=== PATIENT | female | born 1950 | race American Indian/Alaskan Native ===

== ENCOUNTER 2016-03-22 09:45 | Inpatient (IN) | payer MEDICAID, MEDICARE ==
[2016-03-22 10:29] LABS: Urine Drugs of Abuse Note Disclamer
[2016-03-22] MEDS ORDERED: NARCAN 0.4 MG/1 ML ONE ×2 (10:31→10:35)
[2016-03-22] MEDS ORDERED: NARCAN 2 MG/2 ML ONE (10:36)
[2016-03-22] MEDS ORDERED: NARCAN 0.4 MG/1 ML IV ONE (10:40)
[2016-03-22] MEDS ORDERED: NARCAN 2 MG/2 ML IV ONE (10:42)
[2016-03-22 10:47] LABS: Bilirubin,Urine NEG (Negative); Blood,Urine NEG (Negative); Ketones,Urine NEG (Negative); Leukocyte Esterase,Urine NEG (Negative); Nitrite,Urine NEG (Negative); Urobilinogen,Urine < 2.0 mg/dL (<2.0)
[2016-03-22] MEDS ORDERED: ZEMURON IV ONE (10:54)
[2016-03-22 10:55] LABS: Hematocrit 29.8 % (30.3-42.9); Hemoglobin 9.5 gm/dl (10.1-14.3); Mean Corpuscular HGB Conc 32 % (30-34); Mean Corpuscular Hemoglobin 27 pg (28-32); Mean Corpuscular Volume 86 fl (79-97); Platelet Count 196 K/mm3 (140-440); Red Blood Count 3.48 M/mm3 (3.65-5.03); Red Cell Distribution Width 15.8 % (13.2-15.2); White Blood Count 11.4 K/mm3 (4.5-11.0)
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
[2016-03-22 11:24] LABS: Alanine Aminotransferase 46 units/L (7-56); Albumin/Globulin Ratio 0.7 %; Alkaline Phosphatase 127 units/L (35-129); Anion Gap 22 mmol/L; BUN/Creatinine Ratio 25.45; Bilirubin,Total 0.4 mg/dL (0.1-1.2); Blood Urea Nitrogen 28 mg/dL (7-17); Calcium 8.8 mg/dL (8.4-10.2); Carbon Dioxide 18 mmol/L (22-30); Chloride 104.2 mmol/L (98-107); Glucose 186 mg/dL (65-100); Potassium 3.5 mmol/L (3.6-5.0); Sodium 141 mmol/L (137-145); Total Protein 7.5 g/dL (6.3-8.2)
[2016-03-22 11:29] LABS: Anisocytosis 1+; Blastocytes % (Manual) 0 %; Eosinophils % (Manual) 0 % (0.0-4.3); Helmet Cells Rare; Microcytosis Rare; Poikilocytosis 1+; Polychromasia Few
[2016-03-22 11:30] LABS: Diff Status Complete
[2016-03-22 11:33] LABS: INR 1.04 (0.87-1.13)
--- NOTE | 2016-03-22 11:39 | Admit Criteria Form ---
Admission Criteria Documentation: RESPIRATORY FAILURE GRG Clinical Indications for Admission to Inpatient Care (Place 'X' for any and all applicable criteria): Hospital admission is needed for appropriate care of the patient because of acute respiratory failure or insufficiency as indicated by ANY ONE of the following(1)(2)(3)(4)(5)(6)(7)(8): [X ]I. Mechanical ventilation needed (acute invasive or noninvasive) [ ]II. Severe ventilation deficit as indicated by ANY ONE of the following (9) [ ]a) Respiratory acidosis (pH less than 7.32 and partial pressure of carbon dioxide greater than 40 mm Hg (5.3 kPa)) [ ]b) Partial pressure of carbon dioxide greater than 44 mm Hg (5.9 kPa ) (new) [ ]c) Airflow measurements less than 25% of predicted (eg, peak expiratory flow rate less than 100 L/minute) [ ]d) Forced vital capacity less than 15 mL/kg of ideal body weight, or 50% decrease in vital capacity from baseline [ ]III. Noncardiac pulmonary edema not resolving with rapid emergency treatment (8) [ ]IV. Severe respiratory distress as indicated by ANY ONE of the following: [ ]a) Severe tachypnea (respiratory rate greater than 30, greater than 45 for 6-month-old, greater than 60 for ) [ ]b) Severe hypoxemia (partial pressure of oxygen less than 50 mm Hg ( 6.7 kPa) on greater than 50% oxygen or partial pressure of oxygen to FIO2 ratio less than 200) [ ]c) Mental status deterioration from respiratory disease [ ]V. Airway obstruction or inadequate protection [A](10)(11) The original [employer] content created by [employer] has been revised. The portions of the content which have been revised are identified through the use of italic text or in bold, and [employer] has neither reviewed nor approved the modified material. All other unmodified content is copyright [employer]. Please see references footnoted in the original [employer] edition 2016 Admission Criteria Met: Yes
[2016-03-22 11:42] LABS: Creatine Kinase 597 units/L (30-135)
[2016-03-22] MEDS ORDERED: NACL 0.9% 1000 ML 1,000 ML IV ONE (11:46)
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
--- NOTE | 2016-03-22 12:18 | XRay Report ---
AP chest: Comparison is made to a prior examination on March 25, 2015. There is a focal linear area of probable mid left lung atelectasis. The perihilar markings on the left may be slightly prominent. The lungs otherwise appear generally clear bilaterally. The heart is normal in size and is no vascular congestion. An endotracheal tube tip is well-positioned just above the tiny. Impression: Questionable mild left perihilar infiltrate or areas of atelectasis.
[2016-03-22 12:22] LABS: ISTAT Base Excess -6; ISTAT HCO3 18.6; ISTAT PCO2 30.6 (35-45); ISTAT PH 7.391 (7.35-7.45); ISTAT PO2 103 (80-105); ISTAT SO2 98; ISTAT TCO2 19
[2016-03-22] MEDS ORDERED: LEVAQUIN 750MG/150ML 150 ML IV ONE (12:35)
[2016-03-22] MEDS ORDERED: SUBLIMAZE ONE ×2 (13:59→16:05)
[2016-03-22] MEDS ORDERED: ARTIFICIAL TEARS OPHTH OINT OU PRN (13:59)
[2016-03-22] MEDS ORDERED: VERSED/NS 100MG/100ML 100 ML IV SCH (14:00)
[2016-03-22] MEDS ORDERED: DULCOLAX PR PRN (15:43)
[2016-03-22] MEDS ORDERED: MILK OF MAGNESIA PO PRN (15:43)
[2016-03-22] MEDS ORDERED: ZOFRAN IV PRN (15:43)
[2016-03-22] MEDS ORDERED: TYLENOL PO PRN (15:43)
[2016-03-22] MEDS ORDERED: fentaNYL DRIP Premix 100 ML IV ONE (16:04)
[2016-03-22] MEDS ORDERED: DUONEB 0.5 MG-3 MG/3 ML SOLN IH PRN (16:18)
[2016-03-22] MEDS ORDERED: PROVENTIL IH PRN (16:26)
[2016-03-22] MEDS ORDERED: ZOSYN/NS 4.5GM/100ML 100 ML IV ONE ×2 (17:00→17:53)
[2016-03-22] MEDS ORDERED: fentaNYL DRIP Premix 100 ML IV SCH (17:00)
[2016-03-22] MEDS ORDERED: D5NS 1,000 ML IV SCH (17:00)
[2016-03-22] MEDS ORDERED: SUBLIMAZE IV ONE (17:14)
[2016-03-22] MEDS: DUONEB 0.5 MG-3 MG/3 ML SOLN IH SCH ×2 (17:27→19:35)
[2016-03-22 17:44] LABS: ISTAT Base Excess -8; ISTAT HCO3 18.2; ISTAT PCO2 37.5 (35-45); ISTAT PH 7.294 (7.35-7.45); ISTAT PO2 82 (80-105); ISTAT SO2 95; ISTAT TCO2 19
[2016-03-22 17:44] LABS: ISTAT Base Excess -5; ISTAT HCO3 20.8; ISTAT PCO2 38.2 (35-45); ISTAT PH 7.344 (7.35-7.45); ISTAT PO2 42 (80-105); ISTAT SO2 74; ISTAT TCO2 22
--- NOTE | 2016-03-22 23:12 | Event Note ---
Date: 03/22/16 See H/p in reports Acute resp failure Toxic Encephalopathy Cocaine/opiate dependence HTN IDDM
[2016-03-22] MEDS ORDERED: PANCREAZE DR 10,500 UNIT FEEDTUBE PRN (23:21)
[2016-03-22] MEDS ORDERED: SODIUM BICARBONATE FEEDTUBE PRN (23:21)
[2016-03-22] MEDS ORDERED: SIMPLE SYRUP FEEDTUBE PRN ×2 (23:21)
[2016-03-22] MEDS ORDERED: ATIVAN IV PRN ×2 (23:22)
[2016-03-22] MEDS ORDERED: HALDOL IV PRN (23:22)
[2016-03-22] MEDS: LOVENOX SUB-Q SCH (23:49)
[2016-03-23] MEDS: NOVOLOG SUB-Q SCH ×4 (00:27→18:16)
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
[2016-03-23] MEDS: DUONEB 0.5 MG-3 MG/3 ML SOLN IH SCH ×4 (01:13→20:08)
[2016-03-23] MEDS: ZOSYN/NS 4.5GM/100ML 100 ML IV SCH ×3 (02:00→18:14)
[2016-03-23] MEDS ORDERED: ZOSYN/NS 3.375GM/50ML 50 ML IV SCH (02:00)
[2016-03-23 04:54] LABS: Hematocrit 30.8 % (30.3-42.9); Hemoglobin 9.7 gm/dl (10.1-14.3); Mean Corpuscular HGB Conc 32 % (30-34); Mean Corpuscular Hemoglobin 27 pg (28-32); Mean Corpuscular Volume 86 fl (79-97); Platelet Count 207 K/mm3 (140-440); Red Blood Count 3.59 M/mm3 (3.65-5.03); Red Cell Distribution Width 16.1 % (13.2-15.2); White Blood Count 12.9 K/mm3 (4.5-11.0)
[2016-03-23 04:59] LABS: ISTAT Base Excess -7; ISTAT HCO3 18.7; ISTAT PCO2 33.8 (35-45); ISTAT PH 7.351 (7.35-7.45); ISTAT PO2 74 (80-105); ISTAT SO2 94; ISTAT TCO2 20
[2016-03-23 05:12] LABS: Alanine Aminotransferase 37 units/L (7-56); Albumin/Globulin Ratio 0.8 %; Alkaline Phosphatase 110 units/L (35-129); Bilirubin,Total 0.3 mg/dL (0.1-1.2); Blood Urea Nitrogen 18 mg/dL (7-17); Carbon Dioxide 19 mmol/L (22-30); Chloride 104.9 mmol/L (98-107); Glucose 390 mg/dL (65-100); Sodium 140 mmol/L (137-145)
[2016-03-23 05:13] LABS: Anion Gap 20 mmol/L
[2016-03-23] MEDS: NACL 0.45% 1000 ML 1,000 ML IV SCH ×2 (06:25→22:08)
[2016-03-23 07:23] LABS: Basophils % (Manual) 0 % (0.0-1.8); Blastocytes % (Manual) 0 %; Eosinophils % (Manual) 0 % (0.0-4.3)
[2016-03-23 07:24] LABS: Anisocytosis 1+; Diff Status Complete; Dohle Bodies Few; Hypochromasia Few; Polychromasia Few
[2016-03-23] MEDS ORDERED: CATAPRES-TTS PATCH TD SCH (10:00)
[2016-03-23] MEDS: LOVENOX SUB-Q SCH (10:13)
--- NOTE | 2016-03-23 11:58 | XRay Report ---
FINAL REPORT PROCEDURE: XR CHEST 1V AP TECHNIQUE: Chest radiograph anteroposterior view. CPT 62634 HISTORY: vent protocol COMPARISON: None FINDINGS: Feeding tube is present extending past the inferior border of the study tip subdiaphragmatic. Endotracheal tube is not definitely seen. The heart is normal in size. Platelike subsegmental atelectasis and/or scarring of the midlung zones bilaterally is present. There is no focal infiltrate, pneumothorax or pleural fluid. Degenerative changes of the spine are seen. IMPRESSION: Feeding tube in place. Endotracheal tube not definitely seen if present likely overlaid by the feeding tube. If clinically relevant lateral radiograph may be performed with particular attention to no overlying lines. No focal consolidation.
--- NOTE | 2016-03-23 12:02 | XRay Report ---
FINAL REPORT PROCEDURE: XR ABDOMEN 1V AP TECHNIQUE: AP view HISTORY: DHT placement COMPARISON: None FINDINGS: Dobhoff catheter is in place, tip within the distal most stomach or proximal duodenum. There is no evidence of bowel obstruction. Multiple cerclage wires are present bilaterally. There is no organomegaly or pathologic calcification. There is no acute osseous abnormality. IMPRESSION: Dobhoff catheter in place, catheter tip within the distal most stomach or proximal duodenum.
--- NOTE | 2016-03-23 13:12 | Consultation ---
History of Present Illness Consult date: 03/23/16 Requesting physician: JUANCHO ORTEZ Reason for consult: other (hypoxemia secondary to altered mental status) Past History Past Medical History: other (unable to obtain) Past Surgical History: Other (unable to obtain) Social history: other (unable to obtain) Family history: other (unable to obtain) Medications and Allergies Allergies Allergy/AdvReac Type Severity Reaction Status Date / Time No Known Allergies Allergy Verified 02/09/14 18:18 Home Medications Medication Instructions Recorded Confirmed Last Taken Type Insulin Glargine [Lantus VIAL] 10 units SUB-Q QHS #30 day 07/13/15 08/05/15 Rx Insulin Glulisine [Apidra] 1 dose SUB-Q ACHS PRN #30 day 07/13/15 12/29/1508/01 Rx Albuterol Sulfate [Ventolin HFA] 2 puff IH Q4H PRN #1 hfa.aer.ad 08/07/15 Unknown Rx Hydralazine HCl [Apresoline TAB] 50 mg PO Q8HR #90 tab 08/07/15 12/29/15 Unknown Rx amLODIPine [Norvasc] 5 mg PO QDAY #30 tablet 08/07/15 12/29/15 Unknown Rx Active Meds: Active Medications Acetaminophen (Tylenol) 650 mg PO Q4H PRN PRN Reason: Pain MILD(1-3)/Fever >100.5/HELM Albuterol (Proventil) 2.5 mg IH Q4HRT PRN PRN Reason: Shortness Of Breath Albuterol/Ipratropium (Duoneb 0.5 Mg-3 Mg/3 Ml Soln) 1 ampul IH Q6HRT [facility] Last Admin: 03/23/16 08:45 Dose: 1 ampul Lipase/Protease/Amylase (Pancreaze Dr 10,500 Unit) 1 each FEEDTUBE PRN PRN PRN Reason: For Clogged Feeding Tube Bisacodyl (Dulcolax) 10 mg GA QDAY PRN PRN Reason: Constipation unrelieved by MOM Clonidine HCl (Catapres-Tts Patch) 0.3 mg TD Sa [facility] Last Admin: 03/23/16 10:12 Dose: 0.3 mg Enoxaparin Sodium (Lovenox) 40 mg SUB-Q QDAY AKIL Last Admin: 03/23/16 10:13 Dose: 40 mg Haloperidol Lactate (Haldol) 5 mg IV Q1H PRN PRN Reason: Unrespon. to mult. doses BZD's Midazolam HCl (Versed/Ns 100mg/100ml) 100 mls @ 2 mls/hr IV TITR AKIL; 2 MG/HR PRN Reason: Protocol Last Titration: 03/23/16 07:00 Dose: 2 mg/hr Fentanyl Citrate (Fentanyl Drip Premix) 100 mls @ 3.629 mls/hr IV TITR AKIL; 1 MCG/KG/HR PRN Reason: Protocol Last Titration: 03/23/16 07:30 Dose: 0 mcg/kg/hr Piperacillin Sod/Tazobactam Sod (Zosyn/Ns 4.5gm/100ml) 100 mls @ 200 mls/hr IV Q8H AKIL PRN Reason: Protocol Last Admin: 03/23/16 10:12 Dose: 200 mls/hr Sodium Chloride (Nacl 0.45% 1000 Ml) 1,000 mls @ 75 mls/hr IV DIRECT AKIL Last Admin: 03/23/16 06:25 Dose: 75 mls/hr Insulin Aspart (Novolog) 0 units SUB-Q Q6HR AKIL PRN Reason: Protocol Last Admin: 03/23/16 12:56 Dose: 8 units Lorazepam (Ativan) 2 mg IV Q1H PRN PRN Reason: CIWA-Ar 8-15 Lorazepam (Ativan) 4 mg IV Q1H PRN PRN Reason: CIWA-Ar 16-25 Lorazepam (Ativan) 4 mg IV Q15MIN PRN PRN Reason: CIWA-Ar >25 Stop: 03/27/16 23:23 Magnesium Hydroxide (Milk Of Magnesia) 30 ml PO Q4H PRN PRN Reason: Constipation Methylprednisolone Sodium Succinate (Solu-Medrol) 40 mg IV Q8H AKIL Last Admin: 03/23/16 10:12 Dose: 40 mg Multi-Ingred Cream/Lotion/Oil/Oint (Artificial Tears Ophth Oint) 1 applic OU Q4HR PRN PRN Reason: Dry Eye(s) Last Admin: 03/23/16 06:24 Dose: 1 applic Ondansetron HCl (Zofran) 4 mg IV Q8H PRN PRN Reason: N/V unrelieved by Reglan Oxycodone/Acetaminophen (Percocet 5/325) 1 tab PO Q6H PRN PRN Reason: Pain, Moderate (4-6) Simple Syrup (Simple Syrup) 15 ml FEEDTUBE PRN PRN PRN Reason: Hypoglycemia Simple Syrup (Simple Syrup) 30 ml FEEDTUBE PRN PRN PRN Reason: Hypoglycemia Sodium Bicarbonate (Sodium Bicarbonate) 325 mg FEEDTUBE PRN PRN PRN Reason: For Clogged Feeding Tube Review of Systems ROS unobtainable: due to endotracheal tube, due to mental status Physical Examination Vital signs: Vital Signs Pulse Resp Pulse Ox 95 H 13 97 03/22/16 09:59 03/22/16 09:59 03/22/16 09:59 General appearance: no acute distress, alert Eyes: non-icteric ENT: other (orally intubated ) Neck: supple Ascultation: Bilateral: clear Percussion: Bilateral: not dull Cardiovascular: regular rate and rhythm Gastrointestinal: normoactive bowel sounds, soft Integumentary: normal Extremities: no edema Musculoskeletal: no deformities normal mental status, non-focal exam Results - Laboratory Findings CBC and BMP: 03/23/16 04:11 03/23/16 04:11 ABG POC ABG pH 7.351 (7.35-7.45) 03/23/16 04:04 POC ABG pCO2 33.8 (35-45) L 03/23/16 04:04 POC ABG pO2 74 (80-105) L 03/23/16 04:04 POC ABG HCO3 18.7 03/23/16 04:04 POC ABG Total CO2 20 03/23/16 04:04 POC ABG O2 Sat 94 03/23/16 04:04 PT/INR, D-dimer PT 13.5 Sec. (12.2-14.9) 03/22/16 11:12 INR 1.04 (0.87-1.13) 03/22/16 11:12 Abnormal lab findings: Abnormal Labs 03/22/16 03/22/16 03/22/16 17:23 17:35 22:19 WBC RBC Hgb MCH RDW Seg Neuts % (Manual) Lymphocytes % (Manual) Lymphocytes # (Manual) POC ABG pH 7.344 L 7.294 L POC ABG pCO2 POC ABG pO2 42 L Carbon Dioxide BUN Glucose POC Glucose 287 H Calcium AST Ammonia Albumin 03/23/16 03/23/16 03/23/16 00:02 04:04 04:11 WBC 12.9 H RBC 3.59 L Hgb 9.7 L MCH 27 L RDW 16.1 H Seg Neuts % (Manual) 31.0 L Lymphocytes % (Manual) 5.0 L Lymphocytes # (Manual) 0.6 L POC ABG pH POC ABG pCO2 33.8 L POC ABG pO2 74 L Carbon Dioxide BUN Glucose POC Glucose Calcium AST Ammonia 64.0 H Albumin 03/23/16 03/23/16 04:11 05:59 WBC RBC Hgb MCH RDW Seg Neuts % (Manual) Lymphocytes % (Manual) Lymphocytes # (Manual) POC ABG pH POC ABG pCO2 POC ABG pO2 Carbon Dioxide 19 L BUN 18 H Glucose 390 H POC Glucose 412 H Calcium 8.0 L AST 45 H Ammonia Albumin 3.0 L - Diagnostic Findings Chest x-ray: image reviewed (clear, mild cardiomegaly) Assessment and Plan 65 y/o female with encephalopathy, intubated for airway protection with acute respiratory failure and polysubstance abuse 1. Discontinue all sedation 2. Extubate. CCT 31 minutes
--- NOTE | 2016-03-23 13:54 | Progress Note ---
Assessment and Plan Assessment and plan: 1. Metabolic encephalopathy secondary to overdose status post intubation for airway protection and hypoxic respiratory failure -for possible extubation today. Agree with holding sedation. Defer further management to pulmonary 2. Polysubstance abuse with cocaine positivity yet-will preparole counseling aide after extubation 3. DVT prophylaxis- lovenox 31 minutes spent preparing discharge History Interval history: f/u respiratory failure; drug overdose Patient seen at the bedside; vented; son present Hospitalist Physical - Constitutional Vitals: Temp Pulse Resp BP Pulse Ox 99.5 F 84 18 142/63 100 03/23/16 00:00 03/23/16 11:30 03/23/16 11:30 03/23/16 11:30 03/23/16 11:30 General appearance: Present: no acute distress (on vent), other (awake) - EENT Eyes: Present: PERRL, EOM intact. Absent: scleral icterus, conjunctival injection ENT: hearing intact, oropharyngeal erythema, other (ETT in place), no poor dentition - Neck Neck: Present: supple. Absent: enlarged thyroid, masses or JVD - Respiratory Respiratory effort: normal Respiratory: negative: diminished, rales, rhonchi, wheezing - Cardiovascular Rhythm: regular Heart Sounds: Present: S1 & S2. Absent: gallop - Extremities Extremities: no ischemia, pulses intact, pulses symmetrical, No edema Peripheral Pulses: within normal limits - Abdominal General gastrointestinal: soft, non-tender, non-distended - Integumentary Integumentary: Present: clear - Psychiatric Psychiatric: cooperative - Neurologic Neurologic: CNII-XII intact, moves all extremities Results - Labs CBC & Chem 7: 03/23/16 04:11 03/23/16 04:11 Labs: Laboratory Last Values WBC 12.9 K/mm3 (4.5-11.0) H 03/23/16 04:11 RBC 3.59 M/mm3 (3.65-5.03) L 03/23/16 04:11 Hgb 9.7 gm/dl (10.1-14.3) L 03/23/16 04:11 Hct 30.8 % (30.3-42.9) 03/23/16 04:11 MCV 86 fl (79-97) 03/23/16 04:11 MCH 27 pg (28-32) L 03/23/16 04:11 MCHC 32 % (30-34) 03/23/16 04:11 RDW 16.1 % (13.2-15.2) H 03/23/16 04:11 Plt Count 207 K/mm3 (140-440) 03/23/16 04:11 Lymph % (Auto) Tandem Operator 03/22/16 10:36 [place] % (Auto) Tandem Operator 03/22/16 10:36 Eos % (Auto) Tandem Operator 03/22/16 10:36 Baso % (Auto) Tandem Operator 03/22/16 10:36 Lymph # Tandem Operator 03/22/16 10:36 [place] # Tandem Operator 03/22/16 10:36 Eos # Tandem Operator 03/22/16 10:36 Baso # Tandem Operator 03/22/16 10:36 Add Manual Diff Complete 03/23/16 04:11 Total Counted 100 03/23/16 04:11 Seg Neutrophils % Tandem Operator 03/23/16 04:11 Seg Neuts % (Manual) 31.0 % (40.0-70.0) L 03/23/16 04:11 Band Neutrophils % 59.0 % 03/23/16 04:11 Lymphocytes % (Manual) 5.0 % (13.4-35.0) L 03/23/16 04:11 Reactive Lymphs % (Man) 0 % 03/23/16 04:11 Monocytes % (Manual) 5.0 % (0.0-7.3) 03/23/16 04:11 Eosinophils % (Manual) 0 % (0.0-4.3) 03/23/16 04:11 Basophils % (Manual) 0 % (0.0-1.8) 03/23/16 04:11 Metamyelocytes % 0 % 03/23/16 04:11 Myelocytes % 0 % 03/23/16 04:11 Promyelocytes % 0 % 03/23/16 04:11 Blast Cells % 0 % 03/23/16 04:11 Nucleated RBC % Not Reportable 03/23/16 04:11 Seg Neutrophils # Tandem Operator 03/22/16 10:36 Seg Neutrophils # Man 4.0 K/mm3 (1.8-7.7) 03/23/16 04:11 Band Neutrophils # 7.6 K/mm3 03/23/16 04:11 Lymphocytes # (Manual) 0.6 K/mm3 (1.2-5.4) L 03/23/16 04:11 Abs React Lymphs (Man) 0.0 K/mm3 03/23/16 04:11 Monocytes # (Manual) 0.6 K/mm3 (0.0-0.8) 03/23/16 04:11 Eosinophils # (Manual) 0.0 K/mm3 (0.0-0.4) 03/23/16 04:11 Basophils # (Manual) 0.0 K/mm3 (0.0-0.1) 03/23/16 04:11 Metamyelocytes # 0.0 K/mm3 03/23/16 04:11 Myelocytes # 0.0 K/mm3 03/23/16 04:11 Promyelocytes # 0.0 K/mm3 03/23/16 04:11 Blast Cells # 0.0 K/mm3 03/23/16 04:11 WBC Morphology Not Reportable 03/23/16 04:11 Hypersegmented Neuts Not Reportable 03/23/16 04:11 Hyposegmented Neuts Not Reportable 03/23/16 04:11 Hypogranular Neuts Not Reportable 03/23/16 04:11 Smudge Cells Not Reportable 03/23/16 04:11 Toxic Granulation Not Reportable 03/23/16 04:11 Toxic Vacuolation Not Reportable 03/23/16 04:11 Dohle Bodies Few 03/23/16 04:11 Pelger-Huet Anomaly Not Reportable 03/23/16 04:11 [place] Rods Not Reportable 03/23/16 04:11 Platelet Estimate Appears normal 03/23/16 04:11 Clumped Platelets Not Reportable 03/23/16 04:11 Plt Clumps, EDTA Not Reportable 03/23/16 04:11 Large Platelets Not Reportable 03/23/16 04:11 Giant Platelets Not Reportable 03/23/16 04:11 Platelet Satelliting Not Reportable 03/23/16 04:11 Plt Morphology Comment Not Reportable 03/23/16 04:11 RBC Morphology Not Reportable 03/23/16 04:11 Dimorphic RBCs Not Reportable 03/23/16 04:11 Polychromasia Few 03/23/16 04:11 Hypochromasia Few 03/23/16 04:11 Poikilocytosis Not Reportable 03/23/16 04:11 Anisocytosis 1+ 03/23/16 04:11 Microcytosis Not Reportable 03/23/16 04:11 Macrocytosis Not Reportable 03/23/16 04:11 Spherocytes Not Reportable 03/23/16 04:11 Pappenheimer Bodies Not Reportable 03/23/16 04:11 Sickle Cells Not Reportable 03/23/16 04:11 Target Cells Not Reportable 03/23/16 04:11 Tear Drop Cells Not Reportable 03/23/16 04:11 Ovalocytes Not Reportable 03/23/16 04:11 Helmet Cells Not Reportable 03/23/16 04:11 Saucedo-[place] Bodies Not Reportable 03/23/16 04:11 [place] Rings Not Reportable 03/23/16 04:11 [place] Cells Not Reportable 03/23/16 04:11 Bite Cells Not Reportable 03/23/16 04:11 Crenated Cell Not Reportable 03/23/16 04:11 Elliptocytes Not Reportable 03/23/16 04:11 Acanthocytes (Spur) Not Reportable 03/23/16 04:11 Rouleaux Not Reportable 03/23/16 04:11 Hemoglobin C Crystals Not Reportable 03/23/16 04:11 Schistocytes Not Reportable 03/23/16 04:11 Malaria parasites Not Reportable 03/23/16 04:11 Varun Bodies Not Reportable 03/23/16 04:11 Hem Pathologist Commnt No 03/23/16 04:11 PT 13.5 Sec. (12.2-14.9) 03/22/16 11:12 INR 1.04 (0.87-1.13) 03/22/16 11:12 APTT 30.0 Sec. (24.2-36.6) 03/22/16 11:12 POC ABG pH 7.351 (7.35-7.45) 03/23/16 04:04 POC ABG pCO2 33.8 (35-45) L 03/23/16 04:04 POC ABG pO2 74 (80-105) L 03/23/16 04:04 POC ABG HCO3 18.7 03/23/16 04:04 POC ABG Total CO2 20 03/23/16 04:04 POC ABG O2 Sat 94 03/23/16 04:04 POC ABG Base Excess -7 03/23/16 04:04 FiO2 40 % 03/23/16 04:04 Sodium 140 mmol/L (137-145) 03/23/16 04:11 Potassium 4.0 mmol/L (3.6-5.0) 03/23/16 04:11 Chloride 104.9 mmol/L (98-107) 03/23/16 04:11 Carbon Dioxide 19 mmol/L (22-30) L 03/23/16 04:11 Anion Gap 20 mmol/L 03/23/16 04:11 BUN 18 mg/dL (7-17) H 03/23/16 04:11 Creatinine 0.9 mg/dL (0.7-1.2) 03/23/16 04:11 Estimated GFR > 60 ml/min 03/23/16 04:11 BUN/Creatinine Ratio 20.00 % 03/23/16 04:11 Glucose 390 mg/dL (65-100) H 03/23/16 04:11 POC Glucose 412 (70-105) H 03/23/16 05:59 Lactic Acid 0.6 mmol/L (0.7-2.0) L 03/22/16 13:31 Calcium 8.0 mg/dL (8.4-10.2) L 03/23/16 04:11 Magnesium 2.0 mg/dL (1.7-2.3) 03/22/16 10:36 Total Bilirubin 0.3 mg/dL (0.1-1.2) 03/23/16 04:11 AST 45 units/L (5-40) H 03/23/16 04:11 ALT 37 units/L (7-56) 03/23/16 04:11 Alkaline Phosphatase 110 units/L (35-129) 03/23/16 04:11 Ammonia 64.0 umol/L (25-60) H 03/23/16 00:02 Total Creatine Kinase 597 units/L (30-135) H 03/22/16 11:12 Troponin T < 0.010 ng/mL (0.00-0.029) 03/22/16 16:34 Total Protein 7.0 g/dL (6.3-8.2) 03/23/16 04:11 Albumin 3.0 g/dL (3.9-5) L 03/23/16 04:11 Albumin/Globulin Ratio 0.8 % 03/23/16 04:11 TSH 0.612 mlU/mL (0.270-4.200) 03/22/16 10:36 Urine Color Yellow (Yellow) 03/22/16 10:20 Urine Turbidity Clear (Clear) 03/22/16 10:20 Urine pH 5.0 (5.0-7.0) 03/22/16 10:20 Ur Specific [place] 1.015 (1.003-1.030) 03/22/16 10:20 Urine Protein 100 mg/dl mg/dL (Negative) 03/22/16 10:20 Urine Glucose (UA) Neg mg/dL (Negative) 03/22/16 10:20 Urine Ketones Neg mg/dL (Negative) 03/22/16 10:20 Urine Blood Neg (Negative) 03/22/16 10:20 Urine Nitrite Neg (Negative) 03/22/16 10:20 Ur Reducing Substances Not Reportable 03/22/16 10:20 Urine Bilirubin Neg (Negative) 03/22/16 10:20 Urine Ictotest Not Reportable 03/22/16 10:20 Urine Urobilinogen < 2.0 mg/dL (<2.0) 03/22/16 10:20 Ur Leukocyte Esterase Neg (Negative) 03/22/16 10:20 Urine WBC (Auto) 1.0 /HPF (0.0-6.0) 03/22/16 10:20 Urine RBC (Auto) 4.0 /HPF (0.0-6.0) 03/22/16 10:20 U Epithel Cells (Auto) < 1.0 /HPF (0-13.0) 03/22/16 10:20 Hyaline Casts 5 /LPF 03/22/16 10:20 Urine HCG, Qual Negative (Negative) 03/22/16 10:20 Salicylates < 0.3 mg/dL (2.8-20.0) L 03/22/16 10:36 Urine Opiates Screen Presumptive negative 03/22/16 10:20 Urine Methadone Screen Presumptive negative 03/22/16 10:20 Acetaminophen < 15.0 ug/mL (10.0-30.0) 03/22/16 10:36 Ur Barbiturates Screen Presumptive negative 03/22/16 10:20 Ur Phencyclidine Scrn Presumptive negative 03/22/16 10:20 Ur Amphetamines Screen Presumptive negative 03/22/16 10:20 U Benzodiazepines Scrn Presumptive negative 03/22/16 10:20 Urine Cocaine Screen Presumptive positive 03/22/16 10:20 U Marijuana (THC) Screen Presumptive negative 03/22/16 10:20 Drugs of Abuse Note Disclamer 03/22/16 10:20 Plasma/Serum Alcohol < 0.01 gm% (0-0.07) 03/22/16 11:12 Microbiology 03/22/16 10:50 Peripheral/Venous Blood Culture - Preliminary NO GROWTH AFTER 24 HOURS 03/22/16 10:36 Peripheral/Venous Blood Culture - Preliminary NO GROWTH AFTER 24 HOURS 03/22/16 Unknown Tracheal Aspirate Sputum Culture - Final - Imaging and Cardiology Chest x-ray: report reviewed (CXR- feeding tube in place; ETT not definitely seen; no consolidation)
[2016-03-23] MEDS: ATIVAN IV PRN (21:03)
[2016-03-23] MEDS: PERCOCET 5/325 PO PRN (21:06)
[2016-03-24] MEDS: ATIVAN IV PRN ×3 (02:05→12:31)
[2016-03-24] MEDS: ZOSYN/NS 4.5GM/100ML 100 ML IV SCH ×2 (02:05→12:31)
[2016-03-24] MEDS: NOVOLOG SUB-Q SCH ×5 (02:16→21:19)
[2016-03-24] MEDS: DUONEB 0.5 MG-3 MG/3 ML SOLN IH SCH ×4 (03:55→20:01)
[2016-03-24] MEDS: PERCOCET 5/325 PO PRN (06:10)
--- NOTE | 2016-03-24 09:02 | Progress Note ---
Assessment and Plan 65 y/o female with encephalopathy, intubated for airway protection with acute respiratory failure and polysubstance abuse 1. Patient would not admit to cocaine use but states that she used Marijuana 3 days ago. UDS was only positive for cocaine. Recommend psych consult, especially with hallucinations. 2. Stable for transfer to floor. Will sign off once out of unit. Subjective Date of service: 03/24/16 Interval history: No acute events. Successful extubation on yesterday. Mental status is stable. Satting 100% on room air. Unfortunately not much recollection of what happened. Also has some hallucinations currently but not combative. Objective Vital Signs - 12hr 03/23/16 03/23/16 03/23/16 21:01 21:06 21:31 Temperature Pulse Rate 104 H 103 H Pulse Rate [ Anterior Bilateral Throughout] Respiratory 24 24 24 Rate Respiratory Rate [Anterior Bilateral Throughout] Blood Pressure 120/66 100/61 O2 Sat by Pulse 99 97 Oximetry 03/23/16 03/23/16 03/23/16 22:00 22:01 22:31 Temperature Pulse Rate 94 H 105 H 100 H Pulse Rate [ Anterior Bilateral Throughout] Respiratory 22 20 Rate Respiratory Rate [Anterior Bilateral Throughout] Blood Pressure 120/66 129/69 O2 Sat by Pulse 97 97 Oximetry 03/23/16 03/23/16 03/24/16 23:01 23:31 00:01 Temperature Pulse Rate 98 H 97 H 98 H Pulse Rate [ Anterior Bilateral Throughout] Respiratory 22 22 23 Rate Respiratory Rate [Anterior Bilateral Throughout] Blood Pressure 129/69 123/69 152/76 O2 Sat by Pulse 98 99 97 Oximetry 03/24/16 03/24/16 03/24/16 00:31 01:01 01:31 Temperature Pulse Rate 94 H 133 H 99 H Pulse Rate [ Anterior Bilateral Throughout] Respiratory 22 22 22 Rate Respiratory Rate [Anterior Bilateral Throughout] Blood Pressure 147/73 147/73 170/73 O2 Sat by Pulse 97 97 96 Oximetry 03/24/16 03/24/16 03/24/16 02:01 02:31 03:01 Temperature Pulse Rate 97 H 94 H 91 H Pulse Rate [ Anterior Bilateral Throughout] Respiratory 21 24 23 Rate Respiratory Rate [Anterior Bilateral Throughout] Blood Pressure 171/83 171/83 163/69 O2 Sat by Pulse 97 95 96 Oximetry 03/24/16 03/24/16 03/24/16 03:31 03:55 04:01 Temperature Pulse Rate 93 H 88 Pulse Rate [ 94 H Anterior Bilateral Throughout] Respiratory 19 20 Rate Respiratory 20 Rate [Anterior Bilateral Throughout] Blood Pressure 155/92 150/75 O2 Sat by Pulse 96 99 Oximetry 03/24/16 03/24/16 03/24/16 04:11 04:31 05:01 Temperature Pulse Rate 96 H 96 H Pulse Rate [ 98 H Anterior Bilateral Throughout] Respiratory 21 20 Rate Respiratory 20 Rate [Anterior Bilateral Throughout] Blood Pressure 167/71 167/71 O2 Sat by Pulse 98 98 Oximetry 03/24/16 03/24/16 03/24/16 05:31 06:01 06:10 Temperature Pulse Rate 98 H 93 H Pulse Rate [ Anterior Bilateral Throughout] Respiratory 16 16 16 Rate Respiratory Rate [Anterior Bilateral Throughout] Blood Pressure 154/97 162/64 O2 Sat by Pulse 97 98 Oximetry 03/24/16 03/24/16 03/24/16 06:31 07:01 07:31 Temperature Pulse Rate 108 H 95 H 93 H Pulse Rate [ Anterior Bilateral Throughout] Respiratory 18 20 23 Rate Respiratory Rate [Anterior Bilateral Throughout] Blood Pressure 148/71 139/68 142/69 O2 Sat by Pulse 98 100 100 Oximetry 03/24/16 03/24/16 08:00 08:01 Temperature 98.5 F Pulse Rate 92 H Pulse Rate [ Anterior Bilateral Throughout] Respiratory 19 Rate Respiratory Rate [Anterior Bilateral Throughout] Blood Pressure 155/69 O2 Sat by Pulse 99 Oximetry Constitutional: no acute distress, alert Eyes: non-icteric Neck: supple Ascultation: Bilateral: clear Percussion: Bilateral: not dull Cardiovascular: regular rate and rhythm Gastrointestinal: normoactive bowel sounds, soft Integumentary: normal Extremities: no edema Neurologic: normal mental status, non-focal exam CBC and BMP: 03/23/16 04:11 03/23/16 04:11 ABG, PT/INR, D-dimer: ABG POC ABG pH 7.351 (7.35-7.45) 03/23/16 04:04 POC ABG pCO2 33.8 (35-45) L 03/23/16 04:04 POC ABG pO2 74 (80-105) L 03/23/16 04:04 POC ABG HCO3 18.7 03/23/16 04:04 POC ABG Total CO2 20 03/23/16 04:04 POC ABG O2 Sat 94 03/23/16 04:04 PT/INR, D-dimer PT 13.5 Sec. (12.2-14.9) 03/22/16 11:12 INR 1.04 (0.87-1.13) 03/22/16 11:12 Abnormal lab findings: Abnormal Labs 03/22/16 03/22/16 03/22/16 17:23 17:35 22:19 WBC RBC Hgb MCH RDW Seg Neuts % (Manual) Lymphocytes % (Manual) Lymphocytes # (Manual) POC ABG pH 7.344 L 7.294 L POC ABG pCO2 POC ABG pO2 42 L Carbon Dioxide BUN Glucose POC Glucose 287 H Calcium AST Ammonia Albumin 03/23/16 03/23/16 03/23/16 00:02 04:04 04:11 WBC 12.9 H RBC 3.59 L Hgb 9.7 L MCH 27 L RDW 16.1 H Seg Neuts % (Manual) 31.0 L Lymphocytes % (Manual) 5.0 L Lymphocytes # (Manual) 0.6 L POC ABG pH POC ABG pCO2 33.8 L POC ABG pO2 74 L Carbon Dioxide BUN Glucose POC Glucose Calcium AST Ammonia 64.0 H Albumin 03/23/16 03/23/16 03/23/16 04:11 05:59 12:06 WBC RBC Hgb MCH RDW Seg Neuts % (Manual) Lymphocytes % (Manual) Lymphocytes # (Manual) POC ABG pH POC ABG pCO2 POC ABG pO2 Carbon Dioxide 19 L BUN 18 H Glucose 390 H POC Glucose 412 H 379 H Calcium 8.0 L AST 45 H Ammonia Albumin 3.0 L 03/23/16 03/24/16 03/24/16 17:39 02:12 06:09 WBC RBC Hgb MCH RDW Seg Neuts % (Manual) Lymphocytes % (Manual) Lymphocytes # (Manual) POC ABG pH POC ABG pCO2 POC ABG pO2 Carbon Dioxide BUN Glucose POC Glucose 317 H 450 H 383 H Calcium AST Ammonia Albumin
[2016-03-24] MEDS: LOVENOX SUB-Q SCH (09:27)
[2016-03-24] MEDS ORDERED: FLUARIX QUAD 2016-2017(36 MOS+) IM ONE (12:00)
[2016-03-24] MEDS: NACL 0.45% 1000 ML 1,000 ML IV SCH (12:31)
[2016-03-24] MEDS ORDERED: LEVEMIR SUB-Q ONE ×2 (13:00→16:00)
--- NOTE | 2016-03-24 13:09 | Progress Note ---
Assessment and Plan Assessment and plan: 1. Metabolic encephalopathy secondary to overdose status and respiratory failure post extubation- now resolved; transfer to medical floor; 2. Polysubstance abuse with cocaine positivity yet-counselled; denied cocaine use; psyche consult 3. DM 2 with hyperglycemia- insulin dependence; restart lantus 10units; monitor accuchek; premeal insulin 4. DVT prophylaxis- lovenox History Interval history: f/u respiratory failure; drug overdose Patient seen at the bedside; complaints; extubated yesterday; denied recent cocaine use Hospitalist Physical - Constitutional Vitals: Temp Pulse Resp BP Pulse Ox 98.4 F 104 H 20 157/79 95 03/24/16 12:00 03/24/16 12:31 03/24/16 12:31 03/24/16 12:31 03/24/16 12:31 General appearance: Present: no acute distress (on vent), well-nourished, other (awake) - EENT Eyes: Present: PERRL, EOM intact. Absent: scleral icterus, conjunctival injection ENT: hearing intact, clear oral mucosa, no oropharyngeal erythema, no poor dentition - Neck Neck: Present: supple, normal ROM. Absent: enlarged thyroid, masses or JVD - Respiratory Respiratory effort: normal Respiratory: negative: diminished, rales, rhonchi, wheezing - Cardiovascular Rhythm: regular Heart Sounds: Present: S1 & S2. Absent: gallop - Extremities Extremities: no ischemia, pulses intact, pulses symmetrical, No edema Peripheral Pulses: within normal limits - Abdominal General gastrointestinal: soft, non-tender, non-distended, normal bowel sounds - Integumentary Integumentary: Present: clear - Psychiatric Psychiatric: appropriate mood/affect, intact judgment & insight, cooperative - Neurologic Neurologic: CNII-XII intact, moves all extremities Results - Labs CBC & Chem 7: 03/23/16 04:11 03/23/16 04:11 Labs: Laboratory Last Values WBC 12.9 K/mm3 (4.5-11.0) H 03/23/16 04:11 RBC 3.59 M/mm3 (3.65-5.03) L 03/23/16 04:11 Hgb 9.7 gm/dl (10.1-14.3) L 03/23/16 04:11 Hct 30.8 % (30.3-42.9) 03/23/16 04:11 MCV 86 fl (79-97) 03/23/16 04:11 MCH 27 pg (28-32) L 03/23/16 04:11 MCHC 32 % (30-34) 03/23/16 04:11 RDW 16.1 % (13.2-15.2) H 03/23/16 04:11 Plt Count 207 K/mm3 (140-440) 03/23/16 04:11 Lymph % (Auto) Patrol Police Sergeant 03/22/16 10:36 [place] % (Auto) Patrol Police Sergeant 03/22/16 10:36 Eos % (Auto) Patrol Police Sergeant 03/22/16 10:36 Baso % (Auto) Patrol Police Sergeant 03/22/16 10:36 Lymph # Patrol Police Sergeant 03/22/16 10:36 [place] # Patrol Police Sergeant 03/22/16 10:36 Eos # Patrol Police Sergeant 03/22/16 10:36 Baso # Patrol Police Sergeant 03/22/16 10:36 Add Manual Diff Complete 03/23/16 04:11 Total Counted 100 03/23/16 04:11 Seg Neutrophils % Patrol Police Sergeant 03/23/16 04:11 Seg Neuts % (Manual) 31.0 % (40.0-70.0) L 03/23/16 04:11 Band Neutrophils % 59.0 % 03/23/16 04:11 Lymphocytes % (Manual) 5.0 % (13.4-35.0) L 03/23/16 04:11 Reactive Lymphs % (Man) 0 % 03/23/16 04:11 Monocytes % (Manual) 5.0 % (0.0-7.3) 03/23/16 04:11 Eosinophils % (Manual) 0 % (0.0-4.3) 03/23/16 04:11 Basophils % (Manual) 0 % (0.0-1.8) 03/23/16 04:11 Metamyelocytes % 0 % 03/23/16 04:11 Myelocytes % 0 % 03/23/16 04:11 Promyelocytes % 0 % 03/23/16 04:11 Blast Cells % 0 % 03/23/16 04:11 Nucleated RBC % Not Reportable 03/23/16 04:11 Seg Neutrophils # [employer] Sergeant 03/22/16 10:36 Seg Neutrophils # Man 4.0 K/mm3 (1.8-7.7) 03/23/16 04:11 Band Neutrophils # 7.6 K/mm3 03/23/16 04:11 Lymphocytes # (Manual) 0.6 K/mm3 (1.2-5.4) L 03/23/16 04:11 Abs React Lymphs (Man) 0.0 K/mm3 03/23/16 04:11 Monocytes # (Manual) 0.6 K/mm3 (0.0-0.8) 03/23/16 04:11 Eosinophils # (Manual) 0.0 K/mm3 (0.0-0.4) 03/23/16 04:11 Basophils # (Manual) 0.0 K/mm3 (0.0-0.1) 03/23/16 04:11 Metamyelocytes # 0.0 K/mm3 03/23/16 04:11 Myelocytes # 0.0 K/mm3 03/23/16 04:11 Promyelocytes # 0.0 K/mm3 03/23/16 04:11 Blast Cells # 0.0 K/mm3 03/23/16 04:11 WBC Morphology Not Reportable 03/23/16 04:11 Hypersegmented Neuts Not Reportable 03/23/16 04:11 Hyposegmented Neuts Not Reportable 03/23/16 04:11 Hypogranular Neuts Not Reportable 03/23/16 04:11 Smudge Cells Not Reportable 03/23/16 04:11 Toxic Granulation Not Reportable 03/23/16 04:11 Toxic Vacuolation Not Reportable 03/23/16 04:11 Dohle Bodies Few 03/23/16 04:11 Pelger-Huet Anomaly Not Reportable 03/23/16 04:11 [place] Rods Not Reportable 03/23/16 04:11 Platelet Estimate Appears normal 03/23/16 04:11 Clumped Platelets Not Reportable 03/23/16 04:11 Plt Clumps, EDTA Not Reportable 03/23/16 04:11 Large Platelets Not Reportable 03/23/16 04:11 Giant Platelets Not Reportable 03/23/16 04:11 Platelet Satelliting Not Reportable 03/23/16 04:11 Plt Morphology Comment Not Reportable 03/23/16 04:11 RBC Morphology Not Reportable 03/23/16 04:11 Dimorphic RBCs Not Reportable 03/23/16 04:11 Polychromasia Few 03/23/16 04:11 Hypochromasia Few 03/23/16 04:11 Poikilocytosis Not Reportable 03/23/16 04:11 Anisocytosis 1+ 03/23/16 04:11 Microcytosis Not Reportable 03/23/16 04:11 Macrocytosis Not Reportable 03/23/16 04:11 Spherocytes Not Reportable 03/23/16 04:11 Pappenheimer Bodies Not Reportable 03/23/16 04:11 Sickle Cells Not Reportable 03/23/16 04:11 Target Cells Not Reportable 03/23/16 04:11 Tear Drop Cells Not Reportable 03/23/16 04:11 Ovalocytes Not Reportable 03/23/16 04:11 Helmet Cells Not Reportable 03/23/16 04:11 Saucedo-[place] Bodies Not Reportable 03/23/16 04:11 [place] Rings Not Reportable 03/23/16 04:11 [place] Cells Not Reportable 03/23/16 04:11 Bite Cells Not Reportable 03/23/16 04:11 Crenated Cell Not Reportable 03/23/16 04:11 Elliptocytes Not Reportable 03/23/16 04:11 Acanthocytes (Spur) Not Reportable 03/23/16 04:11 Rouleaux Not Reportable 03/23/16 04:11 Hemoglobin C Crystals Not Reportable 03/23/16 04:11 Schistocytes Not Reportable 03/23/16 04:11 Malaria parasites Not Reportable 03/23/16 04:11 Varun Bodies Not Reportable 03/23/16 04:11 Hem Pathologist Commnt No 03/23/16 04:11 PT 13.5 Sec. (12.2-14.9) 03/22/16 11:12 INR 1.04 (0.87-1.13) 03/22/16 11:12 APTT 30.0 Sec. (24.2-36.6) 03/22/16 11:12 POC ABG pH 7.351 (7.35-7.45) 03/23/16 04:04 POC ABG pCO2 33.8 (35-45) L 03/23/16 04:04 POC ABG pO2 74 (80-105) L 03/23/16 04:04 POC ABG HCO3 18.7 03/23/16 04:04 POC ABG Total CO2 20 03/23/16 04:04 POC ABG O2 Sat 94 03/23/16 04:04 POC ABG Base Excess -7 03/23/16 04:04 FiO2 40 % 03/23/16 04:04 Sodium 140 mmol/L (137-145) 03/23/16 04:11 Potassium 4.0 mmol/L (3.6-5.0) 03/23/16 04:11 Chloride 104.9 mmol/L (98-107) 03/23/16 04:11 Carbon Dioxide 19 mmol/L (22-30) L 03/23/16 04:11 Anion Gap 20 mmol/L 03/23/16 04:11 BUN 18 mg/dL (7-17) H 03/23/16 04:11 Creatinine 0.9 mg/dL (0.7-1.2) 03/23/16 04:11 Estimated GFR > 60 ml/min 03/23/16 04:11 BUN/Creatinine Ratio 20.00 % 03/23/16 04:11 Glucose 390 mg/dL (65-100) H 03/23/16 04:11 POC Glucose 439 (70-105) H 03/24/16 12:16 Lactic Acid 0.6 mmol/L (0.7-2.0) L 03/22/16 13:31 Calcium 8.0 mg/dL (8.4-10.2) L 03/23/16 04:11 Magnesium 2.0 mg/dL (1.7-2.3) 03/22/16 10:36 Total Bilirubin 0.3 mg/dL (0.1-1.2) 03/23/16 04:11 AST 45 units/L (5-40) H 03/23/16 04:11 ALT 37 units/L (7-56) 03/23/16 04:11 Alkaline Phosphatase 110 units/L (35-129) 03/23/16 04:11 Ammonia 64.0 umol/L (25-60) H 03/23/16 00:02 Total Creatine Kinase 597 units/L (30-135) H 03/22/16 11:12 Troponin T < 0.010 ng/mL (0.00-0.029) 03/22/16 16:34 Total Protein 7.0 g/dL (6.3-8.2) 03/23/16 04:11 Albumin 3.0 g/dL (3.9-5) L 03/23/16 04:11 Albumin/Globulin Ratio 0.8 % 03/23/16 04:11 TSH 0.612 mlU/mL (0.270-4.200) 03/22/16 10:36 Urine Color Yellow (Yellow) 03/22/16 10:20 Urine Turbidity Clear (Clear) 03/22/16 10:20 Urine pH 5.0 (5.0-7.0) 03/22/16 10:20 Ur Specific [place] 1.015 (1.003-1.030) 03/22/16 10:20 Urine Protein 100 mg/dl mg/dL (Negative) 03/22/16 10:20 Urine Glucose (UA) Neg mg/dL (Negative) 03/22/16 10:20 Urine Ketones Neg mg/dL (Negative) 03/22/16 10:20 Urine Blood Neg (Negative) 03/22/16 10:20 Urine Nitrite Neg (Negative) 03/22/16 10:20 Ur Reducing Substances Not Reportable 03/22/16 10:20 Urine Bilirubin Neg (Negative) 03/22/16 10:20 Urine Ictotest Not Reportable 03/22/16 10:20 Urine Urobilinogen < 2.0 mg/dL (<2.0) 03/22/16 10:20 Ur Leukocyte Esterase Neg (Negative) 03/22/16 10:20 Urine WBC (Auto) 1.0 /HPF (0.0-6.0) 03/22/16 10:20 Urine RBC (Auto) 4.0 /HPF (0.0-6.0) 03/22/16 10:20 U Epithel Cells (Auto) < 1.0 /HPF (0-13.0) 03/22/16 10:20 Hyaline Casts 5 /LPF 03/22/16 10:20 Urine HCG, Qual Negative (Negative) 03/22/16 10:20 Salicylates < 0.3 mg/dL (2.8-20.0) L 03/22/16 10:36 Urine Opiates Screen Presumptive negative 03/22/16 10:20 Urine Methadone Screen Presumptive negative 03/22/16 10:20 Acetaminophen < 15.0 ug/mL (10.0-30.0) 03/22/16 10:36 Ur Barbiturates Screen Presumptive negative 03/22/16 10:20 Ur Phencyclidine Scrn Presumptive negative 03/22/16 10:20 Ur Amphetamines Screen Presumptive negative 03/22/16 10:20 U Benzodiazepines Scrn Presumptive negative 03/22/16 10:20 Urine Cocaine Screen Presumptive positive 03/22/16 10:20 U Marijuana (THC) Screen Presumptive negative 03/22/16 10:20 Drugs of Abuse Note Disclamer 03/22/16 10:20 Plasma/Serum Alcohol < 0.01 gm% (0-0.07) 03/22/16 11:12
[2016-03-24] MEDS ORDERED: NOVOLOG SUB-Q SCH (16:30)
[2016-03-24] MEDS ORDERED: LEVEMIR SUB-Q SCH (22:00)
[2016-03-25] MEDS: ZOSYN/NS 4.5GM/100ML 100 ML IV SCH ×4 (01:10→18:54)
[2016-03-25] MEDS: DUONEB 0.5 MG-3 MG/3 ML SOLN IH SCH ×4 (02:48→20:11)
[2016-03-25] MEDS: NOVOLOG SUB-Q SCH ×6 (07:00→17:20)
[2016-03-25] MEDS: NACL 0.45% 1000 ML 1,000 ML IV SCH (08:25)
[2016-03-25 08:48] LABS: Anion Gap 18 mmol/L; BUN/Creatinine Ratio 28.75; Blood Urea Nitrogen 23 mg/dL (7-17); Calcium 8.4 mg/dL (8.4-10.2); Carbon Dioxide 22 mmol/L (22-30); Chloride 106.1 mmol/L (98-107); Glucose 407 mg/dL (65-100); Sodium 142 mmol/L (137-145)
[2016-03-25] MEDS ORDERED: LEVEMIR SUB-Q SCH (10:00)
--- NOTE | 2016-03-25 11:04 | Progress Note ---
Assessment and Plan Assessment and plan: 1. Polysubstance abuse with cocaine positivity yet-counselled; denied cocaine use; await psyche consult 2. DM 2 with hyperglycemia- insulin dependence; increase lantus and pre-meal insulin; monitor accuchek; premeal insulin 3. DVT prophylaxis- lovenox Discharge pending recommendations from psyche and better glucose control History Interval history: f/u respiratory failure; drug overdose Patient seen at the bedside; no complaints today Hospitalist Physical - Constitutional Vitals: Temp Pulse Resp BP Pulse Ox 98.8 F 102 H 18 176/76 97 03/25/16 08:30 03/25/16 08:30 03/25/16 08:30 03/25/16 08:30 03/25/16 08:30 General appearance: Present: no acute distress (on vent), well-nourished, other (awake) - EENT Eyes: Present: PERRL, EOM intact. Absent: scleral icterus, conjunctival injection ENT: hearing intact, clear oral mucosa, no oropharyngeal erythema, no poor dentition - Neck Neck: Present: supple, normal ROM. Absent: enlarged thyroid, masses or JVD - Respiratory Respiratory effort: normal Respiratory: negative: diminished, rales, rhonchi, wheezing - Cardiovascular Rhythm: regular Heart Sounds: Present: S1 & S2. Absent: gallop - Extremities Extremities: no ischemia, pulses intact, pulses symmetrical, No edema Peripheral Pulses: within normal limits - Abdominal General gastrointestinal: soft, non-tender, non-distended, normal bowel sounds - Integumentary Integumentary: Present: clear - Psychiatric Psychiatric: appropriate mood/affect, intact judgment & insight, cooperative - Neurologic Neurologic: CNII-XII intact, moves all extremities Results - Labs CBC & Chem 7: 03/23/16 04:11 03/25/16 08:14 Labs: Laboratory Last Values WBC 12.9 K/mm3 (4.5-11.0) H 03/23/16 04:11 RBC 3.59 M/mm3 (3.65-5.03) L 03/23/16 04:11 Hgb 9.7 gm/dl (10.1-14.3) L 03/23/16 04:11 Hct 30.8 % (30.3-42.9) 03/23/16 04:11 MCV 86 fl (79-97) 03/23/16 04:11 MCH 27 pg (28-32) L 03/23/16 04:11 MCHC 32 % (30-34) 03/23/16 04:11 RDW 16.1 % (13.2-15.2) H 03/23/16 04:11 Plt Count 207 K/mm3 (140-440) 03/23/16 04:11 Lymph % (Auto) Single [employer] Stabilizer Operator 03/22/16 10:36 [place] % (Auto) Single Pass Soil Stabilizer Operator 03/22/16 10:36 Eos % (Auto) Single [employer] Stabil[employer] Operator 03/22/16 10:36 Baso % (Auto) Single [employer] Stabil[employer] Operator 03/22/16 10:36 Lymph # Single [employer] Stabilizer Operator 03/22/16 10:36 [place] # Single Pass Soil Stabilizer Operator 03/22/16 10:36 Eos # Single Pass Soil Stabilizer Operator 03/22/16 10:36 Baso # Single Pass [employer] Stabilizer Operator 03/22/16 10:36 Add Manual Diff Complete 03/23/16 04:11 Total Counted 100 03/23/16 04:11 Seg Neutrophils % Single [employer] St[employer] Operator 03/23/16 04:11 Seg Neuts % (Manual) 31.0 % (40.0-70.0) L 03/23/16 04:11 Band Neutrophils % 59.0 % 03/23/16 04:11 Lymphocytes % (Manual) 5.0 % (13.4-35.0) L 03/23/16 04:11 Reactive Lymphs % (Man) 0 % 03/23/16 04:11 Monocytes % (Manual) 5.0 % (0.0-7.3) 03/23/16 04:11 Eosinophils % (Manual) 0 % (0.0-4.3) 03/23/16 04:11 Basophils % (Manual) 0 % (0.0-1.8) 03/23/16 04:11 Metamyelocytes % 0 % 03/23/16 04:11 Myelocytes % 0 % 03/23/16 04:11 Promyelocytes % 0 % 03/23/16 04:11 Blast Cells % 0 % 03/23/16 04:11 Nucleated RBC % Not Reportable 03/23/16 04:11 Seg Neutrophils # Single Pass So[employer] Stabil[employer] Operator 03/22/16 10:36 Seg Neutrophils # Man 4.0 K/mm3 (1.8-7.7) 03/23/16 04:11 Band Neutrophils # 7.6 K/mm3 03/23/16 04:11 Lymphocytes # (Manual) 0.6 K/mm3 (1.2-5.4) L 03/23/16 04:11 Abs React Lymphs (Man) 0.0 K/mm3 03/23/16 04:11 Monocytes # (Manual) 0.6 K/mm3 (0.0-0.8) 03/23/16 04:11 Eosinophils # (Manual) 0.0 K/mm3 (0.0-0.4) 03/23/16 04:11 Basophils # (Manual) 0.0 K/mm3 (0.0-0.1) 03/23/16 04:11 Metamyelocytes # 0.0 K/mm3 03/23/16 04:11 Myelocytes # 0.0 K/mm3 03/23/16 04:11 Promyelocytes # 0.0 K/mm3 03/23/16 04:11 Blast Cells # 0.0 K/mm3 03/23/16 04:11 WBC Morphology Not Reportable 03/23/16 04:11 Hypersegmented Neuts Not Reportable 03/23/16 04:11 Hyposegmented Neuts Not Reportable 03/23/16 04:11 Hypogranular Neuts Not Reportable 03/23/16 04:11 Smudge Cells Not Reportable 03/23/16 04:11 Toxic Granulation Not Reportable 03/23/16 04:11 Toxic Vacuolation Not Reportable 03/23/16 04:11 Dohle Bodies Few 03/23/16 04:11 Pelger-Huet Anomaly Not Reportable 03/23/16 04:11 [place] Rods Not Reportable 03/23/16 04:11 Platelet Estimate Appears normal 03/23/16 04:11 Clumped Platelets Not Reportable 03/23/16 04:11 Plt Clumps, EDTA Not Reportable 03/23/16 04:11 Large Platelets Not Reportable 03/23/16 04:11 Giant Platelets Not Reportable 03/23/16 04:11 Platelet Satelliting Not Reportable 03/23/16 04:11 Plt Morphology Comment Not Reportable 03/23/16 04:11 RBC Morphology Not Reportable 03/23/16 04:11 Dimorphic RBCs Not Reportable 03/23/16 04:11 Polychromasia Few 03/23/16 04:11 Hypochromasia Few 03/23/16 04:11 Poikilocytosis Not Reportable 03/23/16 04:11 Anisocytosis 1+ 03/23/16 04:11 Microcytosis Not Reportable 03/23/16 04:11 Macrocytosis Not Reportable 03/23/16 04:11 Spherocytes Not Reportable 03/23/16 04:11 Pappenheimer Bodies Not Reportable 03/23/16 04:11 Sickle Cells Not Reportable 03/23/16 04:11 Target Cells Not Reportable 03/23/16 04:11 Tear Drop Cells Not Reportable 03/23/16 04:11 Ovalocytes Not Reportable 03/23/16 04:11 Helmet Cells Not Reportable 03/23/16 04:11 [place] Bodies Not Reportable 03/23/16 04:11 [place] Rings Not Reportable 03/23/16 04:11 [place] Cells Not Reportable 03/23/16 04:11 Bite Cells Not Reportable 03/23/16 04:11 Crenated Cell Not Reportable 03/23/16 04:11 Elliptocytes Not Reportable 03/23/16 04:11 Acanthocytes (Spur) Not Reportable 03/23/16 04:11 Rouleaux Not Reportable 03/23/16 04:11 Hemoglobin C Crystals Not Reportable 03/23/16 04:11 Schistocytes Not Reportable 03/23/16 04:11 Malaria parasites Not Reportable 03/23/16 04:11 Varun Bodies Not Reportable 03/23/16 04:11 Hem Pathologist Commnt No 03/23/16 04:11 PT 13.5 Sec. (12.2-14.9) 03/22/16 11:12 INR 1.04 (0.87-1.13) 03/22/16 11:12 APTT 30.0 Sec. (24.2-36.6) 03/22/16 11:12 POC ABG pH 7.351 (7.35-7.45) 03/23/16 04:04 POC ABG pCO2 33.8 (35-45) L 03/23/16 04:04 POC ABG pO2 74 (80-105) L 03/23/16 04:04 POC ABG HCO3 18.7 03/23/16 04:04 POC ABG Total CO2 20 03/23/16 04:04 POC ABG O2 Sat 94 03/23/16 04:04 POC ABG Base Excess -7 03/23/16 04:04 FiO2 40 % 03/23/16 04:04 Sodium 142 mmol/L (137-145) 03/25/16 08:14 Potassium 4.0 mmol/L (3.6-5.0) 03/25/16 08:14 Chloride 106.1 mmol/L (98-107) 03/25/16 08:14 Carbon Dioxide 22 mmol/L (22-30) 03/25/16 08:14 Anion Gap 18 mmol/L 03/25/16 08:14 BUN 23 mg/dL (7-17) H 03/25/16 08:14 Creatinine 0.8 mg/dL (0.7-1.2) 03/25/16 08:14 Estimated GFR > 60 ml/min 03/25/16 08:14 BUN/Creatinine Ratio 28.75 % 03/25/16 08:14 Glucose 407 mg/dL (65-100) H 03/25/16 08:14 POC Glucose 395 (70-105) H 03/25/16 06:32 Lactic Acid 0.6 mmol/L (0.7-2.0) L 03/22/16 13:31 Calcium 8.4 mg/dL (8.4-10.2) 03/25/16 08:14 Magnesium 2.0 mg/dL (1.7-2.3) 03/22/16 10:36 Total Bilirubin 0.3 mg/dL (0.1-1.2) 03/23/16 04:11 AST 45 units/L (5-40) H 03/23/16 04:11 ALT 37 units/L (7-56) 03/23/16 04:11 Alkaline Phosphatase 110 units/L (35-129) 03/23/16 04:11 Ammonia 64.0 umol/L (25-60) H 03/23/16 00:02 Total Creatine Kinase 597 units/L (30-135) H 03/22/16 11:12 Troponin T < 0.010 ng/mL (0.00-0.029) 03/22/16 16:34 Total Protein 7.0 g/dL (6.3-8.2) 03/23/16 04:11 Albumin 3.0 g/dL (3.9-5) L 03/23/16 04:11 Albumin/Globulin Ratio 0.8 % 03/23/16 04:11 TSH 0.612 mlU/mL (0.270-4.200) 03/22/16 10:36 Urine Color Yellow (Yellow) 03/22/16 10:20 Urine Turbidity Clear (Clear) 03/22/16 10:20 Urine pH 5.0 (5.0-7.0) 03/22/16 10:20 Ur Specific [place] 1.015 (1.003-1.030) 03/22/16 10:20 Urine Protein 100 mg/dl mg/dL (Negative) 03/22/16 10:20 Urine Glucose (UA) Neg mg/dL (Negative) 03/22/16 10:20 Urine Ketones Neg mg/dL (Negative) 03/22/16 10:20 Urine Blood Neg (Negative) 03/22/16 10:20 Urine Nitrite Neg (Negative) 03/22/16 10:20 Ur Reducing Substances Not Reportable 03/22/16 10:20 Urine Bilirubin Neg (Negative) 03/22/16 10:20 Urine Ictotest Not Reportable 03/22/16 10:20 Urine Urobilinogen < 2.0 mg/dL (<2.0) 03/22/16 10:20 Ur Leukocyte Esterase Neg (Negative) 03/22/16 10:20 Urine WBC (Auto) 1.0 /HPF (0.0-6.0) 03/22/16 10:20 Urine RBC (Auto) 4.0 /HPF (0.0-6.0) 03/22/16 10:20 U Epithel Cells (Auto) < 1.0 /HPF (0-13.0) 03/22/16 10:20 Hyaline Casts 5 /LPF 03/22/16 10:20 Urine HCG, Qual Negative (Negative) 03/22/16 10:20 Salicylates < 0.3 mg/dL (2.8-20.0) L 03/22/16 10:36 Urine Opiates Screen Presumptive negative 03/22/16 10:20 Urine Methadone Screen Presumptive negative 03/22/16 10:20 Acetaminophen < 15.0 ug/mL (10.0-30.0) 03/22/16 10:36 Ur Barbiturates Screen Presumptive negative 03/22/16 10:20 Ur Phencyclidine Scrn Presumptive negative 03/22/16 10:20 Ur Amphetamines Screen Presumptive negative 03/22/16 10:20 U Benzodiazepines Scrn Presumptive negative 03/22/16 10:20 Urine Cocaine Screen Presumptive positive 03/22/16 10:20 U Marijuana (THC) Screen Presumptive negative 03/22/16 10:20 Drugs of Abuse Note Disclamer 03/22/16 10:20 Plasma/Serum Alcohol < 0.01 gm% (0-0.07) 03/22/16 11:12
[2016-03-25] MEDS: LEVEMIR SUB-Q SCH (11:12)
[2016-03-25] MEDS: LOVENOX SUB-Q SCH (11:13)
[2016-03-25] MEDS: PERCOCET 5/325 PO PRN (11:17)
[2016-03-25] MEDS ORDERED: PROVENTIL IH PRN (13:50)
[2016-03-26] MEDS: ZOSYN/NS 4.5GM/100ML 100 ML IV SCH ×3 (01:19→17:29)
[2016-03-26] MEDS: NACL 0.45% 1000 ML 1,000 ML IV SCH (01:33)
[2016-03-26] MEDS: NOVOLOG SUB-Q SCH ×7 (05:04→17:30)
[2016-03-26] MEDS: LEVEMIR SUB-Q SCH (08:45)
[2016-03-26] MEDS: DUONEB 0.5 MG-3 MG/3 ML SOLN IH SCH ×2 (08:47→13:31)
[2016-03-26] MEDS: LOVENOX SUB-Q SCH (10:30)
--- NOTE | 2016-03-26 11:32 | Progress Note ---
Assessment and Plan Assessment and plan: 1. Polysubstance abuse. Patient's drug screen was positive for cocaine. Await psych consultation. 2. DM 2 with hyperglycemia- insulin dependence. Glycemic control. Improved with increase and Lantus. 3. DVT prophylaxis- lovenox Discharge pending recommendations from psyche and better glucose control History Interval history: No new issues overnight. Hospitalist Physical - Constitutional Vitals: Temp Pulse Resp BP Pulse Ox 98.8 F 105 H 16 188/86 99 03/26/16 08:20 03/26/16 08:54 03/26/16 08:54 03/26/16 08:20 03/26/16 08:20 General appearance: Present: no acute distress (on vent), well-nourished, other (awake) - EENT Eyes: Present: PERRL, EOM intact ENT: hearing intact, clear oral mucosa, dentition normal - Neck Neck: Present: supple, normal ROM - Respiratory Respiratory effort: normal Respiratory: bilateral: CTA - Cardiovascular Rhythm: regular Heart Sounds: Present: S1 & S2. Absent: gallop, rub - Extremities Extremities: no ischemia, No edema, Full ROM - Abdominal General gastrointestinal: soft, non-tender, non-distended, normal bowel sounds - Integumentary Integumentary: Present: clear, warm, dry - Neurologic Neurologic: CNII-XII intact, moves all extremities Results - Labs CBC & Chem 7: 03/23/16 04:11 03/25/16 08:14 Labs: Laboratory Last Values WBC 12.9 K/mm3 (4.5-11.0) H 03/23/16 04:11 RBC 3.59 M/mm3 (3.65-5.03) L 03/23/16 04:11 Hgb 9.7 gm/dl (10.1-14.3) L 03/23/16 04:11 Hct 30.8 % (30.3-42.9) 03/23/16 04:11 MCV 86 fl (79-97) 03/23/16 04:11 MCH 27 pg (28-32) L 03/23/16 04:11 MCHC 32 % (30-34) 03/23/16 04:11 RDW 16.1 % (13.2-15.2) H 03/23/16 04:11 Plt Count 207 K/mm3 (140-440) 03/23/16 04:11 Lymph % (Auto) Hotel Receptionist 03/22/16 10:36 [place] % (Auto) Hotel Receptionist 03/22/16 10:36 Eos % (Auto) Hotel Receptionist 03/22/16 10:36 Baso % (Auto) Hotel Receptionist 03/22/16 10:36 Lymph # Hotel Receptionist 03/22/16 10:36 [place] # Hotel Receptionist 03/22/16 10:36 Eos # Hotel Receptionist 03/22/16 10:36 Baso # Hotel Receptionist 03/22/16 10:36 Add Manual Diff Complete 03/23/16 04:11 Total Counted 100 03/23/16 04:11 Seg Neutrophils % Hotel Receptionist 03/23/16 04:11 Seg Neuts % (Manual) 31.0 % (40.0-70.0) L 03/23/16 04:11 Band Neutrophils % 59.0 % 03/23/16 04:11 Lymphocytes % (Manual) 5.0 % (13.4-35.0) L 03/23/16 04:11 Reactive Lymphs % (Man) 0 % 03/23/16 04:11 Monocytes % (Manual) 5.0 % (0.0-7.3) 03/23/16 04:11 Eosinophils % (Manual) 0 % (0.0-4.3) 03/23/16 04:11 Basophils % (Manual) 0 % (0.0-1.8) 03/23/16 04:11 Metamyelocytes % 0 % 03/23/16 04:11 Myelocytes % 0 % 03/23/16 04:11 Promyelocytes % 0 % 03/23/16 04:11 Blast Cells % 0 % 03/23/16 04:11 Nucleated RBC % Not Reportable 03/23/16 04:11 Seg Neutrophils # Hotel Receptionist 03/22/16 10:36 Seg Neutrophils # Man 4.0 K/mm3 (1.8-7.7) 03/23/16 04:11 Band Neutrophils # 7.6 K/mm3 03/23/16 04:11 Lymphocytes # (Manual) 0.6 K/mm3 (1.2-5.4) L 03/23/16 04:11 Abs React Lymphs (Man) 0.0 K/mm3 03/23/16 04:11 Monocytes # (Manual) 0.6 K/mm3 (0.0-0.8) 03/23/16 04:11 Eosinophils # (Manual) 0.0 K/mm3 (0.0-0.4) 03/23/16 04:11 Basophils # (Manual) 0.0 K/mm3 (0.0-0.1) 03/23/16 04:11 Metamyelocytes # 0.0 K/mm3 03/23/16 04:11 Myelocytes # 0.0 K/mm3 03/23/16 04:11 Promyelocytes # 0.0 K/mm3 03/23/16 04:11 Blast Cells # 0.0 K/mm3 03/23/16 04:11 WBC Morphology Not Reportable 03/23/16 04:11 Hypersegmented Neuts Not Reportable 03/23/16 04:11 Hyposegmented Neuts Not Reportable 03/23/16 04:11 Hypogranular Neuts Not Reportable 03/23/16 04:11 Smudge Cells Not Reportable 03/23/16 04:11 Toxic Granulation Not Reportable 03/23/16 04:11 Toxic Vacuolation Not Reportable 03/23/16 04:11 Dohle Bodies Few 03/23/16 04:11 Pelger-Huet Anomaly Not Reportable 03/23/16 04:11 Jordan Rods Not Reportable 03/23/16 04:11 Platelet Estimate Appears normal 03/23/16 04:11 Clumped Platelets Not Reportable 03/23/16 04:11 Plt Clumps, EDTA Not Reportable 03/23/16 04:11 Large Platelets Not Reportable 03/23/16 04:11 Giant Platelets Not Reportable 03/23/16 04:11 Platelet Satelliting Not Reportable 03/23/16 04:11 Plt Morphology Comment Not Reportable 03/23/16 04:11 RBC Morphology Not Reportable 03/23/16 04:11 Dimorphic RBCs Not Reportable 03/23/16 04:11 Polychromasia Few 03/23/16 04:11 Hypochromasia Few 03/23/16 04:11 Poikilocytosis Not Reportable 03/23/16 04:11 Anisocytosis 1+ 03/23/16 04:11 Microcytosis Not Reportable 03/23/16 04:11 Macrocytosis Not Reportable 03/23/16 04:11 Spherocytes Not Reportable 03/23/16 04:11 Pappenheimer Bodies Not Reportable 03/23/16 04:11 Sickle Cells Not Reportable 03/23/16 04:11 Target Cells Not Reportable 03/23/16 04:11 Tear Drop Cells Not Reportable 03/23/16 04:11 Ovalocytes Not Reportable 03/23/16 04:11 Helmet Cells Not Reportable 03/23/16 04:11 Sauced[place] Bodies Not Reportable 03/23/16 04:11 [place] Rings Not Reportable 03/23/16 04:11 [place] Cells Not Reportable 03/23/16 04:11 Bite Cells Not Reportable 03/23/16 04:11 Crenated Cell Not Reportable 03/23/16 04:11 Elliptocytes Not Reportable 03/23/16 04:11 Acanthocytes (Spur) Not Reportable 03/23/16 04:11 Rouleaux Not Reportable 03/23/16 04:11 Hemoglobin C Crystals Not Reportable 03/23/16 04:11 Schistocytes Not Reportable 03/23/16 04:11 Malaria parasites Not Reportable 03/23/16 04:11 Varun Bodies Not Reportable 03/23/16 04:11 Hem Pathologist Commnt No 03/23/16 04:11 PT 13.5 Sec. (12.2-14.9) 03/22/16 11:12 INR 1.04 (0.87-1.13) 03/22/16 11:12 APTT 30.0 Sec. (24.2-36.6) 03/22/16 11:12 POC ABG pH 7.351 (7.35-7.45) 03/23/16 04:04 POC ABG pCO2 33.8 (35-45) L 03/23/16 04:04 POC ABG pO2 74 (80-105) L 03/23/16 04:04 POC ABG HCO3 18.7 03/23/16 04:04 POC ABG Total CO2 20 03/23/16 04:04 POC ABG O2 Sat 94 03/23/16 04:04 POC ABG Base Excess -7 03/23/16 04:04 FiO2 40 % 03/23/16 04:04 Sodium 142 mmol/L (137-145) 03/25/16 08:14 Potassium 4.0 mmol/L (3.6-5.0) 03/25/16 08:14 Chloride 106.1 mmol/L (98-107) 03/25/16 08:14 Carbon Dioxide 22 mmol/L (22-30) 03/25/16 08:14 Anion Gap 18 mmol/L 03/25/16 08:14 BUN 23 mg/dL (7-17) H 03/25/16 08:14 Creatinine 0.8 mg/dL (0.7-1.2) 03/25/16 08:14 Estimated GFR > 60 ml/min 03/25/16 08:14 BUN/Creatinine Ratio 28.75 % 03/25/16 08:14 Glucose 407 mg/dL (65-100) H 03/25/16 08:14 POC Glucose 223 (70-105) H 03/26/16 05:56 Lactic Acid 0.6 mmol/L (0.7-2.0) L 03/22/16 13:31 Calcium 8.4 mg/dL (8.4-10.2) 03/25/16 08:14 Magnesium 2.0 mg/dL (1.7-2.3) 03/22/16 10:36 Total Bilirubin 0.3 mg/dL (0.1-1.2) 03/23/16 04:11 AST 45 units/L (5-40) H 03/23/16 04:11 ALT 37 units/L (7-56) 03/23/16 04:11 Alkaline Phosphatase 110 units/L (35-129) 03/23/16 04:11 Ammonia 64.0 umol/L (25-60) H 03/23/16 00:02 Total Creatine Kinase 597 units/L (30-135) H 03/22/16 11:12 Troponin T < 0.010 ng/mL (0.00-0.029) 03/22/16 16:34 Total Protein 7.0 g/dL (6.3-8.2) 03/23/16 04:11 Albumin 3.0 g/dL (3.9-5) L 03/23/16 04:11 Albumin/Globulin Ratio 0.8 % 03/23/16 04:11 TSH 0.612 mlU/mL (0.270-4.200) 03/22/16 10:36 Urine Color Yellow (Yellow) 03/22/16 10:20 Urine Turbidity Clear (Clear) 03/22/16 10:20 Urine pH 5.0 (5.0-7.0) 03/22/16 10:20 Ur Specific [place] 1.015 (1.003-1.030) 03/22/16 10:20 Urine Protein 100 mg/dl mg/dL (Negative) 03/22/16 10:20 Urine Glucose (UA) Neg mg/dL (Negative) 03/22/16 10:20 Urine Ketones Neg mg/dL (Negative) 03/22/16 10:20 Urine Blood Neg (Negative) 03/22/16 10:20 Urine Nitrite Neg (Negative) 03/22/16 10:20 Ur Reducing Substances Not Reportable 03/22/16 10:20 Urine Bilirubin Neg (Negative) 03/22/16 10:20 Urine Ictotest Not Reportable 03/22/16 10:20 Urine Urobilinogen < 2.0 mg/dL (<2.0) 03/22/16 10:20 Ur Leukocyte Esterase Neg (Negative) 03/22/16 10:20 Urine WBC (Auto) 1.0 /HPF (0.0-6.0) 03/22/16 10:20 Urine RBC (Auto) 4.0 /HPF (0.0-6.0) 03/22/16 10:20 U Epithel Cells (Auto) < 1.0 /HPF (0-13.0) 03/22/16 10:20 Hyaline Casts 5 /LPF 03/22/16 10:20 Urine HCG, Qual Negative (Negative) 03/22/16 10:20 Salicylates < 0.3 mg/dL (2.8-20.0) L 03/22/16 10:36 Urine Opiates Screen Presumptive negative 03/22/16 10:20 Urine Methadone Screen Presumptive negative 03/22/16 10:20 Acetaminophen < 15.0 ug/mL (10.0-30.0) 03/22/16 10:36 Ur Barbiturates Screen Presumptive negative 03/22/16 10:20 Ur Phencyclidine Scrn Presumptive negative 03/22/16 10:20 Ur Amphetamines Screen Presumptive negative 03/22/16 10:20 U Benzodiazepines Scrn Presumptive negative 03/22/16 10:20 Urine Cocaine Screen Presumptive positive 03/22/16 10:20 U Marijuana (THC) Screen Presumptive negative 03/22/16 10:20 Drugs of Abuse Note Disclamer 03/22/16 10:20 Plasma/Serum Alcohol < 0.01 gm% (0-0.07) 03/22/16 11:12
--- NOTE | 2016-03-26 15:59 | Discharge Summary ---
Providers - Providers Date of Admission: 03/22/16 15:43 Date of discharge: 03/26/16 Attending physician: CLAIRE DONNELLY 03/22/16 16:22 Consult to Physician [CONS] Routine Consulting Provider: SALLY RANGEL Reason For Exam: Acute resp failure Place consult to:: cc farrowing manager Notified:: y Was contact made?: Yes If yes, spoke with:: [facility] office Time called:: 16:55 03/25/16 16:29 Consult to Mental Health [CONS] Routine Reason For Exam: overdose; polysubstance abuse Place consult to:: psyche Notified:: yes Phone number called:: [phone] Was contact made?: Yes If yes, spoke with:: Flako Time called:: 16:50 Primary care physician: SENIOR ADMINISTRATIVE SUPPORT Hospitalization Reason for admission: polysubstance abuse Condition: Serious Hospital course: Pt is a 65-yr old female presented with encephalopathy and was intubated for airway protection with acute respiratory failure and polysubstance abuse. Patient was seen by pulmonary and later extubated. Patient's urine drug screen was positive for cocaine. Mental health consult was ordered after pt's son reported pt had been having trouble "keeping a train of thought," as well as abusing prescription medication (Percocet). The mental health make up arranger reported that the pt denied any current suicidal and/or homicidal ideations, and there was no reported/observable signs of disturbances in pt's thought process (psychosis). Based on reported and observed behaviors, it was felt by the mental make up arranger that the patient had not met criteria for inpatient psychiatric services. The recommendation was that the 1013 be rescinded, and if possible, referred to a custodial facility. However, patient refused custodial facility. Therefore, patient will be discharged home and is to follow-up with primary care physician. Dedicated discharge time 35 minutes. Disposition: DISCHARGED TO HOME OR SELFCARE Core Measure Documentation - Palliative Care Palliative Care/ Comfort Measures: Not Applicable - Core Measures Any of the following diagnoses?: none Exam - Constitutional Vitals: Temp Pulse Resp BP Pulse Ox 98.8 F 105 H 16 188/86 99 03/26/16 08:20 03/26/16 08:54 03/26/16 08:54 03/26/16 08:20 03/26/16 08:20 General appearance: Present: no acute distress, well-nourished - EENT Eyes: Present: PERRL ENT: hearing intact, clear oral mucosa - Neck Neck: Present: supple, normal ROM - Respiratory Respiratory effort: normal Respiratory: bilateral: CTA - Cardiovascular Heart Sounds: Present: S1 & S2. Absent: rub, click - Extremities Extremities: pulses symmetrical, No edema Peripheral Pulses: within normal limits - Abdominal General gastrointestinal: Present: soft, non-tender, non-distended, normal bowel sounds Female genitourinary: Present: normal - Integumentary Integumentary: Present: clear, warm, dry - Musculoskeletal Musculoskeletal: gait normal, strength equal bilaterally - Psychiatric Psychiatric: appropriate mood/affect, intact judgment & insight - Neurologic Neurologic: CNII-XII intact, moves all extremities Plan Activity: no restrictions Weight Bearing Status: Full Weight Bearing Diet: regular Follow up with: PRIMARY CARE, [Primary Care Provider] - 3-5 Days
[2016-03-26 16:03] VITALS: BP 154/92
== END 2016-03-26 20:27 | disposition home or self-care (01) | DRG 917 ==
LOC: ED 09:45 → CC1 15:43 → 3A 03-24 18:32
PROVIDERS: ADMIT Internal Medicine; ATTEND Hospitalist
PROC: 5A1935Z Respiratory Ventilation, Less than 24 Consecutive Hours (ICD-10-PCS; principal; 2016-03-22)
PROC: 0BH17EZ Insertion of Endotracheal Airway into Trachea, Via Natural or Artificial Opening (ICD-10-PCS; 2016-03-22)
DX: T40.5X1A Poisoning by cocaine, accidental (unintentional), initial encounter (principal); G92 Toxic encephalopathy; J96.00 Acute respiratory failure, unspecified whether with hypoxia or hypercapnia; E11.65 Type 2 diabetes mellitus with hyperglycemia; J45.909 Unspecified asthma, uncomplicated; I11.0 Hypertensive heart disease with heart failure; I50.9 Heart failure, unspecified; M19.90 Unspecified osteoarthritis, unspecified site; T68.XXXA Hypothermia, initial encounter; F14.20 Cocaine dependence, uncomplicated; G89.29 Other chronic pain; F11.20 Opioid dependence, uncomplicated; Y92.89 Other specified places as the place of occurrence of the external cause; Z79.4 Long term (current) use of insulin; Z90.49 Acquired absence of other specified parts of digestive tract; Z90.710 Acquired absence of both cervix and uterus
CPT/HCPCS: 36415; 36600; 70450; 71010; 74000; 80048; 80053; 80307; 80320; 81001; 81025; 82140; 82550; 82803; 82947; 82962; 83735; 84443; 84484; 85007; 85025; 85610; 85730; 87040; 87205; 90686; 93005; 93010; 94002; 94003; 94640; 94760; 96365; 96375; G0480; J1650; J1815; J1818; J1956; J2060; J2250; J2310; J2405; J2543; J2920; J3010; J7030; J7042

== ENCOUNTER 2016-04-13 16:45 | Inpatient (IN) | payer MEDICARE, MEDICAID ==
[2016-04-13] MEDS ORDERED: PROVENTIL IH ONE ×2 (16:52→16:57)
[2016-04-13] MEDS ORDERED: ATROVENT IH ONE (17:12)
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
[2016-04-13 17:23] LABS: Basophils % (Auto) 0.5 % (0.0-1.8); Eosinophils % (Auto) 0.2 % (0.0-4.3); Hematocrit 29.8 % (30.3-42.9); Hemoglobin 9.4 gm/dl (10.1-14.3); Mean Corpuscular HGB Conc 31 % (30-34); Mean Corpuscular Hemoglobin 27 pg (28-32); Mean Corpuscular Volume 86 fl (79-97); Platelet Count 234 K/mm3 (140-440); Red Blood Count 3.49 M/mm3 (3.65-5.03); Red Cell Distribution Width 16.5 % (13.2-15.2); White Blood Count 7.7 K/mm3 (4.5-11.0)
[2016-04-13 17:29] LABS: BUN/Creatinine Ratio 17.14; Blood Urea Nitrogen 12 mg/dL (7-17); Carbon Dioxide 21 mmol/L (22-30); Chloride 100.4 mmol/L (98-107); Glucose 252 mg/dL (65-100); Potassium 3.8 mmol/L (3.6-5.0); Sodium 137 mmol/L (137-145)
[2016-04-13 17:31] LABS: Anion Gap 19 mmol/L
[2016-04-13 17:40] LABS: ISTAT Base Excess -4; ISTAT HCO3 21.5; ISTAT PCO2 36.3 (35-45); ISTAT PO2 79 (80-105); ISTAT SO2 95; ISTAT TCO2 23
[2016-04-13 17:47] LABS: Magnesium 1.6 mg/dL (1.7-2.3)
[2016-04-13] MEDS ORDERED: ZOSYN/NS 4.5GM/100ML 100 ML IV ONE (17:50)
[2016-04-13] MEDS ORDERED: LASIX IV ONE (17:50)
[2016-04-13] MEDS ORDERED: LEVAQUIN 750MG/150ML 150 ML IV ONE (17:50)
--- NOTE | 2016-04-13 18:03 | XRay Report ---
FINAL REPORT PROCEDURE: XR CHEST 1V AP TECHNIQUE: Chest radiograph anteroposterior view. CPT 52789 HISTORY: dyspnea COMPARISON: 03/23/2016 FINDINGS: Heart: Heart is mildly enlarged Mediastinum/Vessels: Moderate congestion with moderate edema. Moderate CHF. Lungs/Pleural space: Bilateral pleural effusions with lower lung zone atelectasis. Possible airspace process left lung base.. Bony thorax: No acute osseous abnormality. Morbid obesity Life support devices: Superimposed breathing mask left upper chest area. IMPRESSION: Moderate CHF with small bilateral pleural effusions left greater than right. Patchy atelectasis left lower lung zone. Airspace consolidation left lung base suspected
--- NOTE | 2016-04-13 20:55 | Cat Scan Report ---
FINAL REPORT PROCEDURE: CT HEAD/BRAIN WO CON TECHNIQUE: Computerized tomography of the head was performed without contrast material. HISTORY: Trauma. Pain. COMPARISON: Prior CT scan of the brain 12/28/2015 FINDINGS: Brain: There is no evidence of intracranial hemorrhage. No parenchymal hemorrhage is seen. No mass lesions or mass effect is identified. No abnormal extra-axial fluid collections or masses are seen. There is some decreased density seen in the periventricular white matter without mass effect. This is fairly symmetric and does not exhibit any mass effect consistent with gliosis probably on the basis of microvascular disease or white matter changes of aging. Ventricles: The ventricles, sulcal pattern and fissures are prominent consistent with atrophy. Bones: No evidence of acute fracture. Paranasal sinuses: clear Mastoid air cells: clear IMPRESSION: There is evidence of minimal atrophy and gliosis. No acute abnormalities are identified. No evidence of intracranial hemorrhage or skull fracture.
--- NOTE | 2016-04-13 21:50 | Event Note ---
Date: 04/13/16 See H/p in reports New onset CHF exacerbation HTN IDDM
[2016-04-13] MEDS ORDERED: INSULIN GLULISINE SUB-Q PRN (21:51)
[2016-04-13] MEDS ORDERED: NON-FORMULARY (Insulin Glargine 10 UNITS) SUB-Q SCH (22:00)
[2016-04-13] MEDS ORDERED: ZOFRAN IV PRN (22:03)
[2016-04-13] MEDS ORDERED: MILK OF MAGNESIA PO PRN (22:03)
[2016-04-13] MEDS ORDERED: DULCOLAX PR PRN (22:03)
[2016-04-13] MEDS ORDERED: D50W (25GM) IV PRN (22:15)
--- NOTE | 2016-04-13 22:19 | History and Physical Report ---
History of Present Illness Date of examination: 04/13/16 Date of admission: 04/13/2016 Medications and Allergies Allergies Allergy/AdvReac Type Severity Reaction Status Date / Time No Known Allergies Allergy Verified 02/09/14 18:18 Home Medications Medication Instructions Recorded Confirmed Last Taken Type Insulin Glargine [Lantus VIAL] 10 units SUB-Q QHS #30 day 07/13/15 08/05/15 Rx Insulin Glulisine [Apidra] 1 dose SUB-Q ACHS PRN #30 day 07/13/15 12/29/1508/01 Rx Albuterol Sulfate [Ventolin HFA] 2 puff IH Q4H PRN #1 hfa.aer.ad 08/07/15 Unknown Rx Hydralazine HCl [Apresoline TAB] 50 mg PO Q8HR #90 tab 08/07/15 12/29/15 Unknown Rx amLODIPine [Norvasc] 5 mg PO QDAY #30 tablet 08/07/15 12/29/15 Unknown Rx Active Meds: Active Medications Acetaminophen (Tylenol) 650 mg PO Q4H PRN PRN Reason: Pain MILD(1-3)/Fever >100.5/HELM Amlodipine Besylate (Norvasc) 5 mg PO QDAY AKIL Bisacodyl (Dulcolax) 10 mg ID QDAY PRN PRN Reason: Constipation unrelieved by MOM Enoxaparin Sodium (Lovenox) 40 mg SUB-Q QDAY AKIL Hydralazine HCl (Apresoline) 50 mg PO Q8HR AKIL Hydromorphone HCl (Dilaudid) 0.5 mg IV Q3H PRN PRN Reason: Pain , Severe (7-10) Levofloxacin/Dextrose (Levaquin 750mg/150ml) 150 mls @ 100 mls/hr IV Q24HR AKIL PRN Reason: Protocol Insulin Detemir (Levemir) 10 units SUB-Q QHS AKIL Magnesium Hydroxide (Milk Of Magnesia) 30 ml PO Q4H PRN PRN Reason: Constipation Ondansetron HCl (Zofran) 4 mg IV Q8H PRN PRN Reason: N/V unrelieved by Reglan Exam - Constitutional Vitals: Temp Pulse Resp BP Pulse Ox 98.1 F 95 H 18 155/67 100 04/13/16 16:56 04/13/16 20:00 04/13/16 20:00 04/13/16 20:00 04/13/16 20:00 Results - Labs CBC & Chem 7: 04/13/16 Unknown 04/13/16 17:00 Labs: Abnormal lab results 04/13/16 04/13/16 04/13/16 Range/Units 16:25 17:00 17:31 RBC (3.65-5.03) M/mm3 Hgb (10.1-14.3) gm/dl Hct (30.3-42.9) % MCH (28-32) pg RDW (13.2-15.2) % [place]ill % (Auto) (0.0-7.3) % [place] # (0.0-0.8) K/mm3 POC ABG pO2 79 L (80-105) Carbon Dioxide 21 L (22-30) mmol/L Glucose 252 H (65-100) mg/dL Magnesium 1.6 L (1.7-2.3) mg/dL NT-Pro-B Natriuret Pep 2937 H (0-900) pg/mL 04/13/16 Range/Units Unknown RBC 3.49 L (3.65-5.03) M/mm3 Hgb 9.4 L (10.1-14.3) gm/dl Hct 29.8 L (30.3-42.9) % MCH 27 L (28-32) pg RDW 16.5 H (13.2-15.2) % [place] % (Auto) 11.3 H (0.0-7.3) % [place]ill # 0.9 H (0.0-0.8) K/mm3 POC ABG pO2 (80-105) Carbon Dioxide (22-30) mmol/L Glucose (65-100) mg/dL Magnesium (1.7-2.3) mg/dL NT-Pro-B Natriuret Pep (0-900) pg/mL
[2016-04-13] MEDS ORDERED: NORVASC ONE (23:11)
[2016-04-13] MEDS ORDERED: APRESOLINE ONE (23:11)
[2016-04-13] MEDS ORDERED: TORADOL ONE (23:11)
[2016-04-13] MEDS ORDERED: DILAUDID ONE (23:15)
[2016-04-13] MEDS: DILAUDID IV PRN (23:37)
[2016-04-13] MEDS: LEVEMIR SUB-Q SCH (23:38)
[2016-04-13] MEDS: APRESOLINE PO SCH (23:38)
[2016-04-13] MEDS: NORVASC PO SCH (23:39)
[2016-04-14] MEDS: TYLENOL PO PRN ×2 (01:55→21:55)
[2016-04-14 03:54] LABS: Urine Drugs of Abuse Note Disclamer
[2016-04-14 04:04] LABS: Bilirubin,Urine NEG (Negative); Blood,Urine NEG (Negative); Ketones,Urine NEG (Negative); Leukocyte Esterase,Urine NEG (Negative); Nitrite,Urine NEG (Negative); Urobilinogen,Urine < 2.0 mg/dL (<2.0)
[2016-04-14] MEDS: APRESOLINE PO SCH ×3 (06:17→21:55)
[2016-04-14] MEDS: DILAUDID IV PRN ×3 (06:17→21:53)
[2016-04-14 08:27] LABS: Basophils % (Auto) 0.2 % (0.0-1.8); Hematocrit 30.5 % (30.3-42.9); Hemoglobin 9.7 gm/dl (10.1-14.3); Mean Corpuscular HGB Conc 32 % (30-34); Mean Corpuscular Hemoglobin 28 pg (28-32); Mean Corpuscular Volume 88 fl (79-97); Platelet Count 188 K/mm3 (140-440); Red Blood Count 3.47 M/mm3 (3.65-5.03); Red Cell Distribution Width 17.7 % (13.2-15.2); White Blood Count 5.6 K/mm3 (4.5-11.0)
[2016-04-14 08:45] LABS: Alanine Aminotransferase 25 units/L (7-56); Albumin/Globulin Ratio 0.7 %; Alkaline Phosphatase 147 units/L (35-129); BUN/Creatinine Ratio 14.28; Bilirubin,Total 0.5 mg/dL (0.1-1.2); Blood Urea Nitrogen 10 mg/dL (7-17); Calcium 8.7 mg/dL (8.4-10.2); Carbon Dioxide 25 mmol/L (22-30); Chloride 100.6 mmol/L (98-107); Glucose 120 mg/dL (65-100); Potassium 3.9 mmol/L (3.6-5.0); Sodium 139 mmol/L (137-145); Total Protein 7.4 g/dL (6.3-8.2)
[2016-04-14] MEDS ORDERED: MAGNESIUM SULFATE 2GM/50ML 50 ML IV ONE (09:14)
[2016-04-14 09:22] LABS: Anion Gap 17 mmol/L
[2016-04-14] MEDS: NOVOLOG SUB-Q SCH ×3 (09:56→16:34)
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
[2016-04-14] MEDS: NORVASC PO SCH (11:07)
[2016-04-14] MEDS: LOVENOX SUB-Q SCH (11:07)
[2016-04-14] MEDS: LEVAQUIN 750MG/150ML 150 ML IV SCH ×2 (11:08→14:58)
[2016-04-14] MEDS: LEVEMIR SUB-Q SCH (21:56)
[2016-04-15] MEDS: NOVOLOG SUB-Q SCH ×5 (01:43→22:11)
[2016-04-15] MEDS: DILAUDID IV PRN ×5 (02:57→23:29)
[2016-04-15] MEDS ORDERED: PROVENTIL IH PRN (03:44)
[2016-04-15] MEDS: APRESOLINE PO SCH ×3 (06:45→22:10)
[2016-04-15] MEDS ORDERED: PROVENTIL IH SCH (08:00)
[2016-04-15] MEDS ORDERED: LEVAQUIN PO SCH (10:00)
[2016-04-15] MEDS: LOVENOX SUB-Q SCH (11:03)
[2016-04-15] MEDS: NORVASC PO SCH (11:04)
--- NOTE | 2016-04-15 12:27 | Query- Dyspnea ---
Dear Dr. Jatinder Rey Date: April 15, 2016 Systems Architect/CDS: Tucker Ferreira Phone#: Exercise your independent professional judgment when responding to query. Questions asked do not imply a particular answer is desired or expected. We greatly appreciate your clarification on this issue. Clinical Documentation States: 65 y/o AAF with history of toxic encephalopathy secondary to polysubstance abuse , IDDM & HTN is admitted for increasing SOB. H&P by Dr. Rey on 04/14 states : "1. Acute congestive heart failure exacerbation, probably systolic","Chest x-ray shows congestive heart failure, bilateral pleural effusion, left more than the right","The patient no started on antibiotics because I do not suspect any pneumonia" Clinical Findings Show: CXR (04/13) : "Moderate CHF with small bilateral pleural effusions left greater than right. Patchy atelectasis left lower lung zone. Airspace consolidation left lung base suspected" ABG (04/13) : pH = 7.380, pCO2 = 36.3, pO2 = 79 L, HCO3 = 21.5, Total CO2 = 23, O2 sat = 95%, Base Excess = -4, FiO2 = 50% Respiratery Rate : 29 H (04/13 @ 1700), 30 H (04/13 @ 2330), 20 (04/14), 20 (04/15) Medications : Albuterol 25mg IH q6hT AKIL, IV Levofloxacin 750 q24h AKIL Please clarify if the patient had any of the following conditions based on the above clinical findings: [ ] Respiratory Failure [ x] Acute [ ] Acute on Chronic [ ] Chronic [ ] Atelectasis [ ] Respiratory failure due to trauma [ ] Acute Respiratory Distress Syndrome [ ] Other: [ ] Unable to determine [ ] Comment/Explanation: Present on Admission: [x ] Yes (Y) [ ] Clinically undeterminable (W) [ ] No (N) Please also document response in your Progress Notes and/or Discharge Summary and indicate if the condition was present on admission. MTDD
[2016-04-15] MEDS: TYLENOL PO PRN (13:14)
--- NOTE | 2016-04-15 14:26 | Consultation ---
History of Present Illness Consult date: 04/15/16 Consult reason: congestive heart failure, shortness of breath History of present illness: 65-year-old woman who is admitted to the hospital with several days of progressive shortness of breath. On presentation, she was noted to be severely short of breath with chest retraction on breathing, was admitted for further evaluation and cardiac consultation is requested. She has a poorly documented history of "CHF". Prior left ventricular function assessment with echocardiogram May 2014, ejection fraction was normal at 60-65%. It was reported that she had moderate mitral regurgitation. A Persantine thallium stress test at that time was negative. On this presentation, the patient has no chest pain and no palpitations and no lower extremity edema. A chest x-ray done on presentation shows bilateral interstitial edema, but evidence of possible underlying right lower lobe infiltrate. ECG on this admission was normal sinus rhythm, essentially normal ECG. Initial cardiac enzymes are unremarkable. WBC count was normal at 7000. Patient was in this hospital 2 weeks ago, at that time with altered mental status believed due to polysubstance abuse. Past History Past Medical History: heart failure, hypertension Medications and Allergies Allergies Allergy/AdvReac Type Severity Reaction Status Date / Time No Known Allergies Allergy Verified 02/09/14 18:18 Home Medications Medication Instructions Recorded Confirmed Last Taken Type Insulin Glargine [Lantus VIAL] 10 units SUB-Q QHS #30 day 07/13/15 08/05/15 Rx Insulin Glulisine [Apidra] 1 dose SUB-Q ACHS PRN #30 day 07/13/15 12/29/1508/01 Rx Albuterol Sulfate [Ventolin HFA] 2 puff IH Q4H PRN #1 hfa.aer.ad 08/07/15 Unknown Rx Hydralazine HCl [Apresoline TAB] 50 mg PO Q8HR #90 tab 08/07/15 12/29/15 Unknown Rx amLODIPine [Norvasc] 5 mg PO QDAY #30 tablet 08/07/15 12/29/15 Unknown Rx Active Meds: Active Medications Acetaminophen (Tylenol) 650 mg PO Q4H PRN PRN Reason: Pain MILD(1-3)/Fever >100.5/HELM Last Admin: 04/15/16 13:14 Dose: 650 mg Albuterol (Proventil) 2.5 mg IH Q6HRT PRN PRN Reason: Shortness Of Breath Last Admin: 04/15/16 09:16 Dose: 2.5 mg Amlodipine Besylate (Norvasc) 5 mg PO QDAY [facility] Last Admin: 04/15/16 11:04 Dose: 5 mg Bisacodyl (Dulcolax) 10 mg UT QDAY PRN PRN Reason: Constipation unrelieved by MOM Dextrose (D50w (25gm)) 50 ml IV PRN PRN PRN Reason: Hypoglycemia Enoxaparin Sodium (Lovenox) 40 mg SUB-Q QDAY [facility] Last Admin: 04/15/16 11:03 Dose: 40 mg Hydralazine HCl (Apresoline) 50 mg PO Q8HR [facility] Last Admin: 04/15/16 13:15 Dose: 50 mg Hydromorphone HCl (Dilaudid) 0.5 mg IV Q3H PRN PRN Reason: Pain , Severe (7-10) Last Admin: 04/15/16 13:27 Dose: 0.5 mg Insulin Aspart (Novolog) 0 units SUB-Q ACHS [facility] PRN Reason: Protocol Last Admin: 04/15/16 13:16 Dose: 2 units Insulin Detemir (Levemir) 10 units SUB-Q QHS [facility] Last Admin: 04/14/16 21:56 Dose: 10 units Levofloxacin (Levaquin) 750 mg PO Q24HR [facility] Last Admin: 04/15/16 11:04 Dose: 750 mg Magnesium Hydroxide (Milk Of Magnesia) 30 ml PO Q4H PRN PRN Reason: Constipation Ondansetron HCl (Zofran) 4 mg IV Q8H PRN PRN Reason: N/V unrelieved by Reglan Review of Systems Cardiovascular: shortness of breath, no chest pain, no orthopnea, no palpitations, no rapid/irregular heart beat, no edema, no syncope, no lightheadedness Physical Examination Vital Signs Pulse Resp Pulse Ox 108 H 13 97 04/13/16 16:48 04/13/16 16:48 04/13/16 16:48 General appearance: mild distress HEENT: Positive: PERRL Neck: Positive: neck supple Cardiac: Positive: Reg Rate and Rhythm Lungs: Positive: Decreased Breath Sounds, Rhonchi Neuro: Positive: Grossly Intact Abdomen: Positive: Soft Female genitourinary: deferred Skin: Positive: Clear Extremities: Absent: edema Results 04/14/16 06:48 04/14/16 06:48 EKG interpretations - Telemetry EKG Rhythm: Sinus Rhythm Assessment and Plan - Patient Problems (1) Congestive heart failure Current Visit: Yes Status: Acute Plan to address problem: Patient's presents with shortness of breath and chest x-ray evidence of bilateral interstitial edema. Until new heart failure treatment including aggressive diuretic therapy, echocardiogram for left ventricular function assessment. Ultimately, invasive cardiac evaluation will with a right left heart catheterization will be optimal strategy for further assessment.
--- NOTE | 2016-04-15 14:31 | Progress Note ---
Assessment and Plan 65-year-old chronically ill female with multiple comorbid illnesses including hypertension hyperlipidemia and congestive heart failure. Presents with what appears to be an acute on chronic combined systolic and diastolic heart failure. #1 acute on chronic systolic heart failure. We'll continue to diuresis slowly and follow-up chest x-ray at this time. Stress test pending and patient ruled out for myocardial infarction. Will be more aggressive with BP meds. #2 hypertension at present remains suboptimal control. We'll increase amlodipine to 10 mg. #3 diabetes also remains suboptimal. Patient however is not eating. We'll continue the Lantus at 10 and cover with sliding-scale insulin. Would titrate accordingly prior to discharge. #4 polysubstance abuse. Patient on Dilaudid 0.5 now this should be enough does not appear to need more medical management this particular time. We'll some point titrate patient to by mouth medications for possible discharge. Subjective Date of service: 04/15/16 Principal diagnosis: congestive heart failure Interval history: [place] 65-year-old female recently admitted for toxic metabolic encephalopathy secondary to polysubstance abuse. Presents to ED several days ago with dyspnea on exertion workup chest x-ray which I evaluated today found to be consistent with congestive heart failure. Patient admitted to rule out MN obtain echo risk stratification and stress tests. At present patient looks to be calm appropriate was states she is hurting all over and will need increase in her pain medications. Then patient went back to sleep. Objective - Constitutional Vitals: Vital Signs - 12hr 04/15/16 04/15/16 04/15/16 06:45 07:28 09:17 Temperature 99.0 F Pulse Rate 88 Pulse Rate [ 114 H Left Radial] Pulse Rate [ 76 Throughout] Respiratory 20 Rate Respiratory 18 Rate [ Throughout] Blood Pressure 138/74 Blood Pressure 158/73 [Left Radial Artery] O2 Sat by Pulse 98 Oximetry 04/15/16 04/15/16 04/15/16 11:04 12:36 13:15 Temperature 98.2 F Pulse Rate 114 H 96 H Pulse Rate [ 117 H Left Radial] Pulse Rate [ Throughout] Respiratory 20 Rate Respiratory Rate [ Throughout] Blood Pressure 150/80 Blood Pressure 153/67 [Left Radial Artery] O2 Sat by Pulse 93 Oximetry General appearance: Present: no acute distress, well-nourished, other ( aggressive) - EENT Eyes: PERRL, EOM intact ENT: hearing intact, clear oral mucosa - Neck Neck: supple, normal ROM - Respiratory Respiratory: bilateral: diminished, rhonchi (base) - Cardiovascular Rhythm: regular Heart Sounds: Present: S1 & S2. Absent: gallop, rub Extremities: pulses intact, No edema, normal color, Full ROM - Gastrointestinal General gastrointestinal: Present: soft, non-tender, non-distended, normal bowel sounds - Integumentary Integumentary: clear, warm, dry - Musculoskeletal Musculoskeletal: generalized weakness - Neurologic Neurologic: CNII-XII intact - Psychiatric Psychiatric: other (uncooperative poor cognition behavioral problems) - Labs CBC & Chem 7: 04/14/16 06:48 04/14/16 06:48 Labs: Abnormal lab results 04/14/16 04/14/16 04/14/16 Range/Units 12:03 15:35 20:43 POC Glucose 213 H 257 H 182 H (70-105) 04/14/16 Range/Units 21:44 POC Glucose 159 H (70-105) - Imaging and cardiology EKG: image reviewed CT Scan - head: report reviewed
--- NOTE | 2016-04-15 15:03 | XRay Report ---
Portable chest: The heart is slightly enlarged and there does appear to be mild vascular congestion. There is slight blunting of both angles consistent with small effusions. Compared to prior study of April 13 the findings have not significantly changed. Impression: The findings are most consistent with CHF.
[2016-04-15] MEDS: LASIX IV SCH (17:46)
[2016-04-15] MEDS: K-DUR PO SCH (17:48)
--- NOTE | 2016-04-15 18:26 | Echocardiography Report ---
Transthoracic Echocardiogram Indication: CHF BP: 138/74 HR: 120 Conclusions *1. Normal-hyperdynamic LV function EF 65%. *2. Moderate-severe aortic stenosis, gradients 63/39, CHEL 0.9. *3. Dilated LA. *4. Mild-moderate MR. *5. Normal R heart chambers, with severe pulmonary HTN, PASP Greater Than 80. Findings Procedure Info: The study quality is fair. Left Ventricle: The left ventricular chamber size is normal. Mild concentric left ventricular hypertrophy is observed. Global left ventricular systolic function is normal. The estimated ejection fraction is 60-65%. Left Atrium: The left atrium is mild to moderately dilated. Right Ventricle: The right ventricular cavity size is normal. The right ventricular global systolic function is normal. Right Atrium: The right atrial cavity size is normal. Aortic Valve: The aortic valve is trileaflet. The aortic valve leaflets are moderately thickened. Moderate aortic leaflet calcification is visualized. Systolic excursion of the aortic valve cusps is reduced. There is mild aortic regurgitation. There is moderate to severe aortic stenosis. The mean gradient of the aortic valve is 31 mmHg. Mitral Valve: The mitral valve leaflets appear normal. There is mitral annular calcification. The mitral valve leaflets do not appear thickened. There is mild to moderate mitral regurgitation. There is no evidence of mitral stenosis. Tricuspid Valve: There is mild tricuspid regurgitation. There is evidence of severe pulmonary hypertension. There is no tricuspid stenosis. Pulmonic Valve: The pulmonic valve is not well visualized. There is no evidence of pulmonic regurgitation. There is no pulmonic stenosis. Pericardium: There is no pericardial effusion. No pleural effusion is present. Aorta: There is no dilatation of the ascending aorta. There is no dilatation of the aortic root. Measurements Chambers 2D Name Value Normal Range IVSd (2D) 0.77 cm (0.6 - 1.1) LVPWd 1.1 cm - LVPWd (2D) 1.14 cm (0.6 - 1.1) IVS:LVPW ratio (2D) 0.68 ratio - LVIDd 3.4 cm - LVIDs 2.3 cm - LVIDd (2D) 3.38 cm (3.7 - 5.6) LVIDs (2D) 2.25 cm (2 - 3.8) LV FS (Teichholz) (2D) 33.4 % - LV FS (cube) (2D) 33.4 % - LV EF (2D) 63 % - EF Teichholz (2D) 63.5 % - LA dimension 4.4 cm - Ao root diameter (2D) 2 cm (2 - 3.7) LA dimension (AP) 2D 4.4 cm (1.9 - 4) LA:Ao ratio (2D) 2.2 ratio - Volumes/Mass Name Value Normal Range LA ESV SP 4CH (MOD) 68 ml - LV EDV SP 4CH (MOD) 108 ml - LV ESV SP 4CH (MOD) 53 ml - EF SP 4CH (MOD) 51 % - Diastolic/Systolic Function Name Value Normal Range MV E-wave Vmax 2.04 m/sec - MV deceleration time 209 msec - MV A-wave Vmax 1.85 m/sec - MV E:A ratio 1.1 ratio - LV septal e' Vmax 0.13 m/sec - LV lateral e' Vmax 0.13 m/sec - LV E:e' septal ratio 15.7 ratio - LV E:e' lateral ratio 16.1 ratio - Aortic Valve Name Value Normal Range AV Vmax 3.96 m/sec - AV VTI 64.9 cm - AV peak gradient 63 mmHg - AV mean gradient 31 mmHg - LVOT diameter 1.6 cm - LVOT Vmax 1.75 m/sec - LVOT VTI 30.2 cm - LVOT peak gradient 12 mmHg - LVOT mean gradient 5 mmHg - SV LVOT 61 ml - CHEL (continuity Vmax) 0.89 cm2 - CHEL (continuity VTI) 0.91 cm2 - Tricuspid Valve Name Value Normal Range TR Vmax 4.32 m/sec - TR peak gradient 75 mmHg - RAP 8 mmHg - RVSP 83 mmHg - Pulmonic Valve/Qp:Qs Name Value Normal Range PV Vmax 1.42 m/sec - PV peak gradient 8 mmHg - PV acceleration time 92 msec -
[2016-04-15] MEDS: LEVEMIR SUB-Q SCH (22:11)
[2016-04-15] MEDS: XANAX PO PRN (22:11)
[2016-04-16] MEDS: DILAUDID IV PRN ×4 (04:52→21:25)
[2016-04-16] MEDS: LASIX IV SCH ×2 (06:09→17:02)
[2016-04-16] MEDS: APRESOLINE PO SCH ×3 (06:09→21:26)
[2016-04-16 06:14] LABS: BUN/Creatinine Ratio 27.14; Blood Urea Nitrogen 19 mg/dL (7-17); Calcium 8.5 mg/dL (8.4-10.2); Carbon Dioxide 23 mmol/L (22-30); Glucose 173 mg/dL (65-100); Potassium 4.6 mmol/L (3.6-5.0); Sodium 138 mmol/L (137-145)
[2016-04-16 06:19] LABS: Anion Gap 20 mmol/L
[2016-04-16] MEDS: NOVOLOG SUB-Q SCH ×4 (08:58→22:29)
[2016-04-16] MEDS: NORVASC PO SCH ×2 (09:01→17:18)
[2016-04-16] MEDS: LOVENOX SUB-Q SCH (09:01)
[2016-04-16] MEDS: K-DUR PO SCH (09:01)
[2016-04-16] MEDS: XANAX PO PRN ×2 (09:02→21:26)
--- NOTE | 2016-04-16 13:14 | Progress Note ---
Assessment and Plan CHF, diastolic Echo done this admission reports a moderate to servere , severe pulmonary HTN, ejection fraction 65%. Hypertension Plan: CT of chest for rule out PE for continued shortness of breath. Ultimately, invasive cardiac evaluation will with a right and left heart catheterization for further cardiac assessment. Subjective Date of service: 04/16/16 Principal diagnosis: congestive heart failure Interval history: Patient still with shortness of breath. Patient reports blood tinged sputum this morning. Objective Vital Signs Temp Pulse Pulse Resp BP BP Pulse Ox 04/16/16 09:01 116 H 168/74 04/16/16 08:08 99.6 F 116 H 24 164/71 97 04/16/16 05:00 98.4 F 109 H 18 168/77 96 04/15/16 23:51 103 H 22 158/69 95 04/15/16 22:00 106 H 04/15/16 20:45 98.5 F 112 H 18 176/75 98 04/15/16 16:06 98.9 F 110 H 20 150/65 98 04/15/16 13:15 96 H 150/80 - Physical Examination General: No Apparent Distress HEENT: Positive: PERRL Neck: Positive: neck supple Cardiac: Positive: Reg Rate and Rhythm Lungs: Positive: Decreased Breath Sounds Neuro: Positive: Grossly Intact Extremities: Absent: edema - Labs and Meds Comprehensive Metabolic Panel 04/16/16 Range/Units 05:15 Sodium 138 (137-145) mmol/L Potassium 4.6 (3.6-5.0) mmol/L Chloride 100.0 (98-107) mmol/L Carbon Dioxide 23 (22-30) mmol/L BUN 19 H (7-17) mg/dL Creatinine 0.7 (0.7-1.2) mg/dL Glucose 173 H (65-100) mg/dL Calcium 8.5 (8.4-10.2) mg/dL - Imaging and Cardiology EKG: image reviewed
--- NOTE | 2016-04-16 13:42 | Progress Note ---
Assessment and Plan Assessment and plan: 1. Acute on chronic diastolic heart failure- We'll continue to diuresis slowly ; Continue IV Lasix and try to optimize blood pressure control. Follow-up with cardiology for further recommendations 2. Moderate to severe aortic stenosis with severe pulmonary hypertension-follow -up with cardiology for further recommendations. Patient is for cardiac catheterization once she is stable pulmonary barraza. 3. Benign hypertension-uncontrolled. Continue IV Lasix, amlodipine and will increase hydralazine to 75 mg daily 8H. Continue to monitor blood pressure and adjust medications as needed 4. Diabetes also remains suboptimal- We'll continue the Lantus at 10 and cover with sliding-scale insulin. 5. H/O Polysubstance abuse- drug screen negative on admission. 6. DVT prophylaxis-lovenox History Interval history: f/u chf PAtient seen on the bedside. Complains of persistent coughing with hemoptysis this morning; he was scheduled for left and right heart cath but that was postponed for further evaluation of hemoptysis with CT of the chest. Hospitalist Physical - Constitutional Vitals: Temp Pulse Resp BP Pulse Ox 99.6 F 116 H 24 168/74 97 04/16/16 08:08 04/16/16 09:01 04/16/16 08:08 04/16/16 09:01 04/16/16 08:08 General appearance: Present: mild distress (on high flow oxygen), well-nourished - EENT Eyes: Present: PERRL, EOM intact. Absent: scleral icterus, conjunctival injection ENT: hearing intact, clear oral mucosa, no oropharyngeal erythema, no poor dentition - Neck Neck: Present: supple, normal ROM. Absent: enlarged thyroid, masses or JVD - Respiratory Respiratory effort: normal Respiratory: bilateral: diminished, negative: rales, rhonchi, wheezing - Cardiovascular Rhythm: regular Heart Sounds: Present: S1 & S2. Absent: gallop - Extremities Extremities: no ischemia, pulses intact, pulses symmetrical, No edema Peripheral Pulses: within normal limits - Abdominal General gastrointestinal: soft, non-tender, non-distended, normal bowel sounds - Integumentary Integumentary: Present: clear - Psychiatric Psychiatric: appropriate mood/affect, intact judgment & insight, cooperative - Neurologic Neurologic: CNII-XII intact, moves all extremities Results - Labs CBC & Chem 7: 04/14/16 06:48 04/16/16 05:15 Labs: Laboratory Last Values WBC 5.6 K/mm3 (4.5-11.0) 04/14/16 06:48 RBC 3.47 M/mm3 (3.65-5.03) L 04/14/16 06:48 Hgb 9.7 gm/dl (10.1-14.3) L 04/14/16 06:48 Hct 30.5 % (30.3-42.9) 04/14/16 06:48 MCV 88 fl (79-97) 04/14/16 06:48 MCH 28 pg (28-32) 04/14/16 06:48 MCHC 32 % (30-34) 04/14/16 06:48 RDW 17.7 % (13.2-15.2) H 04/14/16 06:48 Plt Count 188 K/mm3 (140-440) 04/14/16 06:48 Lymph % (Auto) 4.7 % (13.4-35.0) L 04/14/16 06:48 [place] % (Auto) 6.9 % (0.0-7.3) 04/14/16 06:48 Eos % (Auto) 3.0 % (0.0-4.3) 04/14/16 06:48 Baso % (Auto) 0.2 % (0.0-1.8) 04/14/16 06:48 Lymph # 0.3 K/mm3 (1.2-5.4) L 04/14/16 06:48 Stafford # 0.4 K/mm3 (0.0-0.8) 04/14/16 06:48 Eos # 0.2 K/mm3 (0.0-0.4) 04/14/16 06:48 Baso # 0.0 K/mm3 (0.0-0.1) 04/14/16 06:48 Seg Neutrophils % 85.2 % (40.0-70.0) H 04/14/16 06:48 Seg Neutrophils # 4.8 K/mm3 (1.8-7.7) 04/14/16 06:48 POC ABG pH 7.380 (7.35-7.45) 04/13/16 17:31 POC ABG pCO2 36.3 (35-45) 04/13/16 17:31 POC ABG pO2 79 (80-105) L 04/13/16 17:31 POC ABG HCO3 21.5 04/13/16 17:31 POC ABG Total CO2 23 04/13/16 17:31 POC ABG O2 Sat 95 04/13/16 17:31 POC ABG Base Excess -4 04/13/16 17:31 FiO2 50 % 04/13/16 17:31 Sodium 138 mmol/L (137-145) 04/16/16 05:15 Potassium 4.6 mmol/L (3.6-5.0) 04/16/16 05:15 Chloride 100.0 mmol/L (98-107) 04/16/16 05:15 Carbon Dioxide 23 mmol/L (22-30) 04/16/16 05:15 Anion Gap 20 mmol/L 04/16/16 05:15 BUN 19 mg/dL (7-17) H 04/16/16 05:15 Creatinine 0.7 mg/dL (0.7-1.2) 04/16/16 05:15 Estimated GFR > 60 ml/min 04/16/16 05:15 BUN/Creatinine Ratio 27.14 % 04/16/16 05:15 Glucose 173 mg/dL (65-100) H 04/16/16 05:15 POC Glucose 231 (70-105) H 04/16/16 10:40 Lactic Acid 1.3 mmol/L (0.7-2.0) 04/13/16 18:08 Calcium 8.5 mg/dL (8.4-10.2) 04/16/16 05:15 Magnesium 1.6 mg/dL (1.7-2.3) L 04/13/16 16:25 Iron 14 ug/dL (37-170) L 04/14/16 09:36 TIBC 301.00 mcg/dL (250-450) 04/14/16 09:36 % Saturation 4.65 % 04/14/16 09:36 Transferrin 215 mg/dl (192-382) 04/14/16 09:36 Total Bilirubin 0.5 mg/dL (0.1-1.2) 04/14/16 06:48 AST 43 units/L (5-40) H 04/14/16 06:48 ALT 25 units/L (7-56) 04/14/16 06:48 Alkaline Phosphatase 147 units/L (35-129) H 04/14/16 06:48 Total Creatine Kinase 99 units/L (30-135) 04/13/16 16:25 Troponin T < 0.010 ng/mL (0.00-0.029) 04/13/16 17:00 NT-Pro-B Natriuret Pep 2937 pg/mL (0-900) H 04/13/16 16:25 Total Protein 7.4 g/dL (6.3-8.2) 04/14/16 06:48 Albumin 3.0 g/dL (3.9-5) L 04/14/16 06:48 Albumin/Globulin Ratio 0.7 % 04/14/16 06:48 Vitamin B12 1433 pg/mL (211-911) H 04/14/16 09:36 Urine Color Yellow (Yellow) 04/14/16 03:36 Urine Turbidity Clear (Clear) 04/14/16 03:36 Urine pH 5.0 (5.0-7.0) 04/14/16 03:36 Ur Specific Matthews 1.012 (1.003-1.030) 04/14/16 03:36 Urine Protein 100 mg/dl mg/dL (Negative) 04/14/16 03:36 Urine Glucose (UA) Neg mg/dL (Negative) 04/14/16 03:36 Urine Ketones Neg mg/dL (Negative) 04/14/16 03:36 Urine Blood Neg (Negative) 04/14/16 03:36 Urine Nitrite Neg (Negative) 04/14/16 03:36 Urine Bilirubin Neg (Negative) 04/14/16 03:36 Urine Urobilinogen < 2.0 mg/dL (<2.0) 04/14/16 03:36 Ur Leukocyte Esterase Neg (Negative) 04/14/16 03:36 Urine WBC (Auto) 2.0 /HPF (0.0-6.0) 04/14/16 03:36 Urine RBC (Auto) 1.0 /HPF (0.0-6.0) 04/14/16 03:36 U Epithel Cells (Auto) < 1.0 /HPF (0-13.0) 04/14/16 03:36 Urine Opiates Screen Presumptive negative 04/14/16 03:36 Urine Methadone Screen Presumptive negative 04/14/16 03:36 Ur Barbiturates Screen Presumptive negative 04/14/16 03:36 Ur Phencyclidine Scrn Presumptive negative 04/14/16 03:36 Ur Amphetamines Screen Presumptive negative 04/14/16 03:36 U Benzodiazepines Scrn Presumptive negative 04/14/16 03:36 Urine Cocaine Screen Presumptive negative 04/14/16 03:36 U Marijuana (THC) Screen Presumptive negative 04/14/16 03:36 Drugs of Abuse Note Disclamer 04/14/16 03:36 Echocardiogram-moderate to severe aortic stenosis, ejection fraction 65%. Mild to moderate MR.
[2016-04-16] MEDS ORDERED: NACL ONE (14:24)
[2016-04-16] MEDS: LEVEMIR SUB-Q SCH (22:29)
[2016-04-17] MEDS: DILAUDID IV PRN ×2 (03:06→19:36)
[2016-04-17] MEDS: TYLENOL PO PRN ×2 (03:10→21:25)
--- NOTE | 2016-04-17 13:40 | Progress Note ---
Assessment and Plan CHF, diastolic Hypertension Hemoptysis Echocardiogram shows normal left ventricle systolic function, with a calcified aortic valve and at least moderate aortic stenosis. Also notably, there is severe pulmonary hypertension, pulmonary artery systolic pressures of 80 mmHg, despite normal sized right heart chambers. Plan: CTA of chest for rule out pulmonary embolism. Ultimately, after pulmonary status is stabilized, she will need a right and left heart cath for the aortic stenosis and intercurrent heart failure. Subjective Date of service: 04/17/16 Principal diagnosis: congestive heart failure Interval history: Patient shortness of breath has somewhat improved. Chest CTA not completed due to poor IV access. Awaits PICC line today. Objective Vital Signs Temp Pulse Pulse Pulse Resp Resp BP 04/17/16 11:49 04/17/16 03:42 99.5 F 114 H 19 04/17/16 03:10 20 04/17/16 03:06 20 04/17/16 00:32 98.8 F 109 H 18 04/17/16 00:00 107 H 04/16/16 23:59 20 04/16/16 23:53 98 H 20 04/16/16 20:27 04/16/16 20:00 99.7 F H 107 H 20 04/16/16 17:18 146/70 04/16/16 17:05 70 04/16/16 17:01 98.9 F 110 H 24 BP Pulse Ox 04/17/16 11:49 96 04/17/16 03:42 171/72 94 04/17/16 03:10 04/17/16 03:06 04/17/16 00:32 138/64 97 04/17/16 00:00 04/16/16 23:59 04/16/16 23:53 99 04/16/16 20:27 96 04/16/16 20:00 141/63 92 04/16/16 17:18 04/16/16 17:05 04/16/16 17:01 147/54 96 - Physical Examination General: No Apparent Distress HEENT: Positive: PERRL Neck: Positive: neck supple Cardiac: Positive: Reg Rate and Rhythm Lungs: Positive: Decreased Breath Sounds Neuro: Positive: Grossly Intact Extremities: Absent: edema - Imaging and Cardiology EKG: image reviewed
--- NOTE | 2016-04-17 14:35 | Nuclear Medicine Report ---
LUNG SCAN, VENTILATION AND PERFUSION: History: Shortness of breath. Technique: 5mci of Tc99m MAA was infused for the perfusion images. 15mci XE 133 gas was inhaled for the ventilatory images. Correlation is made with a chest x-ray dated 04/15/16. Findings: Inhalation of Xenon gas demonstrates a normal distribution of the activity throughout both lungs. The wash out phases show no focal retention of activity. After injection of Technetium 99m macroaggregated albumin gamma camera imaging of the lungs in multiple projections demonstrates normal pulmonary contours with a homogeneous distribution of activity. No focal areas of perfusion deficiency are identified. IMPRESSION: Low probability for pulmonary embolus.
--- NOTE | 2016-04-17 14:38 | Event Note ---
Date: 04/17/16 see progress note in paper chart (EMR was down) v/q scan low probability for PE
--- NOTE | 2016-04-17 14:39 | XRay Report ---
AP chest History: Shortness of breath Findings: Heart size is borderline. Mild vascular congestion is suspected bilaterally. Trace pleural effusions could be present. No consolidation or pneumothorax. Impression: Mild congestive changes. Correlate for early CHF.
[2016-04-17] MEDS: APRESOLINE PO SCH ×3 (16:00→21:26)
[2016-04-17] MEDS: LOPRESSOR PO SCH ×2 (17:30→21:25)
[2016-04-17] MEDS: LASIX IV SCH ×2 (17:59→19:04)
[2016-04-17] MEDS: NOVOLOG SUB-Q SCH ×4 (18:02→21:28)
[2016-04-17] MEDS: K-DUR PO SCH (19:35)
[2016-04-17] MEDS: NORVASC PO SCH ×2 (19:35→19:36)
[2016-04-17] MEDS: XANAX PO PRN (21:25)
[2016-04-17] MEDS: LEVEMIR SUB-Q SCH (21:28)
[2016-04-18] MEDS: DILAUDID IV PRN ×3 (04:24→20:51)
[2016-04-18] MEDS: TYLENOL PO PRN (04:28)
[2016-04-18 05:40] LABS: Hemoglobin 9.2 gm/dl (10.1-14.3); White Blood Count 7.9 K/mm3 (4.5-11.0)
[2016-04-18 05:51] LABS: Hematocrit 28.8 % (30.3-42.9); INR 0.98 (0.87-1.13); Mean Corpuscular HGB Conc 31 % (30-34); Mean Corpuscular Hemoglobin 27 pg (28-32); Mean Corpuscular Volume 87 fl (79-97); Partial Thromboplastin Time 27.2 Sec. (24.2-36.6); Platelet Count 254 K/mm3 (140-440); Red Blood Count 3.33 M/mm3 (3.65-5.03); Red Cell Distribution Width 16.5 % (13.2-15.2)
[2016-04-18 06:00] LABS: Anion Gap 22 mmol/L; BUN/Creatinine Ratio 28.18; Blood Urea Nitrogen 31 mg/dL (7-17); Calcium 8.4 mg/dL (8.4-10.2); Carbon Dioxide 23 mmol/L (22-30); Chloride 95.8 mmol/L (98-107); Glucose 203 mg/dL (65-100); Potassium 4.9 mmol/L (3.6-5.0); Sodium 136 mmol/L (137-145)
[2016-04-18] MEDS: APRESOLINE PO SCH ×3 (06:44→22:48)
[2016-04-18] MEDS: LASIX IV SCH ×2 (06:45→18:52)
[2016-04-18] MEDS: NOVOLOG SUB-Q SCH ×4 (06:50→22:49)
[2016-04-18] MEDS ORDERED: HEPARIN 10,000 UNITS/10 ML ONE (08:23)
[2016-04-18] MEDS ORDERED: NITROGLYCERIN SYRINGE 0 ML ONE (08:23)
[2016-04-18] MEDS: XYLOCAINE 2% INFILTRATI ONE ×2 (09:09→10:10)
[2016-04-18] MEDS: VERSED ONE ×2 (09:09→10:12)
[2016-04-18] MEDS: SUBLIMAZE ONE ×2 (09:10→10:12)
[2016-04-18] MEDS: HEPARIN/NS 5000 UNIT/500ML(CATH LAB) 500 ML IR ONE ×2 (09:11→10:10)
[2016-04-18] MEDS: NACL 0.9% 250ML 250 ML ONE ×2 (09:11→10:10)
[2016-04-18] MEDS: HEPARIN/NS 5000 UNIT/500ML(CATH LAB) 1,000 ML IR ONE ×2 (09:11→10:10)
--- NOTE | 2016-04-18 10:48 | Progress Note ---
Assessment and Plan - Patient Problems (1) Congestive heart failure Current Visit: Yes Status: Acute Qualifiers: Congestive heart failure type: C Congestive heart failure chronicity: C Plan to address problem: R/L heart cath, no complications. Findings: 1. Elevated R/L heart filling pressures-RVEDP 30, LVEDP 35. 2. Severe pulm HTN, PASP 80. 3. Mild-moderate aortic stenosis, mean gadient 20. 4. Elevated transmitral pressure gradient-uncertain significance, doubt significant MS. 5. Normal coronaries. 6. Normal LV systolic function, EF 55%. Recommend: Pulmonary consult for lung disease and pulm HTN-likely primary source of symptoms. Mild valvular disease of mitral and aortic valves will be managed conservatively. Medical therapy for HF with pEF. Subjective Date of service: 04/18/16 Principal diagnosis: congestive heart failure Interval history: R/L heart cath, no complications. Findings: 1. Elevated R/L heart filling pressures-RVEDP 30, LVEDP 35. 2. Severe pulm HTN, PASP 80. 3. Mild-moderate aortic stenosis, mean gadient 20. 4. Elevated transmitral pressure gradient-uncertain significance, doubt significant MS. 5. Normal coronaries. 6. Normal LV systolic function, EF 55%. Recommend: Pulmonary consult for lung disease and pulm HTN-likely primary source of symptoms. Mild valvular disease of mitral and aortic valves will be managed conservatively. Medical therapy for HF with pEF. Objective Vital Signs Temp Pulse Pulse Pulse Resp Resp BP 04/18/16 07:54 98.7 F 96 H 20 130/59 04/18/16 05:28 22 04/18/16 04:54 04/18/16 04:15 98.5 F 92 H 20 140/63 04/18/16 00:20 98.2 F 86 20 137/67 04/17/16 22:25 20 04/17/16 21:07 04/17/16 20:42 100 H 20 138/64 04/17/16 20:06 18 04/17/16 19:46 20 04/17/16 19:41 106 H 20 04/17/16 19:07 105 H 04/17/16 16:12 98.7 F 108 H 20 147/67 04/17/16 11:49 Pulse Ox 04/18/16 07:54 93 04/18/16 05:28 04/18/16 04:54 04/18/16 04:15 93 04/18/16 00:20 94 04/17/16 22:25 04/17/16 21:07 91 04/17/16 20:42 99 04/17/16 20:06 04/17/16 19:46 04/17/16 19:41 99 04/17/16 19:07 04/17/16 16:12 96 04/17/16 11:49 96 - Physical Examination General: No Apparent Distress HEENT: Positive: PERRL Neck: Positive: neck supple Cardiac: Positive: Reg Rate and Rhythm Lungs: Positive: Decreased Breath Sounds Neuro: Positive: Grossly Intact Abdomen: Positive: Soft Skin: Positive: Clear Extremities: Absent: edema - Labs and Meds Coagulation 04/18/16 Range/Units 05:17 PT 12.9 (12.2-14.9) Sec. INR 0.98 (0.87-1.13) APTT 27.2 (24.2-36.6) Sec. CBC 04/18/16 Range/Units 05:17 WBC 7.9 (4.5-11.0) K/mm3 RBC 3.33 L (3.65-5.03) M/mm3 Hgb 9.2 L (10.1-14.3) gm/dl Hct 28.8 L (30.3-42.9) % Plt Count 254 (140-440) K/mm3 Comprehensive Metabolic Panel 04/18/16 Range/Units 05:17 Sodium 136 L (137-145) mmol/L Potassium 4.9 (3.6-5.0) mmol/L Chloride 95.8 L (98-107) mmol/L Carbon Dioxide 23 (22-30) mmol/L BUN 31 H (7-17) mg/dL Creatinine 1.1 D (0.7-1.2) mg/dL Glucose 203 H (65-100) mg/dL Calcium 8.4 (8.4-10.2) mg/dL - Imaging and Cardiology EKG: image reviewed
[2016-04-18] MEDS ORDERED: NACL 0.9% 1000 ML 1,000 ML IV SCH (11:00)
--- NOTE | 2016-04-18 11:48 | Cardiac Catherization Report ---
CARDIAC CATHETERIZATION REASON FOR PROCEDURE: Shortness of breath and congestive heart failure. PROCEDURE: The patient was prepped and draped in a sterile fashion after informed consent. Right femoral artery and vein were entered using the Seldinger technique followed by placement of a 6-Syriac sheath in the artery and an 8 Syriac sheath in the vein. The Columbus-Pilar catheter was advanced into the pulmonary artery position. Cardiac output was measured using the thermodilution method. A pigtail catheter was advanced into the left ventricle. Simultaneous left and right heart filling pressures were then measured. The [place]-Pilar catheter was withdrawn, and pressures were measured in the right heart chambers on withdrawal. Left ventricular angiography was then performed using the pigtail catheter. The pigtail catheter was then pulled back across the aortic valve and transaortic pressure gradient was recorded. Left and right coronary angiography was then performed using a #4 left and a #4 right Yasmany catheters. The catheters were removed, arterial sheath removed, and hemostasis achieved using an Angio-Seal device. The venous sheath was subsequently removed and manual pressure was used for hemostasis at this site. FINDINGS: HEMODYNAMICS: The mean right atrial pressure was 25. Right ventricular pressure was 80/30. Pulmonary artery pressure was 80/50. The mean pulmonary artery wedge pressure was 25. Left ventricular end-diastolic pressure was 35-38. Ascending aortic pressure was 140/71. Cardiac output was calculated at 9.5 liters per minute, this is likely an overestimation of the true cardiac output. AORTIC VALVE: On pullback across the aortic valve, there was a 27 mm peak gradient, and a 20 mm mean gradient. The measured transaortic gradients are consistent with mild to moderate aortic stenosis. Due to the unreliable cardiac output measurement, a true aortic valve area cannot be calculated. MITRAL VALVE: Simultaneous left ventricular end diastolic and pulmonary artery wedge pressures, revealed a mean transmitral pressure gradient of 16. Again, the unreliable cardiac output measurement could not be used for calculation of the mitral valve area, and noninvasive assessment with echocardiography is recommended for optimal assessment for mitral stenosis. CORONARY ANGIOGRAPHY: The left main coronary artery was angiographically normal. The left anterior descending artery and its diagonal branches were angiographically normal. The circumflex artery and its obtuse marginal branches were angiographically normal. The right coronary artery was a relatively small caliber vessel, but dominant, also angiographically normal. Left ventricular systolic function was well preserved, ejection fraction 55%. CONCLUSION: 1. Elevated right and left heart filling pressures, consistent with biventricular heart failure. 2. Severe pulmonary hypertension, with pulmonary artery systolic pressures of 80 mmHg. 3. Mild to moderate aortic stenosis, peak gradient 27 and mean gradient 20. 4. Elevated transmitral pressure gradient, 16 mmHg, recommend noninvasive assessment of mitral stenosis. 5. Angiographically normal coronary arteries. 6. Normal left ventricular systolic function, ejection fraction 55%. RECOMMENDATION: 1. Medical therapy for heart failure, with preserved ejection fraction. 2. Medical and conservative management, and followup of mild aortic stenosis and possibly mild mitral stenosis. 3. Aggressive assessment and management of the underlying severe pulmonary hypertension. JOB# [id number] MONO/JUNG
[2016-04-18] MEDS: NORVASC PO SCH ×2 (12:01)
[2016-04-18] MEDS: LOPRESSOR PO SCH ×2 (12:01→22:49)
[2016-04-18] MEDS: K-DUR PO SCH (12:01)
[2016-04-18] MEDS: XANAX PO PRN ×2 (14:56→22:48)
--- NOTE | 2016-04-18 15:29 | Progress Note ---
Assessment and Plan Assessment and plan: 1. Acute on chronic diastolic heart failure-Continue IV Lasix and try to optimize blood pressure control 2. Mild to Moderate aortic stenosis- -conservative manx as per cardiology; 3. Severe pulmonary HTN- will consult pulmonary for further recommendations 4. Benign hypertension-uncontrolled. Continue IV Lasix, amlodipine and will increase hydralazine to 75 mg daily 8H. Continue to monitor blood pressure and adjust medications as needed 4. Diabetes also remains suboptimal- cotn Lantus 10 and cover with sliding- scale insulin. 5. H/O Polysubstance abuse- drug screen negative on admission. 6. DVT prophylaxis-lovenox History Interval history: f/u chf Patient seen on the bedside. Patient seen at the bedside; no complaints today; had heart cath today Hospitalist Physical - Constitutional Vitals: Temp Pulse Resp BP Pulse Ox 98.7 F 93 H 20 130/59 93 04/18/16 07:54 04/18/16 10:00 04/18/16 07:54 04/18/16 07:54 04/18/16 07:54 General appearance: Present: no acute distress (on NC oxygen), well-nourished - EENT Eyes: Present: PERRL, EOM intact. Absent: scleral icterus, conjunctival injection ENT: hearing intact, clear oral mucosa, no oropharyngeal erythema, no poor dentition - Neck Neck: Present: supple, normal ROM. Absent: enlarged thyroid, masses or JVD - Respiratory Respiratory effort: normal Respiratory: bilateral: diminished, negative: rales, rhonchi, wheezing - Cardiovascular Rhythm: regular Heart Sounds: Present: S1 & S2. Absent: gallop - Extremities Extremities: no ischemia, pulses intact, pulses symmetrical, No edema Peripheral Pulses: within normal limits - Abdominal General gastrointestinal: soft, non-tender, non-distended - Integumentary Integumentary: Present: clear - Psychiatric Psychiatric: appropriate mood/affect, intact judgment & insight - Neurologic Neurologic: CNII-XII intact, moves all extremities Results - Labs CBC & Chem 7: 04/18/16 05:17 04/18/16 05:17 Labs: Laboratory Last Values WBC 7.9 K/mm3 (4.5-11.0) 04/18/16 05:17 RBC 3.33 M/mm3 (3.65-5.03) L 04/18/16 05:17 Hgb 9.2 gm/dl (10.1-14.3) L 04/18/16 05:17 Hct 28.8 % (30.3-42.9) L 04/18/16 05:17 MCV 87 fl (79-97) 04/18/16 05:17 MCH 27 pg (28-32) L 04/18/16 05:17 MCHC 31 % (30-34) 04/18/16 05:17 RDW 16.5 % (13.2-15.2) H 04/18/16 05:17 Plt Count 254 K/mm3 (140-440) 04/18/16 05:17 Lymph % (Auto) 4.7 % (13.4-35.0) L 04/14/16 06:48 [place] % (Auto) 6.9 % (0.0-7.3) 04/14/16 06:48 Eos % (Auto) 3.0 % (0.0-4.3) 04/14/16 06:48 Baso % (Auto) 0.2 % (0.0-1.8) 04/14/16 06:48 Lymph # 0.3 K/mm3 (1.2-5.4) L 04/14/16 06:48 [place] # 0.4 K/mm3 (0.0-0.8) 04/14/16 06:48 Eos # 0.2 K/mm3 (0.0-0.4) 04/14/16 06:48 Baso # 0.0 K/mm3 (0.0-0.1) 04/14/16 06:48 Seg Neutrophils % 85.2 % (40.0-70.0) H 04/14/16 06:48 Seg Neutrophils # 4.8 K/mm3 (1.8-7.7) 04/14/16 06:48 PT 12.9 Sec. (12.2-14.9) 04/18/16 05:17 INR 0.98 (0.87-1.13) 04/18/16 05:17 APTT 27.2 Sec. (24.2-36.6) 04/18/16 05:17 POC ABG pH 7.380 (7.35-7.45) 04/13/16 17:31 POC ABG pCO2 36.3 (35-45) 04/13/16 17:31 POC ABG pO2 79 (80-105) L 04/13/16 17:31 POC ABG HCO3 21.5 04/13/16 17:31 POC ABG Total CO2 23 04/13/16 17:31 POC ABG O2 Sat 95 04/13/16 17:31 POC ABG Base Excess -4 04/13/16 17:31 FiO2 50 % 04/13/16 17:31 Sodium 136 mmol/L (137-145) L 04/18/16 05:17 Potassium 4.9 mmol/L (3.6-5.0) 04/18/16 05:17 Chloride 95.8 mmol/L (98-107) L 04/18/16 05:17 Carbon Dioxide 23 mmol/L (22-30) 04/18/16 05:17 Anion Gap 22 mmol/L 04/18/16 05:17 BUN 31 mg/dL (7-17) H 04/18/16 05:17 Creatinine 1.1 mg/dL (0.7-1.2) D 04/18/16 05:17 Estimated GFR > 60 ml/min 04/18/16 05:17 BUN/Creatinine Ratio 28.18 % 04/18/16 05:17 Glucose 203 mg/dL (65-100) H 04/18/16 05:17 POC Glucose 191 (70-105) H 04/18/16 11:20 Lactic Acid 1.3 mmol/L (0.7-2.0) 04/13/16 18:08 Calcium 8.4 mg/dL (8.4-10.2) 04/18/16 05:17 Magnesium 1.6 mg/dL (1.7-2.3) L 04/13/16 16:25 Iron 14 ug/dL (37-170) L 04/14/16 09:36 TIBC 301.00 mcg/dL (250-450) 04/14/16 09:36 % Saturation 4.65 % 04/14/16 09:36 Transferrin 215 mg/dl (192-382) 04/14/16 09:36 Total Bilirubin 0.5 mg/dL (0.1-1.2) 04/14/16 06:48 AST 43 units/L (5-40) H 04/14/16 06:48 ALT 25 units/L (7-56) 04/14/16 06:48 Alkaline Phosphatase 147 units/L (35-129) H 04/14/16 06:48 Total Creatine Kinase 99 units/L (30-135) 04/13/16 16:25 Troponin T < 0.010 ng/mL (0.00-0.029) 04/13/16 17:00 NT-Pro-B Natriuret Pep 2937 pg/mL (0-900) H 04/13/16 16:25 Total Protein 7.4 g/dL (6.3-8.2) 04/14/16 06:48 Albumin 3.0 g/dL (3.9-5) L 04/14/16 06:48 Albumin/Globulin Ratio 0.7 % 04/14/16 06:48 Vitamin B12 1433 pg/mL (211-911) H 04/14/16 09:36 RBC Folic Acid 735 ng/mL (>280) 04/14/16 09:36 Urine Color Yellow (Yellow) 04/14/16 03:36 Urine Turbidity Clear (Clear) 04/14/16 03:36 Urine pH 5.0 (5.0-7.0) 04/14/16 03:36 Ur Specific [place] 1.012 (1.003-1.030) 04/14/16 03:36 Urine Protein 100 mg/dl mg/dL (Negative) 04/14/16 03:36 Urine Glucose (UA) Neg mg/dL (Negative) 04/14/16 03:36 Urine Ketones Neg mg/dL (Negative) 04/14/16 03:36 Urine Blood Neg (Negative) 04/14/16 03:36 Urine Nitrite Neg (Negative) 04/14/16 03:36 Urine Bilirubin Neg (Negative) 04/14/16 03:36 Urine Urobilinogen < 2.0 mg/dL (<2.0) 04/14/16 03:36 Ur Leukocyte Esterase Neg (Negative) 04/14/16 03:36 Urine WBC (Auto) 2.0 /HPF (0.0-6.0) 04/14/16 03:36 Urine RBC (Auto) 1.0 /HPF (0.0-6.0) 04/14/16 03:36 U Epithel Cells (Auto) < 1.0 /HPF (0-13.0) 04/14/16 03:36 Urine Opiates Screen Presumptive negative 04/14/16 03:36 Urine Methadone Screen Presumptive negative 04/14/16 03:36 Ur Barbiturates Screen Presumptive negative 04/14/16 03:36 Ur Phencyclidine Scrn Presumptive negative 04/14/16 03:36 Ur Amphetamines Screen Presumptive negative 04/14/16 03:36 U Benzodiazepines Scrn Presumptive negative 04/14/16 03:36 Urine Cocaine Screen Presumptive negative 04/14/16 03:36 U Marijuana (THC) Screen Presumptive negative 04/14/16 03:36 Drugs of Abuse Note Disclamer 04/14/16 03:36 R/L heart cath, no complications. Findings: 1. Elevated R/L heart filling pressures-RVEDP 30, LVEDP 35. 2. Severe pulm HTN, PASP 80. 3. Mild-moderate aortic stenosis, mean gadient 20. 4. Elevated transmitral pressure gradient-uncertain significance, doubt significant MS. 5. Normal coronaries. 6. Normal LV systolic function, EF 55%.
--- NOTE | 2016-04-18 18:01 | Consultation ---
History of Present Illness Consult date: 04/18/16 Requesting physician: LIEN LOPEZ Reason for consult: pulmonary hypertension History of present illness: PULMONARY / CCM CONSULT NOTE (Full dictation # [id number]) Please see dictated notes for full details Past History Past Medical History: heart failure, hypertension Medications and Allergies Allergies Allergy/AdvReac Type Severity Reaction Status Date / Time No Known Allergies Allergy Verified 02/09/14 18:18 Home Medications Medication Instructions Recorded Confirmed Last Taken Type Insulin Glargine [Lantus VIAL] 10 units SUB-Q QHS #30 day 07/13/15 08/05/15 Rx Insulin Glulisine [Apidra] 1 dose SUB-Q ACHS PRN #30 day 07/13/15 12/29/1508/01 Rx Albuterol Sulfate [Ventolin HFA] 2 puff IH Q4H PRN #1 hfa.aer.ad 08/07/15 Unknown Rx Hydralazine HCl [Apresoline TAB] 50 mg PO Q8HR #90 tab 08/07/15 12/29/15 Unknown Rx amLODIPine [Norvasc] 5 mg PO QDAY #30 tablet 08/07/15 12/29/15 Unknown Rx Active Meds: Active Medications Acetaminophen (Tylenol) 650 mg PO Q4H PRN PRN Reason: Pain MILD(1-3)/Fever >100.5/HELM Last Admin: 04/18/16 04:28 Dose: 650 mg Albuterol (Proventil) 2.5 mg IH Q6HRT PRN PRN Reason: Shortness Of Breath Last Admin: 04/15/16 09:16 Dose: 2.5 mg Alprazolam (Xanax) 0.25 mg PO BID PRN PRN Reason: Anxiety Last Admin: 04/18/16 14:56 Dose: 0.25 mg Amlodipine Besylate (Norvasc) 5 mg PO QDAY AKIL Last Admin: 04/18/16 12:01 Dose: 5 mg Amlodipine Besylate (Norvasc) 10 mg PO QDAY AKIL Last Admin: 04/18/16 12:01 Dose: 10 mg Bisacodyl (Dulcolax) 10 mg HI QDAY PRN PRN Reason: Constipation unrelieved by MOM Dextrose (D50w (25gm)) 50 ml IV PRN PRN PRN Reason: Hypoglycemia Furosemide (Lasix) 40 mg IV 0600,1800 [facility] Last Admin: 04/18/16 06:45 Dose: Not Given Hydralazine HCl (Apresoline) 75 mg PO Q8HR [facility] Last Admin: 04/18/16 14:56 Dose: 75 mg Hydromorphone HCl (Dilaudid) 0.5 mg IV Q3H PRN PRN Reason: Pain , Severe (7-10) Last Admin: 04/18/16 12:00 Dose: 0.5 mg Sodium Chloride (Nacl 0.9% 1000 Ml) 1,000 mls @ 42 mls/hr IV DIRECT [facility] Stop: 04/18/16 18:59 Insulin Aspart (Novolog) 0 units SUB-Q ACHS [facility] PRN Reason: Protocol Last Admin: 04/18/16 14:08 Dose: Not Given Insulin Detemir (Levemir) 10 units SUB-Q QHS [facility] Last Admin: 04/17/16 21:28 Dose: 10 units Magnesium Hydroxide (Milk Of Magnesia) 30 ml PO Q4H PRN PRN Reason: Constipation Metoprolol Tartrate (Lopressor) 12.5 mg PO BID [facility] Last Admin: 04/18/16 12:01 Dose: 12.5 mg Ondansetron HCl (Zofran) 4 mg IV Q8H PRN PRN Reason: N/V unrelieved by Reglan Potassium Chloride (K-Dur) 30 meq PO QDAY [facility] Last Admin: 04/18/16 12:01 Dose: 30 meq Physical Examination Vital signs: Vital Signs Pulse Resp Pulse Ox 108 H 13 97 04/13/16 16:48 04/13/16 16:48 04/13/16 16:48 Results - Laboratory Findings CBC and BMP: 04/18/16 05:17 04/18/16 05:17 ABG POC ABG pH 7.380 (7.35-7.45) 04/13/16 17:31 POC ABG pCO2 36.3 (35-45) 04/13/16 17:31 POC ABG pO2 79 (80-105) L 04/13/16 17:31 POC ABG HCO3 21.5 04/13/16 17:31 POC ABG Total CO2 23 04/13/16 17:31 POC ABG O2 Sat 95 04/13/16 17:31 PT/INR, D-dimer PT 12.9 Sec. (12.2-14.9) 04/18/16 05:17 INR 0.98 (0.87-1.13) 04/18/16 05:17 Abnormal lab findings: Abnormal Labs 04/13/16 04/13/16 04/14/16 23:33 Unknown 06:48 RBC 3.49 L 3.47 L Hgb 9.4 L 9.7 L Hct 29.8 L MCH 27 L RDW 16.5 H 17.7 H Lymph % (Auto) 4.7 L [place] % (Auto) 11.3 H Lymph # 0.3 L [place] # 0.9 H Seg Neutrophils % 85.2 H Sodium Chloride BUN Glucose POC Glucose 193 H Iron AST Alkaline Phosphatase Albumin Vitamin B12 04/14/16 04/14/16 04/14/16 06:48 07:57 09:36 RBC Hgb Hct MCH RDW Lymph % (Auto) [place] % (Auto) Lymph # [place] # Seg Neutrophils % Sodium Chloride BUN Glucose 120 H POC Glucose 145 H Iron 14 L AST 43 H Alkaline Phosphatase 147 H Albumin 3.0 L Vitamin B12 04/14/16 04/14/16 04/14/16 09:36 12:03 15:35 RBC Hgb Hct MCH RDW Lymph % (Auto) [place] % (Auto) Lymph # [place] # Seg Neutrophils % Sodium Chloride BUN Glucose POC Glucose 213 H 257 H Iron AST Alkaline Phosphatase Albumin Vitamin B12 1433 H 04/14/16 04/14/16 04/15/16 20:43 21:44 07:49 RBC Hgb Hct MCH RDW Lymph % (Auto) [place] % (Auto) Lymph # [place] # Seg Neutrophils % Sodium Chloride BUN Glucose POC Glucose 182 H 159 H 208 H Iron AST Alkaline Phosphatase Albumin Vitamin B12 04/15/16 04/15/16 04/15/16 12:39 15:37 21:51 RBC Hgb Hct MCH RDW Lymph % (Auto) [place] % (Auto) Lymph # [place] # Seg Neutrophils % Sodium Chloride BUN Glucose POC Glucose 200 H 166 H 223 H Iron AST Alkaline Phosphatase Albumin Vitamin B12 04/16/16 04/16/16 04/16/16 05:15 07:58 10:40 RBC Hgb Hct MCH RDW Lymph % (Auto) [place] % (Auto) Lymph # [place] # Seg Neutrophils % Sodium Chloride BUN 19 H Glucose 173 H POC Glucose 222 H 231 H Iron AST Alkaline Phosphatase Albumin Vitamin B12 04/16/16 04/16/16 04/17/16 15:48 21:20 07:41 RBC Hgb Hct MCH RDW Lymph % (Auto) [place] % (Auto) Lymph # [place] # Seg Neutrophils % Sodium Chloride BUN Glucose POC Glucose 165 H 246 H 236 H Iron AST Alkaline Phosphatase Albumin Vitamin B12 04/17/16 04/17/16 04/17/16 11:50 16:07 19:40 RBC Hgb Hct MCH RDW Lymph % (Auto) [place] % (Auto) Lymph # [place] # Seg Neutrophils % Sodium Chloride BUN Glucose POC Glucose 131 H 241 H 134 H Iron AST Alkaline Phosphatase Albumin Vitamin B12 04/18/16 04/18/16 04/18/16 05:17 05:17 06:48 RBC 3.33 L Hgb 9.2 L Hct 28.8 L MCH 27 L RDW 16.5 H Lymph % (Auto) [place] % (Auto) Lymph # [place] # Seg Neutrophils % Sodium 136 L Chloride 95.8 L BUN 31 H Glucose 203 H POC Glucose 224 H Iron AST Alkaline Phosphatase Albumin Vitamin B12 04/18/16 04/18/16 04/18/16 07:25 11:20 16:19 RBC Hgb Hct MCH RDW Lymph % (Auto) [place] % (Auto) Lymph # [place] # Seg Neutrophils % Sodium Chloride BUN Glucose POC Glucose 225 H 191 H 243 H Iron AST Alkaline Phosphatase Albumin Vitamin B12
[2016-04-18] MEDS: LEVEMIR SUB-Q SCH (22:47)
[2016-04-19] MEDS: DILAUDID IV PRN ×3 (01:28→09:00)
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
[2016-04-19] MEDS: TYLENOL PO PRN (05:44)
[2016-04-19] MEDS: APRESOLINE PO SCH ×3 (05:44→23:03)
[2016-04-19] MEDS: LASIX IV SCH ×2 (05:45→17:27)
[2016-04-19] MEDS: NOVOLOG SUB-Q SCH ×4 (08:59→23:04)
[2016-04-19] MEDS: NORVASC PO SCH (09:00)
[2016-04-19] MEDS: K-DUR PO SCH (09:00)
[2016-04-19] MEDS: LOPRESSOR PO SCH ×2 (09:01→23:08)
--- NOTE | 2016-04-19 10:13 | Progress Note ---
Assessment and Plan - Patient Problems (1) Acute hypoxemic respiratory failure Current Visit: Yes Status: Acute Plan to address problem: - diuresis - supplemental oxygen - will schedule qhs BIPAP empirically - continue bronchodilators and pulmonary toilet - send sputum C&S - follow off AB's for now (2) Pulmonary hypertension Current Visit: Yes Status: Acute Plan to address problem: - supplemental oxygen to keep O2Sats >/= 90% AT ALL TIMES - follow GRISEL level - outpatient PSG - outpatient PFT's - BIPAP while asleep empirically - optimize cardiac function (3) Abnormal CXR (chest x-ray) Current Visit: Yes Status: Acute Plan to address problem: - repeat CXR with worsening infiltrates - most consistent with pulmonary edema (4) Type 2 diabetes mellitus Current Visit: No Status: Chronic Qualifiers: Diabetes mellitus complication status: without complication Diabetes mellitus complication detail: D Diabetic retinopathy severity: D Proliferative retinopathy type: P Diabetes mellitus macular edema: D Diabetes mellitus [employer] insulin use: D Laterality: L Chronic kidney disease stage: C Plan to address problem: - SSI (5) Hemoptysis Current Visit: No Status: Acute Plan to address problem: - likely due to pulmonary edema - follow sputum C&S - continue diuresis - get CBC / PT-INR Subjective Date of service: 04/19/16 Principal diagnosis: congestive heart failure Interval history: Seen and examined at bedside; 24 hour events reviewed; nursing and respiratory care staff consulted; no adverse overnight events reported to me; episodes of coughing with streaky hemoptysis reported to me; resting in bed; denies acute chest pains; No emesis or overt aspiration and no gross bleeding Objective Vital Signs - 12hr 04/19/16 04/19/16 04/19/16 00:25 01:28 01:58 Temperature 97.3 F L Pulse Rate Pulse Rate [ 97 H Apical] Respiratory 24 18 20 Rate Blood Pressure 129/68 [Left Radial Artery] O2 Sat by Pulse 95 Oximetry 04/19/16 04/19/16 04/19/16 04:30 05:45 06:15 Temperature 97.8 F Pulse Rate Pulse Rate [ 90 Apical] Respiratory 20 22 20 Rate Blood Pressure 129/60 [Left Radial Artery] O2 Sat by Pulse 94 Oximetry 04/19/16 04/19/16 04/19/16 06:44 07:47 08:18 Temperature 97.8 F Pulse Rate 84 Pulse Rate [ 86 Apical] Respiratory 20 20 Rate Blood Pressure 147/65 [Left Radial Artery] O2 Sat by Pulse 93 Oximetry 04/19/16 09:20 Temperature Pulse Rate Pulse Rate [ Apical] Respiratory Rate Blood Pressure [Left Radial Artery] O2 Sat by Pulse 95 Oximetry Constitutional: appears uncomfortable Eyes: non-icteric ENT: oropharynx moist Neck: supple, no lymphadenopathy Effort: mildly labored Ascultation: Bilateral: diminished breath sounds, rales Cardiovascular: regular rate and rhythm Gastrointestinal: normoactive bowel sounds, soft, non-tender, non-distended Integumentary: normal Extremities: no cyanosis, no edema, pulses normal, no ischemia or petechiae Neurologic: normal mental status, non-focal exam, pupils equal and round, motor strength normal and Psychiatric: other ([facility] history) CBC and BMP: 04/18/16 05:17 04/19/16 09:36 ABG, PT/INR, D-dimer: ABG POC ABG pH 7.380 (7.35-7.45) 04/13/16 17:31 POC ABG pCO2 36.3 (35-45) 04/13/16 17:31 POC ABG pO2 79 (80-105) L 04/13/16 17:31 POC ABG HCO3 21.5 04/13/16 17:31 POC ABG Total CO2 23 04/13/16 17:31 POC ABG O2 Sat 95 04/13/16 17:31 PT/INR, D-dimer PT 12.9 Sec. (12.2-14.9) 04/18/16 05:17 INR 0.98 (0.87-1.13) 04/18/16 05:17 Abnormal lab findings: Abnormal Labs 04/13/16 04/13/16 04/14/16 23:33 Unknown 06:48 RBC 3.49 L 3.47 L Hgb 9.4 L 9.7 L Hct 29.8 L MCH 27 L RDW 16.5 H 17.7 H Lymph % (Auto) 4.7 L [place] % (Auto) 11.3 H Lymph # 0.3 L [place] # 0.9 H Seg Neutrophils % 85.2 H Sodium Chloride BUN Glucose POC Glucose 193 H Iron AST Alkaline Phosphatase Albumin Vitamin B12 04/14/16 04/14/16 04/14/16 06:48 07:57 09:36 RBC Hgb Hct MCH RDW Lymph % (Auto) [place] % (Auto) Lymph # [place] # Seg Neutrophils % Sodium Chloride BUN Glucose 120 H POC Glucose 145 H Iron 14 L AST 43 H Alkaline Phosphatase 147 H Albumin 3.0 L Vitamin B12 04/14/16 04/14/16 04/14/16 09:36 12:03 15:35 RBC Hgb Hct MCH RDW Lymph % (Auto) [place] % (Auto) Lymph # [place] # Seg Neutrophils % Sodium Chloride BUN Glucose POC Glucose 213 H 257 H Iron AST Alkaline Phosphatase Albumin Vitamin B12 1433 H 04/14/16 04/14/16 04/15/16 20:43 21:44 07:49 RBC Hgb Hct MCH RDW Lymph % (Auto) [place] % (Auto) Lymph # [place] # Seg Neutrophils % Sodium Chloride BUN Glucose POC Glucose 182 H 159 H 208 H Iron AST Alkaline Phosphatase Albumin Vitamin B12 04/15/16 04/15/16 04/15/16 12:39 15:37 21:51 RBC Hgb Hct MCH RDW Lymph % (Auto) [place] % (Auto) Lymph # [place] # Seg Neutrophils % Sodium Chloride BUN Glucose POC Glucose 200 H 166 H 223 H Iron AST Alkaline Phosphatase Albumin Vitamin B12 04/16/16 04/16/16 04/16/16 05:15 07:58 10:40 RBC Hgb Hct MCH RDW Lymph % (Auto) [place] % (Auto) Lymph # [place] # Seg Neutrophils % Sodium Chloride BUN 19 H Glucose 173 H POC Glucose 222 H 231 H Iron AST Alkaline Phosphatase Albumin Vitamin B12 04/16/16 04/16/16 04/17/16 15:48 21:20 07:41 RBC Hgb Hct MCH RDW Lymph % (Auto) [place] % (Auto) Lymph # [place] # Seg Neutrophils % Sodium Chloride BUN Glucose POC Glucose 165 H 246 H 236 H Iron AST Alkaline Phosphatase Albumin Vitamin B12 04/17/16 04/17/16 04/17/16 11:50 16:07 19:40 RBC Hgb Hct MCH RDW Lymph % (Auto) [place] % (Auto) Lymph # [place] # Seg Neutrophils % Sodium Chloride BUN Glucose POC Glucose 131 H 241 H 134 H Iron AST Alkaline Phosphatase Albumin Vitamin B12 04/18/16 04/18/16 04/18/16 05:17 05:17 06:48 RBC 3.33 L Hgb 9.2 L Hct 28.8 L MCH 27 L RDW 16.5 H Lymph % (Auto) [place] % (Auto) Lymph # [place] # Seg Neutrophils % Sodium 136 L Chloride 95.8 L BUN 31 H Glucose 203 H POC Glucose 224 H Iron AST Alkaline Phosphatase Albumin Vitamin B12 04/18/16 04/18/16 04/18/16 07:25 11:20 16:19 RBC Hgb Hct MCH RDW Lymph % (Auto) [place] % (Auto) Lymph # [place] # Seg Neutrophils % Sodium Chloride BUN Glucose POC Glucose 225 H 191 H 243 H Iron AST Alkaline Phosphatase Albumin Vitamin B12 04/18/16 22:47 RBC Hgb Hct MCH RDW Lymph % (Auto) [place] % (Auto) Lymph # [place] # Seg Neutrophils % Sodium Chloride BUN Glucose POC Glucose 217 H Iron AST Alkaline Phosphatase Albumin Vitamin B12 Chest x-ray: pending
[2016-04-19 10:18] LABS: BUN/Creatinine Ratio 27.85; Calcium 8.1 mg/dL (8.4-10.2); Chloride 95.3 mmol/L (98-107)
[2016-04-19 10:21] LABS: Potassium 6.2 mmol/L (3.6-5.0)
--- NOTE | 2016-04-19 10:27 | Progress Note ---
Assessment and Plan CHF, diastolic Hypertension Hemoptysis low probability for pulmonry embolus by V\Q scan Echocardiogram shows normal left ventricle systolic function, with a calcified aortic valve and at least moderate aortic stenosis. Also notably, there is severe pulmonary hypertension, pulmonary artery systolic pressures of 80 mmHg, despite normal sized right heart chambers. R/L heart cath findings: 1. Elevated R/L heart filling pressures-RVEDP 30, LVEDP 35. 2. Severe pulm HTN, PASP 80. 3. Mild-moderate aortic stenosis, mean gadient 20. 4. Elevated transmitral pressure gradient-uncertain significance, doubt significant MS. 5. Normal coronaries. 6. Normal LV systolic function, EF 55%. Recommend: Mild valvular disease of mitral and aortic valves will be managed conservatively. Continue medical therapy for heart failure with preserved EF. Subjective Date of service: 04/19/16 Principal diagnosis: congestive heart failure Interval history: Patient complaining of coughs with wheezing. Objective Vital Signs Temp Pulse Pulse Resp Resp BP BP 04/19/16 09:20 04/19/16 08:18 84 04/19/16 07:47 97.8 F 86 20 147/65 04/19/16 06:44 20 04/19/16 06:15 20 04/19/16 05:45 22 04/19/16 04:30 97.8 F 90 20 129/60 04/19/16 01:58 20 04/19/16 01:28 18 04/19/16 00:25 97.3 F L 97 H 24 129/68 04/18/16 21:58 04/18/16 21:57 04/18/16 21:21 22 04/18/16 20:51 22 20 04/18/16 20:10 97.2 F L 94 H 20 132/68 04/18/16 17:00 93 H 113/64 04/18/16 16:23 98.7 F 91 H 20 137/61 04/18/16 16:00 91 H 137/61 04/18/16 15:30 89 129/60 04/18/16 15:00 89 128/64 04/18/16 14:30 89 127/66 04/18/16 14:00 89 124/67 04/18/16 13:30 89 125/64 04/18/16 13:00 96 H 138/65 04/18/16 12:30 103 H 151/76 04/18/16 12:00 97 H 144/67 04/18/16 11:30 98 H 152/66 04/18/16 11:00 99 H 130/61 Pulse Ox 04/19/16 09:20 95 04/19/16 08:18 04/19/16 07:47 93 04/19/16 06:44 04/19/16 06:15 04/19/16 05:45 04/19/16 04:30 94 04/19/16 01:58 04/19/16 01:28 04/19/16 00:25 95 04/18/16 21:58 94 04/18/16 21:57 94 04/18/16 21:21 04/18/16 20:51 98 04/18/16 20:10 97 04/18/16 17:00 04/18/16 16:23 94 04/18/16 16:00 04/18/16 15:30 04/18/16 15:00 04/18/16 14:30 04/18/16 14:00 04/18/16 13:30 04/18/16 13:00 04/18/16 12:30 04/18/16 12:00 04/18/16 11:30 04/18/16 11:00 - Physical Examination General: No Apparent Distress HEENT: Positive: PERRL Neck: Positive: neck supple Cardiac: Positive: Reg Rate and Rhythm Lungs: Positive: Decreased Breath Sounds Neuro: Positive: Grossly Intact Extremities: Absent: edema - Labs and Meds Comprehensive Metabolic Panel 04/19/16 Range/Units 09:36 Sodium 132 L (137-145) mmol/L Potassium 6.2 H* D (3.6-5.0) mmol/L Chloride 95.3 L (98-107) mmol/L Carbon Dioxide 23 (22-30) mmol/L BUN 39 H (7-17) mg/dL Creatinine 1.4 H (0.7-1.2) mg/dL Glucose 315 H (65-100) mg/dL Calcium 8.1 L (8.4-10.2) mg/dL - Imaging and Cardiology EKG: image reviewed
[2016-04-19] MEDS ORDERED: KIONEX PO ONE (11:23)
[2016-04-19] MEDS ORDERED: CALCIUM CHLORIDE 1,000 MG in NACL 0.9% 100 ML IV ONE (11:25)
--- NOTE | 2016-04-19 13:54 | XRay Report ---
PORTABLE CHEST INDICATION: Pulmonary edema. COMPARISON: 04/17/2016 FINDINGS: Portable, frontal chest radiograph demonstrates increased congestive lung markings with slight increased haziness toward the lung bases. Left hemidiaphragm again partly obscured medially. Stable cardiomediastinal silhouette. EKG leads. Stable bones. CONCLUSION: Interval radiographic worsening/CHF, as described. Thank you for the opportunity to participate in this patient's care.
--- NOTE | 2016-04-19 14:10 | Progress Note ---
Assessment and Plan Assessment and plan: 1. Acute on chronic diastolic heart failure-Continue IV Lasix and try to optimize blood pressure control 2. Mild to Moderate aortic stenosis- -conservative manx as per cardiology; 3. Severe pulmonary HTN with hemoptysis- f/u with pulmonary for further recommendations 4. Benign hypertension-controlled. Continue IV Lasix, amlodipine and cotn hydralazine to 75 mg daily 8H. Continue to monitor blood pressure and adjust medications as needed 4. Diabetes also remains suboptimal- increase Lantus 15 and cover with sliding- scale insulin. 5. H/O Polysubstance abuse- drug screen negative on admission. 6.Hyperkalemia- will repeat level; EKG; calcium, insulin; hold D50 W as she has hyperglycemia; kayexalate; stop potassium supplementation 7. DVT prophylaxis-lovenox History Interval history: f/u chf Patient seen on the bedside; continues to have sob and hemptysis Hospitalist Physical - Constitutional Vitals: Temp Pulse Resp BP Pulse Ox 98.2 F 87 20 136/65 92 04/19/16 11:45 04/19/16 11:45 04/19/16 11:45 04/19/16 11:45 04/19/16 11:45 General appearance: Present: no acute distress (on NC oxygen), well-nourished - EENT Eyes: Present: PERRL, EOM intact. Absent: scleral icterus, conjunctival injection ENT: hearing intact, clear oral mucosa, no oropharyngeal erythema, no poor dentition - Neck Neck: Present: supple, normal ROM. Absent: enlarged thyroid, masses or JVD - Respiratory Respiratory effort: normal Respiratory: negative: diminished, rales, rhonchi - Cardiovascular Rhythm: regular Heart Sounds: Present: S1 & S2. Absent: gallop - Extremities Extremities: no ischemia, pulses intact, pulses symmetrical - Abdominal General gastrointestinal: soft, non-tender, non-distended - Integumentary Integumentary: Present: clear - Psychiatric Psychiatric: appropriate mood/affect, intact judgment & insight - Neurologic Neurologic: CNII-XII intact Results - Labs CBC & Chem 7: 04/18/16 05:17 04/19/16 09:36 Labs: Laboratory Last Values WBC 7.9 K/mm3 (4.5-11.0) 04/18/16 05:17 RBC 3.33 M/mm3 (3.65-5.03) L 04/18/16 05:17 Hgb 9.2 gm/dl (10.1-14.3) L 04/18/16 05:17 Hct 28.8 % (30.3-42.9) L 04/18/16 05:17 MCV 87 fl (79-97) 04/18/16 05:17 MCH 27 pg (28-32) L 04/18/16 05:17 MCHC 31 % (30-34) 04/18/16 05:17 RDW 16.5 % (13.2-15.2) H 04/18/16 05:17 Plt Count 254 K/mm3 (140-440) 04/18/16 05:17 Lymph % (Auto) 4.7 % (13.4-35.0) L 04/14/16 06:48 [place] % (Auto) 6.9 % (0.0-7.3) 04/14/16 06:48 Eos % (Auto) 3.0 % (0.0-4.3) 04/14/16 06:48 Baso % (Auto) 0.2 % (0.0-1.8) 04/14/16 06:48 Lymph # 0.3 K/mm3 (1.2-5.4) L 04/14/16 06:48 [place]ick # 0.4 K/mm3 (0.0-0.8) 04/14/16 06:48 Eos # 0.2 K/mm3 (0.0-0.4) 04/14/16 06:48 Baso # 0.0 K/mm3 (0.0-0.1) 04/14/16 06:48 Seg Neutrophils % 85.2 % (40.0-70.0) H 04/14/16 06:48 Seg Neutrophils # 4.8 K/mm3 (1.8-7.7) 04/14/16 06:48 PT 12.9 Sec. (12.2-14.9) 04/18/16 05:17 INR 0.98 (0.87-1.13) 04/18/16 05:17 APTT 27.2 Sec. (24.2-36.6) 04/18/16 05:17 POC ABG pH 7.380 (7.35-7.45) 04/13/16 17:31 POC ABG pCO2 36.3 (35-45) 04/13/16 17:31 POC ABG pO2 79 (80-105) L 04/13/16 17:31 POC ABG HCO3 21.5 04/13/16 17:31 POC ABG Total CO2 23 04/13/16 17:31 POC ABG O2 Sat 95 04/13/16 17:31 POC ABG Base Excess -4 04/13/16 17:31 FiO2 50 % 04/13/16 17:31 Sodium 132 mmol/L (137-145) L 04/19/16 09:36 Potassium 6.2 mmol/L (3.6-5.0) H* D 04/19/16 09:36 Chloride 95.3 mmol/L (98-107) L 04/19/16 09:36 Carbon Dioxide 23 mmol/L (22-30) 04/19/16 09:36 Anion Gap 20 mmol/L 04/19/16 09:36 BUN 39 mg/dL (7-17) H 04/19/16 09:36 Creatinine 1.4 mg/dL (0.7-1.2) H 04/19/16 09:36 Estimated GFR 46 ml/min 04/19/16 09:36 BUN/Creatinine Ratio 27.85 % 04/19/16 09:36 Glucose 315 mg/dL (65-100) H 04/19/16 09:36 POC Glucose 217 (70-105) H 04/18/16 22:47 Lactic Acid 1.3 mmol/L (0.7-2.0) 04/13/16 18:08 Calcium 8.1 mg/dL (8.4-10.2) L 04/19/16 09:36 Magnesium 1.6 mg/dL (1.7-2.3) L 04/13/16 16:25 Iron 14 ug/dL (37-170) L 04/14/16 09:36 TIBC 301.00 mcg/dL (250-450) 04/14/16 09:36 % Saturation 4.65 % 04/14/16 09:36 Transferrin 215 mg/dl (192-382) 04/14/16 09:36 Total Bilirubin 0.5 mg/dL (0.1-1.2) 04/14/16 06:48 AST 43 units/L (5-40) H 04/14/16 06:48 ALT 25 units/L (7-56) 04/14/16 06:48 Alkaline Phosphatase 147 units/L (35-129) H 04/14/16 06:48 Total Creatine Kinase 99 units/L (30-135) 04/13/16 16:25 Troponin T < 0.010 ng/mL (0.00-0.029) 04/13/16 17:00 NT-Pro-B Natriuret Pep 2937 pg/mL (0-900) H 04/13/16 16:25 Total Protein 7.4 g/dL (6.3-8.2) 04/14/16 06:48 Albumin 3.0 g/dL (3.9-5) L 04/14/16 06:48 Albumin/Globulin Ratio 0.7 % 04/14/16 06:48 Vitamin B12 1433 pg/mL (211-911) H 04/14/16 09:36 RBC Folic Acid 735 ng/mL (>280) 04/14/16 09:36 Urine Color Yellow (Yellow) 04/14/16 03:36 Urine Turbidity Clear (Clear) 04/14/16 03:36 Urine pH 5.0 (5.0-7.0) 04/14/16 03:36 Ur Specific [place] 1.012 (1.003-1.030) 04/14/16 03:36 Urine Protein 100 mg/dl mg/dL (Negative) 04/14/16 03:36 Urine Glucose (UA) Neg mg/dL (Negative) 04/14/16 03:36 Urine Ketones Neg mg/dL (Negative) 04/14/16 03:36 Urine Blood Neg (Negative) 04/14/16 03:36 Urine Nitrite Neg (Negative) 04/14/16 03:36 Urine Bilirubin Neg (Negative) 04/14/16 03:36 Urine Urobilinogen < 2.0 mg/dL (<2.0) 04/14/16 03:36 Ur Leukocyte Esterase Neg (Negative) 04/14/16 03:36 Urine WBC (Auto) 2.0 /HPF (0.0-6.0) 04/14/16 03:36 Urine RBC (Auto) 1.0 /HPF (0.0-6.0) 04/14/16 03:36 U Epithel Cells (Auto) < 1.0 /HPF (0-13.0) 04/14/16 03:36 Urine Opiates Screen Presumptive negative 04/14/16 03:36 Urine Methadone Screen Presumptive negative 04/14/16 03:36 Ur Barbiturates Screen Presumptive negative 04/14/16 03:36 Ur Phencyclidine Scrn Presumptive negative 04/14/16 03:36 Ur Amphetamines Screen Presumptive negative 04/14/16 03:36 U Benzodiazepines Scrn Presumptive negative 04/14/16 03:36 Urine Cocaine Screen Presumptive negative 04/14/16 03:36 U Marijuana (THC) Screen Presumptive negative 04/14/16 03:36 Drugs of Abuse Note Disclamer 04/14/16 03:36
[2016-04-19 15:32] LABS: Hemoglobin 8.4 gm/dl (10.1-14.3); Mean Corpuscular HGB Conc 32 % (30-34); Mean Corpuscular Hemoglobin 28 pg (28-32); Mean Corpuscular Volume 86 fl (79-97); Platelet Count 271 K/mm3 (140-440); Red Blood Count 3.02 M/mm3 (3.65-5.03); Red Cell Distribution Width 16.9 % (13.2-15.2); White Blood Count 8.5 K/mm3 (4.5-11.0)
[2016-04-19 16:12] LABS: ISTAT Base Excess 2; ISTAT DEVICE 0; ISTAT HCO3 27.4; ISTAT PCO2 48.4 (35-45); ISTAT PH 7.361 (7.35-7.45); ISTAT PO2 67 (80-105); ISTAT SO2 92; ISTAT TCO2 29
[2016-04-19 16:24] LABS: Basophils % (Manual) 0 % (0.0-1.8); Blastocytes % (Manual) 0 %
[2016-04-19 16:25] LABS: Anisocytosis 1+; Target Cells Rare
[2016-04-19 16:26] LABS: Diff Status Complete
[2016-04-19] MEDS: XANAX PO PRN (23:03)
[2016-04-19] MEDS: LEVEMIR SUB-Q SCH (23:07)
[2016-04-20] MEDS: TYLENOL PO PRN (05:58)
[2016-04-20] MEDS: APRESOLINE PO SCH ×3 (05:58→21:39)
[2016-04-20 06:54] LABS: BUN/Creatinine Ratio 25.33; Calcium 8.5 mg/dL (8.4-10.2)
[2016-04-20] MEDS: LASIX IV SCH ×2 (07:30→17:05)
[2016-04-20] MEDS: LOPRESSOR PO SCH ×2 (09:00→21:39)
[2016-04-20] MEDS: XANAX PO PRN ×2 (09:00→21:38)
[2016-04-20] MEDS: NORVASC PO SCH (09:00)
--- NOTE | 2016-04-20 11:14 | Progress Note ---
Assessment and Plan - Patient Problems (1) Acute hypoxemic respiratory failure Current Visit: Yes Status: Acute Plan to address problem: - continue diuresis - continue supplemental oxygen - Schedule qhs BIPAP empirically - continue bronchodilators and pulmonary toilet - sent sputum C&S - follow off AB's for now (If she has already completed 5 days of empiric CAP therapy this admission) (2) Pulmonary hypertension Current Visit: Yes Status: Acute Plan to address problem: - supplemental oxygen to keep O2Sats >/= 90% AT ALL TIMES - follow GRISEL level - outpatient PSG - outpatient PFT's - BIPAP while asleep empirically - optimize cardiac function (3) Abnormal CXR (chest x-ray) Current Visit: Yes Status: Acute Plan to address problem: - repeat CXR with worsening infiltrates - most consistent with pulmonary edema (4) Type 2 diabetes mellitus Current Visit: No Status: Chronic Qualifiers: Diabetes mellitus complication status: without complication Diabetes mellitus complication detail: D Diabetic retinopathy severity: D Proliferative retinopathy type: P Diabetes mellitus macular edema: D Diabetes mellitus half-way insulin use: D Laterality: L Chronic kidney disease stage: C Plan to address problem: - continue SSI (5) Hemoptysis Current Visit: No Status: Acute Plan to address problem: - pulmonary edema most likely cause currently - continue diuresis - follow sputum C&S Subjective Date of service: 04/20/16 Principal diagnosis: Severe Pulmonary HTN; Congestive heart failure Interval history: Seen and examined at bedside; 24 hour events reviewed; nursing and respiratory care staff consulted; no adverse overnight events reported to me; streaky hemoptysis noted; denies acute chest pains; on 4L NC; no N/V/F/C Objective Vital Signs - 12hr 04/20/16 04/20/16 04/20/16 01:34 04:15 08:35 Temperature 97.9 F 98.5 F 98.9 F Pulse Rate [ 92 H 97 H 98 H Left Radial] Respiratory 20 20 20 Rate Blood Pressure 140/63 129/59 148/65 [Left Radial Artery] O2 Sat by Pulse 98 95 94 Oximetry 04/20/16 08:58 Temperature Pulse Rate [ Left Radial] Respiratory Rate Blood Pressure [Left Radial Artery] O2 Sat by Pulse 97 Oximetry Constitutional: alert, appears uncomfortable Eyes: non-icteric ENT: oropharynx moist Neck: supple, no lymphadenopathy Effort: mildly labored Ascultation: Bilateral: diminished breath sounds, rales Cardiovascular: regular rate and rhythm Gastrointestinal: normoactive bowel sounds, soft, non-tender, non-distended Integumentary: normal Extremities: no cyanosis, no edema, pulses normal, no ischemia or petechiae Neurologic: normal mental status, non-focal exam, pupils equal and round, motor strength normal and Psychiatric: other (psych history) CBC and BMP: 04/19/16 15:15 04/22/16 04:33 ABG, PT/INR, D-dimer: ABG POC ABG pH 7.361 (7.35-7.45) 04/19/16 14:30 POC ABG pCO2 48.4 (35-45) H 04/19/16 14:30 POC ABG pO2 67 (80-105) L 04/19/16 14:30 POC ABG HCO3 27.4 04/19/16 14:30 POC ABG Total CO2 29 04/19/16 14:30 POC ABG O2 Sat 92 04/19/16 14:30 PT/INR, D-dimer PT 12.9 Sec. (12.2-14.9) 04/18/16 05:17 INR 0.98 (0.87-1.13) 04/18/16 05:17 Abnormal lab findings: Abnormal Labs 04/13/16 04/13/16 04/14/16 23:33 Unknown 06:48 RBC 3.49 L 3.47 L Hgb 9.4 L 9.7 L Hct 29.8 L MCH 27 L RDW 16.5 H 17.7 H Lymph % (Auto) 4.7 L [place] % (Auto) 11.3 H Lymph # 0.3 L [place] # 0.9 H Seg Neutrophils % 85.2 H Seg Neuts % (Manual) Lymphocytes % (Manual) Lymphocytes # (Manual) POC ABG pCO2 POC ABG pO2 Sodium Potassium Chloride BUN Creatinine Glucose POC Glucose 193 H Calcium Iron AST Alkaline Phosphatase Albumin Vitamin B12 04/14/16 04/14/16 04/14/16 06:48 07:57 09:36 RBC Hgb Hct MCH RDW Lymph % (Auto) [place] % (Auto) Lymph # [place] # Seg Neutrophils % Seg Neuts % (Manual) Lymphocytes % (Manual) Lymphocytes # (Manual) POC ABG pCO2 POC ABG pO2 Sodium Potassium Chloride BUN Creatinine Glucose 120 H POC Glucose 145 H Calcium Iron 14 L AST 43 H Alkaline Phosphatase 147 H Albumin 3.0 L Vitamin B12 04/14/16 04/14/16 04/14/16 09:36 12:03 15:35 RBC Hgb Hct MCH RDW Lymph % (Auto) [place] % (Auto) Lymph # [place] # Seg Neutrophils % Seg Neuts % (Manual) Lymphocytes % (Manual) Lymphocytes # (Manual) POC ABG pCO2 POC ABG pO2 Sodium Potassium Chloride BUN Creatinine Glucose POC Glucose 213 H 257 H Calcium Iron AST Alkaline Phosphatase Albumin Vitamin B12 1433 H 04/14/16 04/14/16 04/15/16 20:43 21:44 07:49 RBC Hgb Hct MCH RDW Lymph % (Auto) [place] % (Auto) Lymph # [place] # Seg Neutrophils % Seg Neuts % (Manual) Lymphocytes % (Manual) Lymphocytes # (Manual) POC ABG pCO2 POC ABG pO2 Sodium Potassium Chloride BUN Creatinine Glucose POC Glucose 182 H 159 H 208 H Calcium Iron AST Alkaline Phosphatase Albumin Vitamin B12 04/15/16 04/15/16 04/15/16 12:39 15:37 21:51 RBC Hgb Hct MCH RDW Lymph % (Auto) [place] % (Auto) Lymph # [place] # Seg Neutrophils % Seg Neuts % (Manual) Lymphocytes % (Manual) Lymphocytes # (Manual) POC ABG pCO2 POC ABG pO2 Sodium Potassium Chloride BUN Creatinine Glucose POC Glucose 200 H 166 H 223 H Calcium Iron AST Alkaline Phosphatase Albumin Vitamin B12 04/16/16 04/16/16 04/16/16 05:15 07:58 10:40 RBC Hgb Hct MCH RDW Lymph % (Auto) [place] % (Auto) Lymph # [place] # Seg Neutrophils % Seg Neuts % (Manual) Lymphocytes % (Manual) Lymphocytes # (Manual) POC ABG pCO2 POC ABG pO2 Sodium Potassium Chloride BUN 19 H Creatinine Glucose 173 H POC Glucose 222 H 231 H Calcium Iron AST Alkaline Phosphatase Albumin Vitamin B12 04/16/16 04/16/16 04/17/16 15:48 21:20 07:41 RBC Hgb Hct MCH RDW Lymph % (Auto) [place] % (Auto) Lymph # [place] # Seg Neutrophils % Seg Neuts % (Manual) Lymphocytes % (Manual) Lymphocytes # (Manual) POC ABG pCO2 POC ABG pO2 Sodium Potassium Chloride BUN Creatinine Glucose POC Glucose 165 H 246 H 236 H Calcium Iron AST Alkaline Phosphatase Albumin Vitamin B12 04/17/16 04/17/16 04/17/16 11:50 16:07 19:40 RBC Hgb Hct MCH RDW Lymph % (Auto) [place] % (Auto) Lymph # [place] # Seg Neutrophils % Seg Neuts % (Manual) Lymphocytes % (Manual) Lymphocytes # (Manual) POC ABG pCO2 POC ABG pO2 Sodium Potassium Chloride BUN Creatinine Glucose POC Glucose 131 H 241 H 134 H Calcium Iron AST Alkaline Phosphatase Albumin Vitamin B12 04/18/16 04/18/16 04/18/16 05:17 05:17 06:48 RBC 3.33 L Hgb 9.2 L Hct 28.8 L MCH 27 L RDW 16.5 H Lymph % (Auto) [place] % (Auto) Lymph # [place] # Seg Neutrophils % Seg Neuts % (Manual) Lymphocytes % (Manual) Lymphocytes # (Manual) POC ABG pCO2 POC ABG pO2 Sodium 136 L Potassium Chloride 95.8 L BUN 31 H Creatinine Glucose 203 H POC Glucose 224 H Calcium Iron AST Alkaline Phosphatase Albumin Vitamin B12 04/18/16 04/18/16 04/18/16 07:25 11:20 16:19 RBC Hgb Hct MCH RDW Lymph % (Auto) [place] % (Auto) Lymph # [place] # Seg Neutrophils % Seg Neuts % (Manual) Lymphocytes % (Manual) Lymphocytes # (Manual) POC ABG pCO2 POC ABG pO2 Sodium Potassium Chloride BUN Creatinine Glucose POC Glucose 225 H 191 H 243 H Calcium Iron AST Alkaline Phosphatase Albumin Vitamin B12 04/18/16 04/19/16 04/19/16 22:47 08:09 09:36 RBC Hgb Hct MCH RDW Lymph % (Auto) [place] % (Auto) Lymph # [place] # Seg Neutrophils % Seg Neuts % (Manual) Lymphocytes % (Manual) Lymphocytes # (Manual) POC ABG pCO2 POC ABG pO2 Sodium 132 L Potassium 6.2 H* D Chloride 95.3 L BUN 39 H Creatinine 1.4 H Glucose 315 H POC Glucose 217 H 290 H Calcium 8.1 L Iron AST Alkaline Phosphatase Albumin Vitamin B12 04/19/16 04/19/16 04/19/16 11:47 14:30 15:15 RBC 3.02 L Hgb 8.4 L Hct 26.0 L MCH RDW 16.9 H Lymph % (Auto) [place] % (Auto) Lymph # [place] # Seg Neutrophils % Seg Neuts % (Manual) 79.0 H Lymphocytes % (Manual) 12.0 L Lymphocytes # (Manual) 1.0 L POC ABG pCO2 48.4 H POC ABG pO2 67 L Sodium Potassium Chloride BUN Creatinine Glucose POC Glucose 229 H Calcium Iron AST Alkaline Phosphatase Albumin Vitamin B12 04/19/16 04/19/16 04/20/16 17:15 22:36 05:52 RBC Hgb Hct MCH RDW Lymph % (Auto) [place] % (Auto) Lymph # [place] # Seg Neutrophils % Seg Neuts % (Manual) Lymphocytes % (Manual) Lymphocytes # (Manual) POC ABG pCO2 POC ABG pO2 Sodium Potassium Chloride BUN 38 H Creatinine 1.5 H Glucose 199 H POC Glucose 190 H 235 H Calcium Iron AST Alkaline Phosphatase Albumin Vitamin B12
--- NOTE | 2016-04-20 12:50 | Progress Note ---
Assessment and Plan CHF, diastolic Hypertension Hemoptysis low probability for pulmonry embolus by V\Q scan Echocardiogram shows normal left ventricle systolic function, with a calcified aortic valve and at least moderate aortic stenosis. Also notably, there is severe pulmonary hypertension, pulmonary artery systolic pressures of 80 mmHg, despite normal sized right heart chambers. R/L heart cath findings: 1. Elevated R/L heart filling pressures-RVEDP 30, LVEDP 35. 2. Severe pulm HTN, PASP 80. 3. Mild-moderate aortic stenosis, mean gadient 20. 4. Elevated transmitral pressure gradient-uncertain significance, doubt significant MS. 5. Normal coronaries. 6. Normal LV systolic function, EF 55%. Recommend: Mild valvular disease of mitral and aortic valves will be managed conservatively. Continue medical therapy for heart failure with preserved EF. No further cardiac recommendations at this time. Subjective Date of service: 04/20/16 Principal diagnosis: Severe Pulmonary HTN; Congestive heart failure Interval history: No acute events. Resting comfortably. No chest pain or sOB. Objective Vital Signs Temp Pulse Pulse Pulse Resp BP Pulse Ox 04/20/16 08:58 97 04/20/16 08:35 98.9 F 98 H 20 148/65 94 04/20/16 04:15 98.5 F 97 H 20 129/59 95 04/20/16 01:34 97.9 F 92 H 20 140/63 98 04/19/16 22:00 94 H 04/19/16 21:16 98 04/19/16 21:05 98.7 F 99 H 22 143/65 97 04/19/16 16:45 98.5 F 94 H 20 134/63 93 - Physical Examination General: No Apparent Distress HEENT: Positive: PERRL Neck: Positive: neck supple Neuro: Positive: Grossly Intact Abdomen: Positive: Soft Skin: Positive: Clear Extremities: Absent: edema - Labs and Meds CBC 04/19/16 Range/Units 15:15 WBC 8.5 (4.5-11.0) K/mm3 RBC 3.02 L (3.65-5.03) M/mm3 Hgb 8.4 L (10.1-14.3) gm/dl Hct 26.0 L (30.3-42.9) % Plt Count 271 (140-440) K/mm3 Comprehensive Metabolic Panel 04/19/16 04/19/16 04/20/16 Range/Units 15:03 16:49 05:52 Sodium 139 D (137-145) mmol/L Potassium 4.4 D 4.6 4.0 (3.6-5.0) mmol/L Chloride 100.0 (98-107) mmol/L Carbon Dioxide 25 (22-30) mmol/L BUN 38 H (7-17) mg/dL Creatinine 1.5 H (0.7-1.2) mg/dL Glucose 199 H (65-100) mg/dL Calcium 8.5 (8.4-10.2) mg/dL - Imaging and Cardiology EKG: image reviewed
--- NOTE | 2016-04-20 13:14 | Progress Note ---
Assessment and Plan Assessment and plan: 1. Acute on chronic diastolic heart failure-Continue IV Lasix and try to optimize blood pressure control 2. Mild to Moderate aortic stenosis- -conservative manx as per cardiology; 3. Severe pulmonary HTN with hemoptysis with pulmonary edema- f/u with pulmonary for further recommendations; start BIPAP as recommended 4. Benign hypertension-controlled. Continue IV Lasix, amlodipine and cotn hydralazine to 75 mg daily 8H. Continue to monitor blood pressure and adjust medications as needed 4. Diabetes also remains suboptimal-glucose improving with increased Lantus 15 and cover with sliding-scale insulin. 5. H/O Polysubstance abuse- drug screen negative on admission. 6. Hyperkalemia- resolved; monitor 7. DVT prophylaxis-lovenox will consult IR for central line placement - unable to get peripheral line History Interval history: f/u chf Patient seen on the bedside; continues to have sob and hemptysis; no IV access Hospitalist Physical - Constitutional Vitals: Temp Pulse Resp BP Pulse Ox 98.9 F 98 H 20 148/65 97 04/20/16 08:35 04/20/16 08:35 04/20/16 08:35 04/20/16 08:35 04/20/16 08:58 General appearance: Present: no acute distress (on [place] oxygen), well-nourished - EENT Eyes: Present: PERRL, EOM intact. Absent: scleral icterus, conjunctival injection ENT: hearing intact, clear oral mucosa, no oropharyngeal erythema, no poor dentition - Neck Neck: Present: supple, normal ROM. Absent: enlarged thyroid, masses or JVD - Respiratory Respiratory effort: normal Respiratory: bilateral: diminished, negative: rales, rhonchi, wheezing - Cardiovascular Rhythm: regular Heart Sounds: Present: S1 & S2. Absent: gallop - Extremities Extremities: no ischemia, pulses intact, pulses symmetrical, No edema Peripheral Pulses: within normal limits - Abdominal General gastrointestinal: soft, non-tender, non-distended, normal bowel sounds - Integumentary Integumentary: Present: clear - Psychiatric Psychiatric: appropriate mood/affect, intact judgment & insight, cooperative - Neurologic Neurologic: CNII-XII intact, moves all extremities Results - Labs CBC & Chem 7: 04/19/16 15:15 04/20/16 05:52 Labs: Laboratory Last Values WBC 8.5 K/mm3 (4.5-11.0) 04/19/16 15:15 RBC 3.02 M/mm3 (3.65-5.03) L 04/19/16 15:15 Hgb 8.4 gm/dl (10.1-14.3) L 04/19/16 15:15 Hct 26.0 % (30.3-42.9) L 04/19/16 15:15 MCV 86 fl (79-97) 04/19/16 15:15 MCH 28 pg (28-32) 04/19/16 15:15 MCHC 32 % (30-34) 04/19/16 15:15 RDW 16.9 % (13.2-15.2) H 04/19/16 15:15 Plt Count 271 K/mm3 (140-440) 04/19/16 15:15 Lymph % (Auto) 4.7 % (13.4-35.0) L 04/14/16 06:48 [place] % (Auto) 6.9 % (0.0-7.3) 04/14/16 06:48 Eos % (Auto) 3.0 % (0.0-4.3) 04/14/16 06:48 Baso % (Auto) 0.2 % (0.0-1.8) 04/14/16 06:48 Lymph # 0.3 K/mm3 (1.2-5.4) L 04/14/16 06:48 [place] # 0.4 K/mm3 (0.0-0.8) 04/14/16 06:48 Eos # 0.2 K/mm3 (0.0-0.4) 04/14/16 06:48 Baso # 0.0 K/mm3 (0.0-0.1) 04/14/16 06:48 Add Manual Diff Complete 04/19/16 15:15 Total Counted 100 04/19/16 15:15 Seg Neutrophils % 85.2 % (40.0-70.0) H 04/14/16 06:48 Seg Neuts % (Manual) 79.0 % (40.0-70.0) H 04/19/16 15:15 Band Neutrophils % 0 % 04/19/16 15:15 Lymphocytes % (Manual) 12.0 % (13.4-35.0) L 04/19/16 15:15 Reactive Lymphs % (Man) 0 % 04/19/16 15:15 Monocytes % (Manual) 7.0 % (0.0-7.3) 04/19/16 15:15 Eosinophils % (Manual) 2.0 % (0.0-4.3) 04/19/16 15:15 Basophils % (Manual) 0 % (0.0-1.8) 04/19/16 15:15 Metamyelocytes % 0 % 04/19/16 15:15 Myelocytes % 0 % 04/19/16 15:15 Promyelocytes % 0 % 04/19/16 15:15 Blast Cells % 0 % 04/19/16 15:15 Nucleated RBC % Not Reportable 04/19/16 15:15 Seg Neutrophils # 4.8 K/mm3 (1.8-7.7) 04/14/16 06:48 Seg Neutrophils # Man 6.7 K/mm3 (1.8-7.7) 04/19/16 15:15 Band Neutrophils # 0.0 K/mm3 04/19/16 15:15 Lymphocytes # (Manual) 1.0 K/mm3 (1.2-5.4) L 04/19/16 15:15 Abs React Lymphs (Man) 0.0 K/mm3 04/19/16 15:15 Monocytes # (Manual) 0.6 K/mm3 (0.0-0.8) 04/19/16 15:15 Eosinophils # (Manual) 0.2 K/mm3 (0.0-0.4) 04/19/16 15:15 Basophils # (Manual) 0.0 K/mm3 (0.0-0.1) 04/19/16 15:15 Metamyelocytes # 0.0 K/mm3 04/19/16 15:15 Myelocytes # 0.0 K/mm3 04/19/16 15:15 Promyelocytes # 0.0 K/mm3 04/19/16 15:15 Blast Cells # 0.0 K/mm3 04/19/16 15:15 WBC Morphology Not Reportable 04/19/16 15:15 Hypersegmented Neuts Not Reportable 04/19/16 15:15 Hyposegmented Neuts Not Reportable 04/19/16 15:15 Hypogranular Neuts Not Reportable 04/19/16 15:15 Smudge Cells Not Reportable 04/19/16 15:15 Toxic Granulation Not Reportable 04/19/16 15:15 Toxic Vacuolation Not Reportable 04/19/16 15:15 Dohle Bodies Not Reportable 04/19/16 15:15 Pelger-Huet Anomaly Not Reportable 04/19/16 15:15 [place] Rods Not Reportable 04/19/16 15:15 Platelet Estimate Appears normal 04/19/16 15:15 Clumped Platelets Not Reportable 04/19/16 15:15 Plt Clumps, EDTA Not Reportable 04/19/16 15:15 Large Platelets Not Reportable 04/19/16 15:15 Giant Platelets Not Reportable 04/19/16 15:15 Platelet Satelliting Not Reportable 04/19/16 15:15 Plt Morphology Comment Not Reportable 04/19/16 15:15 RBC Morphology Not Reportable 04/19/16 15:15 Dimorphic RBCs Not Reportable 04/19/16 15:15 Polychromasia Not Reportable 04/19/16 15:15 Hypochromasia Not Reportable 04/19/16 15:15 Poikilocytosis Not Reportable 04/19/16 15:15 Anisocytosis 1+ 04/19/16 15:15 Microcytosis Not Reportable 04/19/16 15:15 Macrocytosis Not Reportable 04/19/16 15:15 Spherocytes Not Reportable 04/19/16 15:15 Pappenheimer Bodies Not Reportable 04/19/16 15:15 Sickle Cells Not Reportable 04/19/16 15:15 Target Cells Rare 04/19/16 15:15 Tear Drop Cells Not Reportable 04/19/16 15:15 Ovalocytes Not Reportable 04/19/16 15:15 Helmet Cells Not Reportable 04/19/16 15:15 Sau[place] Bodies Not Reportable 04/19/16 15:15 [place] Rings Not Reportable 04/19/16 15:15 Xavier Cells Not Reportable 04/19/16 15:15 Bite Cells Not Reportable 04/19/16 15:15 Crenated Cell Not Reportable 04/19/16 15:15 Elliptocytes Not Reportable 04/19/16 15:15 Acanthocytes (Spur) Not Reportable 04/19/16 15:15 Rouleaux Not Reportable 04/19/16 15:15 Hemoglobin C Crystals Not Reportable 04/19/16 15:15 Schistocytes Not Reportable 04/19/16 15:15 Malaria parasites Not Reportable 04/19/16 15:15 Varun Bodies Not Reportable 04/19/16 15:15 Hem Pathologist Commnt No 04/19/16 15:15 PT 12.9 Sec. (12.2-14.9) 04/18/16 05:17 INR 0.98 (0.87-1.13) 04/18/16 05:17 APTT 27.2 Sec. (24.2-36.6) 04/18/16 05:17 POC ABG pH 7.361 (7.35-7.45) 04/19/16 14:30 POC ABG pCO2 48.4 (35-45) H 04/19/16 14:30 POC ABG pO2 67 (80-105) L 04/19/16 14:30 POC ABG HCO3 27.4 04/19/16 14:30 POC ABG Total CO2 29 04/19/16 14:30 POC ABG O2 Sat 92 04/19/16 14:30 POC ABG Base Excess 2 04/19/16 14:30 FiO2 5 % 04/19/16 14:30 Sodium 139 mmol/L (137-145) D 04/20/16 05:52 Potassium 4.0 mmol/L (3.6-5.0) 04/20/16 05:52 Chloride 100.0 mmol/L (98-107) 04/20/16 05:52 Carbon Dioxide 25 mmol/L (22-30) 04/20/16 05:52 Anion Gap 18 mmol/L 04/20/16 05:52 BUN 38 mg/dL (7-17) H 04/20/16 05:52 Creatinine 1.5 mg/dL (0.7-1.2) H 04/20/16 05:52 Estimated GFR 42 ml/min 04/20/16 05:52 BUN/Creatinine Ratio 25.33 % 04/20/16 05:52 Glucose 199 mg/dL (65-100) H 04/20/16 05:52 POC Glucose 235 (70-105) H 04/19/16 22:36 Lactic Acid 1.6 mmol/L (0.7-2.0) 04/19/16 15:03 Calcium 8.5 mg/dL (8.4-10.2) 04/20/16 05:52 Magnesium 1.6 mg/dL (1.7-2.3) L 04/13/16 16:25 Iron 14 ug/dL (37-170) L 04/14/16 09:36 TIBC 301.00 mcg/dL (250-450) 04/14/16 09:36 % Saturation 4.65 % 04/14/16 09:36 Transferrin 215 mg/dl (192-382) 04/14/16 09:36 Total Bilirubin 0.5 mg/dL (0.1-1.2) 04/14/16 06:48 AST 43 units/L (5-40) H 04/14/16 06:48 ALT 25 units/L (7-56) 04/14/16 06:48 Alkaline Phosphatase 147 units/L (35-129) H 04/14/16 06:48 Total Creatine Kinase 99 units/L (30-135) 04/13/16 16:25 Troponin T < 0.010 ng/mL (0.00-0.029) 04/13/16 17:00 C-Reactive Protein 0.90 mg/dL (0.00-1.30) 04/19/16 15:16 NT-Pro-B Natriuret Pep 2937 pg/mL (0-900) H 04/13/16 16:25 Total Protein 7.4 g/dL (6.3-8.2) 04/14/16 06:48 Albumin 3.0 g/dL (3.9-5) L 04/14/16 06:48 Albumin/Globulin Ratio 0.7 % 04/14/16 06:48 Vitamin B12 1433 pg/mL (211-911) H 04/14/16 09:36 RBC Folic Acid 735 ng/mL (>280) 04/14/16 09:36 Urine Color Yellow (Yellow) 04/14/16 03:36 Urine Turbidity Clear (Clear) 04/14/16 03:36 Urine pH 5.0 (5.0-7.0) 04/14/16 03:36 Ur Specific [place] 1.012 (1.003-1.030) 04/14/16 03:36 Urine Protein 100 mg/dl mg/dL (Negative) 04/14/16 03:36 Urine Glucose (UA) Neg mg/dL (Negative) 04/14/16 03:36 Urine Ketones Neg mg/dL (Negative) 04/14/16 03:36 Urine Blood Neg (Negative) 04/14/16 03:36 Urine Nitrite Neg (Negative) 04/14/16 03:36 Urine Bilirubin Neg (Negative) 04/14/16 03:36 Urine Urobilinogen < 2.0 mg/dL (<2.0) 04/14/16 03:36 Ur Leukocyte Esterase Neg (Negative) 04/14/16 03:36 Urine WBC (Auto) 2.0 /HPF (0.0-6.0) 04/14/16 03:36 Urine RBC (Auto) 1.0 /HPF (0.0-6.0) 04/14/16 03:36 U Epithel Cells (Auto) < 1.0 /HPF (0-13.0) 04/14/16 03:36 Urine Opiates Screen Presumptive negative 04/14/16 03:36 Urine Methadone Screen Presumptive negative 04/14/16 03:36 Ur Barbiturates Screen Presumptive negative 04/14/16 03:36 Ur Phencyclidine Scrn Presumptive negative 04/14/16 03:36 Ur Amphetamines Screen Presumptive negative 04/14/16 03:36 U Benzodiazepines Scrn Presumptive negative 04/14/16 03:36 Urine Cocaine Screen Presumptive negative 04/14/16 03:36 U Marijuana (THC) Screen Presumptive negative 04/14/16 03:36 Drugs of Abuse Note Disclamer 04/14/16 03:36 - Imaging and Cardiology Chest x-ray: report reviewed (worsening CHF)
[2016-04-20] MEDS: NOVOLOG SUB-Q SCH ×4 (13:23→22:27)
[2016-04-20] MEDS ORDERED: NORCO 5/325 PO PRN (13:30)
[2016-04-20] MEDS: DILAUDID IV PRN ×2 (13:59→19:48)
[2016-04-20] MEDS: ROBITUSSIN DM PO PRN (17:06)
[2016-04-20] MEDS: LEVEMIR SUB-Q SCH (22:27)
--- NOTE | 2016-04-21 00:10 | Progress Note ---
Assessment and Plan CHF, diastolic Hypertension Hemoptysis low probability for pulmonry embolus by V\Q scan Echocardiogram shows normal left ventricle systolic function, with a calcified aortic valve and at least moderate aortic stenosis. Also notably, there is severe pulmonary hypertension, pulmonary artery systolic pressures of 80 mmHg, despite normal sized right heart chambers. R/L heart cath findings: 1. Elevated R/L heart filling pressures-RVEDP 30, LVEDP 35. 2. Severe pulm HTN, PASP 80. 3. Mild-moderate aortic stenosis, mean gadient 20. 4. Elevated transmitral pressure gradient-uncertain significance, doubt significant MS. 5. Normal coronaries. 6. Normal LV systolic function, EF 55%. Recommend: Mild valvular disease of mitral and aortic valves will be managed conservatively. Continue medical therapy for heart failure with preserved EF. BP well controlled No further cardiac recommendations at this time. Subjective Date of service: 04/21/16 Principal diagnosis: Severe Pulmonary HTN; Congestive heart failure Interval history: No acute events. Resting comfortably. No chest pain or sOB. Objective Vital Signs Temp Pulse Pulse Pulse Resp BP Pulse Ox 04/20/16 20:22 97.8 F 108 H 20 130/61 95 04/20/16 16:00 93 H 04/20/16 08:58 97 04/20/16 08:35 98.9 F 98 H 20 148/65 94 04/20/16 04:15 98.5 F 97 H 20 129/59 95 04/20/16 01:34 97.9 F 92 H 20 140/63 98 - Physical Examination General: No Apparent Distress HEENT: Positive: PERRL Neck: Positive: neck supple Neuro: Positive: Grossly Intact Abdomen: Positive: Soft Skin: Positive: Clear Extremities: Absent: edema - Labs and Meds Comprehensive Metabolic Panel 04/20/16 Range/Units 05:52 Sodium 139 D (137-145) mmol/L Potassium 4.0 (3.6-5.0) mmol/L Chloride 100.0 (98-107) mmol/L Carbon Dioxide 25 (22-30) mmol/L BUN 38 H (7-17) mg/dL Creatinine 1.5 H (0.7-1.2) mg/dL Glucose 199 H (65-100) mg/dL Calcium 8.5 (8.4-10.2) mg/dL - Imaging and Cardiology EKG: image reviewed
[2016-04-21] MEDS: DILAUDID IV PRN ×5 (00:14→21:20)
[2016-04-21] MEDS: LASIX IV SCH ×2 (06:44→18:11)
[2016-04-21] MEDS: APRESOLINE PO SCH ×3 (06:44→21:21)
[2016-04-21 07:46] LABS: Chloride 94.6 mmol/L (98-107); Potassium 3.6 mmol/L (3.6-5.0)
[2016-04-21] MEDS: NOVOLOG SUB-Q SCH ×4 (08:00→21:29)
[2016-04-21] MEDS: NORVASC PO SCH (09:40)
[2016-04-21] MEDS: LOPRESSOR PO SCH ×2 (09:41→21:22)
--- NOTE | 2016-04-21 11:34 | Progress Note ---
Assessment and Plan Assessment and plan: 1. Acute on chronic diastolic heart failure-Continue IV Lasix and try to optimize blood pressure control 2. Mild to Moderate aortic stenosis- -conservative manx as per cardiology; 3. Severe pulmonary HTN with hemoptysis with pulmonary edema- f/u with pulmonary for further recommendations; BIPAP as recommended 4. Benign hypertension-controlled. Continue IV Lasix, amlodipine and cotn hydralazine to 75 mg daily 8H. Continue to monitor blood pressure and adjust medications as needed 4. Diabetes also remains suboptimal-glucose improving with increased Lantus 15 and cover with sliding-scale insulin. 5. H/O Polysubstance abuse- drug screen negative on admission. 6. DVT prophylaxis-lovenox History Interval history: f/u chf Patient seen on the bedside; continues to have sob Hospitalist Physical - Constitutional Vitals: Temp Pulse Resp BP Pulse Ox 98.9 F 106 H 20 135/63 95 04/21/16 07:40 04/21/16 09:41 04/21/16 07:40 04/21/16 09:41 04/21/16 10:00 General appearance: Present: no acute distress (on [place] oxygen), well-nourished - EENT Eyes: Present: PERRL, EOM intact. Absent: scleral icterus, conjunctival injection ENT: hearing intact, clear oral mucosa, no oropharyngeal erythema, no poor dentition - Neck Neck: Present: supple, normal ROM. Absent: enlarged thyroid, masses or JVD - Respiratory Respiratory effort: normal Respiratory: bilateral: diminished, rhonchi, negative: rales, wheezing - Cardiovascular Rhythm: regular Heart Sounds: Present: S1 & S2. Absent: gallop - Extremities Extremities: no ischemia, pulses intact, pulses symmetrical, No edema Peripheral Pulses: within normal limits - Abdominal General gastrointestinal: soft, non-tender, non-distended, normal bowel sounds - Integumentary Integumentary: Present: clear - Psychiatric Psychiatric: appropriate mood/affect, intact judgment & insight, cooperative - Neurologic Neurologic: CNII-XII intact, moves all extremities Results - Labs CBC & Chem 7: 04/19/16 15:15 04/21/16 06:05 Labs: Laboratory Last Values WBC 8.5 K/mm3 (4.5-11.0) 04/19/16 15:15 RBC 3.02 M/mm3 (3.65-5.03) L 04/19/16 15:15 Hgb 8.4 gm/dl (10.1-14.3) L 04/19/16 15:15 Hct 26.0 % (30.3-42.9) L 04/19/16 15:15 MCV 86 fl (79-97) 04/19/16 15:15 MCH 28 pg (28-32) 04/19/16 15:15 MCHC 32 % (30-34) 04/19/16 15:15 RDW 16.9 % (13.2-15.2) H 04/19/16 15:15 Plt Count 271 K/mm3 (140-440) 04/19/16 15:15 Lymph % (Auto) 4.7 % (13.4-35.0) L 04/14/16 06:48 [place] % (Auto) 6.9 % (0.0-7.3) 04/14/16 06:48 Eos % (Auto) 3.0 % (0.0-4.3) 04/14/16 06:48 Baso % (Auto) 0.2 % (0.0-1.8) 04/14/16 06:48 Lymph # 0.3 K/mm3 (1.2-5.4) L 04/14/16 06:48 [place] # 0.4 K/mm3 (0.0-0.8) 04/14/16 06:48 Eos # 0.2 K/mm3 (0.0-0.4) 04/14/16 06:48 Baso # 0.0 K/mm3 (0.0-0.1) 04/14/16 06:48 Add Manual Diff Complete 04/19/16 15:15 Total Counted 100 04/19/16 15:15 Seg Neutrophils % 85.2 % (40.0-70.0) H 04/14/16 06:48 Seg Neuts % (Manual) 79.0 % (40.0-70.0) H 04/19/16 15:15 Band Neutrophils % 0 % 04/19/16 15:15 Lymphocytes % (Manual) 12.0 % (13.4-35.0) L 04/19/16 15:15 Reactive Lymphs % (Man) 0 % 04/19/16 15:15 Monocytes % (Manual) 7.0 % (0.0-7.3) 04/19/16 15:15 Eosinophils % (Manual) 2.0 % (0.0-4.3) 04/19/16 15:15 Basophils % (Manual) 0 % (0.0-1.8) 04/19/16 15:15 Metamyelocytes % 0 % 04/19/16 15:15 Myelocytes % 0 % 04/19/16 15:15 Promyelocytes % 0 % 04/19/16 15:15 Blast Cells % 0 % 04/19/16 15:15 Nucleated RBC % Not Reportable 04/19/16 15:15 Seg Neutrophils # 4.8 K/mm3 (1.8-7.7) 04/14/16 06:48 Seg Neutrophils # Man 6.7 K/mm3 (1.8-7.7) 04/19/16 15:15 Band Neutrophils # 0.0 K/mm3 04/19/16 15:15 Lymphocytes # (Manual) 1.0 K/mm3 (1.2-5.4) L 04/19/16 15:15 Abs React Lymphs (Man) 0.0 K/mm3 04/19/16 15:15 Monocytes # (Manual) 0.6 K/mm3 (0.0-0.8) 04/19/16 15:15 Eosinophils # (Manual) 0.2 K/mm3 (0.0-0.4) 04/19/16 15:15 Basophils # (Manual) 0.0 K/mm3 (0.0-0.1) 04/19/16 15:15 Metamyelocytes # 0.0 K/mm3 04/19/16 15:15 Myelocytes # 0.0 K/mm3 04/19/16 15:15 Promyelocytes # 0.0 K/mm3 04/19/16 15:15 Blast Cells # 0.0 K/mm3 04/19/16 15:15 WBC Morphology Not Reportable 04/19/16 15:15 Hypersegmented Neuts Not Reportable 04/19/16 15:15 Hyposegmented Neuts Not Reportable 04/19/16 15:15 Hypogranular Neuts Not Reportable 04/19/16 15:15 Smudge Cells Not Reportable 04/19/16 15:15 Toxic Granulation Not Reportable 04/19/16 15:15 Toxic Vacuolation Not Reportable 04/19/16 15:15 Dohle Bodies Not Reportable 04/19/16 15:15 Pelger-Huet Anomaly Not Reportable 04/19/16 15:15 [place] Rods Not Reportable 04/19/16 15:15 Platelet Estimate Appears normal 04/19/16 15:15 Clumped Platelets Not Reportable 04/19/16 15:15 Plt Clumps, EDTA Not Reportable 04/19/16 15:15 Large Platelets Not Reportable 04/19/16 15:15 Giant Platelets Not Reportable 04/19/16 15:15 Platelet Satelliting Not Reportable 04/19/16 15:15 Plt Morphology Comment Not Reportable 04/19/16 15:15 RBC Morphology Not Reportable 04/19/16 15:15 Dimorphic RBCs Not Reportable 04/19/16 15:15 Polychromasia Not Reportable 04/19/16 15:15 Hypochromasia Not Reportable 04/19/16 15:15 Poikilocytosis Not Reportable 04/19/16 15:15 Anisocytosis 1+ 04/19/16 15:15 Microcytosis Not Reportable 04/19/16 15:15 Macrocytosis Not Reportable 04/19/16 15:15 Spherocytes Not Reportable 04/19/16 15:15 Pappenheimer Bodies Not Reportable 04/19/16 15:15 Sickle Cells Not Reportable 04/19/16 15:15 Target Cells Rare 04/19/16 15:15 Tear Drop Cells Not Reportable 04/19/16 15:15 Ovalocytes Not Reportable 04/19/16 15:15 Helmet Cells Not Reportable 04/19/16 15:15 Saucedo-[place] Bodies Not Reportable 04/19/16 15:15 [place] Rings Not Reportable 04/19/16 15:15 Xavier Cells Not Reportable 04/19/16 15:15 Bite Cells Not Reportable 04/19/16 15:15 Crenated Cell Not Reportable 04/19/16 15:15 Elliptocytes Not Reportable 04/19/16 15:15 Acanthocytes (Spur) Not Reportable 04/19/16 15:15 Rouleaux Not Reportable 04/19/16 15:15 Hemoglobin C Crystals Not Reportable 04/19/16 15:15 Schistocytes Not Reportable 04/19/16 15:15 Malaria parasites Not Reportable 04/19/16 15:15 Varun Bodies Not Reportable 04/19/16 15:15 Hem Pathologist Commnt No 04/19/16 15:15 PT 12.9 Sec. (12.2-14.9) 04/18/16 05:17 INR 0.98 (0.87-1.13) 04/18/16 05:17 APTT 27.2 Sec. (24.2-36.6) 04/18/16 05:17 POC ABG pH 7.361 (7.35-7.45) 04/19/16 14:30 POC ABG pCO2 48.4 (35-45) H 04/19/16 14:30 POC ABG pO2 67 (80-105) L 04/19/16 14:30 POC ABG HCO3 27.4 04/19/16 14:30 POC ABG Total CO2 29 04/19/16 14:30 POC ABG O2 Sat 92 04/19/16 14:30 POC ABG Base Excess 2 04/19/16 14:30 FiO2 5 % 04/19/16 14:30 Sodium 135 mmol/L (137-145) L 04/21/16 06:05 Potassium 3.6 mmol/L (3.6-5.0) 04/21/16 06:05 Chloride 94.6 mmol/L (98-107) L 04/21/16 06:05 Carbon Dioxide 27 mmol/L (22-30) 04/21/16 06:05 Anion Gap 17 mmol/L 04/21/16 06:05 BUN 40 mg/dL (7-17) H 04/21/16 06:05 Creatinine 1.6 mg/dL (0.7-1.2) H 04/21/16 06:05 Estimated GFR 39 ml/min 04/21/16 06:05 BUN/Creatinine Ratio 25.00 % 04/21/16 06:05 Glucose 156 mg/dL (65-100) H 04/21/16 06:05 POC Glucose 192 (70-105) H 04/20/16 21:30 Lactic Acid 1.6 mmol/L (0.7-2.0) 04/19/16 15:03 Calcium 8.0 mg/dL (8.4-10.2) L 04/21/16 06:05 Magnesium 1.6 mg/dL (1.7-2.3) L 04/13/16 16:25 Iron 14 ug/dL (37-170) L 04/14/16 09:36 TIBC 301.00 mcg/dL (250-450) 04/14/16 09:36 % Saturation 4.65 % 04/14/16 09:36 Transferrin 215 mg/dl (192-382) 04/14/16 09:36 Total Bilirubin 0.5 mg/dL (0.1-1.2) 04/14/16 06:48 AST 43 units/L (5-40) H 04/14/16 06:48 ALT 25 units/L (7-56) 04/14/16 06:48 Alkaline Phosphatase 147 units/L (35-129) H 04/14/16 06:48 Total Creatine Kinase 99 units/L (30-135) 04/13/16 16:25 Troponin T < 0.010 ng/mL (0.00-0.029) 04/13/16 17:00 C-Reactive Protein 0.90 mg/dL (0.00-1.30) 04/19/16 15:16 NT-Pro-B Natriuret Pep 2937 pg/mL (0-900) H 04/13/16 16:25 Total Protein 7.4 g/dL (6.3-8.2) 04/14/16 06:48 Albumin 3.0 g/dL (3.9-5) L 04/14/16 06:48 Albumin/Globulin Ratio 0.7 % 04/14/16 06:48 Vitamin B12 1433 pg/mL (211-911) H 04/14/16 09:36 RBC Folic Acid 735 ng/mL (>280) 04/14/16 09:36 Urine Color Yellow (Yellow) 04/14/16 03:36 Urine Turbidity Clear (Clear) 04/14/16 03:36 Urine pH 5.0 (5.0-7.0) 04/14/16 03:36 Ur Specific [place] 1.012 (1.003-1.030) 04/14/16 03:36 Urine Protein 100 mg/dl mg/dL (Negative) 04/14/16 03:36 Urine Glucose (UA) Neg mg/dL (Negative) 04/14/16 03:36 Urine Ketones Neg mg/dL (Negative) 04/14/16 03:36 Urine Blood Neg (Negative) 04/14/16 03:36 Urine Nitrite Neg (Negative) 04/14/16 03:36 Urine Bilirubin Neg (Negative) 04/14/16 03:36 Urine Urobilinogen < 2.0 mg/dL (<2.0) 04/14/16 03:36 Ur Leukocyte Esterase Neg (Negative) 04/14/16 03:36 Urine WBC (Auto) 2.0 /HPF (0.0-6.0) 04/14/16 03:36 Urine RBC (Auto) 1.0 /HPF (0.0-6.0) 04/14/16 03:36 U Epithel Cells (Auto) < 1.0 /HPF (0-13.0) 04/14/16 03:36 Urine Opiates Screen Presumptive negative 04/14/16 03:36 Urine Methadone Screen Presumptive negative 04/14/16 03:36 Ur Barbiturates Screen Presumptive negative 04/14/16 03:36 Ur Phencyclidine Scrn Presumptive negative 04/14/16 03:36 Ur Amphetamines Screen Presumptive negative 04/14/16 03:36 U Benzodiazepines Scrn Presumptive negative 04/14/16 03:36 Urine Cocaine Screen Presumptive negative 04/14/16 03:36 U Marijuana (THC) Screen Presumptive negative 04/14/16 03:36 Drugs of Abuse Note Disclamer 04/14/16 03:36 - Imaging and Cardiology Chest x-ray: report reviewed (04/19/16-worsening CHF)
--- NOTE | 2016-04-21 11:55 | Progress Note ---
Assessment and Plan - Patient Problems (1) Acute hypoxemic respiratory failure Current Visit: Yes Status: Acute Plan to address problem: - continue diuresis - continue supplemental oxygen - Schedule qhs BIPAP empirically - continue bronchodilators and pulmonary toilet - sent sputum C&S - levaquin to be resumed as has not completed empiric CAP treatment (2) Pulmonary hypertension Current Visit: Yes Status: Acute Plan to address problem: - supplemental oxygen to keep O2Sats >/= 90% AT ALL TIMES - follow GRISEL level - outpatient PSG - outpatient PFT's - BIPAP while asleep empirically - optimize cardiac function (3) Abnormal CXR (chest x-ray) Current Visit: Yes Status: Acute Plan to address problem: - repeat CXR with worsening infiltrates - most consistent with pulmonary edema - will get USS chest +/- thoracentesis (4) Type 2 diabetes mellitus Current Visit: No Status: Chronic Qualifiers: Diabetes mellitus complication status: without complication Diabetes mellitus complication detail: D Diabetic retinopathy severity: D Proliferative retinopathy type: P Diabetes mellitus macular edema: D Diabetes mellitus care home insulin use: D Laterality: L Chronic kidney disease stage: C Plan to address problem: - continue SSI (5) Hemoptysis Current Visit: No Status: Acute Plan to address problem: - improved slightly - pulmonary edema most likely cause currently - continue diuresis - follow sputum C&S Subjective Date of service: 04/21/16 Principal diagnosis: Severe Pulmonary HTN; Congestive heart failure Interval history: Seen and examined at bedside; 24 hour events reviewed; nursing and respiratory care staff consulted; no adverse overnight events reported to me; discussed care plan with attending; still with streaky hemoptysis but less labored; denies acute chest pains or increased SOB Objective Vital Signs - 12hr 04/21/16 04/21/16 04/21/16 00:52 05:08 07:40 Temperature 97.6 F 98.6 F 98.9 F Pulse Rate Pulse Rate [ 84 93 H 106 H Apical] Respiratory 18 18 20 Rate Blood Pressure Blood Pressure 110/68 138/62 135/63 [Left Radial Artery] O2 Sat by Pulse 92 95 96 Oximetry 04/21/16 04/21/16 04/21/16 09:40 09:41 10:00 Temperature Pulse Rate 106 H 106 H Pulse Rate [ Apical] Respiratory Rate Blood Pressure 135/63 135/63 Blood Pressure [Left Radial Artery] O2 Sat by Pulse 95 Oximetry Constitutional: no acute distress, alert Eyes: non-icteric ENT: oropharynx moist Neck: supple, no lymphadenopathy Effort: mildly labored Ascultation: Bilateral: diminished breath sounds, rales Cardiovascular: regular rate and rhythm Gastrointestinal: normoactive bowel sounds, soft, non-tender, non-distended Integumentary: normal Extremities: no cyanosis, no edema, pulses normal, no ischemia or petechiae Neurologic: normal mental status, non-focal exam, pupils equal and round, motor strength normal and Psychiatric: other ([facility] history) CBC and BMP: 04/19/16 15:15 04/22/16 04:33 ABG, PT/INR, D-dimer: ABG POC ABG pH 7.361 (7.35-7.45) 04/19/16 14:30 POC ABG pCO2 48.4 (35-45) H 04/19/16 14:30 POC ABG pO2 67 (80-105) L 04/19/16 14:30 POC ABG HCO3 27.4 04/19/16 14:30 POC ABG Total CO2 29 04/19/16 14:30 POC ABG O2 Sat 92 04/19/16 14:30 PT/INR, D-dimer PT 12.9 Sec. (12.2-14.9) 04/18/16 05:17 INR 0.98 (0.87-1.13) 04/18/16 05:17 Abnormal lab findings: Abnormal Labs 04/13/16 04/13/16 04/14/16 23:33 Unknown 06:48 RBC 3.49 L 3.47 L Hgb 9.4 L 9.7 L Hct 29.8 L MCH 27 L RDW 16.5 H 17.7 H Lymph % (Auto) 4.7 L [place] % (Auto) 11.3 H Lymph # 0.3 L [place] # 0.9 H Seg Neutrophils % 85.2 H Seg Neuts % (Manual) Lymphocytes % (Manual) Lymphocytes # (Manual) POC ABG pCO2 POC ABG pO2 Sodium Potassium Chloride BUN Creatinine Glucose POC Glucose 193 H Calcium Iron AST Alkaline Phosphatase Albumin Vitamin B12 04/14/16 04/14/16 04/14/16 06:48 07:57 09:36 RBC Hgb Hct MCH RDW Lymph % (Auto) [place] % (Auto) Lymph # [place] # Seg Neutrophils % Seg Neuts % (Manual) Lymphocytes % (Manual) Lymphocytes # (Manual) POC ABG pCO2 POC ABG pO2 Sodium Potassium Chloride BUN Creatinine Glucose 120 H POC Glucose 145 H Calcium Iron 14 L AST 43 H Alkaline Phosphatase 147 H Albumin 3.0 L Vitamin B12 04/14/16 04/14/16 04/14/16 09:36 12:03 15:35 RBC Hgb Hct MCH RDW Lymph % (Auto) [place] % (Auto) Lymph # [place] # Seg Neutrophils % Seg Neuts % (Manual) Lymphocytes % (Manual) Lymphocytes # (Manual) POC ABG pCO2 POC ABG pO2 Sodium Potassium Chloride BUN Creatinine Glucose POC Glucose 213 H 257 H Calcium Iron AST Alkaline Phosphatase Albumin Vitamin B12 1433 H 04/14/16 04/14/16 04/15/16 20:43 21:44 07:49 RBC Hgb Hct MCH RDW Lymph % (Auto) [place] % (Auto) Lymph # [place] # Seg Neutrophils % Seg Neuts % (Manual) Lymphocytes % (Manual) Lymphocytes # (Manual) POC ABG pCO2 POC ABG pO2 Sodium Potassium Chloride BUN Creatinine Glucose POC Glucose 182 H 159 H 208 H Calcium Iron AST Alkaline Phosphatase Albumin Vitamin B12 04/15/16 04/15/16 04/15/16 12:39 15:37 21:51 RBC Hgb Hct MCH RDW Lymph % (Auto) [place] % (Auto) Lymph # [place] # Seg Neutrophils % Seg Neuts % (Manual) Lymphocytes % (Manual) Lymphocytes # (Manual) POC ABG pCO2 POC ABG pO2 Sodium Potassium Chloride BUN Creatinine Glucose POC Glucose 200 H 166 H 223 H Calcium Iron AST Alkaline Phosphatase Albumin Vitamin B12 04/16/16 04/16/16 04/16/16 05:15 07:58 10:40 RBC Hgb Hct MCH RDW Lymph % (Auto) [place] % (Auto) Lymph # [place] # Seg Neutrophils % Seg Neuts % (Manual) Lymphocytes % (Manual) Lymphocytes # (Manual) POC ABG pCO2 POC ABG pO2 Sodium Potassium Chloride BUN 19 H Creatinine Glucose 173 H POC Glucose 222 H 231 H Calcium Iron AST Alkaline Phosphatase Albumin Vitamin B12 04/16/16 04/16/16 04/17/16 15:48 21:20 07:41 RBC Hgb Hct MCH RDW Lymph % (Auto) [place] % (Auto) Lymph # [place] # Seg Neutrophils % Seg Neuts % (Manual) Lymphocytes % (Manual) Lymphocytes # (Manual) POC ABG pCO2 POC ABG pO2 Sodium Potassium Chloride BUN Creatinine Glucose POC Glucose 165 H 246 H 236 H Calcium Iron AST Alkaline Phosphatase Albumin Vitamin B12 04/17/16 04/17/16 04/17/16 11:50 16:07 19:40 RBC Hgb Hct MCH RDW Lymph % (Auto) [place] % (Auto) Lymph # [place] # Seg Neutrophils % Seg Neuts % (Manual) Lymphocytes % (Manual) Lymphocytes # (Manual) POC ABG pCO2 POC ABG pO2 Sodium Potassium Chloride BUN Creatinine Glucose POC Glucose 131 H 241 H 134 H Calcium Iron AST Alkaline Phosphatase Albumin Vitamin B12 04/18/16 04/18/16 04/18/16 05:17 05:17 06:48 RBC 3.33 L Hgb 9.2 L Hct 28.8 L MCH 27 L RDW 16.5 H Lymph % (Auto) [place] % (Auto) Lymph # [place] # Seg Neutrophils % Seg Neuts % (Manual) Lymphocytes % (Manual) Lymphocytes # (Manual) POC ABG pCO2 POC ABG pO2 Sodium 136 L Potassium Chloride 95.8 L BUN 31 H Creatinine Glucose 203 H POC Glucose 224 H Calcium Iron AST Alkaline Phosphatase Albumin Vitamin B12 04/18/16 04/18/16 04/18/16 07:25 11:20 16:19 RBC Hgb Hct MCH RDW Lymph % (Auto) [place] % (Auto) Lymph # [place] # Seg Neutrophils % Seg Neuts % (Manual) Lymphocytes % (Manual) Lymphocytes # (Manual) POC ABG pCO2 POC ABG pO2 Sodium Potassium Chloride BUN Creatinine Glucose POC Glucose 225 H 191 H 243 H Calcium Iron AST Alkaline Phosphatase Albumin Vitamin B12 04/18/16 04/19/16 04/19/16 22:47 08:09 09:36 RBC Hgb Hct MCH RDW Lymph % (Auto) [place] % (Auto) Lymph # [place] # Seg Neutrophils % Seg Neuts % (Manual) Lymphocytes % (Manual) Lymphocytes # (Manual) POC ABG pCO2 POC ABG pO2 Sodium 132 L Potassium 6.2 H* D Chloride 95.3 L BUN 39 H Creatinine 1.4 H Glucose 315 H POC Glucose 217 H 290 H Calcium 8.1 L Iron AST Alkaline Phosphatase Albumin Vitamin B12 04/19/16 04/19/16 04/19/16 11:47 14:30 15:15 RBC 3.02 L Hgb 8.4 L Hct 26.0 L MCH RDW 16.9 H Lymph % (Auto) [place] % (Auto) Lymph # [place] # Seg Neutrophils % Seg Neuts % (Manual) 79.0 H Lymphocytes % (Manual) 12.0 L Lymphocytes # (Manual) 1.0 L POC ABG pCO2 48.4 H POC ABG pO2 67 L Sodium Potassium Chloride BUN Creatinine Glucose POC Glucose 229 H Calcium Iron AST Alkaline Phosphatase Albumin Vitamin B12 04/19/16 04/19/16 04/20/16 17:15 22:36 05:52 RBC Hgb Hct MCH RDW Lymph % (Auto) [place] % (Auto) Lymph # [place] # Seg Neutrophils % Seg Neuts % (Manual) Lymphocytes % (Manual) Lymphocytes # (Manual) POC ABG pCO2 POC ABG pO2 Sodium Potassium Chloride BUN 38 H Creatinine 1.5 H Glucose 199 H POC Glucose 190 H 235 H Calcium Iron AST Alkaline Phosphatase Albumin Vitamin B12 04/20/16 04/20/16 04/21/16 12:06 21:30 06:05 RBC Hgb Hct MCH RDW Lymph % (Auto) [place] % (Auto) Lymph # [place] # Seg Neutrophils % Seg Neuts % (Manual) Lymphocytes % (Manual) Lymphocytes # (Manual) POC ABG pCO2 POC ABG pO2 Sodium 135 L Potassium Chloride 94.6 L BUN 40 H Creatinine 1.6 H Glucose 156 H POC Glucose 231 H 192 H Calcium 8.0 L Iron AST Alkaline Phosphatase Albumin Vitamin B12
[2016-04-21] MEDS: XANAX PO PRN (14:07)
[2016-04-21] MEDS: ROBITUSSIN DM PO PRN (21:19)
[2016-04-21] MEDS: LEVEMIR SUB-Q SCH (21:20)
[2016-04-22] MEDS: DILAUDID IV PRN ×3 (03:25→16:05)
[2016-04-22 06:07] LABS: BUN/Creatinine Ratio 28.46; Calcium 8.1 mg/dL (8.4-10.2); Chloride 96.1 mmol/L (98-107); Potassium 3.5 mmol/L (3.6-5.0)
[2016-04-22] MEDS: LASIX IV SCH ×2 (06:19→17:49)
[2016-04-22] MEDS: APRESOLINE PO SCH ×3 (06:19→22:09)
[2016-04-22] MEDS ORDERED: K-DUR PO ONE (08:30)
[2016-04-22] MEDS: NOVOLOG SUB-Q SCH ×4 (08:55→22:17)
--- NOTE | 2016-04-22 10:41 | Progress Note ---
Assessment and Plan CHF, diastolic Hypertension Hemoptysis low probability for pulmonry embolus by V\Q scan Echocardiogram shows normal left ventricle systolic function, with a calcified aortic valve and at least moderate aortic stenosis. Also notably, there is severe pulmonary hypertension, pulmonary artery systolic pressures of 80 mmHg, despite normal sized right heart chambers. R/L heart cath findings: 1. Elevated R/L heart filling pressures-RVEDP 30, LVEDP 35. 2. Severe pulm HTN, PASP 80. 3. Mild-moderate aortic stenosis, mean gadient 20. 4. Elevated transmitral pressure gradient-uncertain significance, doubt significant MS. 5. Normal coronaries. 6. Normal LV systolic function, EF 55%. Recommend: Conservative management for mild valvular disease of mitral and aortic valves. Continue medical therapy for heart failure with preserved EF. Subjective Date of service: 04/22/16 Principal diagnosis: Severe Pulmonary HTN; Congestive heart failure Interval history: Patient reports shortness of breath is less. She denies chest pain. Objective Vital Signs Temp Pulse Pulse Pulse Pulse Resp BP 04/22/16 09:44 04/22/16 09:24 99.5 F 110 H 20 04/22/16 08:39 110 H 04/22/16 06:19 107 H 134/68 04/22/16 04:20 98.6 F 107 H 22 04/22/16 00:25 98.7 F 93 H 20 04/21/16 23:08 82 27 H 04/21/16 22:00 20 04/21/16 21:53 04/21/16 21:22 95 H 137/64 04/21/16 21:21 95 H 137/64 04/21/16 21:20 20 04/21/16 20:34 04/21/16 20:20 99.0 F 95 H 20 04/21/16 17:15 98.4 F 89 20 04/21/16 14:07 89 130/60 BP Pulse Ox 04/22/16 09:44 93 04/22/16 09:24 131/59 97 04/22/16 08:39 04/22/16 06:19 04/22/16 04:20 134/79 99 04/22/16 00:25 134/68 99 04/21/16 23:08 96 04/21/16 22:00 04/21/16 21:53 93 04/21/16 21:22 02/05/17 21:21 04/21/16 21:20 04/21/16 20:34 93 04/21/16 20:20 137/64 99 04/21/16 17:15 136/60 96 04/21/16 14:07 - Physical Examination General: No Apparent Distress HEENT: Positive: PERRL Neck: Positive: neck supple Cardiac: Positive: Reg Rate and Rhythm Lungs: Positive: Decreased Breath Sounds Neuro: Positive: Grossly Intact Extremities: Absent: edema - Labs and Meds Comprehensive Metabolic Panel 04/22/16 Range/Units 04:33 Sodium 139 (137-145) mmol/L Potassium 3.5 L (3.6-5.0) mmol/L Chloride 96.1 L (98-107) mmol/L Carbon Dioxide 27 (22-30) mmol/L BUN 37 H (7-17) mg/dL Creatinine 1.3 H (0.7-1.2) mg/dL Glucose 112 H (65-100) mg/dL Calcium 8.1 L (8.4-10.2) mg/dL - Imaging and Cardiology EKG: image reviewed
[2016-04-22] MEDS: XANAX PO PRN ×2 (11:02→22:08)
[2016-04-22] MEDS: NORVASC PO SCH (11:02)
[2016-04-22] MEDS: LEVAQUIN PO SCH (11:02)
[2016-04-22] MEDS: LOPRESSOR PO SCH ×2 (11:03→22:09)
[2016-04-22] MEDS: ROBITUSSIN DM PO PRN (11:03)
[2016-04-22] MEDS ORDERED: ANCEF/STERILE WATER 2 GM/20 ML IV NR (12:00)
--- NOTE | 2016-04-22 12:10 | Progress Note ---
Assessment and Plan Assessment and plan: 1. Acute on chronic diastolic heart failure-Continue IV Lasix and try to optimize blood pressure control 2. Mild to Moderate aortic stenosis- -conservative manx as per cardiology; 3. Severe pulmonary HTN with hemoptysis with pulmonary edema with possible GERALDINE with acute hypoxic respiratory failure -cont nocturnal BIPAP; f/u with pulmonary for further recommendations; resume levaqiun as per pulmonary for empirical tx of CAP; will sleep study as outpatient and further work up for pulmonary HTN as per pulmonary 4. Benign hypertension-controlled. Continue IV Lasix, amlodipine and cotn hydralazine to 75 mg daily 8H. Continue to monitor blood pressure and adjust medications as needed 4. Diabetes also remains suboptimal-cont lantus 15 and cover with sliding-scale insulin. 5. H/O Polysubstance abuse- drug screen negative on admission. 6. DVT prophylaxis-lovenox History Interval history: f/u chf Patient seen on the bedside;sob better today; used BIPAP overnight; still has hemoptysis Hospitalist Physical - Constitutional Vitals: Temp Pulse Resp BP Pulse Ox 99.5 F 110 H 20 131/59 93 04/22/16 09:24 04/22/16 09:24 04/22/16 09:24 04/22/16 09:24 04/22/16 09:44 General appearance: Present: no acute distress (on NC oxygen), well-nourished - EENT Eyes: Present: PERRL, EOM intact. Absent: scleral icterus, conjunctival injection ENT: hearing intact, clear oral mucosa - Neck Neck: Present: supple, normal ROM. Absent: enlarged thyroid, masses or JVD - Respiratory Respiratory effort: normal Respiratory: negative: diminished, rales, rhonchi, wheezing - Cardiovascular Rhythm: regular Heart Sounds: Present: S1 & S2. Absent: gallop - Extremities Extremities: no ischemia, pulses intact, pulses symmetrical Peripheral Pulses: within normal limits - Abdominal General gastrointestinal: soft, non-tender, non-distended - Integumentary Integumentary: Present: clear - Psychiatric Psychiatric: appropriate mood/affect, intact judgment & insight, cooperative - Neurologic Neurologic: CNII-XII intact, moves all extremities Results - Labs CBC & Chem 7: 04/19/16 15:15 04/22/16 04:33 Labs: Laboratory Last Values WBC 8.5 K/mm3 (4.5-11.0) 04/19/16 15:15 RBC 3.02 M/mm3 (3.65-5.03) L 04/19/16 15:15 Hgb 8.4 gm/dl (10.1-14.3) L 04/19/16 15:15 Hct 26.0 % (30.3-42.9) L 04/19/16 15:15 MCV 86 fl (79-97) 04/19/16 15:15 MCH 28 pg (28-32) 04/19/16 15:15 MCHC 32 % (30-34) 04/19/16 15:15 RDW 16.9 % (13.2-15.2) H 04/19/16 15:15 Plt Count 271 K/mm3 (140-440) 04/19/16 15:15 Lymph % (Auto) 4.7 % (13.4-35.0) L 04/14/16 06:48 [place] % (Auto) 6.9 % (0.0-7.3) 04/14/16 06:48 Eos % (Auto) 3.0 % (0.0-4.3) 04/14/16 06:48 Baso % (Auto) 0.2 % (0.0-1.8) 04/14/16 06:48 Lymph # 0.3 K/mm3 (1.2-5.4) L 04/14/16 06:48 [place] # 0.4 K/mm3 (0.0-0.8) 04/14/16 06:48 Eos # 0.2 K/mm3 (0.0-0.4) 04/14/16 06:48 Baso # 0.0 K/mm3 (0.0-0.1) 04/14/16 06:48 Add Manual Diff Complete 04/19/16 15:15 Total Counted 100 04/19/16 15:15 Seg Neutrophils % 85.2 % (40.0-70.0) H 04/14/16 06:48 Seg Neuts % (Manual) 79.0 % (40.0-70.0) H 04/19/16 15:15 Band Neutrophils % 0 % 04/19/16 15:15 Lymphocytes % (Manual) 12.0 % (13.4-35.0) L 04/19/16 15:15 Reactive Lymphs % (Man) 0 % 04/19/16 15:15 Monocytes % (Manual) 7.0 % (0.0-7.3) 04/19/16 15:15 Eosinophils % (Manual) 2.0 % (0.0-4.3) 04/19/16 15:15 Basophils % (Manual) 0 % (0.0-1.8) 04/19/16 15:15 Metamyelocytes % 0 % 04/19/16 15:15 Myelocytes % 0 % 04/19/16 15:15 Promyelocytes % 0 % 04/19/16 15:15 Blast Cells % 0 % 04/19/16 15:15 Nucleated RBC % Not Reportable 04/19/16 15:15 Seg Neutrophils # 4.8 K/mm3 (1.8-7.7) 04/14/16 06:48 Seg Neutrophils # Man 6.7 K/mm3 (1.8-7.7) 04/19/16 15:15 Band Neutrophils # 0.0 K/mm3 04/19/16 15:15 Lymphocytes # (Manual) 1.0 K/mm3 (1.2-5.4) L 04/19/16 15:15 Abs React Lymphs (Man) 0.0 K/mm3 04/19/16 15:15 Monocytes # (Manual) 0.6 K/mm3 (0.0-0.8) 04/19/16 15:15 Eosinophils # (Manual) 0.2 K/mm3 (0.0-0.4) 04/19/16 15:15 Basophils # (Manual) 0.0 K/mm3 (0.0-0.1) 04/19/16 15:15 Metamyelocytes # 0.0 K/mm3 04/19/16 15:15 Myelocytes # 0.0 K/mm3 04/19/16 15:15 Promyelocytes # 0.0 K/mm3 04/19/16 15:15 Blast Cells # 0.0 K/mm3 04/19/16 15:15 WBC Morphology Not Reportable 04/19/16 15:15 Hypersegmented Neuts Not Reportable 04/19/16 15:15 Hyposegmented Neuts Not Reportable 04/19/16 15:15 Hypogranular Neuts Not Reportable 04/19/16 15:15 Smudge Cells Not Reportable 04/19/16 15:15 Toxic Granulation Not Reportable 04/19/16 15:15 Toxic Vacuolation Not Reportable 04/19/16 15:15 Dohle Bodies Not Reportable 04/19/16 15:15 Pelger-Huet Anomaly Not Reportable 04/19/16 15:15 Jordan Rods Not Reportable 04/19/16 15:15 Platelet Estimate Appears normal 04/19/16 15:15 Clumped Platelets Not Reportable 04/19/16 15:15 Plt Clumps, EDTA Not Reportable 04/19/16 15:15 Large Platelets Not Reportable 04/19/16 15:15 Giant Platelets Not Reportable 04/19/16 15:15 Platelet Satelliting Not Reportable 04/19/16 15:15 Plt Morphology Comment Not Reportable 04/19/16 15:15 RBC Morphology Not Reportable 04/19/16 15:15 Dimorphic RBCs Not Reportable 04/19/16 15:15 Polychromasia Not Reportable 04/19/16 15:15 Hypochromasia Not Reportable 04/19/16 15:15 Poikilocytosis Not Reportable 04/19/16 15:15 Anisocytosis 1+ 04/19/16 15:15 Microcytosis Not Reportable 04/19/16 15:15 Macrocytosis Not Reportable 04/19/16 15:15 Spherocytes Not Reportable 04/19/16 15:15 Pappenheimer Bodies Not Reportable 04/19/16 15:15 Sickle Cells Not Reportable 04/19/16 15:15 Target Cells Rare 04/19/16 15:15 Tear Drop Cells Not Reportable 04/19/16 15:15 Ovalocytes Not Reportable 04/19/16 15:15 Helmet Cells Not Reportable 04/19/16 15:15 Saucedo-Sipsey Bodies Not Reportable 04/19/16 15:15 [place] Rings Not Reportable 04/19/16 15:15 Xavier Cells Not Reportable 04/19/16 15:15 Bite Cells Not Reportable 04/19/16 15:15 Crenated Cell Not Reportable 04/19/16 15:15 Elliptocytes Not Reportable 04/19/16 15:15 Acanthocytes (Spur) Not Reportable 04/19/16 15:15 Rouleaux Not Reportable 04/19/16 15:15 Hemoglobin C Crystals Not Reportable 04/19/16 15:15 Schistocytes Not Reportable 04/19/16 15:15 Malaria parasites Not Reportable 04/19/16 15:15 Varun Bodies Not Reportable 04/19/16 15:15 Hem Pathologist Commnt No 04/19/16 15:15 PT 12.9 Sec. (12.2-14.9) 04/18/16 05:17 INR 0.98 (0.87-1.13) 04/18/16 05:17 APTT 27.2 Sec. (24.2-36.6) 04/18/16 05:17 POC ABG pH 7.361 (7.35-7.45) 04/19/16 14:30 POC ABG pCO2 48.4 (35-45) H 04/19/16 14:30 POC ABG pO2 67 (80-105) L 04/19/16 14:30 POC ABG HCO3 27.4 04/19/16 14:30 POC ABG Total CO2 29 04/19/16 14:30 POC ABG O2 Sat 92 04/19/16 14:30 POC ABG Base Excess 2 04/19/16 14:30 FiO2 5 % 04/19/16 14:30 Sodium 139 mmol/L (137-145) 04/22/16 04:33 Potassium 3.5 mmol/L (3.6-5.0) L 04/22/16 04:33 Chloride 96.1 mmol/L (98-107) L 04/22/16 04:33 Carbon Dioxide 27 mmol/L (22-30) 04/22/16 04:33 Anion Gap 19 mmol/L 04/22/16 04:33 BUN 37 mg/dL (7-17) H 04/22/16 04:33 Creatinine 1.3 mg/dL (0.7-1.2) H 04/22/16 04:33 Estimated GFR 50 ml/min 04/22/16 04:33 BUN/Creatinine Ratio 28.46 % 04/22/16 04:33 Glucose 112 mg/dL (65-100) H 04/22/16 04:33 POC Glucose 207 (70-105) H 04/21/16 21:28 Lactic Acid 1.6 mmol/L (0.7-2.0) 04/19/16 15:03 Calcium 8.1 mg/dL (8.4-10.2) L 04/22/16 04:33 Magnesium 1.6 mg/dL (1.7-2.3) L 04/13/16 16:25 Iron 14 ug/dL (37-170) L 04/14/16 09:36 TIBC 301.00 mcg/dL (250-450) 04/14/16 09:36 % Saturation 4.65 % 04/14/16 09:36 Transferrin 215 mg/dl (192-382) 04/14/16 09:36 Total Bilirubin 0.5 mg/dL (0.1-1.2) 04/14/16 06:48 AST 43 units/L (5-40) H 04/14/16 06:48 ALT 25 units/L (7-56) 04/14/16 06:48 Alkaline Phosphatase 147 units/L (35-129) H 04/14/16 06:48 Total Creatine Kinase 99 units/L (30-135) 04/13/16 16:25 Troponin T < 0.010 ng/mL (0.00-0.029) 04/13/16 17:00 C-Reactive Protein 0.90 mg/dL (0.00-1.30) 04/19/16 15:16 NT-Pro-B Natriuret Pep 2937 pg/mL (0-900) H 04/13/16 16:25 Total Protein 7.4 g/dL (6.3-8.2) 04/14/16 06:48 Albumin 3.0 g/dL (3.9-5) L 04/14/16 06:48 Albumin/Globulin Ratio 0.7 % 04/14/16 06:48 Vitamin B12 1433 pg/mL (211-911) H 04/14/16 09:36 RBC Folic Acid 735 ng/mL (>280) 04/14/16 09:36 Urine Color Yellow (Yellow) 04/14/16 03:36 Urine Turbidity Clear (Clear) 04/14/16 03:36 Urine pH 5.0 (5.0-7.0) 04/14/16 03:36 Ur Specific [place] 1.012 (1.003-1.030) 04/14/16 03:36 Urine Protein 100 mg/dl mg/dL (Negative) 04/14/16 03:36 Urine Glucose (UA) Neg mg/dL (Negative) 04/14/16 03:36 Urine Ketones Neg mg/dL (Negative) 04/14/16 03:36 Urine Blood Neg (Negative) 04/14/16 03:36 Urine Nitrite Neg (Negative) 04/14/16 03:36 Urine Bilirubin Neg (Negative) 04/14/16 03:36 Urine Urobilinogen < 2.0 mg/dL (<2.0) 04/14/16 03:36 Ur Leukocyte Esterase Neg (Negative) 04/14/16 03:36 Urine WBC (Auto) 2.0 /HPF (0.0-6.0) 04/14/16 03:36 Urine RBC (Auto) 1.0 /HPF (0.0-6.0) 04/14/16 03:36 U Epithel Cells (Auto) < 1.0 /HPF (0-13.0) 04/14/16 03:36 Urine Opiates Screen Presumptive negative 04/14/16 03:36 Urine Methadone Screen Presumptive negative 04/14/16 03:36 Ur Barbiturates Screen Presumptive negative 04/14/16 03:36 Ur Phencyclidine Scrn Presumptive negative 04/14/16 03:36 Ur Amphetamines Screen Presumptive negative 04/14/16 03:36 U Benzodiazepines Scrn Presumptive negative 04/14/16 03:36 Urine Cocaine Screen Presumptive negative 04/14/16 03:36 U Marijuana (THC) Screen Presumptive negative 04/14/16 03:36 Drugs of Abuse Note Disclamer 04/14/16 03:36 Microbiology 04/20/16 14:09 Sputum - Expectorated Sputum Sputum Culture - Final 04/13/16 18:08 Peripheral/Venous Blood Culture - Final NO GROWTH AFTER 5 DAYS 04/13/16 18:08 Peripheral/Venous Blood Culture - Final NO GROWTH AFTER 5 DAYS
[2016-04-22] MEDS ORDERED: HEPARIN/NS 5000 UNIT/500ML(CATH LAB) 500 ML IR ONE (12:18)
[2016-04-22] MEDS ORDERED: XYLOCAINE 2% INFILTRATI ONE (12:18)
--- NOTE | 2016-04-22 12:24 | Ultrasound Report ---
ULTRASOUND CHEST History: Evaluate pleural effusions. Findings: Transabdominal ultrasound was performed. A small right pleural effusion is identified measuring 301 cc. A moderate left pleural effusion is identified measuring 775 cc. There is no evidence for extensive debris or septation. Impression: Bilateral pleural effusions as described.
[2016-04-22] MEDS ORDERED: ANCEF/STERILE WATER 2 GM/20 ML 2 GM/20 ML SYRINGE IV ONE (12:36)
[2016-04-22] MEDS: SUBLIMAZE ONE ×2 (12:55→13:05)
[2016-04-22] MEDS: VERSED ONE ×2 (12:56→13:05)
--- NOTE | 2016-04-22 13:26 | Operative Report ---
Operative Report Operative Report: EXAM: 1. Ultrasound-guided puncture of the right internal jugular vein 2. Fluoroscopic-guided placement of a right internal jugular tunneled non- cuffed smallbore dual-lumen catheter. DATE: 04/22/16 INDICATION: Needs IV access in a patient with asthma without venous access. MEDICATIONS: Please see nursing report for full details. DEVICES: 5 [place] dual-lumen power PICC catheter TOOL DRESSER: RANDY LOCKETT MD CONTRAST: None PROCEDURE: The risks, benefits, and alternatives were discussed and informed consent was obtained. The patient was transported to the angiography suite in satisfactory/ stable condition and was transported onto the angiography table. The patient's right internal jugular vein was assessed with ultrasound and determined to be patent prior to procedure. The patient was prepped and draped in a sterile fashion. The puncture site was anesthetized. Under sonographic guidance, the right internal jugular vein was punctured with a 21-gauge micropuncture needle and a 0.018 inch wire was advanced into the inferior vena cava. A suitable exit site was identified on the patient's chest inferior and lateral to the venotomy. The site was anesthetized with local anesthetic and the track was anesthetized. Dermatotomy was made. The 5 [place] dual-lumen smallbore catheter was tunneled between the dermatotomy to the venotomy with the assistance of the peel-away sheath, micropuncture needle, and 0.018 inch wire. Over 0.018 inch wire, the transitional dilator was exchanged for a 5 [place] peel -away sheath. The wire was used to desiree intravascular distance and removed. The catheter was cut to appropriate size. The catheter was advanced through the peel-away sheath and positioned centrally under fluoroscopic guidance. The peel-away sheath was removed. 4-0 Vicryl suture was used to close the venotomy and Dermabond was then applied. 3-0 Ethilon suture was used to secure the catheter at the dermatotomy. The catheter was charged with heparinized saline, 10 units/mL. The patient was transferred from the angiography suite back to the floor in stable condition. FINDINGS: 1. Excellent flow was obtained through the dual lumen smallbore tunneled catheter. 2. The catheter tip is in the right atrium. IMPRESSION: 1. Successful ultrasound and fluoroscopically guided placement of a right internal jugular tunneled non-cuffed dual-lumen catheter.
--- NOTE | 2016-04-22 15:12 | Progress Note ---
Assessment and Plan Patient undergone central line placement. Patient resting on 3 litres O2.No acute respiratory distress.O2 satuaration 93% on 3 litres O2. - Patient Problems (1) Acute hypoxemic respiratory failure Current Visit: Yes Status: Acute Plan to address problem: O2 3 litres via nasal canula. Albuterol aerosol treatments q 6 hours. If patient develops any wheezing will add steroids. (2) Congestive heart failure Current Visit: Yes Status: Acute Qualifiers: Congestive heart failure type: C Congestive heart failure chronicity: C Plan to address problem: Management as per primary care and cardiology. (3) Acute asthma exacerbation Current Visit: No Status: Acute Qualifiers: Asthma severity: moderate persistent Qualified Code(s): J45.41 - Moderate persistent asthma with (acute) exacerbation Plan to address problem: Albuterol aerosol treatments q 6 hours. O2 supplementation 3 litres via nasal canula. Continue Levaquine. If patient develops any wheezing will add steroids. (4) Pulmonary hypertension Current Visit: Yes Status: Acute Plan to address problem: O2 supplementation. (5) Acute renal failure Current Visit: No Status: Acute Qualifiers: Acute renal failure type: A Plan to address problem: Management as per nephrology. (6) Altered mental state Current Visit: No Status: Acute Qualifiers: Altered mental status type: unspecified Coma depth: C Coma timing: C Qualified Code(s): R41.82 - Altered mental status, unspecified Plan to address problem: Mangement as per primary care. Subjective Date of service: 04/22/16 Principal diagnosis: Severe Pulmonary HTN; Congestive heart failure Interval history: Patient undergone central line placement. Patient resting on 3 litres O2.No acute respiratory distress.O2 satuaration 93% on 3 litres O2. Objective Vital Signs - 12hr 04/22/16 04/22/16 04/22/16 04:20 06:19 08:39 Temperature 98.6 F Pulse Rate 107 H 110 H Pulse Rate [ Left Radial] Pulse Rate [ 107 H Right Dorsalis Pedis] Respiratory 22 Rate Blood Pressure 134/68 Blood Pressure 134/79 [Left Radial Artery] O2 Sat by Pulse 99 Oximetry 04/22/16 04/22/16 09:24 09:44 Temperature 99.5 F Pulse Rate Pulse Rate [ 110 H Left Radial] Pulse Rate [ Right Dorsalis Pedis] Respiratory 20 Rate Blood Pressure Blood Pressure 131/59 [Left Radial Artery] O2 Sat by Pulse 97 93 Oximetry Constitutional: no acute distress, alert Eyes: non-icteric ENT: oropharynx moist Neck: supple, no lymphadenopathy Effort: mildly labored Ascultation: Bilateral: diminished breath sounds, rales Cardiovascular: regular rate and rhythm Gastrointestinal: normoactive bowel sounds, soft, non-tender, non-distended Integumentary: normal Extremities: no cyanosis, no edema, pulses normal, no ischemia or petechiae Neurologic: normal mental status, non-focal exam, pupils equal and round, motor strength normal and Psychiatric: other (the medical center history) CBC and BMP: 04/19/16 15:15 04/22/16 04:33 ABG, PT/INR, D-dimer: ABG POC ABG pH 7.361 (7.35-7.45) 04/19/16 14:30 POC ABG pCO2 48.4 (35-45) H 04/19/16 14:30 POC ABG pO2 67 (80-105) L 04/19/16 14:30 POC ABG HCO3 27.4 04/19/16 14:30 POC ABG Total CO2 29 04/19/16 14:30 POC ABG O2 Sat 92 04/19/16 14:30 PT/INR, D-dimer PT 12.9 Sec. (12.2-14.9) 04/18/16 05:17 INR 0.98 (0.87-1.13) 04/18/16 05:17 Abnormal lab findings: Abnormal Labs 04/13/16 04/13/16 04/14/16 23:33 Unknown 06:48 RBC 3.49 L 3.47 L Hgb 9.4 L 9.7 L Hct 29.8 L MCH 27 L RDW 16.5 H 17.7 H Lymph % (Auto) 4.7 L Mower % (Auto) 11.3 H Lymph # 0.3 L Mower # 0.9 H Seg Neutrophils % 85.2 H Seg Neuts % (Manual) Lymphocytes % (Manual) Lymphocytes # (Manual) POC ABG pCO2 POC ABG pO2 Sodium Potassium Chloride BUN Creatinine Glucose POC Glucose 193 H Calcium Iron AST Alkaline Phosphatase Albumin Vitamin B12 04/14/16 04/14/16 04/14/16 06:48 07:57 09:36 RBC Hgb Hct MCH RDW Lymph % (Auto) Mower % (Auto) Lymph # Mower # Seg Neutrophils % Seg Neuts % (Manual) Lymphocytes % (Manual) Lymphocytes # (Manual) POC ABG pCO2 POC ABG pO2 Sodium Potassium Chloride BUN Creatinine Glucose 120 H POC Glucose 145 H Calcium Iron 14 L AST 43 H Alkaline Phosphatase 147 H Albumin 3.0 L Vitamin B12 04/14/16 04/14/16 04/14/16 09:36 12:03 15:35 RBC Hgb Hct MCH RDW Lymph % (Auto) [place]ower % (Auto) Lymph # Mower # Seg Neutrophils % Seg Neuts % (Manual) Lymphocytes % (Manual) Lymphocytes # (Manual) POC ABG pCO2 POC ABG pO2 Sodium Potassium Chloride BUN Creatinine Glucose POC Glucose 213 H 257 H Calcium Iron AST Alkaline Phosphatase Albumin Vitamin B12 1433 H 04/14/16 04/14/16 04/15/16 20:43 21:44 07:49 RBC Hgb Hct MCH RDW Lymph % (Auto) Mower % (Auto) Lymph # Mower # Seg Neutrophils % Seg Neuts % (Manual) Lymphocytes % (Manual) Lymphocytes # (Manual) POC ABG pCO2 POC ABG pO2 Sodium Potassium Chloride BUN Creatinine Glucose POC Glucose 182 H 159 H 208 H Calcium Iron AST Alkaline Phosphatase Albumin Vitamin B12 04/15/16 04/15/16 04/15/16 12:39 15:37 21:51 RBC Hgb Hct MCH RDW Lymph % (Auto) Mower % (Auto) Lymph # Mower # Seg Neutrophils % Seg Neuts % (Manual) Lymphocytes % (Manual) Lymphocytes # (Manual) POC ABG pCO2 POC ABG pO2 Sodium Potassium Chloride BUN Creatinine Glucose POC Glucose 200 H 166 H 223 H Calcium Iron AST Alkaline Phosphatase Albumin Vitamin B12 04/16/16 04/16/16 04/16/16 05:15 07:58 10:40 RBC Hgb Hct MCH RDW Lymph % (Auto) [place]ower % (Auto) Lymph # Mower # Seg Neutrophils % Seg Neuts % (Manual) Lymphocytes % (Manual) Lymphocytes # (Manual) POC ABG pCO2 POC ABG pO2 Sodium Potassium Chloride BUN 19 H Creatinine Glucose 173 H POC Glucose 222 H 231 H Calcium Iron AST Alkaline Phosphatase Albumin Vitamin B12 04/16/16 04/16/16 04/17/16 15:48 21:20 07:41 RBC Hgb Hct MCH RDW Lymph % (Auto) [place]ower % (Auto) Lymph # Mower # Seg Neutrophils % Seg Neuts % (Manual) Lymphocytes % (Manual) Lymphocytes # (Manual) POC ABG pCO2 POC ABG pO2 Sodium Potassium Chloride BUN Creatinine Glucose POC Glucose 165 H 246 H 236 H Calcium Iron AST Alkaline Phosphatase Albumin Vitamin B12 04/17/16 04/17/16 04/17/16 11:50 16:07 19:40 RBC Hgb Hct MCH RDW Lymph % (Auto) [place]ower % (Auto) Lymph # Mower # Seg Neutrophils % Seg Neuts % (Manual) Lymphocytes % (Manual) Lymphocytes # (Manual) POC ABG pCO2 POC ABG pO2 Sodium Potassium Chloride BUN Creatinine Glucose POC Glucose 131 H 241 H 134 H Calcium Iron AST Alkaline Phosphatase Albumin Vitamin B12 04/18/16 04/18/16 04/18/16 05:17 05:17 06:48 RBC 3.33 L Hgb 9.2 L Hct 28.8 L MCH 27 L RDW 16.5 H Lymph % (Auto) [place]ower % (Auto) Lymph # Mower # Seg Neutrophils % Seg Neuts % (Manual) Lymphocytes % (Manual) Lymphocytes # (Manual) POC ABG pCO2 POC ABG pO2 Sodium 136 L Potassium Chloride 95.8 L BUN 31 H Creatinine Glucose 203 H POC Glucose 224 H Calcium Iron AST Alkaline Phosphatase Albumin Vitamin B12 04/18/16 04/18/16 04/18/16 07:25 11:20 16:19 RBC Hgb Hct MCH RDW Lymph % (Auto) [place]ower % (Auto) Lymph # Mower # Seg Neutrophils % Seg Neuts % (Manual) Lymphocytes % (Manual) Lymphocytes # (Manual) POC ABG pCO2 POC ABG pO2 Sodium Potassium Chloride BUN Creatinine Glucose POC Glucose 225 H 191 H 243 H Calcium Iron AST Alkaline Phosphatase Albumin Vitamin B12 04/18/16 04/19/16 04/19/16 22:47 08:09 09:36 RBC Hgb Hct MCH RDW Lymph % (Auto) [place]ower % (Auto) Lymph # Mower # Seg Neutrophils % Seg Neuts % (Manual) Lymphocytes % (Manual) Lymphocytes # (Manual) POC ABG pCO2 POC ABG pO2 Sodium 132 L Potassium 6.2 H* D Chloride 95.3 L BUN 39 H Creatinine 1.4 H Glucose 315 H POC Glucose 217 H 290 H Calcium 8.1 L Iron AST Alkaline Phosphatase Albumin Vitamin B12 04/19/16 04/19/16 04/19/16 11:47 14:30 15:15 RBC 3.02 L Hgb 8.4 L Hct 26.0 L MCH RDW 16.9 H Lymph % (Auto) [place]ower % (Auto) Lymph # Mower # Seg Neutrophils % Seg Neuts % (Manual) 79.0 H Lymphocytes % (Manual) 12.0 L Lymphocytes # (Manual) 1.0 L POC ABG pCO2 48.4 H POC ABG pO2 67 L Sodium Potassium Chloride BUN Creatinine Glucose POC Glucose 229 H Calcium Iron AST Alkaline Phosphatase Albumin Vitamin B12 04/19/16 04/19/16 04/20/16 17:15 22:36 05:52 RBC Hgb Hct MCH RDW Lymph % (Auto) [place]ower % (Auto) Lymph # Mower # Seg Neutrophils % Seg Neuts % (Manual) Lymphocytes % (Manual) Lymphocytes # (Manual) POC ABG pCO2 POC ABG pO2 Sodium Potassium Chloride BUN 38 H Creatinine 1.5 H Glucose 199 H POC Glucose 190 H 235 H Calcium Iron AST Alkaline Phosphatase Albumin Vitamin B12 04/20/16 04/20/16 04/21/16 12:06 21:30 06:05 RBC Hgb Hct MCH RDW Lymph % (Auto) [place]ower % (Auto) Lymph # Mower # Seg Neutrophils % Seg Neuts % (Manual) Lymphocytes % (Manual) Lymphocytes # (Manual) POC ABG pCO2 POC ABG pO2 Sodium 135 L Potassium Chloride 94.6 L BUN 40 H Creatinine 1.6 H Glucose 156 H POC Glucose 231 H 192 H Calcium 8.0 L Iron AST Alkaline Phosphatase Albumin Vitamin B12 04/21/16 04/21/16 04/21/16 07:27 11:53 16:43 RBC Hgb Hct MCH RDW Lymph % (Auto) Mower % (Auto) Lymph # Mower # Seg Neutrophils % Seg Neuts % (Manual) Lymphocytes % (Manual) Lymphocytes # (Manual) POC ABG pCO2 POC ABG pO2 Sodium Potassium Chloride BUN Creatinine Glucose POC Glucose 165 H 200 H 176 H Calcium Iron AST Alkaline Phosphatase Albumin Vitamin B12 04/21/16 04/22/16 21:28 04:33 RBC Hgb Hct MCH RDW Lymph % (Auto) Mower % (Auto) Lymph # Mower # Seg Neutrophils % Seg Neuts % (Manual) Lymphocytes % (Manual) Lymphocytes # (Manual) POC ABG pCO2 POC ABG pO2 Sodium Potassium 3.5 L Chloride 96.1 L BUN 37 H Creatinine 1.3 H Glucose 112 H POC Glucose 207 H Calcium 8.1 L Iron AST Alkaline Phosphatase Albumin Vitamin B12 Chest x-ray: report reviewed (Worsening CHF), image reviewed
[2016-04-22] MEDS: LEVEMIR SUB-Q SCH (22:18)
[2016-04-23] MEDS: DILAUDID IV PRN ×6 (00:20→19:55)
[2016-04-23] MEDS: ROBITUSSIN DM PO PRN (03:42)
[2016-04-23] MEDS: LASIX IV SCH ×2 (05:24→18:21)
[2016-04-23] MEDS: APRESOLINE PO SCH ×3 (05:24→21:39)
[2016-04-23 07:03] LABS: BUN/Creatinine Ratio 28.33; Calcium 8.3 mg/dL (8.4-10.2); Chloride 92.7 mmol/L (98-107); Potassium 4.2 mmol/L (3.6-5.0)
--- NOTE | 2016-04-23 07:48 | Vascular Lab Report ---
MISCELLANEOUS VESSEL IDENTIFICATION: COMMENTS ON THE SCAN: The right internal jugular vein was identified and under real-time ultrasound guidance was cannulated. IMPRESSION: Successful ultrasound guided vein cannulation.
[2016-04-23] MEDS: NOVOLOG SUB-Q SCH ×4 (08:27→21:40)
--- NOTE | 2016-04-23 09:10 | Progress Note ---
Assessment and Plan CHF, diastolic Hypertension Hemoptysis low probability for pulmonry embolus by V\Q scan Echocardiogram shows normal left ventricle systolic function, with a calcified aortic valve and at least moderate aortic stenosis. Also notably, there is severe pulmonary hypertension, pulmonary artery systolic pressures of 80 mmHg, despite normal sized right heart chambers. R/L heart cath findings: 1. Elevated R/L heart filling pressures-RVEDP 30, LVEDP 35. 2. Severe pulm HTN, PASP 80. 3. Mild-moderate aortic stenosis, mean gadient 20. 4. Elevated transmitral pressure gradient-uncertain significance, doubt significant MS. 5. Normal coronaries. 6. Normal LV systolic function, EF 55%. Recommend: Conservative management for mild valvular disease of mitral and aortic valves. Continue medical therapy for heart failure with preserved EF. Subjective Date of service: 04/23/16 Principal diagnosis: Severe Pulmonary HTN; Congestive heart failure Interval history: No interval changes. Objective Vital Signs Temp Pulse Pulse Pulse Pulse Resp Resp 04/23/16 08:24 04/23/16 08:00 98.9 F 94 H 20 04/23/16 06:41 18 04/23/16 05:24 90 04/23/16 04:20 98.8 F 90 22 04/23/16 04:11 18 04/23/16 03:41 20 04/23/16 00:50 18 04/23/16 00:20 99.4 F 88 20 04/22/16 23:30 04/22/16 22:09 96 H 04/22/16 22:00 95 H 18 04/22/16 20:45 18 04/22/16 20:10 97.6 F 96 H 20 04/22/16 19:19 93 H 04/22/16 16:00 98.8 F 88 20 04/22/16 09:44 04/22/16 09:24 99.5 F 110 H 20 BP BP Pulse Ox 04/23/16 08:24 92 04/23/16 08:00 136/63 93 04/23/16 06:41 04/23/16 05:24 138/65 04/23/16 04:20 138/65 94 04/23/16 04:11 04/23/16 03:41 04/23/16 00:50 04/23/16 00:20 122/54 95 04/22/16 23:30 98 02/06/17 22:09 150/67 04/22/16 22:00 04/22/16 20:45 04/22/16 20:10 150/67 95 04/22/16 19:19 04/22/16 16:00 92 04/22/16 09:44 93 04/22/16 09:24 131/59 97 - Physical Examination General: No Apparent Distress HEENT: Positive: PERRL Neck: Positive: neck supple Cardiac: Positive: Reg Rate and Rhythm Lungs: Positive: Decreased Breath Sounds Neuro: Positive: Grossly Intact Abdomen: Positive: Soft Skin: Positive: Clear Extremities: Absent: edema - Labs and Meds Comprehensive Metabolic Panel 04/23/16 Range/Units 05:16 Sodium 132 L D (137-145) mmol/L Potassium 4.2 (3.6-5.0) mmol/L Chloride 92.7 L (98-107) mmol/L Carbon Dioxide 32 H (22-30) mmol/L BUN 34 H (7-17) mg/dL Creatinine 1.2 (0.7-1.2) mg/dL Glucose 192 H (65-100) mg/dL Calcium 8.3 L (8.4-10.2) mg/dL - Imaging and Cardiology EKG: image reviewed
[2016-04-23] MEDS: LOPRESSOR PO SCH ×2 (10:56→21:39)
[2016-04-23] MEDS: LEVAQUIN PO SCH (10:56)
[2016-04-23] MEDS: NORVASC PO SCH (10:57)
[2016-04-23] MEDS: XANAX PO PRN (15:07)
--- NOTE | 2016-04-23 18:49 | Progress Note ---
Assessment and Plan Assessment and plan: 1. Acute on chronic diastolic heart failure-Continue IV Lasix and try to optimize blood pressure control 2. Severe aortic stenosis- -discussed with cardiology continue current management considering transfer 3. Severe pulmonary HTN with hemoptysis with pulmonary edema with possible GERALDINE with acute hypoxic respiratory failure -cont nocturnal BIPAP; f/u with pulmonary for further recommendations; resume levaqiun as per pulmonary for empirical tx of CAP; will sleep study as outpatient and further work up for pulmonary HTN as per pulmonary 4. Benign hypertension-controlled. Continue IV Lasix, amlodipine and cotn hydralazine to 75 mg daily 8H. Continue to monitor blood pressure and adjust medications as needed 4. Diabetes also remains suboptimal-cont lantus 15 and cover with sliding-scale insulin. 5. H/O Polysubstance abuse- drug screen negative on admission. 6. DVT prophylaxis-lovenox History Interval history: F/U shortness of breath Patient seen and examined this morning would moderate shortness of breath, Denies any chest pain, nausea, vomiting, diarrhea No fever noted blood pressure controlled No adverse events reported to me by nursing staff Hospitalist Physical - Physical exam Narrative exam: VITAL SIGNS: Reviewed. GENERAL: The patient appeared well nourished and normally developed. Vital signs as documented. HEAD: No signs of head trauma. EYES: Pupils are equal. Extraocular motions intact. EARS: Hearing grossly intact. MOUTH: Oropharynx is normal. NECK: No adenopathy, no JVD. CHEST: Chest with expiratory wheeze breath sounds bilaterally. No rales or rhonchi poorly moving air Cardiac Regular rate and rhythm. S1 and S2, 3/5 stomach ejection murmurs, gallops, or rubs. VASCULAR: No Edema. Peripheral pulses normal and equal in all extremities. ABDOMEN: Soft, without detectable tenderness. No sign of distention. No rebound or guarding, and no masses palpated. Bowel Sounds normal. MUSCULOSKELETAL: Good range of motion of all major joints. Extremities without clubbing, cyanosis or edema. NEUROLOGIC EXAM: Alert and oriented x 3. No focal sensory or strength deficits. Speech normal. Follows commands. PSYCHIATRIC: Mood anxious. SKIN: No rash or lesions. - Constitutional Vitals: Temp Pulse Resp BP Pulse Ox 98.7 F 86 18 148/66 98 04/23/16 16:30 04/23/16 16:30 04/23/16 16:30 04/23/16 16:30 04/23/16 16:30 General appearance: Present: no acute distress (on NC oxygen), well-nourished Results - Labs CBC & Chem 7: 04/19/16 15:15 04/23/16 05:16 Labs: Laboratory Last Values WBC 8.5 K/mm3 (4.5-11.0) 04/19/16 15:15 RBC 3.02 M/mm3 (3.65-5.03) L 04/19/16 15:15 Hgb 8.4 gm/dl (10.1-14.3) L 04/19/16 15:15 Hct 26.0 % (30.3-42.9) L 04/19/16 15:15 MCV 86 fl (79-97) 04/19/16 15:15 MCH 28 pg (28-32) 04/19/16 15:15 MCHC 32 % (30-34) 04/19/16 15:15 RDW 16.9 % (13.2-15.2) H 04/19/16 15:15 Plt Count 271 K/mm3 (140-440) 04/19/16 15:15 Lymph % (Auto) 4.7 % (13.4-35.0) L 04/14/16 06:48 [place] % (Auto) 6.9 % (0.0-7.3) 04/14/16 06:48 Eos % (Auto) 3.0 % (0.0-4.3) 04/14/16 06:48 Baso % (Auto) 0.2 % (0.0-1.8) 04/14/16 06:48 Lymph # 0.3 K/mm3 (1.2-5.4) L 04/14/16 06:48 [place] # 0.4 K/mm3 (0.0-0.8) 04/14/16 06:48 Eos # 0.2 K/mm3 (0.0-0.4) 04/14/16 06:48 Baso # 0.0 K/mm3 (0.0-0.1) 04/14/16 06:48 Add Manual Diff Complete 04/19/16 15:15 Total Counted 100 04/19/16 15:15 Seg Neutrophils % 85.2 % (40.0-70.0) H 04/14/16 06:48 Seg Neuts % (Manual) 79.0 % (40.0-70.0) H 04/19/16 15:15 Band Neutrophils % 0 % 04/19/16 15:15 Lymphocytes % (Manual) 12.0 % (13.4-35.0) L 04/19/16 15:15 Reactive Lymphs % (Man) 0 % 04/19/16 15:15 Monocytes % (Manual) 7.0 % (0.0-7.3) 04/19/16 15:15 Eosinophils % (Manual) 2.0 % (0.0-4.3) 04/19/16 15:15 Basophils % (Manual) 0 % (0.0-1.8) 04/19/16 15:15 Metamyelocytes % 0 % 04/19/16 15:15 Myelocytes % 0 % 04/19/16 15:15 Promyelocytes % 0 % 04/19/16 15:15 Blast Cells % 0 % 04/19/16 15:15 Nucleated RBC % Not Reportable 04/19/16 15:15 Seg Neutrophils # 4.8 K/mm3 (1.8-7.7) 04/14/16 06:48 Seg Neutrophils # Man 6.7 K/mm3 (1.8-7.7) 04/19/16 15:15 Band Neutrophils # 0.0 K/mm3 04/19/16 15:15 Lymphocytes # (Manual) 1.0 K/mm3 (1.2-5.4) L 04/19/16 15:15 Abs React Lymphs (Man) 0.0 K/mm3 04/19/16 15:15 Monocytes # (Manual) 0.6 K/mm3 (0.0-0.8) 04/19/16 15:15 Eosinophils # (Manual) 0.2 K/mm3 (0.0-0.4) 04/19/16 15:15 Basophils # (Manual) 0.0 K/mm3 (0.0-0.1) 04/19/16 15:15 Metamyelocytes # 0.0 K/mm3 04/19/16 15:15 Myelocytes # 0.0 K/mm3 04/19/16 15:15 Promyelocytes # 0.0 K/mm3 04/19/16 15:15 Blast Cells # 0.0 K/mm3 04/19/16 15:15 WBC Morphology Not Reportable 04/19/16 15:15 Hypersegmented Neuts Not Reportable 04/19/16 15:15 Hyposegmented Neuts Not Reportable 04/19/16 15:15 Hypogranular Neuts Not Reportable 04/19/16 15:15 Smudge Cells Not Reportable 04/19/16 15:15 Toxic Granulation Not Reportable 04/19/16 15:15 Toxic Vacuolation Not Reportable 04/19/16 15:15 Dohle Bodies Not Reportable 04/19/16 15:15 Pelger-Huet Anomaly Not Reportable 04/19/16 15:15 Jordan Rods Not Reportable 04/19/16 15:15 Platelet Estimate Appears normal 04/19/16 15:15 Clumped Platelets Not Reportable 04/19/16 15:15 Plt Clumps, EDTA Not Reportable 04/19/16 15:15 Large Platelets Not Reportable 04/19/16 15:15 Giant Platelets Not Reportable 04/19/16 15:15 Platelet Satelliting Not Reportable 04/19/16 15:15 Plt Morphology Comment Not Reportable 04/19/16 15:15 RBC Morphology Not Reportable 04/19/16 15:15 Dimorphic RBCs Not Reportable 04/19/16 15:15 Polychromasia Not Reportable 04/19/16 15:15 Hypochromasia Not Reportable 04/19/16 15:15 Poikilocytosis Not Reportable 04/19/16 15:15 Anisocytosis 1+ 04/19/16 15:15 Microcytosis Not Reportable 04/19/16 15:15 Macrocytosis Not Reportable 04/19/16 15:15 Spherocytes Not Reportable 04/19/16 15:15 Pappenheimer Bodies Not Reportable 04/19/16 15:15 Sickle Cells Not Reportable 04/19/16 15:15 Target Cells Rare 04/19/16 15:15 Tear Drop Cells Not Reportable 04/19/16 15:15 Ovalocytes Not Reportable 04/19/16 15:15 Helmet Cells Not Reportable 04/19/16 15:15 Saucedo-Heppner Bodies Not Reportable 04/19/16 15:15 [place] Rings Not Reportable 04/19/16 15:15 Xavier Cells Not Reportable 04/19/16 15:15 Bite Cells Not Reportable 04/19/16 15:15 Crenated Cell Not Reportable 04/19/16 15:15 Elliptocytes Not Reportable 04/19/16 15:15 Acanthocytes (Spur) Not Reportable 04/19/16 15:15 Rouleaux Not Reportable 04/19/16 15:15 Hemoglobin C Crystals Not Reportable 04/19/16 15:15 Schistocytes Not Reportable 04/19/16 15:15 Malaria parasites Not Reportable 04/19/16 15:15 Varun Bodies Not Reportable 04/19/16 15:15 Hem Pathologist Commnt No 04/19/16 15:15 PT 12.9 Sec. (12.2-14.9) 04/18/16 05:17 INR 0.98 (0.87-1.13) 04/18/16 05:17 APTT 27.2 Sec. (24.2-36.6) 04/18/16 05:17 POC ABG pH 7.361 (7.35-7.45) 04/19/16 14:30 POC ABG pCO2 48.4 (35-45) H 04/19/16 14:30 POC ABG pO2 67 (80-105) L 04/19/16 14:30 POC ABG HCO3 27.4 04/19/16 14:30 POC ABG Total CO2 29 04/19/16 14:30 POC ABG O2 Sat 92 04/19/16 14:30 POC ABG Base Excess 2 04/19/16 14:30 FiO2 5 % 04/19/16 14:30 Sodium 132 mmol/L (137-145) L D 04/23/16 05:16 Potassium 4.2 mmol/L (3.6-5.0) 04/23/16 05:16 Chloride 92.7 mmol/L (98-107) L 04/23/16 05:16 Carbon Dioxide 32 mmol/L (22-30) H 04/23/16 05:16 Anion Gap 12 mmol/L 04/23/16 05:16 BUN 34 mg/dL (7-17) H 04/23/16 05:16 Creatinine 1.2 mg/dL (0.7-1.2) 04/23/16 05:16 Estimated GFR 54 ml/min 04/23/16 05:16 BUN/Creatinine Ratio 28.33 % 04/23/16 05:16 Glucose 192 mg/dL (65-100) H 04/23/16 05:16 POC Glucose 204 (70-105) H 04/22/16 22:10 Lactic Acid 1.6 mmol/L (0.7-2.0) 04/19/16 15:03 Calcium 8.3 mg/dL (8.4-10.2) L 04/23/16 05:16 Magnesium 1.6 mg/dL (1.7-2.3) L 04/13/16 16:25 Iron 14 ug/dL (37-170) L 04/14/16 09:36 TIBC 301.00 mcg/dL (250-450) 04/14/16 09:36 % Saturation 4.65 % 04/14/16 09:36 Transferrin 215 mg/dl (192-382) 04/14/16 09:36 Total Bilirubin 0.5 mg/dL (0.1-1.2) 04/14/16 06:48 AST 43 units/L (5-40) H 04/14/16 06:48 ALT 25 units/L (7-56) 04/14/16 06:48 Alkaline Phosphatase 147 units/L (35-129) H 04/14/16 06:48 Total Creatine Kinase 99 units/L (30-135) 04/13/16 16:25 Troponin T < 0.010 ng/mL (0.00-0.029) 04/13/16 17:00 C-Reactive Protein 0.90 mg/dL (0.00-1.30) 04/19/16 15:16 NT-Pro-B Natriuret Pep 2937 pg/mL (0-900) H 04/13/16 16:25 Total Protein 7.4 g/dL (6.3-8.2) 04/14/16 06:48 Albumin 3.0 g/dL (3.9-5) L 04/14/16 06:48 Albumin/Globulin Ratio 0.7 % 04/14/16 06:48 Vitamin B12 1433 pg/mL (211-911) H 04/14/16 09:36 RBC Folic Acid 735 ng/mL (>280) 04/14/16 09:36 Urine Color Yellow (Yellow) 04/14/16 03:36 Urine Turbidity Clear (Clear) 04/14/16 03:36 Urine pH 5.0 (5.0-7.0) 04/14/16 03:36 Ur Specific [place] 1.012 (1.003-1.030) 04/14/16 03:36 Urine Protein 100 mg/dl mg/dL (Negative) 04/14/16 03:36 Urine Glucose (UA) Neg mg/dL (Negative) 04/14/16 03:36 Urine Ketones Neg mg/dL (Negative) 04/14/16 03:36 Urine Blood Neg (Negative) 04/14/16 03:36 Urine Nitrite Neg (Negative) 04/14/16 03:36 Urine Bilirubin Neg (Negative) 04/14/16 03:36 Urine Urobilinogen < 2.0 mg/dL (<2.0) 04/14/16 03:36 Ur Leukocyte Esterase Neg (Negative) 04/14/16 03:36 Urine WBC (Auto) 2.0 /HPF (0.0-6.0) 04/14/16 03:36 Urine RBC (Auto) 1.0 /HPF (0.0-6.0) 04/14/16 03:36 U Epithel Cells (Auto) < 1.0 /HPF (0-13.0) 04/14/16 03:36 Urine Opiates Screen Presumptive negative 04/14/16 03:36 Urine Methadone Screen Presumptive negative 04/14/16 03:36 Ur Barbiturates Screen Presumptive negative 04/14/16 03:36 Ur Phencyclidine Scrn Presumptive negative 04/14/16 03:36 Ur Amphetamines Screen Presumptive negative 04/14/16 03:36 U Benzodiazepines Scrn Presumptive negative 04/14/16 03:36 Urine Cocaine Screen Presumptive negative 04/14/16 03:36 U Marijuana (THC) Screen Presumptive negative 04/14/16 03:36 Drugs of Abuse Note Disclamer 04/14/16 03:36 GRISEL Screen Negative (Negative) 04/18/16 20:45 - Imaging and Cardiology Chest x-ray: image reviewed (vascular congestion)
--- NOTE | 2016-04-23 20:50 | Progress Note ---
Assessment and Plan Patient complaining pain at catheter insertion site. Complaining non specific body pains. No acute respiratory distress. O2 satuaration 92% on 4 litres O2. - Patient Problems (1) Acute hypoxemic respiratory failure Current Visit: Yes Status: Acute Plan to address problem: O2 4 litres via nasal canula. Albuterol aerosol treatments q 6 hours. Continue I/V solumedral (2) Congestive heart failure Current Visit: Yes Status: Acute Qualifiers: Congestive heart failure type: C Congestive heart failure chronicity: C Plan to address problem: Management as per primary care and cardiology. (3) Acute asthma exacerbation Current Visit: No Status: Acute Qualifiers: Asthma severity: moderate persistent Qualified Code(s): J45.41 - Moderate persistent asthma with (acute) exacerbation Plan to address problem: Albuterol aerosol treatments q 6 hours. O2 supplementation 4 litres via nasal canula. Continue Levaquine. Continue I/V solumedral. (4) Pulmonary hypertension Current Visit: Yes Status: Acute Plan to address problem: O2 supplementation. (5) Acute renal failure Current Visit: No Status: Acute Qualifiers: Acute renal failure type: A Plan to address problem: Management as per nephrology. (6) Altered mental state Current Visit: No Status: Acute Qualifiers: Altered mental status type: unspecified Coma depth: C Coma timing: C Qualified Code(s): R41.82 - Altered mental status, unspecified Plan to address problem: Mangement as per primary care. Subjective Date of service: 04/23/16 Principal diagnosis: Severe Pulmonary HTN; Congestive heart failure Interval history: Patient complaining pain at catheter insertion site. Complaining non specific body pains. No acute respiratory distress. O2 satuaration 92% on 4 litres O2. Objective Vital Signs - 12hr 04/23/16 04/23/16 04/23/16 10:00 12:00 16:30 Temperature 99.4 F 98.7 F Pulse Rate 90 Pulse Rate [ 79 86 Right Dorsalis Pedis] Respiratory 20 18 Rate Blood Pressure 148/66 [Left Radial Artery] O2 Sat by Pulse 88 98 Oximetry Constitutional: no acute distress, alert, agitated Eyes: non-icteric ENT: oropharynx moist Neck: supple, no lymphadenopathy Effort: mildly labored Ascultation: Bilateral: diminished breath sounds, rales Cardiovascular: regular rate and rhythm Gastrointestinal: normoactive bowel sounds, soft, non-tender, non-distended Integumentary: normal Extremities: no cyanosis, no edema, pulses normal, no ischemia or petechiae Neurologic: normal mental status, non-focal exam, pupils equal and round, motor strength normal and Psychiatric: other ([facility] history) CBC and BMP: 04/19/16 15:15 04/23/16 05:16 ABG, PT/INR, D-dimer: ABG POC ABG pH 7.361 (7.35-7.45) 04/19/16 14:30 POC ABG pCO2 48.4 (35-45) H 04/19/16 14:30 POC ABG pO2 67 (80-105) L 04/19/16 14:30 POC ABG HCO3 27.4 04/19/16 14:30 POC ABG Total CO2 29 04/19/16 14:30 POC ABG O2 Sat 92 04/19/16 14:30 PT/INR, D-dimer PT 12.9 Sec. (12.2-14.9) 04/18/16 05:17 INR 0.98 (0.87-1.13) 04/18/16 05:17 Abnormal lab findings: Abnormal Labs 04/13/16 04/13/16 04/14/16 23:33 Unknown 06:48 RBC 3.49 L 3.47 L Hgb 9.4 L 9.7 L Hct 29.8 L MCH 27 L RDW 16.5 H 17.7 H Lymph % (Auto) 4.7 L [place] % (Auto) 11.3 H Lymph # 0.3 L [place] # 0.9 H Seg Neutrophils % 85.2 H Seg Neuts % (Manual) Lymphocytes % (Manual) Lymphocytes # (Manual) POC ABG pCO2 POC ABG pO2 Sodium Potassium Chloride Carbon Dioxide BUN Creatinine Glucose POC Glucose 193 H Calcium Iron AST Alkaline Phosphatase Albumin Vitamin B12 04/14/16 04/14/16 04/14/16 06:48 07:57 09:36 RBC Hgb Hct MCH RDW Lymph % (Auto) [place] % (Auto) Lymph # [place] # Seg Neutrophils % Seg Neuts % (Manual) Lymphocytes % (Manual) Lymphocytes # (Manual) POC ABG pCO2 POC ABG pO2 Sodium Potassium Chloride Carbon Dioxide BUN Creatinine Glucose 120 H POC Glucose 145 H Calcium Iron 14 L AST 43 H Alkaline Phosphatase 147 H Albumin 3.0 L Vitamin B12 04/14/16 04/14/16 04/14/16 09:36 12:03 15:35 RBC Hgb Hct MCH RDW Lymph % (Auto) [place] % (Auto) Lymph # [place] # Seg Neutrophils % Seg Neuts % (Manual) Lymphocytes % (Manual) Lymphocytes # (Manual) POC ABG pCO2 POC ABG pO2 Sodium Potassium Chloride Carbon Dioxide BUN Creatinine Glucose POC Glucose 213 H 257 H Calcium Iron AST Alkaline Phosphatase Albumin Vitamin B12 1433 H 04/14/16 04/14/16 04/15/16 20:43 21:44 07:49 RBC Hgb Hct MCH RDW Lymph % (Auto) [place] % (Auto) Lymph # [place] # Seg Neutrophils % Seg Neuts % (Manual) Lymphocytes % (Manual) Lymphocytes # (Manual) POC ABG pCO2 POC ABG pO2 Sodium Potassium Chloride Carbon Dioxide BUN Creatinine Glucose POC Glucose 182 H 159 H 208 H Calcium Iron AST Alkaline Phosphatase Albumin Vitamin B12 04/15/16 04/15/16 04/15/16 12:39 15:37 21:51 RBC Hgb Hct MCH RDW Lymph % (Auto) [place] % (Auto) Lymph # [place] # Seg Neutrophils % Seg Neuts % (Manual) Lymphocytes % (Manual) Lymphocytes # (Manual) POC ABG pCO2 POC ABG pO2 Sodium Potassium Chloride Carbon Dioxide BUN Creatinine Glucose POC Glucose 200 H 166 H 223 H Calcium Iron AST Alkaline Phosphatase Albumin Vitamin B12 04/16/16 04/16/16 04/16/16 05:15 07:58 10:40 RBC Hgb Hct MCH RDW Lymph % (Auto) [place] % (Auto) Lymph # [place] # Seg Neutrophils % Seg Neuts % (Manual) Lymphocytes % (Manual) Lymphocytes # (Manual) POC ABG pCO2 POC ABG pO2 Sodium Potassium Chloride Carbon Dioxide BUN 19 H Creatinine Glucose 173 H POC Glucose 222 H 231 H Calcium Iron AST Alkaline Phosphatase Albumin Vitamin B12 04/16/16 04/16/16 04/17/16 15:48 21:20 07:41 RBC Hgb Hct MCH RDW Lymph % (Auto) [place] % (Auto) Lymph # [place] # Seg Neutrophils % Seg Neuts % (Manual) Lymphocytes % (Manual) Lymphocytes # (Manual) POC ABG pCO2 POC ABG pO2 Sodium Potassium Chloride Carbon Dioxide BUN Creatinine Glucose POC Glucose 165 H 246 H 236 H Calcium Iron AST Alkaline Phosphatase Albumin Vitamin B12 04/17/16 04/17/16 04/17/16 11:50 16:07 19:40 RBC Hgb Hct MCH RDW Lymph % (Auto) [place] % (Auto) Lymph # [place] # Seg Neutrophils % Seg Neuts % (Manual) Lymphocytes % (Manual) Lymphocytes # (Manual) POC ABG pCO2 POC ABG pO2 Sodium Potassium Chloride Carbon Dioxide BUN Creatinine Glucose POC Glucose 131 H 241 H 134 H Calcium Iron AST Alkaline Phosphatase Albumin Vitamin B12 04/18/16 04/18/16 04/18/16 05:17 05:17 06:48 RBC 3.33 L Hgb 9.2 L Hct 28.8 L MCH 27 L RDW 16.5 H Lymph % (Auto) [place] % (Auto) Lymph # [place] # Seg Neutrophils % Seg Neuts % (Manual) Lymphocytes % (Manual) Lymphocytes # (Manual) POC ABG pCO2 POC ABG pO2 Sodium 136 L Potassium Chloride 95.8 L Carbon Dioxide BUN 31 H Creatinine Glucose 203 H POC Glucose 224 H Calcium Iron AST Alkaline Phosphatase Albumin Vitamin B12 04/18/16 04/18/16 04/18/16 07:25 11:20 16:19 RBC Hgb Hct MCH RDW Lymph % (Auto) [place] % (Auto) Lymph # [place] # Seg Neutrophils % Seg Neuts % (Manual) Lymphocytes % (Manual) Lymphocytes # (Manual) POC ABG pCO2 POC ABG pO2 Sodium Potassium Chloride Carbon Dioxide BUN Creatinine Glucose POC Glucose 225 H 191 H 243 H Calcium Iron AST Alkaline Phosphatase Albumin Vitamin B12 04/18/16 04/19/16 04/19/16 22:47 08:09 09:36 RBC Hgb Hct MCH RDW Lymph % (Auto) [place] % (Auto) Lymph # [place] # Seg Neutrophils % Seg Neuts % (Manual) Lymphocytes % (Manual) Lymphocytes # (Manual) POC ABG pCO2 POC ABG pO2 Sodium 132 L Potassium 6.2 H* D Chloride 95.3 L Carbon Dioxide BUN 39 H Creatinine 1.4 H Glucose 315 H POC Glucose 217 H 290 H Calcium 8.1 L Iron AST Alkaline Phosphatase Albumin Vitamin B12 04/19/16 04/19/16 04/19/16 11:47 14:30 15:15 RBC 3.02 L Hgb 8.4 L Hct 26.0 L MCH RDW 16.9 H Lymph % (Auto) [place] % (Auto) Lymph # [place] # Seg Neutrophils % Seg Neuts % (Manual) 79.0 H Lymphocytes % (Manual) 12.0 L Lymphocytes # (Manual) 1.0 L POC ABG pCO2 48.4 H POC ABG pO2 67 L Sodium Potassium Chloride Carbon Dioxide BUN Creatinine Glucose POC Glucose 229 H Calcium Iron AST Alkaline Phosphatase Albumin Vitamin B12 04/19/16 04/19/16 04/20/16 17:15 22:36 05:52 RBC Hgb Hct MCH RDW Lymph % (Auto) [place] % (Auto) Lymph # [place] # Seg Neutrophils % Seg Neuts % (Manual) Lymphocytes % (Manual) Lymphocytes # (Manual) POC ABG pCO2 POC ABG pO2 Sodium Potassium Chloride Carbon Dioxide BUN 38 H Creatinine 1.5 H Glucose 199 H POC Glucose 190 H 235 H Calcium Iron AST Alkaline Phosphatase Albumin Vitamin B12 04/20/16 04/20/16 04/21/16 12:06 21:30 06:05 RBC Hgb Hct MCH RDW Lymph % (Auto) [place] % (Auto) Lymph # [place] # Seg Neutrophils % Seg Neuts % (Manual) Lymphocytes % (Manual) Lymphocytes # (Manual) POC ABG pCO2 POC ABG pO2 Sodium 135 L Potassium Chloride 94.6 L Carbon Dioxide BUN 40 H Creatinine 1.6 H Glucose 156 H POC Glucose 231 H 192 H Calcium 8.0 L Iron AST Alkaline Phosphatase Albumin Vitamin B12 04/21/16 04/21/16 04/21/16 07:27 11:53 16:43 RBC Hgb Hct MCH RDW Lymph % (Auto) [place] % (Auto) Lymph # [place] # Seg Neutrophils % Seg Neuts % (Manual) Lymphocytes % (Manual) Lymphocytes # (Manual) POC ABG pCO2 POC ABG pO2 Sodium Potassium Chloride Carbon Dioxide BUN Creatinine Glucose POC Glucose 165 H 200 H 176 H Calcium Iron AST Alkaline Phosphatase Albumin Vitamin B12 04/21/16 04/22/16 04/22/16 21:28 04:33 09:28 RBC Hgb Hct MCH RDW Lymph % (Auto) [place] % (Auto) Lymph # [place] # Seg Neutrophils % Seg Neuts % (Manual) Lymphocytes % (Manual) Lymphocytes # (Manual) POC ABG pCO2 POC ABG pO2 Sodium Potassium 3.5 L Chloride 96.1 L Carbon Dioxide BUN 37 H Creatinine 1.3 H Glucose 112 H POC Glucose 207 H 148 H Calcium 8.1 L Iron AST Alkaline Phosphatase Albumin Vitamin B12 04/22/16 04/22/16 04/23/16 16:12 22:10 05:16 RBC Hgb Hct MCH RDW Lymph % (Auto) [place] % (Auto) Lymph # [place] # Seg Neutrophils % Seg Neuts % (Manual) Lymphocytes % (Manual) Lymphocytes # (Manual) POC ABG pCO2 POC ABG pO2 Sodium 132 L D Potassium Chloride 92.7 L Carbon Dioxide 32 H BUN 34 H Creatinine Glucose 192 H POC Glucose 175 H 204 H Calcium 8.3 L Iron AST Alkaline Phosphatase Albumin Vitamin B12
[2016-04-23] MEDS: LEVEMIR SUB-Q SCH (21:40)
[2016-04-24] MEDS: DILAUDID IV PRN ×4 (00:56→19:00)
[2016-04-24] MEDS: APRESOLINE PO SCH ×2 (05:33→13:30)
[2016-04-24] MEDS: LASIX IV SCH ×2 (05:34→19:00)
[2016-04-24] MEDS: NOVOLOG SUB-Q SCH ×3 (07:30→18:45)
--- NOTE | 2016-04-24 09:11 | Progress Note ---
Assessment and Plan CHF, diastolic Hypertension Hemoptysis low probability for pulmonry embolus by V\Q scan Echocardiogram shows normal left ventricle systolic function, with a calcified aortic valve and at least moderate aortic stenosis. Also notably, there is severe pulmonary hypertension, pulmonary artery systolic pressures of 80 mmHg, despite normal sized right heart chambers. R/L heart cath findings: 1. Elevated R/L heart filling pressures-RVEDP 30, LVEDP 35. 2. Severe pulm HTN, PASP 80. 3. Mild-moderate aortic stenosis, mean gadient 20. 4. Elevated transmitral pressure gradient-uncertain significance, doubt significant MS. 5. Normal coronaries. 6. Normal LV systolic function, EF 55%. Subjective Date of service: 04/24/16 Principal diagnosis: Severe Pulmonary HTN; Congestive heart failure Interval history: No interval changes. Patient complains of coughs and congestion. Objective Vital Signs Temp Pulse Pulse Pulse Pulse Resp Resp 04/24/16 08:49 84 04/24/16 08:45 84 04/24/16 08:18 99.1 F 98 H 20 04/24/16 05:46 99.1 F 90 18 04/24/16 00:50 99.1 F 85 20 04/24/16 00:06 18 04/23/16 22:00 84 24 04/23/16 21:39 68 04/23/16 20:00 98.3 F 91 H 19 04/23/16 16:30 98.7 F 86 18 04/23/16 12:00 99.4 F 79 20 04/23/16 10:00 90 BP BP Pulse Ox 04/24/16 08:49 04/24/16 08:45 04/24/16 08:18 148/68 93 04/24/16 05:46 156/70 92 04/24/16 00:50 150/70 97 04/24/16 00:06 04/23/16 22:00 93 04/23/16 21:39 139/66 04/23/16 20:00 139/66 95 04/23/16 16:30 148/66 98 04/23/16 12:00 88 04/23/16 10:00 - Physical Examination General: No Apparent Distress HEENT: Positive: PERRL Neck: Positive: neck supple Cardiac: Positive: Reg Rate and Rhythm Lungs: Positive: Decreased Breath Sounds Neuro: Positive: Grossly Intact Extremities: Absent: edema - Imaging and Cardiology EKG: image reviewed
[2016-04-24] MEDS: LEVAQUIN PO SCH (10:41)
[2016-04-24] MEDS: LOPRESSOR PO SCH (10:41)
[2016-04-24] MEDS: NORVASC PO SCH (10:42)
[2016-04-24 11:08] LABS: ISTAT Base Excess 10; ISTAT DEVICE 0; ISTAT HCO3 33.4; ISTAT PCO2 44.9 (35-45); ISTAT PH 7.479 (7.35-7.45); ISTAT PO2 41 (80-105); ISTAT SO2 79; ISTAT TCO2 35
--- NOTE | 2016-04-24 11:40 | XRay Report ---
CHEST X-RAY, 2 VIEWS: HISTORY: Asthma exacerbation, shortness of breath. FINDINGS: There is borderline heart size and pulmonary vascularity. [id number] bilateral pleural effusions are suspected on the lateral view. There is no obvious pneumonia or pneumothorax. A right IJ venous catheter terminates near the cavoatrial junction. IMPRESSION: Findings most consistent with mild CHF.
--- NOTE | 2016-04-24 14:07 | Progress Note ---
Assessment and Plan Assessment and plan: Patient is 65-year-old woman who is admitted to the hospital with several days of progressive shortness of breath. Unfortunately has had multiple admissions for the same On presentation, she was noted to be severely short of breath with chest retraction on breathing, was admitted for further evaluation and cardiac consultation is requested. She has a poorly documented history of "CHF ". Prior left ventricular function assessment with echocardiogram May 2014, ejection fraction was normal at 60-65%. It was reported that she had moderate mitral regurgitation. A Persantine thallium stress test at that time was negative.Patient was in this hospital 2 weeks ago, at that time with altered mental status believed due to polysubstance abuse. 1. Acute on chronic diastolic heart failure-Continue IV Lasix and try to optimize blood pressure control 2. Severe aortic stenosis-again discuss with cardiology today this and also discussed with patient plan is to transfer patient to [facility] patient was accepted by Dr. Sinclair cardiothoracic surgeon 3. Severe pulmonary HTN with hemoptysis with pulmonary edema with possible GERALDINE with acute hypoxic respiratory failure -cont nocturnal BIPAP; f/u with pulmonary for further recommendations; resume levaqiun as per pulmonary for empirical tx of CAP; will sleep study as outpatient and further work up for pulmonary HTN as per pulmonary 4. Benign hypertension-controlled. Continue IV Lasix, amlodipine and cotn hydralazine to 75 mg daily 8H. Continue to monitor blood pressure and adjust medications as needed 5. Diabetes also remains suboptimal-cont lantus 15 and cover with sliding-scale insulin. 6. H/O Polysubstance abuse- drug screen negative on admission. 7. COPD exacerbation -I added IV Solu-Medrol to patient's therapy this showed some improvement today. We'll continue. 6. DVT prophylaxis-lovenox History Interval history: F/U shortness of breath Patient seen and examined this morning with mild shortness of breath, reports small improvement Denies any chest pain, nausea, vomiting, diarrhea No fever noted blood pressure controlled No adverse events reported to me by nursing staff Hospitalist Physical - Physical exam Narrative exam: VITAL SIGNS: Reviewed. GENERAL: The patient appeared well nourished and normally developed. Vital signs as documented. HEAD: No signs of head trauma. EYES: Pupils are equal. Extraocular motions intact. EARS: Hearing grossly intact. MOUTH: Oropharynx is normal. NECK: No adenopathy, no JVD. CHEST: Chest with improved air movement still with mild wheeze and expiratory moderate inspiratory Cardiac Regular rate and rhythm. S1 and S2, 3/5 stomach ejection murmurs, gallops, or rubs. VASCULAR: No Edema. Peripheral pulses normal and equal in all extremities. ABDOMEN: Soft, without detectable tenderness. No sign of distention. No rebound or guarding, and no masses palpated. Bowel Sounds normal. MUSCULOSKELETAL: Good range of motion of all major joints. Extremities without clubbing, cyanosis or edema. NEUROLOGIC EXAM: Alert and oriented x 3. No focal sensory or strength deficits. Speech normal. Follows commands. PSYCHIATRIC: Mood normal. SKIN: No rash or lesions. - Constitutional Vitals: Temp Pulse Resp BP Pulse Ox 99.1 F 78 20 122/57 97 04/24/16 08:18 04/24/16 10:42 04/24/16 08:18 04/24/16 13:30 04/24/16 10:35 General appearance: Present: no acute distress (on NC oxygen), well-nourished Results - Labs CBC & Chem 7: 04/19/16 15:15 04/23/16 05:16 Labs: Laboratory Last Values WBC 8.5 K/mm3 (4.5-11.0) 04/19/16 15:15 RBC 3.02 M/mm3 (3.65-5.03) L 04/19/16 15:15 Hgb 8.4 gm/dl (10.1-14.3) L 04/19/16 15:15 Hct 26.0 % (30.3-42.9) L 04/19/16 15:15 MCV 86 fl (79-97) 04/19/16 15:15 MCH 28 pg (28-32) 04/19/16 15:15 MCHC 32 % (30-34) 04/19/16 15:15 RDW 16.9 % (13.2-15.2) H 04/19/16 15:15 Plt Count 271 K/mm3 (140-440) 04/19/16 15:15 Lymph % (Auto) 4.7 % (13.4-35.0) L 04/14/16 06:48 [place]eller % (Auto) 6.9 % (0.0-7.3) 04/14/16 06:48 Eos % (Auto) 3.0 % (0.0-4.3) 04/14/16 06:48 Baso % (Auto) 0.2 % (0.0-1.8) 04/14/16 06:48 Lymph # 0.3 K/mm3 (1.2-5.4) L 04/14/16 06:48 Teller # 0.4 K/mm3 (0.0-0.8) 04/14/16 06:48 Eos # 0.2 K/mm3 (0.0-0.4) 04/14/16 06:48 Baso # 0.0 K/mm3 (0.0-0.1) 04/14/16 06:48 Add Manual Diff Complete 04/19/16 15:15 Total Counted 100 04/19/16 15:15 Seg Neutrophils % 85.2 % (40.0-70.0) H 04/14/16 06:48 Seg Neuts % (Manual) 79.0 % (40.0-70.0) H 04/19/16 15:15 Band Neutrophils % 0 % 04/19/16 15:15 Lymphocytes % (Manual) 12.0 % (13.4-35.0) L 04/19/16 15:15 Reactive Lymphs % (Man) 0 % 04/19/16 15:15 Monocytes % (Manual) 7.0 % (0.0-7.3) 04/19/16 15:15 Eosinophils % (Manual) 2.0 % (0.0-4.3) 04/19/16 15:15 Basophils % (Manual) 0 % (0.0-1.8) 04/19/16 15:15 Metamyelocytes % 0 % 04/19/16 15:15 Myelocytes % 0 % 04/19/16 15:15 Promyelocytes % 0 % 04/19/16 15:15 Blast Cells % 0 % 04/19/16 15:15 Nucleated RBC % Not Reportable 04/19/16 15:15 Seg Neutrophils # 4.8 K/mm3 (1.8-7.7) 04/14/16 06:48 Seg Neutrophils # Man 6.7 K/mm3 (1.8-7.7) 04/19/16 15:15 Band Neutrophils # 0.0 K/mm3 04/19/16 15:15 Lymphocytes # (Manual) 1.0 K/mm3 (1.2-5.4) L 04/19/16 15:15 Abs React Lymphs (Man) 0.0 K/mm3 04/19/16 15:15 Monocytes # (Manual) 0.6 K/mm3 (0.0-0.8) 04/19/16 15:15 Eosinophils # (Manual) 0.2 K/mm3 (0.0-0.4) 04/19/16 15:15 Basophils # (Manual) 0.0 K/mm3 (0.0-0.1) 04/19/16 15:15 Metamyelocytes # 0.0 K/mm3 04/19/16 15:15 Myelocytes # 0.0 K/mm3 04/19/16 15:15 Promyelocytes # 0.0 K/mm3 04/19/16 15:15 Blast Cells # 0.0 K/mm3 04/19/16 15:15 WBC Morphology Not Reportable 04/19/16 15:15 Hypersegmented Neuts Not Reportable 04/19/16 15:15 Hyposegmented Neuts Not Reportable 04/19/16 15:15 Hypogranular Neuts Not Reportable 04/19/16 15:15 Smudge Cells Not Reportable 04/19/16 15:15 Toxic Granulation Not Reportable 04/19/16 15:15 Toxic Vacuolation Not Reportable 04/19/16 15:15 Dohle Bodies Not Reportable 04/19/16 15:15 Pelger-Huet Anomaly Not Reportable 04/19/16 15:15 Jordan Rods Not Reportable 04/19/16 15:15 Platelet Estimate Appears normal 04/19/16 15:15 Clumped Platelets Not Reportable 04/19/16 15:15 Plt Clumps, EDTA Not Reportable 04/19/16 15:15 Large Platelets Not Reportable 04/19/16 15:15 Giant Platelets Not Reportable 04/19/16 15:15 Platelet Satelliting Not Reportable 04/19/16 15:15 Plt Morphology Comment Not Reportable 04/19/16 15:15 RBC Morphology Not Reportable 04/19/16 15:15 Dimorphic RBCs Not Reportable 04/19/16 15:15 Polychromasia Not Reportable 04/19/16 15:15 Hypochromasia Not Reportable 04/19/16 15:15 Poikilocytosis Not Reportable 04/19/16 15:15 Anisocytosis 1+ 04/19/16 15:15 Microcytosis Not Reportable 04/19/16 15:15 Macrocytosis Not Reportable 04/19/16 15:15 Spherocytes Not Reportable 04/19/16 15:15 Pappenheimer Bodies Not Reportable 04/19/16 15:15 Sickle Cells Not Reportable 04/19/16 15:15 Target Cells Rare 04/19/16 15:15 Tear Drop Cells Not Reportable 04/19/16 15:15 Ovalocytes Not Reportable 04/19/16 15:15 Helmet Cells Not Reportable 04/19/16 15:15 Saucedo-[place] Bodies Not Reportable 04/19/16 15:15 Spalding Rings Not Reportable 04/19/16 15:15 [place] Cells Not Reportable 04/19/16 15:15 Bite Cells Not Reportable 04/19/16 15:15 Crenated Cell Not Reportable 04/19/16 15:15 Elliptocytes Not Reportable 04/19/16 15:15 Acanthocytes (Spur) Not Reportable 04/19/16 15:15 Rouleaux Not Reportable 04/19/16 15:15 Hemoglobin C Crystals Not Reportable 04/19/16 15:15 Schistocytes Not Reportable 04/19/16 15:15 Malaria parasites Not Reportable 04/19/16 15:15 Varun Bodies Not Reportable 04/19/16 15:15 Hem Pathologist Commnt No 04/19/16 15:15 PT 12.9 Sec. (12.2-14.9) 04/18/16 05:17 INR 0.98 (0.87-1.13) 04/18/16 05:17 APTT 27.2 Sec. (24.2-36.6) 04/18/16 05:17 POC ABG pH 7.479 (7.35-7.45) H 04/24/16 10:13 POC ABG pCO2 44.9 (35-45) 04/24/16 10:13 POC ABG pO2 41 (80-105) L 04/24/16 10:13 POC ABG HCO3 33.4 04/24/16 10:13 POC ABG Total CO2 35 02/08/17 10:13 POC ABG O2 Sat 79 04/24/16 10:13 POC ABG Base Excess 10 04/24/16 10:13 FiO2 21 % 04/24/16 10:13 Sodium 132 mmol/L (137-145) L D 04/23/16 05:16 Potassium 4.2 mmol/L (3.6-5.0) 04/23/16 05:16 Chloride 92.7 mmol/L (98-107) L 04/23/16 05:16 Carbon Dioxide 32 mmol/L (22-30) H 04/23/16 05:16 Anion Gap 12 mmol/L 04/23/16 05:16 BUN 34 mg/dL (7-17) H 04/23/16 05:16 Creatinine 1.2 mg/dL (0.7-1.2) 04/23/16 05:16 Estimated GFR 54 ml/min 04/23/16 05:16 BUN/Creatinine Ratio 28.33 % 04/23/16 05:16 Glucose 192 mg/dL (65-100) H 04/23/16 05:16 POC Glucose 346 (70-105) H 04/24/16 12:18 Lactic Acid 1.6 mmol/L (0.7-2.0) 04/19/16 15:03 Calcium 8.3 mg/dL (8.4-10.2) L 04/23/16 05:16 Magnesium 1.6 mg/dL (1.7-2.3) L 04/13/16 16:25 Iron 14 ug/dL (37-170) L 04/14/16 09:36 TIBC 301.00 mcg/dL (250-450) 04/14/16 09:36 % Saturation 4.65 % 04/14/16 09:36 Transferrin 215 mg/dl (192-382) 04/14/16 09:36 Total Bilirubin 0.5 mg/dL (0.1-1.2) 04/14/16 06:48 AST 43 units/L (5-40) H 04/14/16 06:48 ALT 25 units/L (7-56) 04/14/16 06:48 Alkaline Phosphatase 147 units/L (35-129) H 04/14/16 06:48 Total Creatine Kinase 99 units/L (30-135) 04/13/16 16:25 Troponin T < 0.010 ng/mL (0.00-0.029) 04/13/16 17:00 C-Reactive Protein 0.90 mg/dL (0.00-1.30) 04/19/16 15:16 NT-Pro-B Natriuret Pep 2937 pg/mL (0-900) H 04/13/16 16:25 Total Protein 7.4 g/dL (6.3-8.2) 04/14/16 06:48 Albumin 3.0 g/dL (3.9-5) L 04/14/16 06:48 Albumin/Globulin Ratio 0.7 % 04/14/16 06:48 Vitamin B12 1433 pg/mL (211-911) H 04/14/16 09:36 RBC Folic Acid 735 ng/mL (>280) 04/14/16 09:36 Urine Color Yellow (Yellow) 04/14/16 03:36 Urine Turbidity Clear (Clear) 04/14/16 03:36 Urine pH 5.0 (5.0-7.0) 04/14/16 03:36 Ur Specific [place] 1.012 (1.003-1.030) 04/14/16 03:36 Urine Protein 100 mg/dl mg/dL (Negative) 04/14/16 03:36 Urine Glucose (UA) Neg mg/dL (Negative) 04/14/16 03:36 Urine Ketones Neg mg/dL (Negative) 04/14/16 03:36 Urine Blood Neg (Negative) 04/14/16 03:36 Urine Nitrite Neg (Negative) 04/14/16 03:36 Urine Bilirubin Neg (Negative) 04/14/16 03:36 Urine Urobilinogen < 2.0 mg/dL (<2.0) 04/14/16 03:36 Ur Leukocyte Esterase Neg (Negative) 04/14/16 03:36 Urine WBC (Auto) 2.0 /HPF (0.0-6.0) 04/14/16 03:36 Urine RBC (Auto) 1.0 /HPF (0.0-6.0) 04/14/16 03:36 U Epithel Cells (Auto) < 1.0 /HPF (0-13.0) 04/14/16 03:36 Urine Opiates Screen Presumptive negative 04/14/16 03:36 Urine Methadone Screen Presumptive negative 04/14/16 03:36 Ur Barbiturates Screen Presumptive negative 04/14/16 03:36 Ur Phencyclidine Scrn Presumptive negative 04/14/16 03:36 Ur Amphetamines Screen Presumptive negative 04/14/16 03:36 U Benzodiazepines Scrn Presumptive negative 04/14/16 03:36 Urine Cocaine Screen Presumptive negative 04/14/16 03:36 U Marijuana (THC) Screen Presumptive negative 04/14/16 03:36 Drugs of Abuse Note Disclamer 04/14/16 03:36 GRISEL Screen Negative (Negative) 04/18/16 20:45
--- NOTE | 2016-04-24 14:08 | Discharge Summary ---
Providers - Providers Date of Admission: 04/13/16 22:03 Date of discharge: 04/24/16 Attending physician: JEANNETTE FERREIRA MD 04/14/16 09:18 Consult to Physician [CONS] Routine Consulting Provider: EDGAR MATA Reason For Exam: chf Place consult to:: dr mata Notified:: dr mata 04/16/16 20:40 PICC Line Insertion [Consult to PICC Line RN] [CONS] Routine Reason For Exam: failed peripheral access. pt has order for CTA Type Line:: PICC 04/18/16 10:49 Consult to Cardiac Rehabilitation [CONS] Routine Reason For Exam: Cardiac Rehab Evaluation 04/18/16 15:31 Consult to Physician [CONS] Routine Consulting Provider: ANNA ANAYA Reason For Exam: pulmonary HTN Place consult to:: Dr. Ortiz Notified:: Brissa SHAW Phone number called:: Was contact made?: Yes If yes, spoke with:: Chantelle service Time called:: 16:27 04/20/16 10:09 Consult to Interventional Radiology [CONS] Routine Consulting Provider: RANDY LAW Reason For Exam: central line placement; poor access Place consult to:: vascular Notified:: leta service Phone number called:: [phone] Was contact made?: Yes If yes, spoke with:: Tan Time called:: 10:31 Primary care physician: DAMPER WORKER Hospitalization Reason for admission: shortness of breath Condition: Stable Hospital course: Patient is 65-year-old woman who is admitted to the hospital with several days of progressive shortness of breath. Unfortunately has had multiple admissions for the same On presentation, she was noted to be severely short of breath with chest retraction on breathing, was admitted for further evaluation and cardiac consultation is requested. She has a poorly documented history of "CHF ". Prior left ventricular function assessment with echocardiogram May 2014, ejection fraction was normal at 60-65%. It was reported that she had moderate mitral regurgitation. A Persantine thallium stress test at that time was negative.Patient was in this hospital 2 weeks ago, at that time with altered mental status believed due to polysubstance abuse. Addition patient was by syrup mixer started on IV Lasix. Echocardiogram did reveal severe aortic stenosis and also severe pulmonary hypertension. Pulmonary was consulted and patient was continued on nebulizer we did add Solu-Medrol with good improvement and breathing status. Close review of the echocardiogram is determined that this patient will benefit from cardiothoracic evaluation. Patient verbalized understanding cardiology did call [facility] cardiothoracic service and they accepted the patient to Dr. Roman's service. I discussed with case management and also with nursing staff. She also informed of the transfer. VQ scan showed low probably difficult pulmonary embolism. R/L heart cath findings: 1. Elevated R/L heart filling pressures-RVEDP 30, LVEDP 35. 2. Severe pulm HTN, PASP 80. 3. Mild-moderate aortic stenosis, mean gadient 20. 4. Elevated transmitral pressure gradient-uncertain significance, doubt significant MS. 5. Normal coronaries. 6. Normal LV systolic function, EF 55% Discharge diagnosis 1. Acute on chronic diastolic heart failure 2. Severe aortic stenosis 3. Severe pulmonary HTN with hemoptysis with pulmonary edema -pulmonary artery systolic pressure of 88 minutes of mercury 4. Obstructive sleep apnea -we'll recommend studies outpatient. 5. Benign hypertension- 6. Diabetes also remains suboptimal-cont lantus 15 and cover with sliding-scale insulin. 7. H/O Polysubstance abuse- drug screen negative on admission. 8. COPD exacerbation - 9. Hemoptysis-V/q negative for PE . Disposition: DC/TX ANOTHER TYPE HEALTHCARE Time spent for discharge: 35 mins Core Measure Documentation - Palliative Care Palliative Care/ Comfort Measures: Not Applicable - Core Measures Any of the following diagnoses?: heart failure - VTE Discharge Requirements Deep Vein Thrombosis/Pulmonary Embolism Present on Admission: No - Heart Failure Discharge Requirements SANDY/ARB for LVSD if EF <40%: Not Applicable Beta adrienne at discharge: Yes Exam - Physical Exam Narrative exam: VITAL SIGNS: Reviewed. GENERAL: The patient appeared well nourished and normally developed. Vital signs as documented. HEAD: No signs of head trauma. EYES: Pupils are equal. Extraocular motions intact. EARS: Hearing grossly intact. MOUTH: Oropharynx is normal. NECK: No adenopathy, no JVD. CHEST: Chest with improved air movement still with mild wheeze and expiratory moderate inspiratory Cardiac Regular rate and rhythm. S1 and S2, 3/5 stomach ejection murmurs, gallops, or rubs. VASCULAR: No Edema. Peripheral pulses normal and equal in all extremities. ABDOMEN: Soft, without detectable tenderness. No sign of distention. No rebound or guarding, and no masses palpated. Bowel Sounds normal. MUSCULOSKELETAL: Good range of motion of all major joints. Extremities without clubbing, cyanosis or edema. NEUROLOGIC EXAM: Alert and oriented x 3. No focal sensory or strength deficits. Speech normal. Follows commands. PSYCHIATRIC: Mood normal. SKIN: No rash or lesions. - Constitutional Vitals: Temp Pulse Resp BP Pulse Ox 99.1 F 78 20 122/57 97 04/24/16 08:18 04/24/16 10:42 04/24/16 08:18 04/24/16 13:30 04/24/16 10:35 Plan Activity: advance as tolerated, fall precautions Diet: low salt Special Instructions: record daily BP diary, record blood sugar diary Additional Instructions: continue current meds Follow up with: PRIMARY CARE, [Primary Care Provider] - 3-5 Days
--- NOTE | 2016-04-24 14:30 | Progress Note ---
Assessment and Plan Patient complaining pain at catheter insertion site. Complaining non specific body pains. No acute respiratory distress. O2 satuaration 97% on 3 litres O2. - Patient Problems (1) Acute hypoxemic respiratory failure Current Visit: Yes Status: Acute Plan to address problem: O2 3 litres via nasal canula. Albuterol aerosol treatments q 6 hours. Continue I/V solumedral (2) Congestive heart failure Current Visit: Yes Status: Acute Qualifiers: Congestive heart failure type: C Congestive heart failure chronicity: C Plan to address problem: Management as per primary care and cardiology. (3) Acute asthma exacerbation Current Visit: No Status: Acute Qualifiers: Asthma severity: moderate persistent Qualified Code(s): J45.41 - Moderate persistent asthma with (acute) exacerbation Plan to address problem: Albuterol aerosol treatments q 6 hours. O2 supplementation 4 litres via nasal canula. Continue Levaquine. Continue I/V solumedral. (4) Pulmonary hypertension Current Visit: Yes Status: Acute Plan to address problem: O2 supplementation. (5) Acute renal failure Current Visit: No Status: Acute Qualifiers: Acute renal failure type: A Plan to address problem: Management as per nephrology. (6) Altered mental state Current Visit: No Status: Acute Qualifiers: Altered mental status type: unspecified Coma depth: C Coma timing: C Qualified Code(s): R41.82 - Altered mental status, unspecified Plan to address problem: Mangement as per primary care. Subjective Date of service: 04/24/16 Principal diagnosis: Severe Pulmonary HTN; Congestive heart failure Interval history: Patient complaining pain at catheter insertion site. Complaining non specific body pains. No acute respiratory distress. O2 satuaration 97% on 3 litres O2. Objective Vital Signs - 12hr 04/24/16 04/24/16 04/24/16 05:46 08:18 08:45 Temperature 99.1 F 99.1 F Pulse Rate 84 Pulse Rate [ 98 H Left Radial] Pulse Rate [ Right Dorsalis Pedis] Pulse Rate [ 90 Right Radial] Respiratory 18 20 Rate Blood Pressure Blood Pressure 156/70 148/68 [Left Radial Artery] O2 Sat by Pulse 92 93 Oximetry 04/24/16 04/24/16 04/24/16 08:49 10:35 10:41 Temperature Pulse Rate 78 Pulse Rate [ Left Radial] Pulse Rate [ 84 Right Dorsalis Pedis] Pulse Rate [ Right Radial] Respiratory Rate Blood Pressure Blood Pressure [Left Radial Artery] O2 Sat by Pulse 97 Oximetry 04/24/16 04/24/16 10:42 13:30 Temperature Pulse Rate 78 Pulse Rate [ Left Radial] Pulse Rate [ Right Dorsalis Pedis] Pulse Rate [ Right Radial] Respiratory Rate Blood Pressure 122/57 Blood Pressure [Left Radial Artery] O2 Sat by Pulse Oximetry Constitutional: no acute distress, alert, agitated Eyes: non-icteric ENT: oropharynx moist Neck: supple, no lymphadenopathy Effort: mildly labored Ascultation: Bilateral: diminished breath sounds, rales Cardiovascular: regular rate and rhythm Gastrointestinal: normoactive bowel sounds, soft, non-tender, non-distended Integumentary: normal Extremities: no cyanosis, no edema, pulses normal, no ischemia or petechiae Neurologic: normal mental status, non-focal exam, pupils equal and round, motor strength normal and Psychiatric: other (the medical center history) CBC and BMP: 04/19/16 15:15 04/23/16 05:16 ABG, PT/INR, D-dimer: ABG POC ABG pH 7.479 (7.35-7.45) H 04/24/16 10:13 POC ABG pCO2 44.9 (35-45) 04/24/16 10:13 POC ABG pO2 41 (80-105) L 04/24/16 10:13 POC ABG HCO3 33.4 04/24/16 10:13 POC ABG Total CO2 35 04/24/16 10:13 POC ABG O2 Sat 79 04/24/16 10:13 PT/INR, D-dimer PT 12.9 Sec. (12.2-14.9) 04/18/16 05:17 INR 0.98 (0.87-1.13) 04/18/16 05:17 Abnormal lab findings: Abnormal Labs 04/13/16 04/13/16 04/14/16 23:33 Unknown 06:48 RBC 3.49 L 3.47 L Hgb 9.4 L 9.7 L Hct 29.8 L MCH 27 L RDW 16.5 H 17.7 H Lymph % (Auto) 4.7 L [place] % (Auto) 11.3 H Lymph # 0.3 L [place] # 0.9 H Seg Neutrophils % 85.2 H Seg Neuts % (Manual) Lymphocytes % (Manual) Lymphocytes # (Manual) POC ABG pH POC ABG pCO2 POC ABG pO2 Sodium Potassium Chloride Carbon Dioxide BUN Creatinine Glucose POC Glucose 193 H Calcium Iron AST Alkaline Phosphatase Albumin Vitamin B12 04/14/16 04/14/16 04/14/16 06:48 07:57 09:36 RBC Hgb Hct MCH RDW Lymph % (Auto) [place] % (Auto) Lymph # [place] # Seg Neutrophils % Seg Neuts % (Manual) Lymphocytes % (Manual) Lymphocytes # (Manual) POC ABG pH POC ABG pCO2 POC ABG pO2 Sodium Potassium Chloride Carbon Dioxide BUN Creatinine Glucose 120 H POC Glucose 145 H Calcium Iron 14 L AST 43 H Alkaline Phosphatase 147 H Albumin 3.0 L Vitamin B12 04/14/16 04/14/16 04/14/16 09:36 12:03 15:35 RBC Hgb Hct MCH RDW Lymph % (Auto) [place] % (Auto) Lymph # [place] # Seg Neutrophils % Seg Neuts % (Manual) Lymphocytes % (Manual) Lymphocytes # (Manual) POC ABG pH POC ABG pCO2 POC ABG pO2 Sodium Potassium Chloride Carbon Dioxide BUN Creatinine Glucose POC Glucose 213 H 257 H Calcium Iron AST Alkaline Phosphatase Albumin Vitamin B12 1433 H 04/14/16 04/14/16 04/15/16 20:43 21:44 07:49 RBC Hgb Hct MCH RDW Lymph % (Auto) [place] % (Auto) Lymph # [place] # Seg Neutrophils % Seg Neuts % (Manual) Lymphocytes % (Manual) Lymphocytes # (Manual) POC ABG pH POC ABG pCO2 POC ABG pO2 Sodium Potassium Chloride Carbon Dioxide BUN Creatinine Glucose POC Glucose 182 H 159 H 208 H Calcium Iron AST Alkaline Phosphatase Albumin Vitamin B12 04/15/16 04/15/16 04/15/16 12:39 15:37 21:51 RBC Hgb Hct MCH RDW Lymph % (Auto) [place] % (Auto) Lymph # [place] # Seg Neutrophils % Seg Neuts % (Manual) Lymphocytes % (Manual) Lymphocytes # (Manual) POC ABG pH POC ABG pCO2 POC ABG pO2 Sodium Potassium Chloride Carbon Dioxide BUN Creatinine Glucose POC Glucose 200 H 166 H 223 H Calcium Iron AST Alkaline Phosphatase Albumin Vitamin B12 04/16/16 04/16/16 04/16/16 05:15 07:58 10:40 RBC Hgb Hct MCH RDW Lymph % (Auto) [place] % (Auto) Lymph # [place] # Seg Neutrophils % Seg Neuts % (Manual) Lymphocytes % (Manual) Lymphocytes # (Manual) POC ABG pH POC ABG pCO2 POC ABG pO2 Sodium Potassium Chloride Carbon Dioxide BUN 19 H Creatinine Glucose 173 H POC Glucose 222 H 231 H Calcium Iron AST Alkaline Phosphatase Albumin Vitamin B12 04/16/16 04/16/16 04/17/16 15:48 21:20 07:41 RBC Hgb Hct MCH RDW Lymph % (Auto) [place] % (Auto) Lymph # [place] # Seg Neutrophils % Seg Neuts % (Manual) Lymphocytes % (Manual) Lymphocytes # (Manual) POC ABG pH POC ABG pCO2 POC ABG pO2 Sodium Potassium Chloride Carbon Dioxide BUN Creatinine Glucose POC Glucose 165 H 246 H 236 H Calcium Iron AST Alkaline Phosphatase Albumin Vitamin B12 04/17/16 04/17/16 04/17/16 11:50 16:07 19:40 RBC Hgb Hct MCH RDW Lymph % (Auto) [place] % (Auto) Lymph # [place] # Seg Neutrophils % Seg Neuts % (Manual) Lymphocytes % (Manual) Lymphocytes # (Manual) POC ABG pH POC ABG pCO2 POC ABG pO2 Sodium Potassium Chloride Carbon Dioxide BUN Creatinine Glucose POC Glucose 131 H 241 H 134 H Calcium Iron AST Alkaline Phosphatase Albumin Vitamin B12 04/18/16 04/18/16 04/18/16 05:17 05:17 06:48 RBC 3.33 L Hgb 9.2 L Hct 28.8 L MCH 27 L RDW 16.5 H Lymph % (Auto) [place] % (Auto) Lymph # [place] # Seg Neutrophils % Seg Neuts % (Manual) Lymphocytes % (Manual) Lymphocytes # (Manual) POC ABG pH POC ABG pCO2 POC ABG pO2 Sodium 136 L Potassium Chloride 95.8 L Carbon Dioxide BUN 31 H Creatinine Glucose 203 H POC Glucose 224 H Calcium Iron AST Alkaline Phosphatase Albumin Vitamin B12 04/18/16 04/18/16 04/18/16 07:25 11:20 16:19 RBC Hgb Hct MCH RDW Lymph % (Auto) [place] % (Auto) Lymph # [place] # Seg Neutrophils % Seg Neuts % (Manual) Lymphocytes % (Manual) Lymphocytes # (Manual) POC ABG pH POC ABG pCO2 POC ABG pO2 Sodium Potassium Chloride Carbon Dioxide BUN Creatinine Glucose POC Glucose 225 H 191 H 243 H Calcium Iron AST Alkaline Phosphatase Albumin Vitamin B12 04/18/16 04/19/16 04/19/16 22:47 08:09 09:36 RBC Hgb Hct MCH RDW Lymph % (Auto) [place] % (Auto) Lymph # [place] # Seg Neutrophils % Seg Neuts % (Manual) Lymphocytes % (Manual) Lymphocytes # (Manual) POC ABG pH POC ABG pCO2 POC ABG pO2 Sodium 132 L Potassium 6.2 H* D Chloride 95.3 L Carbon Dioxide BUN 39 H Creatinine 1.4 H Glucose 315 H POC Glucose 217 H 290 H Calcium 8.1 L Iron AST Alkaline Phosphatase Albumin Vitamin B12 04/19/16 04/19/16 04/19/16 11:47 14:30 15:15 RBC 3.02 L Hgb 8.4 L Hct 26.0 L MCH RDW 16.9 H Lymph % (Auto) [place] % (Auto) Lymph # [place] # Seg Neutrophils % Seg Neuts % (Manual) 79.0 H Lymphocytes % (Manual) 12.0 L Lymphocytes # (Manual) 1.0 L POC ABG pH POC ABG pCO2 48.4 H POC ABG pO2 67 L Sodium Potassium Chloride Carbon Dioxide BUN Creatinine Glucose POC Glucose 229 H Calcium Iron AST Alkaline Phosphatase Albumin Vitamin B12 04/19/16 04/19/16 04/20/16 17:15 22:36 05:52 RBC Hgb Hct MCH RDW Lymph % (Auto) [place] % (Auto) Lymph # [place] # Seg Neutrophils % Seg Neuts % (Manual) Lymphocytes % (Manual) Lymphocytes # (Manual) POC ABG pH POC ABG pCO2 POC ABG pO2 Sodium Potassium Chloride Carbon Dioxide BUN 38 H Creatinine 1.5 H Glucose 199 H POC Glucose 190 H 235 H Calcium Iron AST Alkaline Phosphatase Albumin Vitamin B12 04/20/16 04/20/16 04/21/16 12:06 21:30 06:05 RBC Hgb Hct MCH RDW Lymph % (Auto) [place] % (Auto) Lymph # [place] # Seg Neutrophils % Seg Neuts % (Manual) Lymphocytes % (Manual) Lymphocytes # (Manual) POC ABG pH POC ABG pCO2 POC ABG pO2 Sodium 135 L Potassium Chloride 94.6 L Carbon Dioxide BUN 40 H Creatinine 1.6 H Glucose 156 H POC Glucose 231 H 192 H Calcium 8.0 L Iron AST Alkaline Phosphatase Albumin Vitamin B12 04/21/16 04/21/16 04/21/16 07:27 11:53 16:43 RBC Hgb Hct MCH RDW Lymph % (Auto) [place] % (Auto) Lymph # [place] # Seg Neutrophils % Seg Neuts % (Manual) Lymphocytes % (Manual) Lymphocytes # (Manual) POC ABG pH POC ABG pCO2 POC ABG pO2 Sodium Potassium Chloride Carbon Dioxide BUN Creatinine Glucose POC Glucose 165 H 200 H 176 H Calcium Iron AST Alkaline Phosphatase Albumin Vitamin B12 04/21/16 04/22/16 04/22/16 21:28 04:33 09:28 RBC Hgb Hct MCH RDW Lymph % (Auto) [place] % (Auto) Lymph # [place] # Seg Neutrophils % Seg Neuts % (Manual) Lymphocytes % (Manual) Lymphocytes # (Manual) POC ABG pH POC ABG pCO2 POC ABG pO2 Sodium Potassium 3.5 L Chloride 96.1 L Carbon Dioxide BUN 37 H Creatinine 1.3 H Glucose 112 H POC Glucose 207 H 148 H Calcium 8.1 L Iron AST Alkaline Phosphatase Albumin Vitamin B12 04/22/16 04/22/16 04/23/16 16:12 22:10 05:16 RBC Hgb Hct MCH RDW Lymph % (Auto) [place] % (Auto) Lymph # [place] # Seg Neutrophils % Seg Neuts % (Manual) Lymphocytes % (Manual) Lymphocytes # (Manual) POC ABG pH POC ABG pCO2 POC ABG pO2 Sodium 132 L D Potassium Chloride 92.7 L Carbon Dioxide 32 H BUN 34 H Creatinine Glucose 192 H POC Glucose 175 H 204 H Calcium 8.3 L Iron AST Alkaline Phosphatase Albumin Vitamin B12 04/23/16 04/23/16 04/23/16 09:06 12:43 17:32 RBC Hgb Hct MCH RDW Lymph % (Auto) [place] % (Auto) Lymph # [place] # Seg Neutrophils % Seg Neuts % (Manual) Lymphocytes % (Manual) Lymphocytes # (Manual) POC ABG pH POC ABG pCO2 POC ABG pO2 Sodium Potassium Chloride Carbon Dioxide BUN Creatinine Glucose POC Glucose 194 H 167 H 238 H Calcium Iron AST Alkaline Phosphatase Albumin Vitamin B12 04/23/16 04/24/16 04/24/16 21:03 08:16 10:13 RBC Hgb Hct MCH RDW Lymph % (Auto) [place] % (Auto) Lymph # [place] # Seg Neutrophils % Seg Neuts % (Manual) Lymphocytes % (Manual) Lymphocytes # (Manual) POC ABG pH 7.479 H POC ABG pCO2 POC ABG pO2 41 L Sodium Potassium Chloride Carbon Dioxide BUN Creatinine Glucose POC Glucose 310 H 270 H Calcium Iron AST Alkaline Phosphatase Albumin Vitamin B12 04/24/16 12:18 RBC Hgb Hct MCH RDW Lymph % (Auto) [place] % (Auto) Lymph # [place] # Seg Neutrophils % Seg Neuts % (Manual) Lymphocytes % (Manual) Lymphocytes # (Manual) POC ABG pH POC ABG pCO2 POC ABG pO2 Sodium Potassium Chloride Carbon Dioxide BUN Creatinine Glucose POC Glucose 346 H Calcium Iron AST Alkaline Phosphatase Albumin Vitamin B12 Chest x-ray: report reviewed (Consistent with mild CHF), image reviewed
[2016-04-24 18:50] VITALS: BP 131/60
== END 2016-04-24 20:03 | disposition short-term general hospital (02) | DRG 286 ==
LOC: ED 16:45 → 4A 22:03
PROVIDERS: ADMIT Internal Medicine; ATTEND Internal Medicine
PROC: 5A09457 Assistance with Respiratory Ventilation, 24-96 Consecutive Hours, Continuous Positive Airway Pressure (ICD-10-PCS; 2016-04-13)
PROC: 4A033R1 Measurement of Arterial Saturation, Peripheral, Percutaneous Approach (ICD-10-PCS; 2016-04-13)
PROC: B211YZZ Fluoroscopy of Multiple Coronary Arteries using Other Contrast (ICD-10-PCS; principal; 2016-04-18)
PROC: 4A023N7 Measurement of Cardiac Sampling and Pressure, Left Heart, Percutaneous Approach (ICD-10-PCS; principal; 2016-04-18)
PROC: B215YZZ Fluoroscopy of Left Heart using Other Contrast (ICD-10-PCS; principal; 2016-04-18)
PROC: 4A033R1 Measurement of Arterial Saturation, Peripheral, Percutaneous Approach (ICD-10-PCS; 2016-04-19)
PROC: 02H633Z Insertion of Infusion Device into Right Atrium, Percutaneous Approach (ICD-10-PCS; 2016-04-22)
PROC: B5131ZA Fluoroscopy of Right Jugular Veins using Low Osmolar Contrast, Guidance (ICD-10-PCS; 2016-04-22)
PROC: B543ZZA Ultrasonography of Right Jugular Veins, Guidance (ICD-10-PCS; 2016-04-22)
PROC: 4A033R1 Measurement of Arterial Saturation, Peripheral, Percutaneous Approach (ICD-10-PCS; 2016-04-24)
DX: I35.0 Nonrheumatic aortic (valve) stenosis (principal); J96.01 Acute respiratory failure with hypoxia; I50.43 Acute on chronic combined systolic (congestive) and diastolic (congestive) heart failure; J45.901 Unspecified asthma with (acute) exacerbation; N17.9 Acute kidney failure, unspecified; R04.2 Hemoptysis; J44.1 Chronic obstructive pulmonary disease with (acute) exacerbation; I27.2 Other secondary pulmonary hypertension; E11.9 Type 2 diabetes mellitus without complications; E83.42 Hypomagnesemia; D64.9 Anemia, unspecified; I11.0 Hypertensive heart disease with heart failure; E78.5 Hyperlipidemia, unspecified; F19.10 Other psychoactive substance abuse, uncomplicated; I34.0 Nonrheumatic mitral (valve) insufficiency; M19.90 Unspecified osteoarthritis, unspecified site; E87.5 Hyperkalemia; G47.33 Obstructive sleep apnea (adult) (pediatric); Z79.4 Long term (current) use of insulin; Z90.49 Acquired absence of other specified parts of digestive tract; Z90.710 Acquired absence of both cervix and uterus
CPT/HCPCS: 36415; 36558; 36600; 70450; 71010; 71020; 76604; 76937; 77001; 78582; 80048; 80053; 80307; 81001; 82140; 82550; 82607; 82747; 82803; 82962; 83550; 83735; 83880; 84132; 84484; 85007; 85025; 85027; 85610; 85730; 86038; 86140; 87040; 87205; 93005; 93010; 93306; 93460; 94640; 94660; 94760; 96365; 96366; 96368; 96375; 99291; A9540; A9558; C1751; C1760; C1894; J0690; J1170; J1644; J1650; J1815; J1818; J1885; J1940; J1956; J2250; J2543; J2920; J3010; J3475; J7050; Q9967

== ENCOUNTER 2016-06-09 20:12 | Inpatient (IN) | payer MEDICAID, MEDICARE ==
[2016-06-09] MEDS ORDERED: ZEMURON IV ONE ×2 (20:25→20:36)
[2016-06-09] MEDS ORDERED: KETALAR ONE (20:25)
[2016-06-09] MEDS ORDERED: SUBLIMAZE IV ONE (20:30)
[2016-06-09] MEDS ORDERED: VASELINE LIP THERAPY TP PRN (20:34)
[2016-06-09] MEDS ORDERED: ARTIFICIAL TEARS OPHTH OINT OU PRN (20:34)
[2016-06-09] MEDS ORDERED: KETALAR IV ONE (20:37)
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
[2016-06-09 21:16] LABS: Urine Drugs of Abuse Note Disclamer
[2016-06-09 21:26] LABS: Bilirubin,Urine NEG (Negative); Blood,Urine NEG (Negative); Ketones,Urine NEG (Negative); Leukocyte Esterase,Urine SM (Negative); Mucus,Urine FEW /HPF; Nitrite,Urine NEG (Negative); Protein,Urine <15 mg/dL mg/dL (Negative); Urobilinogen,Urine < 2.0 mg/dL (<2.0)
[2016-06-09 21:30] LABS: Basophils % (Auto) 0.5 % (0.0-1.8); Eosinophils % (Auto) 2.3 % (0.0-4.3); Hematocrit 30.8 % (30.3-42.9); Hemoglobin 9.3 gm/dl (10.1-14.3); Mean Corpuscular HGB Conc 30 % (30-34); Mean Corpuscular Volume 85 fl (79-97); Platelet Count 170 K/mm3 (140-440); Red Blood Count 3.61 M/mm3 (3.65-5.03); Red Cell Distribution Width 18.5 % (13.2-15.2); White Blood Count 3.7 K/mm3 (4.5-11.0)
[2016-06-09 21:33] LABS: Mean Corpuscular Hemoglobin 26 pg (28-32)
[2016-06-09 21:44] LABS: INR 0.97 (0.87-1.13)
[2016-06-09 21:45] LABS: Partial Thromboplastin Time 31.7 Sec. (24.2-36.6)
[2016-06-09 21:51] LABS: Albumin 2.8 g/dL (3.9-5); Albumin/Globulin Ratio 0.7 %; BUN/Creatinine Ratio 34.54; Bilirubin,Total 0.3 mg/dL (0.1-1.2); Calcium 8.8 mg/dL (8.4-10.2); Chloride 107.7 mmol/L (98-107); Potassium 5.2 mmol/L (3.6-5.0); Total Protein 7.1 g/dL (6.3-8.2)
--- NOTE | 2016-06-09 22:16 | Cat Scan Report ---
FINAL REPORT EXAM: CT HEAD/BRAIN WO CON HISTORY: Altered Mental Status TECHNIQUE: Noncontrast serial axial images from skull base to vertex PRIORS: CT scan of the head from 05/15/2016 FINDINGS: Endotracheal tube and orogastric tube are noted in the footwear sales representative image. There is moderate atrophy. There is no mass effect or midline shift. There are no abnormal intra or extra-axial fluid collections. Lateral ventricles are within normal limits for size and configuration. Basilar cisterns are patent. No acute intracranial hemorrhage is identified. Atherosclerotic changes are noted. Small amount of fluid is seen in left maxillary sinus and sphenoid sinus. Mucosal thickening is noted in scattered ethmoidal air cells. No acute osseous abnormality is identified. IMPRESSION: 1. No abnormal mass or acute intracranial hemorrhage is identified. 2. Support devices are noted.
[2016-06-09] MEDS ORDERED: SUBLIMAZE ONE (22:22)
[2016-06-09 22:31] LABS: ISTAT Base Excess -5; ISTAT PH 7.317 (7.35-7.45); ISTAT PO2 230 (80-105); ISTAT SO2 100; ISTAT TCO2 22
[2016-06-09] MEDS ORDERED: ZOFRAN IV PRN (22:49)
[2016-06-09] MEDS ORDERED: MILK OF MAGNESIA PO PRN (22:49)
[2016-06-09] MEDS ORDERED: TYLENOL PR PRN (22:49)
[2016-06-09] MEDS ORDERED: DULCOLAX PR PRN (22:49)
--- NOTE | 2016-06-09 22:53 | History and Physical Report ---
History of Present Illness Date of examination: 06/09/16 History of present illness: 66-year-old woman with a history of hypertension, diabetes was brought to the emergency room per the emergency room physician patient was found unresponsive. Patient was intubated in the emergency room, her CAT scan of the head is been negative, urine toxicology is positive for cocaine and benzodiazepine. Review of system is unobtainable PAST SURGICAL HISTORY: Partial hysterectomy, colon resection SOCIAL HISTORY: Unknown FAMILY HISTORY: Hypertension, diabetes Medications and Allergies Allergies Allergy/AdvReac Type Severity Reaction Status Date / Time No Known Allergies Allergy Verified 02/09/14 18:18 Home Medications Medication Instructions Recorded Confirmed Last Taken Type Hydralazine HCl 50 mg PO Q8H 05/16/16 05/16/16 Unknown History Norvasc 5 mg PO DAILY 05/16/16 05/16/16 Unknown History Ventolin HFA 2 puff INHALATION Q4H PRN 05/16/16 05/16/16 Unknown History Gabapentin [Neurontin] 100 mg PO Q8HR #90 capsule 05/17/16 Unknown Rx Insulin Glargine,Hum.rec.anlog 10 units SQ QHS #5 pen 05/17/16 Unknown Rx [Lantus Solostar] Active Meds: Active Medications Hydrophilic Ointment (Vaseline Lip Therapy) 1 applic TP Q2HR PRN PRN Reason: Dry Lips Propofol (Diprivan 10 Mg/Ml) 1,000 mg in 100 mls @ 2.7 mls/hr IV TITR AKIL; 5 MCG/KG/MIN PRN Reason: Protocol Multi-Ingred Cream/Lotion/Oil/Oint (Artificial Tears Ophth Oint) 1 applic OU Q4HR PRN PRN Reason: Dry Eye(s) Exam - Physical Exam Narrative exam: Gen. appearance: Patient lying in bed, no apparent distress HEENT: Normocephalic, atraumatic, pupils pinpoint, equally round and reactive to light, unable to do extraocular movement , and no sclericterus,. No JVD or thyromegaly or nodule,neck supple, no carotid bruit ,mucous membranes moist, no exudate or erythema Heart: S1, S2, regular rate and rhythm Lungs: Clear to auscultation bilaterally, mild wheezing, breathing comfortable Abdomen: Positive bowel sounds, soft, nondistended, no organomegaly Extremity: No edema, cyanosis, clubbing Skin: No rash, nodules, warm, dry Neuro: Sedated - Constitutional Vitals: Temp Pulse Resp BP Pulse Ox 72 188/96 100 06/09/16 22:42 06/09/16 22:42 06/09/16 22:42 Results - Labs CBC & Chem 7: 06/12/16 05:19 06/13/16 10:10 Labs: Abnormal lab results 06/09/16 06/09/16 06/09/16 Range/Units 21:15 21:16 21:16 WBC 3.7 L (4.5-11.0) K/mm3 RBC 3.61 L (3.65-5.03) M/mm3 Hgb 9.3 L (10.1-14.3) gm/dl MCH 26 L (28-32) pg RDW 18.5 H (13.2-15.2) % Lymph % (Auto) 39.0 H (13.4-35.0) % POC ABG pH (7.35-7.45) POC ABG pO2 (80-105) Potassium 5.2 H (3.6-5.0) mmol/L Chloride 107.7 H (98-107) mmol/L Carbon Dioxide 19 L (22-30) mmol/L BUN 38 H (7-17) mg/dL Glucose 220 H (65-100) mg/dL Lactic Acid 0.5 L (0.7-2.0) mmol/L AST 105 H (5-40) units/L ALT 63 H (7-56) units/L Ammonia (25-60) umol/L Total Creatine Kinase (30-135) units/L Albumin 2.8 L (3.9-5) g/dL Salicylates (2.8-20.0) mg/dL 06/09/16 06/09/16 06/09/16 Range/Units 21:17 21:17 21:18 WBC (4.5-11.0) K/mm3 RBC (3.65-5.03) M/mm3 Hgb (10.1-14.3) gm/dl MCH (28-32) pg RDW (13.2-15.2) % Lymph % (Auto) (13.4-35.0) % POC ABG pH (7.35-7.45) POC ABG pO2 (80-105) Potassium (3.6-5.0) mmol/L Chloride (98-107) mmol/L Carbon Dioxide (22-30) mmol/L BUN (7-17) mg/dL Glucose (65-100) mg/dL Lactic Acid (0.7-2.0) mmol/L AST (5-40) units/L ALT (7-56) units/L Ammonia 13.0 L (25-60) umol/L Total Creatine Kinase 516 H (30-135) units/L Albumin (3.9-5) g/dL Salicylates < 0.3 L (2.8-20.0) mg/dL 06/09/16 Range/Units 21:48 WBC (4.5-11.0) K/mm3 RBC (3.65-5.03) M/mm3 Hgb (10.1-14.3) gm/dl MCH (28-32) pg RDW (13.2-15.2) % Lymph % (Auto) (13.4-35.0) % POC ABG pH 7.317 L (7.35-7.45) POC ABG pO2 230 H (80-105) Potassium (3.6-5.0) mmol/L Chloride (98-107) mmol/L Carbon Dioxide (22-30) mmol/L BUN (7-17) mg/dL Glucose (65-100) mg/dL Lactic Acid (0.7-2.0) mmol/L AST (5-40) units/L ALT (7-56) units/L Ammonia (25-60) umol/L Total Creatine Kinase (30-135) units/L Albumin (3.9-5) g/dL Salicylates (2.8-20.0) mg/dL - Imaging and Cardiology CT Scan - head: report reviewed Assessment and Plan Respiratory failure, acute Altered mental status, probably secondary to drugs Probably asthma exacerbation Rhabdomyolysis Hypertension Diabetes type 2 Admits medicine Continue sedation with IV propofol, start IV fluids, check cardiac enzymes Start IV high-dose steroids, nebulizer treatment, consult critical care Start DVT prophylaxis, check fingersticks and initiate insulin sliding scale
[2016-06-09] MEDS: DIPRIVAN 10 MG/ML 1,000 MG/100 ML BOTTLE IV SCH (22:57)
[2016-06-09 23:34] LABS: Creatine Kinase MB 20.4 ng/mL (0.0-4.0)
[2016-06-10] MEDS: DUONEB 0.5 MG-3 MG/3 ML SOLN IH SCH ×4 (01:41→20:24)
[2016-06-10] MEDS: NACL 0.45% 1000 ML 1,000 ML IV SCH ×2 (02:00→11:48)
[2016-06-10] MEDS ORDERED: CARDENE DRIP 40 MG/200 ML 40 MG/200 ML BAG IV SCH (02:00)
[2016-06-10 04:29] LABS: ISTAT Base Excess -4; ISTAT HCO3 20.9; ISTAT PCO2 35.7 (35-45); ISTAT PH 7.375 (7.35-7.45); ISTAT PO2 59 (80-105); ISTAT SO2 90; ISTAT TCO2 22
[2016-06-10 04:42] LABS: Basophils % (Auto) 0.4 % (0.0-1.8); Eosinophils % (Auto) 0.3 % (0.0-4.3); Hemoglobin 10.2 gm/dl (10.1-14.3); Mean Corpuscular HGB Conc 31 % (30-34); Mean Corpuscular Volume 84 fl (79-97); Platelet Count 182 K/mm3 (140-440); Red Blood Count 3.95 M/mm3 (3.65-5.03); Red Cell Distribution Width 18.2 % (13.2-15.2); White Blood Count 6.6 K/mm3 (4.5-11.0)
[2016-06-10 04:51] LABS: Mean Corpuscular Hemoglobin 26 pg (28-32)
[2016-06-10 04:53] LABS: Creatine Kinase MB 18.8 ng/mL (0.0-4.0)
[2016-06-10 04:54] LABS: Anion Gap 19 mmol/L; BUN/Creatinine Ratio 38.88; Blood Urea Nitrogen 35 mg/dL (7-17); Calcium 8.8 mg/dL (8.4-10.2); Carbon Dioxide 17 mmol/L (22-30); Chloride 109.3 mmol/L (98-107); Glucose 245 mg/dL (65-100); Potassium 4.3 mmol/L (3.6-5.0); Sodium 141 mmol/L (137-145)
--- NOTE | 2016-06-10 10:46 | XRay Report ---
Portable chest: The endotracheal tube tip is at the tiny. Withdrawal of approximately 15-20 mm is recommended. Mediastinal contour is unremarkable. There are no pulmonary infiltrates or nodules. Bronchovascular markings appear somewhat coarse but unchanged from May 15. Impression: 1. Probable chronic interstitial changes. 2. Suggest mildly repositioning of endotracheal tube.
--- NOTE | 2016-06-10 11:04 | Progress Note ---
Assessment and Plan Assessment and plan: 1. Acute hypoxemic respiratory failure. ABG revealed a PO2 of 59. Continue ventilator per pulmonary. Pulmonary consultation pending. 2. Sepsis. Present on admission. Patient meets criteria given the leukopenia , tachycardia with acute bronchitis. Patient will be placed on the sepsis pathway. Check blood cultures and trend lactic acid levels. 3. Acute bronchitis. Patient will be started on IV antibodies. 4. Acute asthma exacerbation. Patient will receive bronchodilators, IV steroids and breathing treatments. 5. Accelerated Hypertension. Patient will be weaned off of Cardene drip and started on home medication. 6. Toxic metabolic encephalopathy. Present on admission. Continue current management. History Interval history: 66-year-old woman with a history of hypertension, diabetes was brought to the emergency room per the emergency room physician patient was found unresponsive. Patient was intubated in the emergency room, her CAT scan of the head has been negative, urine toxicology is positive for cocaine and benzodiazepine. Review of system is unobtainable Hospitalist Physical - Constitutional Vitals: Temp Pulse Resp BP Pulse Ox 98.5 F 104 H 17 158/79 100 06/10/16 08:00 06/10/16 10:30 06/10/16 10:30 06/10/16 10:30 06/10/16 10:21 General appearance: Present: no acute distress, well-nourished - EENT Eyes: Present: PERRL, EOM intact ENT: hearing intact, clear oral mucosa, dentition normal - Neck Neck: Present: supple, normal ROM - Respiratory Respiratory effort: normal Respiratory: bilateral: diminished, rhonchi - Cardiovascular Rhythm: regular Heart Sounds: Present: S1 & S2. Absent: gallop, rub - Extremities Extremities: no ischemia, No edema, Full ROM - Abdominal General gastrointestinal: soft, non-tender, non-distended, normal bowel sounds - Integumentary Integumentary: Present: clear, warm, dry - Neurologic Neurologic: CNII-XII intact, moves all extremities Results - Labs CBC & Chem 7: 06/10/16 03:18 06/10/16 03:18 Labs: Laboratory Last Values WBC 6.6 K/mm3 (4.5-11.0) 06/10/16 03:18 RBC 3.95 M/mm3 (3.65-5.03) 06/10/16 03:18 Hgb 10.2 gm/dl (10.1-14.3) 06/10/16 03:18 Hct 33.0 % (30.3-42.9) 06/10/16 03:18 MCV 84 fl (79-97) 06/10/16 03:18 MCH 26 pg (28-32) L 06/10/16 03:18 MCHC 31 % (30-34) 06/10/16 03:18 RDW 18.2 % (13.2-15.2) H 06/10/16 03:18 Plt Count 182 K/mm3 (140-440) 06/10/16 03:18 Lymph % (Auto) 8.8 % (13.4-35.0) L 06/10/16 03:18 Harvey % (Auto) 3.9 % (0.0-7.3) 06/10/16 03:18 Eos % (Auto) 0.3 % (0.0-4.3) 06/10/16 03:18 Baso % (Auto) 0.4 % (0.0-1.8) 06/10/16 03:18 Lymph # 0.6 K/mm3 (1.2-5.4) L 06/10/16 03:18 Harvey # 0.3 K/mm3 (0.0-0.8) 06/10/16 03:18 Eos # 0.0 K/mm3 (0.0-0.4) 06/10/16 03:18 Baso # 0.0 K/mm3 (0.0-0.1) 06/10/16 03:18 Seg Neutrophils % 86.6 % (40.0-70.0) H 06/10/16 03:18 Seg Neutrophils # 5.7 K/mm3 (1.8-7.7) 06/10/16 03:18 PT 12.8 Sec. (12.2-14.9) 06/09/16 21:15 INR 0.97 (0.87-1.13) 06/09/16 21:15 APTT 31.7 Sec. (24.2-36.6) 06/09/16 21:15 POC ABG pH 7.375 (7.35-7.45) 06/10/16 04:03 POC ABG pCO2 35.7 (35-45) 06/10/16 04:03 POC ABG pO2 59 (80-105) L 06/10/16 04:03 POC ABG HCO3 20.9 06/10/16 04:03 POC ABG Total CO2 22 06/10/16 04:03 POC ABG O2 Sat 90 06/10/16 04:03 POC ABG Base Excess -4 06/10/16 04:03 FiO2 45 % 06/10/16 04:03 Sodium 141 mmol/L (137-145) 06/10/16 03:18 Potassium 4.3 mmol/L (3.6-5.0) 06/10/16 03:18 Chloride 109.3 mmol/L (98-107) H 06/10/16 03:18 Carbon Dioxide 17 mmol/L (22-30) L 06/10/16 03:18 Anion Gap 19 mmol/L 06/10/16 03:18 BUN 35 mg/dL (7-17) H 06/10/16 03:18 Creatinine 0.9 mg/dL (0.7-1.2) 06/10/16 03:18 Estimated GFR > 60 ml/min 06/10/16 03:18 BUN/Creatinine Ratio 38.88 % 06/10/16 03:18 Glucose 245 mg/dL (65-100) H 06/10/16 03:18 Lactic Acid 0.5 mmol/L (0.7-2.0) L 06/09/16 21:15 Calcium 8.8 mg/dL (8.4-10.2) 06/10/16 03:18 Total Bilirubin 0.3 mg/dL (0.1-1.2) 06/09/16 21:16 AST 105 units/L (5-40) H 06/09/16 21:16 ALT 63 units/L (7-56) H 06/09/16 21:16 Alkaline Phosphatase 114 units/L (35-129) 06/09/16 21:16 Ammonia 13.0 umol/L (25-60) L 06/09/16 21:17 Total Creatine Kinase 374 units/L (30-135) H 06/10/16 03:18 CK-MB (CK-2) 18.8 ng/mL (0.0-4.0) H 06/10/16 03:18 CK-MB (CK-2) Rel Index 5.0 (0-4) H 06/10/16 03:18 Troponin T 0.015 ng/mL (0.00-0.029) 06/10/16 03:18 Total Protein 7.1 g/dL (6.3-8.2) 06/09/16 21:16 Albumin 2.8 g/dL (3.9-5) L 06/09/16 21:16 Albumin/Globulin Ratio 0.7 % 06/09/16 21:16 TSH 0.817 mlU/mL (0.270-4.200) 06/09/16 21:16 Urine Color Yellow (Yellow) 06/09/16 21:07 Urine Turbidity Slightly-cloudy (Clear) 06/09/16 21:07 Urine pH 5.0 (5.0-7.0) 06/09/16 21:07 Ur Specific [place] 1.009 (1.003-1.030) 06/09/16 21:07 Urine Protein <15 mg/dl mg/dL (Negative) 06/09/16 21:07 Urine Glucose (UA) Neg mg/dL (Negative) 06/09/16 21:07 Urine Ketones Neg mg/dL (Negative) 06/09/16 21:07 Urine Blood Neg (Negative) 06/09/16 21:07 Urine Nitrite Neg (Negative) 06/09/16 21:07 Urine Bilirubin Neg (Negative) 06/09/16 21:07 Urine Urobilinogen < 2.0 mg/dL (<2.0) 06/09/16 21:07 Ur Leukocyte Esterase Sm (Negative) 06/09/16 21:07 Urine WBC (Auto) 2.0 /HPF (0.0-6.0) 06/09/16 21:07 Urine RBC (Auto) 1.0 /HPF (0.0-6.0) 06/09/16 21:07 Urine Mucus Few /HPF 06/09/16 21:07 Salicylates < 0.3 mg/dL (2.8-20.0) L 06/09/16 21:18 Urine Opiates Screen Presumptive negative 06/09/16 21:07 Urine Methadone Screen Presumptive negative 06/09/16 21:07 Acetaminophen < 15.0 ug/mL (10.0-30.0) 06/09/16 21:17 Ur Barbiturates Screen Presumptive negative 06/09/16 21:07 Ur Phencyclidine Scrn Presumptive negative 06/09/16 21:07 Ur Amphetamines Screen Presumptive negative 06/09/16 21:07 U Benzodiazepines Scrn Presumptive positive 06/09/16 21:07 Urine Cocaine Screen Presumptive positive 06/09/16 21:07 U Marijuana (THC) Screen Presumptive negative 06/09/16 21:07 Drugs of Abuse Note Disclamer 06/09/16 21:07 Plasma/Serum Alcohol < 0.01 gm% (0-0.07) 06/09/16 21:15 Blood Type O POSITIVE 06/09/16 21:18 Antibody Screen Negative 06/09/16 21:18
[2016-06-10] MEDS ORDERED: SODIUM BICARBONATE FEEDTUBE PRN (11:30)
[2016-06-10] MEDS ORDERED: PANCREAZE DR 10,500 UNIT FEEDTUBE PRN (11:30)
[2016-06-10] MEDS ORDERED: SIMPLE SYRUP FEEDTUBE PRN ×2 (11:30)
[2016-06-10] MEDS: DIPRIVAN 10 MG/ML 1,000 MG/100 ML BOTTLE IV SCH (11:33)
--- NOTE | 2016-06-10 11:34 | Consultation ---
History of Present Illness Consult date: 06/10/16 Requesting physician: JASIEL ESTRADA Reason for consult: other (Acute Hypoxemic Respiratory Failure; Altered Mental Status) History of present illness: PULMONARY CONSULT NOTE (Full note dictated # [id number]) please see dictated notes for full details Medications and Allergies Allergies Allergy/AdvReac Type Severity Reaction Status Date / Time No Known Allergies Allergy Verified 02/09/14 18:18 Home Medications Medication Instructions Recorded Confirmed Last Taken Type Hydralazine HCl 50 mg PO Q8H 05/16/16 05/16/16 Unknown History Norvasc 5 mg PO DAILY 05/16/16 05/16/16 Unknown History Ventolin HFA 2 puff INHALATION Q4H PRN 05/16/16 05/16/16 Unknown History Gabapentin [Neurontin] 100 mg PO Q8HR #90 capsule 05/17/16 Unknown Rx Insulin Glargine,Hum.rec.anlog 10 units SQ QHS #5 pen 05/17/16 Unknown Rx [Lantus Solostar] Active Meds: Active Medications Acetaminophen (Tylenol) 650 mg PO Q4H PRN PRN Reason: Pain MILD(1-3)/Fever >100.5/HELM Acetaminophen (Tylenol) 650 mg FL Q4H PRN PRN Reason: Pain MILD(1-3)/Fever >100.5/HELM Albuterol/Ipratropium (Duoneb 0.5 Mg-3 Mg/3 Ml Soln) 1 ampul IH Q6HRT AKIL Last Admin: 06/10/16 08:45 Dose: 1 ampul Amlodipine Besylate (Norvasc) 5 mg PO DAILY AKIL Bisacodyl (Dulcolax) 10 mg FL QDAY PRN PRN Reason: Constipation unrelieved by MOM Enoxaparin Sodium (Lovenox) 40 mg SUB-Q QDAY AKIL Famotidine (Pepcid) 20 mg IV BID AKIL Gabapentin (Neurontin) 100 mg PO Q8HR AKIL Hydralazine HCl (Apresoline) 50 mg PO Q8HR AKIL Hydrophilic Ointment (Vaseline Lip Therapy) 1 applic TP Q2HR PRN PRN Reason: Dry Lips Propofol (Diprivan 10 Mg/Ml) 1,000 mg in 100 mls @ 2.7 mls/hr IV TITR AKIL; 5 MCG/KG/MIN PRN Reason: Protocol Last Titration: 06/09/16 23:45 Dose: 10 mcg/kg/min, 5.4 mls/hr Sodium Chloride (Nacl 0.45% 1000 Ml) 1,000 mls @ 100 mls/hr IV DIRECT AKIL Last Admin: 06/10/16 02:00 Dose: 100 mls/hr Nicardipine/Sodium Chloride (Cardene Drip 40 Mg/200 Ml) 40 mg in 200 mls @ 25 mls/hr IV TITR AKIL; 5 MG/HR PRN Reason: Protocol Last Admin: 06/10/16 01:59 Dose: 5 mg/hr, 25 mls/hr Levofloxacin/Dextrose (Levaquin 750mg/150ml) 750 mg in 150 mls @ 100 mls/hr IV Q24HR AKIL PRN Reason: Protocol Magnesium Hydroxide (Milk Of Magnesia) 30 ml PO Q4H PRN PRN Reason: Constipation Methylprednisolone Sodium Succinate (Solu-Medrol) 60 mg IV Q8HR AKIL Last Admin: 06/10/16 06:07 Dose: 60 mg Multi-Ingred Cream/Lotion/Oil/Oint (Artificial Tears Ophth Oint) 1 applic OU Q4HR PRN PRN Reason: Dry Eye(s) Ondansetron HCl (Zofran) 4 mg IV Q8H PRN PRN Reason: N/V unrelieved by Alisa Physical Examination Vital signs: Vital Signs Temp Pulse Resp BP Pulse Ox 97.4 F L 72 10 L 138/99 100 06/09/16 20:12 06/09/16 20:12 06/09/16 20:12 06/09/16 20:12 06/09/16 20:12 Results - Laboratory Findings CBC and BMP: 06/10/16 03:18 06/10/16 03:18 ABG POC ABG pH 7.375 (7.35-7.45) 06/10/16 04:03 POC ABG pCO2 35.7 (35-45) 06/10/16 04:03 POC ABG pO2 59 (80-105) L 06/10/16 04:03 POC ABG HCO3 20.9 06/10/16 04:03 POC ABG Total CO2 22 06/10/16 04:03 POC ABG O2 Sat 90 06/10/16 04:03 PT/INR, D-dimer PT 12.8 Sec. (12.2-14.9) 06/09/16 21:15 INR 0.97 (0.87-1.13) 06/09/16 21:15 Abnormal lab findings: Abnormal Labs 06/09/16 06/10/16 06/10/16 23:02 03:18 03:18 MCH 26 L RDW 18.2 H Lymph % (Auto) 8.8 L Lymph # 0.6 L Seg Neutrophils % 86.6 H POC ABG pO2 Chloride 109.3 H Carbon Dioxide 17 L BUN 35 H Glucose 245 H Total Creatine Kinase 492 H CK-MB (CK-2) 20.4 H CK-MB (CK-2) Rel Index 4.1 H 06/10/16 06/10/16 03:18 04:03 MCH RDW Lymph % (Auto) Lymph # Seg Neutrophils % POC ABG pO2 59 L Chloride Carbon Dioxide BUN Glucose Total Creatine Kinase 374 H CK-MB (CK-2) 18.8 H CK-MB (CK-2) Rel Index 5.0 H
[2016-06-10] MEDS: LOVENOX SUB-Q SCH (11:35)
--- NOTE | 2016-06-10 11:44 | XRay Report ---
AP CHEST: HISTORY: Follow up respiratory failure The endotracheal tube remains in adequate position. A nasogastric tube has been inserted which is followed to the occipital stomach. Mild perihilar opacities have developed since yesterday's exam. This probably represents mild congestive changes although early perihilar infiltrates could be considered. The remainder of the lungs are clear. No pleural effusion or pneumothorax. Heart size is within normal limits. IMPRESSION: Mild bilateral perihilar opacities as described.
[2016-06-10] MEDS: PEPCID IV SCH ×2 (11:49→23:08)
[2016-06-10] MEDS: LEVAQUIN 750MG/150ML 750 MG/150 ML BAG IV SCH (12:04)
[2016-06-10] MEDS ORDERED: LASIX IV ONE (13:10)
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
[2016-06-10 16:09] LABS: ISTAT Base Excess -4; ISTAT HCO3 21.5; ISTAT PCO2 36.4 (35-45); ISTAT PH 7.379 (7.35-7.45); ISTAT PO2 165 (80-105); ISTAT SO2 99; ISTAT TCO2 23
--- NOTE | 2016-06-10 16:53 | Admit Criteria Form ---
Admission Criteria Documentation: RESPIRATORY FAILURE GRG Clinical Indications for Admission to Inpatient Care (Place 'X' for any and all applicable criteria): Hospital admission is needed for appropriate care of the patient because of acute respiratory failure or insufficiency as indicated by ANY ONE of the following(1)(2)(3)(4)(5)(6)(7)(8): [X ]I. Mechanical ventilation needed (acute invasive or noninvasive) [ ]II. Severe ventilation deficit as indicated by ANY ONE of the following (9) [ ]a) Respiratory acidosis (pH less than 7.32 and partial pressure of carbon dioxide greater than 40 mm Hg (5.3 kPa)) [ ]b) Partial pressure of carbon dioxide greater than 44 mm Hg (5.9 kPa ) (new) [ ]c) Airflow measurements less than 25% of predicted (eg, peak expiratory flow rate less than 100 L/minute) [ ]d) Forced vital capacity less than 15 mL/kg of ideal body weight, or 50% decrease in vital capacity from baseline [ ]III. Noncardiac pulmonary edema not resolving with rapid emergency treatment (8) [ ]IV. Severe respiratory distress as indicated by ANY ONE of the following: [ ]a) Severe tachypnea (respiratory rate greater than 30, greater than 45 for 6-month-old, greater than 60 for ) [ ]b) Severe hypoxemia (partial pressure of oxygen less than 50 mm Hg ( 6.7 kPa) on greater than 50% oxygen or partial pressure of oxygen to FIO2 ratio less than 200) [ ]c) Mental status deterioration from respiratory disease [ ]V. Airway obstruction or inadequate protection [A](10)(11) The original [employer] content created by [employer] has been revised. The portions of the content which have been revised are identified through the use of italic text or in bold, and [employer] has neither reviewed nor approved the modified material. All other unmodified content is copyright [employer]. Please see references footnoted in the original [employer] edition 2016 Admission Criteria Met: Yes
[2016-06-10] MEDS: APRESOLINE PO SCH ×2 (18:47→23:08)
[2016-06-10] MEDS: NEURONTIN PO SCH ×2 (18:53→23:08)
[2016-06-10] MEDS: NORVASC PO SCH (19:05)
[2016-06-10] MEDS ORDERED: PREVNAR 13 IM ONE (20:09)
--- NOTE | 2016-06-10 21:38 | XRay Report ---
FINAL REPORT PROCEDURE: XR ABDOMEN 1V AP TECHNIQUE: Abdominal radiograph, single supine AP view. HISTORY: confirmation ogt prior to TF starting COMPARISON: No prior studies are available for comparison. FINDINGS: Bowel gas pattern:Nonobstructive. Masses or calcifications:None. Bony structures:Degenerative change of the spine. Other:Feeding tube extends to the distal stomach in the upper abdomen. Postoperative change in the right upper quadrant and left lower quadrant IMPRESSION: Feeding tube placement in the stomach
[2016-06-11] MEDS: DUONEB 0.5 MG-3 MG/3 ML SOLN IH SCH ×4 (02:15→19:58)
[2016-06-11] MEDS: DIPRIVAN 10 MG/ML 1,000 MG/100 ML BOTTLE IV SCH ×2 (05:01→19:11)
[2016-06-11] MEDS: NEURONTIN PO SCH ×2 (05:09→14:15)
[2016-06-11] MEDS: APRESOLINE PO SCH (05:10)
[2016-06-11 05:20] LABS: ISTAT Base Excess 2; ISTAT HCO3 26.7; ISTAT PCO2 45.4 (35-45); ISTAT PH 7.377 (7.35-7.45); ISTAT PO2 100 (80-105); ISTAT SO2 98; ISTAT TCO2 28
[2016-06-11 05:56] LABS: Hematocrit 30.7 % (30.3-42.9); Hemoglobin 9.6 gm/dl (10.1-14.3); Mean Corpuscular HGB Conc 31 % (30-34); Mean Corpuscular Volume 82 fl (79-97); Platelet Count 193 K/mm3 (140-440); Red Blood Count 3.74 M/mm3 (3.65-5.03); Red Cell Distribution Width 18.6 % (13.2-15.2); White Blood Count 11.4 K/mm3 (4.5-11.0)
[2016-06-11 05:57] LABS: Mean Corpuscular Hemoglobin 26 pg (28-32)
[2016-06-11 06:06] LABS: Anion Gap 18 mmol/L; BUN/Creatinine Ratio 33.33; Blood Urea Nitrogen 20 mg/dL (7-17); Carbon Dioxide 20 mmol/L (22-30); Chloride 108.9 mmol/L (98-107); Glucose 268 mg/dL (65-100); Sodium 141 mmol/L (137-145)
[2016-06-11 07:24] LABS: Potassium 6.2 mmol/L (3.6-5.0)
[2016-06-11 07:27] LABS: Basophils % (Manual) 0 % (0.0-1.8); Blastocytes % (Manual) 0 %; Eosinophils % (Manual) 0 % (0.0-4.3); Total Cells Counted Percent 0
[2016-06-11 07:28] LABS: Anisocytosis 1+; Diff Status Complete; Elliptocytes Few; Ovalocytes 1+
--- NOTE | 2016-06-11 09:10 | XRay Report ---
PORTABLE CHEST INDICATION: Followup respiratory failure. COMPARISON: Yesterday. FINDINGS: Portable, frontal chest radiographs, 2 images, 2:19 a.m., 06/11/2016 somewhat limited due to patient positioning, though again demonstrate endotracheal tube tip at the tiny, esophagogastric tube extending to about the mid stomach and a normal cardiomediastinal silhouette. Lung markings somewhat prominent centrally, though with overall improved right upper to midlung hazy opacity/infiltrate. Mild horizontal left lung atelectasis inferiorly. No large pleural effusions. Various extrinsic artifacts. Stable bones with various degenerative changes. CONCLUSION: 1. Mild interval clearing of right more than left pulmonary infiltrates with lesser bronchovascular prominence centrally, as described, possibly improving congestion in an appropriate setting. Please correlate. 2. Endotracheal tube may be retracted by approximately 3 cm for more optimal positioning, if so appropriate. Thank you for the opportunity to participate in this patient's care.
[2016-06-11] MEDS: LOVENOX SUB-Q SCH (10:30)
[2016-06-11] MEDS: LEVAQUIN 750MG/150ML 750 MG/150 ML BAG IV SCH (10:35)
--- NOTE | 2016-06-11 10:50 | Progress Note ---
Assessment and Plan - Patient Problems (1) Altered mental status Current Visit: Yes Status: Acute Qualifiers: Altered mental status type: A Coma depth: C Coma timing: C Plan to address problem: - improved - stop propofol - follow clinically (2) Hyperkalemia Current Visit: Yes Status: Acute Plan to address problem: - repeat BMP stat - address if remains elevated (3) Acute hypoxemic respiratory failure Current Visit: No Status: Acute Plan to address problem: - continue bronchodilators & pulmonary toilet - continue aspiration precautions/VAP bundles - tolerating SBT very well today - hold tube feeds and extubate if ABG appropriate (4) Acute renal failure Current Visit: No Status: Acute Qualifiers: Acute renal failure type: A Plan to address problem: - resolved mostly - repeat BMP re: hyperkalemia (5) Congestive heart failure Current Visit: No Status: Acute Qualifiers: Congestive heart failure type: C Congestive heart failure chronicity: C Plan to address problem: - improved CXR - continue gentle diuresis - follow clinically (6) Discharge planning issues Current Visit: Yes Status: Acute Plan to address problem: - hopefully extubates today ...for now she is critically ill on life sustaining interventions including MVS and at risk for deterioration including ...32' CCT Subjective Date of service: 06/11/16 Principal diagnosis: Acute Hypoxemic Respiratory failure Interval history: Seen and examined at bedside; 24 hour events reviewed; nursing and respiratory care staff consulted; no adverse overnight events reported to me; more alert today; denies acute chest pains; no emesis or overt aspiration; no gross bleeding and no high grade fevers Objective Vital Signs - 12hr 06/10/16 06/10/16 06/10/16 22:51 23:00 23:03 Temperature Pulse Rate 101 H 109 H 101 H Pulse Rate [ Anterior Bilateral Throughout] Respiratory 17 14 15 Rate Respiratory Rate [Anterior Bilateral Throughout] Respiratory 15 Rate [Chest] Respiratory 15 Rate [Head] Blood Pressure 144/63 144/65 O2 Sat by Pulse 100 99 100 Oximetry 06/10/16 06/10/16 06/10/16 23:08 23:11 23:21 Temperature Pulse Rate 101 H 100 H 99 H Pulse Rate [ Anterior Bilateral Throughout] Respiratory 19 16 Rate Respiratory Rate [Anterior Bilateral Throughout] Respiratory Rate [Chest] Respiratory Rate [Head] Blood Pressure 144/65 144/65 153/107 O2 Sat by Pulse 100 100 Oximetry 06/10/16 06/10/16 06/10/16 23:30 23:40 23:41 Temperature Pulse Rate 98 H 96 H 98 H Pulse Rate [ Anterior Bilateral Throughout] Respiratory 16 18 Rate Respiratory Rate [Anterior Bilateral Throughout] Respiratory Rate [Chest] Respiratory Rate [Head] Blood Pressure 142/65 142/63 142/65 O2 Sat by Pulse 100 100 100 Oximetry 06/10/16 06/10/16 06/11/16 23:51 23:57 00:00 Temperature 98.1 F Pulse Rate 101 H 102 H 99 H Pulse Rate [ Anterior Bilateral Throughout] Respiratory 17 17 15 Rate Respiratory Rate [Anterior Bilateral Throughout] Respiratory Rate [Chest] Respiratory Rate [Head] Blood Pressure 142/63 142/63 136/62 O2 Sat by Pulse 100 100 100 Oximetry 06/11/16 06/11/16 06/11/16 00:01 00:11 00:21 Temperature Pulse Rate 98 H 100 H 101 H Pulse Rate [ Anterior Bilateral Throughout] Respiratory 15 35 H 17 Rate Respiratory Rate [Anterior Bilateral Throughout] Respiratory Rate [Chest] Respiratory Rate [Head] Blood Pressure 136/62 136/62 133/63 O2 Sat by Pulse 100 100 100 Oximetry 06/11/16 06/11/16 06/11/16 00:30 00:41 00:51 Temperature Pulse Rate 98 H 102 H 95 H Pulse Rate [ Anterior Bilateral Throughout] Respiratory 21 18 13 Rate Respiratory Rate [Anterior Bilateral Throughout] Respiratory Rate [Chest] Respiratory Rate [Head] Blood Pressure 140/66 142/63 135/65 O2 Sat by Pulse 100 100 Oximetry 06/11/16 06/11/16 06/11/16 01:00 01:11 01:21 Temperature Pulse Rate 102 H 101 H 98 H Pulse Rate [ Anterior Bilateral Throughout] Respiratory 19 18 16 Rate Respiratory Rate [Anterior Bilateral Throughout] Respiratory Rate [Chest] Respiratory Rate [Head] Blood Pressure 134/71 134/71 140/71 O2 Sat by Pulse 100 100 100 Oximetry 06/11/16 06/11/16 06/11/16 01:30 01:41 01:51 Temperature Pulse Rate 96 H 108 H 102 H Pulse Rate [ Anterior Bilateral Throughout] Respiratory 17 21 13 Rate Respiratory Rate [Anterior Bilateral Throughout] Respiratory Rate [Chest] Respiratory Rate [Head] Blood Pressure 142/71 142/71 135/68 O2 Sat by Pulse 98 100 Oximetry 06/11/16 06/11/16 06/11/16 02:00 02:11 02:15 Temperature Pulse Rate 100 H 100 H Pulse Rate [ 102 H Anterior Bilateral Throughout] Respiratory 18 17 Rate Respiratory 18 Rate [Anterior Bilateral Throughout] Respiratory Rate [Chest] Respiratory Rate [Head] Blood Pressure 136/65 135/68 O2 Sat by Pulse 100 100 Oximetry 06/11/16 06/11/16 06/11/16 02:21 02:25 02:30 Temperature Pulse Rate 102 H 104 H Pulse Rate [ 102 H Anterior Bilateral Throughout] Respiratory 19 22 Rate Respiratory 20 Rate [Anterior Bilateral Throughout] Respiratory Rate [Chest] Respiratory Rate [Head] Blood Pressure 142/70 155/70 O2 Sat by Pulse 100 Oximetry 06/11/16 06/11/16 06/11/16 02:41 02:51 03:00 Temperature Pulse Rate 101 H 102 H 101 H Pulse Rate [ Anterior Bilateral Throughout] Respiratory 19 18 18 Rate Respiratory Rate [Anterior Bilateral Throughout] Respiratory Rate [Chest] Respiratory Rate [Head] Blood Pressure 142/70 156/76 159/82 O2 Sat by Pulse 100 100 100 Oximetry 06/11/16 06/11/16 06/11/16 03:11 03:21 03:30 Temperature Pulse Rate 102 H 101 H 102 H Pulse Rate [ Anterior Bilateral Throughout] Respiratory 19 18 20 Rate Respiratory Rate [Anterior Bilateral Throughout] Respiratory Rate [Chest] Respiratory Rate [Head] Blood Pressure 159/82 159/79 161/81 O2 Sat by Pulse 100 100 100 Oximetry 06/11/16 06/11/16 06/11/16 03:38 03:41 03:51 Temperature Pulse Rate 98 H 99 H 98 H Pulse Rate [ Anterior Bilateral Throughout] Respiratory 18 19 Rate Respiratory Rate [Anterior Bilateral Throughout] Respiratory Rate [Chest] Respiratory Rate [Head] Blood Pressure 161/81 151/80 O2 Sat by Pulse 100 100 100 Oximetry 06/11/16 06/11/16 06/11/16 04:00 04:11 04:21 Temperature 98.4 F Pulse Rate 99 H 103 H 111 H Pulse Rate [ Anterior Bilateral Throughout] Respiratory 17 21 21 Rate Respiratory Rate [Anterior Bilateral Throughout] Respiratory Rate [Chest] Respiratory Rate [Head] Blood Pressure 144/70 144/70 151/71 O2 Sat by Pulse 100 100 100 Oximetry 06/11/16 06/11/16 06/11/16 04:31 04:41 04:50 Temperature Pulse Rate 101 H 100 H 101 H Pulse Rate [ Anterior Bilateral Throughout] Respiratory 18 18 19 Rate Respiratory Rate [Anterior Bilateral Throughout] Respiratory Rate [Chest] Respiratory Rate [Head] Blood Pressure 151/71 151/71 160/81 O2 Sat by Pulse 100 99 100 Oximetry 06/11/16 06/11/16 06/11/16 05:00 05:10 05:20 Temperature 98.4 F Pulse Rate 101 H 112 H 109 H Pulse Rate [ Anterior Bilateral Throughout] Respiratory 18 22 21 Rate Respiratory Rate [Anterior Bilateral Throughout] Respiratory Rate [Chest] Respiratory Rate [Head] Blood Pressure 160/81 158/76 147/77 O2 Sat by Pulse 99 100 100 Oximetry 06/11/16 06/11/16 06/11/16 05:30 05:40 05:50 Temperature Pulse Rate 107 H 106 H 107 H Pulse Rate [ Anterior Bilateral Throughout] Respiratory 20 21 22 Rate Respiratory Rate [Anterior Bilateral Throughout] Respiratory Rate [Chest] Respiratory Rate [Head] Blood Pressure 142/65 142/65 124/56 O2 Sat by Pulse 100 100 100 Oximetry 06/11/16 06/11/16 06/11/16 06:00 06:10 06:20 Temperature Pulse Rate 105 H 104 H 104 H Pulse Rate [ Anterior Bilateral Throughout] Respiratory 21 20 18 Rate Respiratory Rate [Anterior Bilateral Throughout] Respiratory Rate [Chest] Respiratory Rate [Head] Blood Pressure 117/54 117/54 118/56 O2 Sat by Pulse 100 100 100 Oximetry 06/11/16 06/11/16 06/11/16 06:30 06:40 06:50 Temperature Pulse Rate 104 H 103 H 102 H Pulse Rate [ Anterior Bilateral Throughout] Respiratory 19 22 20 Rate Respiratory Rate [Anterior Bilateral Throughout] Respiratory Rate [Chest] Respiratory Rate [Head] Blood Pressure 114/58 114/58 114/61 O2 Sat by Pulse 100 100 100 Oximetry 06/11/16 06/11/16 06/11/16 07:00 07:10 07:15 Temperature 98.4 F Pulse Rate 101 H 102 H Pulse Rate [ 101 H Anterior Bilateral Throughout] Respiratory 19 17 Rate Respiratory 18 Rate [Anterior Bilateral Throughout] Respiratory Rate [Chest] Respiratory Rate [Head] Blood Pressure 107/55 107/55 O2 Sat by Pulse 99 100 Oximetry 06/11/16 06/11/16 06/11/16 07:16 07:20 07:30 Temperature Pulse Rate 103 H 102 H 103 H Pulse Rate [ Anterior Bilateral Throughout] Respiratory 20 20 Rate Respiratory Rate [Anterior Bilateral Throughout] Respiratory Rate [Chest] Respiratory Rate [Head] Blood Pressure 111/53 111/53 113/55 O2 Sat by Pulse 100 100 100 Oximetry 06/11/16 06/11/16 06/11/16 07:40 07:50 08:00 Temperature 98.3 F Pulse Rate 102 H 105 H 103 H Pulse Rate [ Anterior Bilateral Throughout] Respiratory 20 20 16 Rate Respiratory Rate [Anterior Bilateral Throughout] Respiratory Rate [Chest] Respiratory Rate [Head] Blood Pressure 113/55 119/58 113/56 O2 Sat by Pulse 100 100 100 Oximetry 06/11/16 06/11/16 06/11/16 08:10 08:20 08:30 Temperature Pulse Rate 103 H 101 H 101 H Pulse Rate [ Anterior Bilateral Throughout] Respiratory 25 H 18 19 Rate Respiratory Rate [Anterior Bilateral Throughout] Respiratory Rate [Chest] Respiratory Rate [Head] Blood Pressure 113/56 119/59 120/59 O2 Sat by Pulse 100 100 100 Oximetry 06/11/16 06/11/16 06/11/16 08:40 08:50 09:00 Temperature Pulse Rate 102 H 103 H 103 H Pulse Rate [ Anterior Bilateral Throughout] Respiratory 20 20 19 Rate Respiratory Rate [Anterior Bilateral Throughout] Respiratory Rate [Chest] Respiratory Rate [Head] Blood Pressure 120/59 118/59 123/59 O2 Sat by Pulse 100 100 Oximetry 06/11/16 06/11/16 06/11/16 09:10 09:20 09:30 Temperature Pulse Rate 104 H 103 H 104 H Pulse Rate [ Anterior Bilateral Throughout] Respiratory 17 18 18 Rate Respiratory Rate [Anterior Bilateral Throughout] Respiratory Rate [Chest] Respiratory Rate [Head] Blood Pressure 123/59 99/48 103/58 O2 Sat by Pulse 100 100 100 Oximetry 06/11/16 06/11/16 06/11/16 09:35 09:40 09:50 Temperature Pulse Rate 103 H 103 H 105 H Pulse Rate [ Anterior Bilateral Throughout] Respiratory 19 18 Rate Respiratory Rate [Anterior Bilateral Throughout] Respiratory 15 Rate [Chest] Respiratory 15 Rate [Head] Blood Pressure 103/58 119/56 O2 Sat by Pulse 100 100 Oximetry Constitutional: no acute distress, alert Eyes: non-icteric ENT: oropharynx moist Neck: supple, no lymphadenopathy Effort: normal Ascultation: Bilateral: diminished breath sounds, rales Cardiovascular: regular rate and rhythm Gastrointestinal: normoactive bowel sounds, soft, non-tender, non-distended Integumentary: normal Extremities: no cyanosis, no edema, pulses normal, no ischemia or petechiae Neurologic: normal mental status, non-focal exam, pupils equal and round, motor strength normal and Psychiatric: mood appropriate, affect normal CBC and BMP: 06/11/16 04:45 06/11/16 04:45 ABG, PT/INR, D-dimer: ABG POC ABG pH 7.377 (7.35-7.45) 06/11/16 04:21 POC ABG pCO2 45.4 (35-45) H 06/11/16 04:21 POC ABG pO2 100 (80-105) 06/11/16 04:21 POC ABG HCO3 26.7 06/11/16 04:21 POC ABG Total CO2 28 06/11/16 04:21 POC ABG O2 Sat 98 06/11/16 04:21 PT/INR, D-dimer PT 12.8 Sec. (12.2-14.9) 06/09/16 21:15 INR 0.97 (0.87-1.13) 06/09/16 21:15 Abnormal lab findings: Abnormal Labs 06/09/16 06/10/16 06/10/16 23:02 03:18 03:18 WBC Hgb MCH 26 L RDW 18.2 H Lymph % (Auto) 8.8 L Lymph # 0.6 L Seg Neutrophils % 86.6 H Seg Neuts % (Manual) Lymphocytes % (Manual) Seg Neutrophils # Man Lymphocytes # (Manual) POC ABG pCO2 POC ABG pO2 Potassium Chloride 109.3 H Carbon Dioxide 17 L BUN 35 H Creatinine Glucose 245 H POC Glucose Lactic Acid Total Creatine Kinase 492 H CK-MB (CK-2) 20.4 H CK-MB (CK-2) Rel Index 4.1 H 06/10/16 06/10/16 06/10/16 03:18 04:03 15:36 WBC Hgb MCH RDW Lymph % (Auto) Lymph # Seg Neutrophils % Seg Neuts % (Manual) Lymphocytes % (Manual) Seg Neutrophils # Man Lymphocytes # (Manual) POC ABG pCO2 POC ABG pO2 59 L Potassium Chloride Carbon Dioxide BUN Creatinine Glucose POC Glucose 301 H Lactic Acid Total Creatine Kinase 374 H CK-MB (CK-2) 18.8 H CK-MB (CK-2) Rel Index 5.0 H 06/10/16 06/10/16 06/10/16 16:02 20:24 22:20 WBC Hgb MCH RDW Lymph % (Auto) Lymph # Seg Neutrophils % Seg Neuts % (Manual) Lymphocytes % (Manual) Seg Neutrophils # Man Lymphocytes # (Manual) POC ABG pCO2 POC ABG pO2 165 H Potassium Chloride Carbon Dioxide BUN Creatinine Glucose POC Glucose 128 H Lactic Acid 2.6 H* Total Creatine Kinase CK-MB (CK-2) CK-MB (CK-2) Rel Index 06/11/16 06/11/16 06/11/16 04:21 04:45 04:45 WBC 11.4 H Hgb 9.6 L MCH 26 L RDW 18.6 H Lymph % (Auto) Lymph # Seg Neutrophils % Seg Neuts % (Manual) 88.0 H Lymphocytes % (Manual) 7.0 L Seg Neutrophils # Man 10.0 H Lymphocytes # (Manual) 0.8 L POC ABG pCO2 45.4 H POC ABG pO2 Potassium 6.2 H* D Chloride 108.9 H Carbon Dioxide 20 L BUN 20 H Creatinine 0.6 L Glucose 268 H POC Glucose Lactic Acid Total Creatine Kinase CK-MB (CK-2) CK-MB (CK-2) Rel Index Chest x-ray: image reviewed
[2016-06-11] MEDS: PEPCID PO SCH ×2 (11:42→23:59)
[2016-06-11] MEDS: NORVASC PO SCH (11:42)
--- NOTE | 2016-06-11 11:49 | Progress Note ---
Assessment and Plan Assessment and plan: 1. Acute hypoxemic respiratory failure. Continue ventilator per pulmonary. Pulmonary following. 2. Sepsis. Continue the sepsis pathway. Follow-up blood cultures and trend lactic acid levels. 3. Acute bronchitis. Continue on IV antibodies. 4. Acute asthma exacerbation. Continue bronchodilators, IV steroids and breathing treatments. 5. Accelerated Hypertension. Resume on home medication. 6. Toxic metabolic encephalopathy. Present on admission. Continue current management. History Interval history: 66-year-old woman with a history of hypertension, diabetes was brought to the emergency room per the emergency room physician patient was found unresponsive. Patient was intubated in the emergency room, her CAT scan of the head has been negative, urine toxicology is positive for cocaine and benzodiazepine. Hospitalist Physical - Constitutional Vitals: Temp Pulse Resp BP Pulse Ox 98.3 F 104 H 21 119/54 100 06/11/16 08:00 06/11/16 11:42 06/11/16 11:45 06/11/16 11:42 06/11/16 09:50 General appearance: Present: no acute distress, well-nourished - EENT Eyes: Present: PERRL, EOM intact ENT: hearing intact, clear oral mucosa, dentition normal - Neck Neck: Present: supple, normal ROM - Respiratory Respiratory effort: normal Respiratory: bilateral: CTA - Cardiovascular Rhythm: regular Heart Sounds: Present: S1 & S2. Absent: gallop, rub - Extremities Extremities: no ischemia, No edema, Full ROM - Abdominal General gastrointestinal: soft, non-tender, non-distended, normal bowel sounds - Integumentary Integumentary: Present: clear, warm, dry - Neurologic Neurologic: CNII-XII intact, moves all extremities Results - Labs CBC & Chem 7: 06/11/16 04:45 06/11/16 04:45 Labs: Laboratory Last Values WBC 11.4 K/mm3 (4.5-11.0) H 06/11/16 04:45 RBC 3.74 M/mm3 (3.65-5.03) 06/11/16 04:45 Hgb 9.6 gm/dl (10.1-14.3) L 06/11/16 04:45 Hct 30.7 % (30.3-42.9) 06/11/16 04:45 MCV 82 fl (79-97) 06/11/16 04:45 MCH 26 pg (28-32) L 06/11/16 04:45 MCHC 31 % (30-34) 06/11/16 04:45 RDW 18.6 % (13.2-15.2) H 06/11/16 04:45 Plt Count 193 K/mm3 (140-440) 06/11/16 04:45 Lymph % (Auto) 8.8 % (13.4-35.0) L 06/10/16 03:18 [place] % (Auto) 3.9 % (0.0-7.3) 06/10/16 03:18 Eos % (Auto) 0.3 % (0.0-4.3) 06/10/16 03:18 Baso % (Auto) 0.4 % (0.0-1.8) 06/10/16 03:18 Lymph # 0.6 K/mm3 (1.2-5.4) L 06/10/16 03:18 [place] # 0.3 K/mm3 (0.0-0.8) 06/10/16 03:18 Eos # 0.0 K/mm3 (0.0-0.4) 06/10/16 03:18 Baso # 0.0 K/mm3 (0.0-0.1) 06/10/16 03:18 Add Manual Diff Complete 06/11/16 04:45 Total Counted 100 06/11/16 04:45 Seg Neutrophils % [place] 06/11/16 04:45 Seg Neuts % (Manual) 88.0 % (40.0-70.0) H 06/11/16 04:45 Band Neutrophils % 4.0 % 06/11/16 04:45 Lymphocytes % (Manual) 7.0 % (13.4-35.0) L 06/11/16 04:45 Reactive Lymphs % (Man) 0 % 06/11/16 04:45 Monocytes % (Manual) 0 % (0.0-7.3) 06/11/16 04:45 Eosinophils % (Manual) 0 % (0.0-4.3) 06/11/16 04:45 Basophils % (Manual) 0 % (0.0-1.8) 06/11/16 04:45 Metamyelocytes % 0 % 06/11/16 04:45 Myelocytes % 1.0 % 06/11/16 04:45 Promyelocytes % 0 % 06/11/16 04:45 Blast Cells % 0 % 06/11/16 04:45 Nucleated RBC % Not Reportable 06/11/16 04:45 Seg Neutrophils # 5.7 K/mm3 (1.8-7.7) 06/10/16 03:18 Seg Neutrophils # Man 10.0 K/mm3 (1.8-7.7) H 06/11/16 04:45 Band Neutrophils # 0.5 K/mm3 06/11/16 04:45 Lymphocytes # (Manual) 0.8 K/mm3 (1.2-5.4) L 06/11/16 04:45 Abs React Lymphs (Man) 0.0 K/mm3 06/11/16 04:45 Monocytes # (Manual) 0.0 K/mm3 (0.0-0.8) 06/11/16 04:45 Eosinophils # (Manual) 0.0 K/mm3 (0.0-0.4) 06/11/16 04:45 Basophils # (Manual) 0.0 K/mm3 (0.0-0.1) 06/11/16 04:45 Metamyelocytes # 0.0 K/mm3 06/11/16 04:45 Myelocytes # 0.1 K/mm3 06/11/16 04:45 Promyelocytes # 0.0 K/mm3 06/11/16 04:45 Blast Cells # 0.0 K/mm3 06/11/16 04:45 WBC Morphology Not Reportable 06/11/16 04:45 Hypersegmented Neuts Not Reportable 06/11/16 04:45 Hyposegmented Neuts Not Reportable 06/11/16 04:45 Hypogranular Neuts Not Reportable 06/11/16 04:45 Smudge Cells Not Reportable 06/11/16 04:45 Toxic Granulation Not Reportable 06/11/16 04:45 Toxic Vacuolation Not Reportable 06/11/16 04:45 Dohle Bodies Not Reportable 06/11/16 04:45 Pelger-Huet Anomaly Not Reportable 06/11/16 04:45 Jordan Rods Not Reportable 06/11/16 04:45 Platelet Estimate Appears normal 06/11/16 04:45 Clumped Platelets Not Reportable 06/11/16 04:45 Plt Clumps, EDTA Not Reportable 06/11/16 04:45 Large Platelets Not Reportable 06/11/16 04:45 Giant Platelets Not Reportable 06/11/16 04:45 Platelet Satelliting Not Reportable 06/11/16 04:45 Plt Morphology Comment Not Reportable 06/11/16 04:45 RBC Morphology Not Reportable 06/11/16 04:45 Dimorphic RBCs Not Reportable 06/11/16 04:45 Polychromasia Not Reportable 06/11/16 04:45 Hypochromasia Not Reportable 06/11/16 04:45 Poikilocytosis Not Reportable 06/11/16 04:45 Anisocytosis 1+ 06/11/16 04:45 Microcytosis Not Reportable 06/11/16 04:45 Macrocytosis Not Reportable 06/11/16 04:45 Spherocytes Not Reportable 06/11/16 04:45 Pappenheimer Bodies Not Reportable 06/11/16 04:45 Sickle Cells Not Reportable 06/11/16 04:45 Target Cells Not Reportable 06/11/16 04:45 Tear Drop Cells Not Reportable 06/11/16 04:45 Ovalocytes 1+ 06/11/16 04:45 Helmet Cells Not Reportable 06/11/16 04:45 [place] Bodies Not Reportable 06/11/16 04:45 [place] Rings Not Reportable 06/11/16 04:45 [place]an Cells Not Reportable 06/11/16 04:45 Bite Cells Not Reportable 06/11/16 04:45 Crenated Cell Not Reportable 06/11/16 04:45 Elliptocytes Few 06/11/16 04:45 Acanthocytes (Spur) Not Reportable 06/11/16 04:45 Rouleaux Not Reportable 06/11/16 04:45 Hemoglobin C Crystals Not Reportable 06/11/16 04:45 Schistocytes Not Reportable 06/11/16 04:45 Malaria parasites Not Reportable 06/11/16 04:45 Varun Bodies Not Reportable 06/11/16 04:45 Hem Pathologist Commnt No 06/11/16 04:45 PT 12.8 Sec. (12.2-14.9) 06/09/16 21:15 INR 0.97 (0.87-1.13) 06/09/16 21:15 APTT 31.7 Sec. (24.2-36.6) 06/09/16 21:15 POC ABG pH 7.377 (7.35-7.45) 06/11/16 04:21 POC ABG pCO2 45.4 (35-45) H 06/11/16 04:21 POC ABG pO2 100 (80-105) 06/11/16 04:21 POC ABG HCO3 26.7 06/11/16 04:21 POC ABG Total CO2 28 06/11/16 04:21 POC ABG O2 Sat 98 06/11/16 04:21 POC ABG Base Excess 2 06/11/16 04:21 FiO2 25 % 06/11/16 04:21 Sodium 141 mmol/L (137-145) 06/11/16 04:45 Potassium 6.2 mmol/L (3.6-5.0) H* D 06/11/16 04:45 Chloride 108.9 mmol/L (98-107) H 06/11/16 04:45 Carbon Dioxide 20 mmol/L (22-30) L 06/11/16 04:45 Anion Gap 18 mmol/L 06/11/16 04:45 BUN 20 mg/dL (7-17) H 06/11/16 04:45 Creatinine 0.6 mg/dL (0.7-1.2) L 06/11/16 04:45 Estimated GFR > 60 ml/min 06/11/16 04:45 BUN/Creatinine Ratio 33.33 % 06/11/16 04:45 Glucose 268 mg/dL (65-100) H 06/11/16 04:45 POC Glucose 128 (70-105) H 06/10/16 22:20 Lactic Acid 1.2 mmol/L (0.7-2.0) 06/11/16 08:24 Calcium 9.0 mg/dL (8.4-10.2) 06/11/16 04:45 Total Bilirubin 0.3 mg/dL (0.1-1.2) 06/09/16 21:16 AST 105 units/L (5-40) H 06/09/16 21:16 ALT 63 units/L (7-56) H 06/09/16 21:16 Alkaline Phosphatase 114 units/L (35-129) 06/09/16 21:16 Ammonia 13.0 umol/L (25-60) L 06/09/16 21:17 Total Creatine Kinase 374 units/L (30-135) H 06/10/16 03:18 CK-MB (CK-2) 18.8 ng/mL (0.0-4.0) H 06/10/16 03:18 CK-MB (CK-2) Rel Index 5.0 (0-4) H 06/10/16 03:18 Troponin T 0.015 ng/mL (0.00-0.029) 06/10/16 03:18 C-Reactive Protein 0.90 mg/dL (0.00-1.30) 06/10/16 13:10 Total Protein 7.1 g/dL (6.3-8.2) 06/09/16 21:16 Albumin 2.8 g/dL (3.9-5) L 06/09/16 21:16 Albumin/Globulin Ratio 0.7 % 06/09/16 21:16 TSH 0.817 mlU/mL (0.270-4.200) 06/09/16 21:16 Urine Color Yellow (Yellow) 06/09/16 21:07 Urine Turbidity Slightly-cloudy (Clear) 06/09/16 21:07 Urine pH 5.0 (5.0-7.0) 06/09/16 21:07 Ur Specific [place] 1.009 (1.003-1.030) 06/09/16 21:07 Urine Protein <15 mg/dl mg/dL (Negative) 06/09/16 21:07 Urine Glucose (UA) Neg mg/dL (Negative) 06/09/16 21:07 Urine Ketones Neg mg/dL (Negative) 06/09/16 21:07 Urine Blood Neg (Negative) 06/09/16 21:07 Urine Nitrite Neg (Negative) 06/09/16 21:07 Urine Bilirubin Neg (Negative) 06/09/16 21:07 Urine Urobilinogen < 2.0 mg/dL (<2.0) 06/09/16 21:07 Ur Leukocyte Esterase Sm (Negative) 06/09/16 21:07 Urine WBC (Auto) 2.0 /HPF (0.0-6.0) 06/09/16 21:07 Urine RBC (Auto) 1.0 /HPF (0.0-6.0) 06/09/16 21:07 Urine Mucus Few /HPF 06/09/16 21:07 Salicylates < 0.3 mg/dL (2.8-20.0) L 06/09/16 21:18 Urine Opiates Screen Presumptive negative 06/09/16 21:07 Urine Methadone Screen Presumptive negative 06/09/16 21:07 Acetaminophen < 15.0 ug/mL (10.0-30.0) 06/09/16 21:17 Ur Barbiturates Screen Presumptive negative 06/09/16 21:07 Ur Phencyclidine Scrn Presumptive negative 06/09/16 21:07 Ur Amphetamines Screen Presumptive negative 06/09/16 21:07 U Benzodiazepines Scrn Presumptive positive 06/09/16 21:07 Urine Cocaine Screen Presumptive positive 06/09/16 21:07 U Marijuana (THC) Screen Presumptive negative 06/09/16 21:07 Drugs of Abuse Note Disclamer 06/09/16 21:07 Plasma/Serum Alcohol < 0.01 gm% (0-0.07) 06/09/16 21:15 Blood Type O POSITIVE 06/09/16 21:18 Antibody Screen Negative 06/09/16 21:18
[2016-06-11] MEDS ORDERED: PREVNAR 13 IM ONE (12:00)
[2016-06-11 13:36] LABS: Anion Gap 21 mmol/L; Blood Urea Nitrogen 21 mg/dL (7-17); Calcium 9.1 mg/dL (8.4-10.2); Carbon Dioxide 19 mmol/L (22-30); Chloride 105.9 mmol/L (98-107); Glucose 259 mg/dL (65-100); Sodium 139 mmol/L (137-145)
[2016-06-11 13:41] LABS: Potassium 7.1 mmol/L (3.6-5.0)
[2016-06-11 14:34] LABS: ISTAT Base Excess 0; ISTAT HCO3 23.7; ISTAT PCO2 31.6 (35-45); ISTAT PH 7.483 (7.35-7.45); ISTAT PO2 124 (80-105); ISTAT SO2 99; ISTAT TCO2 25
[2016-06-11] MEDS ORDERED: D50W (25GM) IV ONE (15:12)
[2016-06-11] MEDS ORDERED: PROVENTIL IH ONE ×2 (15:15→16:15)
[2016-06-11] MEDS ORDERED: SODIUM BICARBONATE IV ONE ×4 (15:16→17:00)
[2016-06-11] MEDS ORDERED: PROVENTIL IH NR (15:30)
[2016-06-11] MEDS ORDERED: CALCIUM CHLORIDE IVP STA (15:48)
[2016-06-11] MEDS ORDERED: CALCIUM CHLORIDE IV STA (15:53)
--- NOTE | 2016-06-11 15:57 | Consultation ---
History of Present Illness - History of Present Illness Thank you for the consultation patient was evaluated today in ICU room 251 at 3: 52 PM Assessment and plan Moderately severe hyperkalemia would like to treat medically at this time Metabolic acidosis elevated lactic acid correction will help with correction of hyperkalemia as well Patient's renal function appears to be stable at this time to be monitored closely for any deterioration of renal function , she is at risk for acute tubular necrosis Respiratory failure patient appears to be alert awake she does follow commands on the ventilator currently on FiO2 25% Discussed with the nurse patient is currently getting calcium D50 insulin would like to add 10 mg of albuterol and give 100 meq of sodium bicarbonate Patient will need a repeat basic metabolic profile at around 18 p.m. Admitted with cocaine and benzodiazepine use, as found unresponsive CK not too high at this time low suspicion for rhabdomyolysis to monitor Would also like to give her 60 mg of Lasix IV discontinue hydralazine due to tachycardia Continue to follow and make recommendation from renal standpoint Overall prognosis is guarded at this time She agrees to have dialysis if needed I have explained her at length about the process of dialysis Care plan was discussed with patient's nurse as well Medications and Allergies Allergies Allergy/AdvReac Type Severity Reaction Status Date / Time No Known Allergies Allergy Verified 02/09/14 18:18 Home Medications Medication Instructions Recorded Confirmed Last Taken Type Hydralazine HCl 50 mg PO Q8H 05/16/16 05/16/16 Unknown History Norvasc 5 mg PO DAILY 05/16/16 05/16/16 Unknown History Ventolin HFA 2 puff INHALATION Q4H PRN 05/16/16 05/16/16 Unknown History Gabapentin [Neurontin] 100 mg PO Q8HR #90 capsule 05/17/16 Unknown Rx Insulin Glargine,Hum.rec.anlog 10 units SQ QHS #5 pen 05/17/16 Unknown Rx [Lantus Solostar] Active Meds: Active Medications Acetaminophen (Tylenol) 650 mg PO Q4H PRN PRN Reason: Pain MILD(1-3)/Fever >100.5/HELM Acetaminophen (Tylenol) 650 mg RI Q4H PRN PRN Reason: Pain MILD(1-3)/Fever >100.5/HELM Albuterol (Proventil) 2.5 mg IH PREOP NR Stop: 06/11/16 23:59 Albuterol/Ipratropium (Duoneb 0.5 Mg-3 Mg/3 Ml Soln) 1 ampul IH Q6HRT [facility] Last Admin: 06/11/16 14:02 Dose: 1 ampul Amlodipine Besylate (Norvasc) 5 mg PO DAILY [facility] Last Admin: 06/11/16 11:42 Dose: 5 mg Lipase/Protease/Amylase (Pancreaze Dr 10,500 Unit) 1 each FEEDTUBE PRN PRN PRN Reason: For Clogged Feeding Tube Bisacodyl (Dulcolax) 10 mg RI QDAY PRN PRN Reason: Constipation unrelieved by MOM Calcium Chloride (Calcium Chloride) 1,000 mg IVP ONCE STA Stop: 06/11/16 15:49 Enoxaparin Sodium (Lovenox) 40 mg SUB-Q QDAY [facility] Last Admin: 06/11/16 10:30 Dose: 40 mg Famotidine (Pepcid) 20 mg PO BID [facility] Last Admin: 06/11/16 11:42 Dose: 20 mg Fentanyl (Sublimaze) 25 mcg IV Q1H PRN PRN Reason: Agitation Stop: 06/12/16 14:59 Furosemide (Lasix) 20 mg PO DAILY@0600 AKIL Gabapentin (Neurontin) 100 mg PO Q8HR [facility] Last Admin: 06/11/16 05:09 Dose: 100 mg Hydralazine HCl (Apresoline) 50 mg PO Q8HR AK[facility] Last Admin: 06/11/16 05:10 Dose: 50 mg Hydrophilic Ointment (Vaseline Lip Therapy) 1 applic TP Q2HR PRN PRN Reason: Dry Lips Last Admin: 06/10/16 11:49 Dose: 1 applic Propofol (Diprivan 10 Mg/Ml) 1,000 mg in 100 mls @ 2.7 mls/hr IV TITR AKIL; 5 MCG/KG/MIN PRN Reason: Protocol Last Titration: 06/11/16 14:39 Dose: Infused Sodium Chloride (Nacl 0.45% 1000 Ml) 1,000 mls @ 100 mls/hr IV DIRECT AKIL Last Admin: 06/10/16 11:48 Dose: 100 mls/hr Nicardipine/Sodium Chloride (Cardene Drip 40 Mg/200 Ml) 40 mg in 200 mls @ 25 mls/hr IV TITR AKIL; 5 MG/HR PRN Reason: Protocol Last Admin: 06/10/16 01:59 Dose: 5 mg/hr, 25 mls/hr Levofloxacin/Dextrose (Levaquin 750mg/150ml) 750 mg in 150 mls @ 100 mls/hr IV Q24HR AKIL PRN Reason: Protocol Last Admin: 06/11/16 10:35 Dose: 100 mls/hr Magnesium Hydroxide (Milk Of Magnesia) 30 ml PO Q4H PRN PRN Reason: Constipation Methylprednisolone Sodium Succinate (Solu-Medrol) 60 mg IV Q8HR [facility] Last Admin: 06/11/16 05:09 Dose: 60 mg Multi-Ingred Cream/Lotion/Oil/Oint (Artificial Tears Ophth Oint) 1 applic OU Q4HR PRN PRN Reason: Dry Eye(s) Ondansetron HCl (Zofran) 4 mg IV Q8H PRN PRN Reason: N/V unrelieved by Reglan Simple Syrup (Simple Syrup) 15 ml FEEDTUBE PRN PRN PRN Reason: Hypoglycemia Simple Syrup (Simple Syrup) 30 ml FEEDTUBE PRN PRN PRN Reason: Hypoglycemia Sodium Bicarbonate (Sodium Bicarbonate) 325 mg FEEDTUBE PRN PRN PRN Reason: For Clogged Feeding Tube Sodium Bicarbonate (Sodium Bicarbonate) 50 meq IV ONCE ONE Stop: 06/11/16 16:01 Exam - Vital Signs Vital signs: Vital Signs Temp Pulse Resp BP Pulse Ox 97.4 F L 72 10 L 138/99 100 06/09/16 20:12 06/09/16 20:12 06/09/16 20:12 06/09/16 20:12 06/09/16 20:12 Results - Lab Results 06/11/16 04:45 06/11/16 12:39 Most recent lab results Calcium 9.1 mg/dL (8.4-10.2) 06/11/16 12:39
[2016-06-11] MEDS: SUBLIMAZE IV PRN ×2 (16:12→21:28)
[2016-06-11 19:15] LABS: Anion Gap 19 mmol/L; BUN/Creatinine Ratio 31.42; Blood Urea Nitrogen 22 mg/dL (7-17); Calcium 10.3 mg/dL (8.4-10.2); Carbon Dioxide 23 mmol/L (22-30); Chloride 106.4 mmol/L (98-107); Glucose 160 mg/dL (65-100); Sodium 143 mmol/L (137-145)
[2016-06-11 19:32] LABS: Potassium 5.4 mmol/L (3.6-5.0)
[2016-06-11] MEDS ORDERED: LASIX IV ONE ×2 (20:30→23:45)
[2016-06-12] MEDS: DUONEB 0.5 MG-3 MG/3 ML SOLN IH SCH ×3 (02:50→14:43)
[2016-06-12] MEDS: SUBLIMAZE IV PRN ×2 (03:03→09:40)
[2016-06-12 05:36] LABS: Hematocrit 32.2 % (30.3-42.9); Hemoglobin 10.1 gm/dl (10.1-14.3); Mean Corpuscular HGB Conc 31 % (30-34); Mean Corpuscular Volume 82 fl (79-97); Platelet Count 184 K/mm3 (140-440); Red Blood Count 3.94 M/mm3 (3.65-5.03); Red Cell Distribution Width 18.5 % (13.2-15.2); White Blood Count 11.3 K/mm3 (4.5-11.0)
[2016-06-12 05:38] LABS: Mean Corpuscular Hemoglobin 26 pg (28-32)
[2016-06-12 05:52] LABS: Anion Gap 22 mmol/L; Blood Urea Nitrogen 26 mg/dL (7-17); Calcium 9.9 mg/dL (8.4-10.2); Carbon Dioxide 21 mmol/L (22-30); Chloride 103.5 mmol/L (98-107); Glucose 325 mg/dL (65-100); Sodium 140 mmol/L (137-145)
[2016-06-12] MEDS ORDERED: LASIX PO SCH (06:00)
[2016-06-12] MEDS: NEURONTIN PO SCH ×4 (06:00→23:10)
[2016-06-12 06:38] LABS: Basophils % (Manual) 0 % (0.0-1.8); Blastocytes % (Manual) 0 %; Eosinophils % (Manual) 0 % (0.0-4.3)
[2016-06-12 06:39] LABS: Anisocytosis 1+
[2016-06-12 06:40] LABS: Diff Status Complete; Platelet Estimate Consistent w Auto
[2016-06-12] MEDS: NOVOLOG SUB-Q SCH ×4 (07:30→22:00)
--- NOTE | 2016-06-12 08:08 | Progress Note ---
Assessment and Plan Moderately Severe hyperkalemia responded well to the medical treatment patient is clinically doing better currently she is nonoliguric Respiratory failure currently intubated History of cocaine as well as benzodiazepine use counseling education done patient needs to see psychiatry when getting better Lactic acidosis multifactorial please follow Accelerated hypertension currently doing much better Mild tachycardia this could be multifactorial Mild anemia hemoglobin around 10.1 overall prognosis remains guarded at this time patient was adequately counseled and educated about renal related issues Subjective Principal diagnosis: Acute Hypoxemic Respiratory failure Interval history: Patient seen today for follow-up of multiple renal related issues She remains ventilator dependent nonoliguric She is alert oriented does follow commands Events of 24 hours vitals labs intake output medications were reviewed Objective - Vital Signs Vital signs: Vital Signs - 12hr 06/11/16 06/11/16 06/11/16 20:10 20:20 20:30 Temperature Pulse Rate 116 H 116 H 115 H Pulse Rate [ Anterior Bilateral Throughout] Pulse Rate [ From Monitor] Respiratory 17 17 Rate Respiratory Rate [Anterior Bilateral Throughout] Blood Pressure 125/54 133/54 125/52 O2 Sat by Pulse 100 99 99 Oximetry 06/11/16 06/11/16 06/11/16 20:40 20:50 21:00 Temperature Pulse Rate 115 H 115 H 113 H Pulse Rate [ Anterior Bilateral Throughout] Pulse Rate [ From Monitor] Respiratory 16 20 18 Rate Respiratory Rate [Anterior Bilateral Throughout] Blood Pressure 125/52 132/59 130/56 O2 Sat by Pulse 100 100 100 Oximetry 06/11/16 06/11/16 06/11/16 21:10 21:20 21:28 Temperature Pulse Rate 115 H 112 H Pulse Rate [ Anterior Bilateral Throughout] Pulse Rate [ From Monitor] Respiratory 24 11 L 19 Rate Respiratory Rate [Anterior Bilateral Throughout] Blood Pressure 130/56 134/57 O2 Sat by Pulse 99 100 Oximetry 06/11/16 06/11/16 06/11/16 21:30 21:40 21:50 Temperature Pulse Rate 111 H 110 H 107 H Pulse Rate [ Anterior Bilateral Throughout] Pulse Rate [ From Monitor] Respiratory 18 16 16 Rate Respiratory Rate [Anterior Bilateral Throughout] Blood Pressure 126/54 126/54 126/54 O2 Sat by Pulse 99 100 100 Oximetry 06/11/16 06/11/16 06/11/16 22:00 22:10 22:20 Temperature Pulse Rate 108 H 107 H 107 H Pulse Rate [ Anterior Bilateral Throughout] Pulse Rate [ 103 H From Monitor] Respiratory 17 15 21 Rate Respiratory Rate [Anterior Bilateral Throughout] Blood Pressure 135/54 135/54 142/60 O2 Sat by Pulse 99 100 100 Oximetry 06/11/16 06/11/16 06/11/16 22:30 22:40 22:50 Temperature Pulse Rate 101 H 104 H 102 H Pulse Rate [ Anterior Bilateral Throughout] Pulse Rate [ From Monitor] Respiratory 17 19 16 Rate Respiratory Rate [Anterior Bilateral Throughout] Blood Pressure 139/55 139/55 142/56 O2 Sat by Pulse 99 100 100 Oximetry 06/11/16 06/11/16 06/11/16 23:00 23:09 23:10 Temperature Pulse Rate 101 H 102 H Pulse Rate [ Anterior Bilateral Throughout] Pulse Rate [ 101 H From Monitor] Respiratory 17 16 16 Rate Respiratory Rate [Anterior Bilateral Throughout] Blood Pressure 143/65 143/65 O2 Sat by Pulse 98 100 100 Oximetry 06/11/16 06/11/16 06/11/16 23:20 23:30 23:35 Temperature Pulse Rate 105 H 98 H 99 H Pulse Rate [ Anterior Bilateral Throughout] Pulse Rate [ From Monitor] Respiratory 17 19 Rate Respiratory Rate [Anterior Bilateral Throughout] Blood Pressure 142/61 138/60 138/60 O2 Sat by Pulse 100 99 100 Oximetry 06/11/16 06/11/16 06/12/16 23:40 23:50 00:00 Temperature 99.5 F Pulse Rate 103 H 100 H 102 H Pulse Rate [ Anterior Bilateral Throughout] Pulse Rate [ From Monitor] Respiratory 17 18 16 Rate Respiratory Rate [Anterior Bilateral Throughout] Blood Pressure 138/60 142/63 144/67 O2 Sat by Pulse 99 100 99 Oximetry 06/12/16 06/12/16 06/12/16 00:10 00:20 00:30 Temperature Pulse Rate 105 H 101 H 102 H Pulse Rate [ Anterior Bilateral Throughout] Pulse Rate [ From Monitor] Respiratory 18 18 19 Rate Respiratory Rate [Anterior Bilateral Throughout] Blood Pressure 144/67 141/61 153/74 O2 Sat by Pulse 100 100 99 Oximetry 06/12/16 06/12/16 06/12/16 00:40 00:50 01:00 Temperature Pulse Rate 101 H 103 H 100 H Pulse Rate [ Anterior Bilateral Throughout] Pulse Rate [ From Monitor] Respiratory 17 18 16 Rate Respiratory Rate [Anterior Bilateral Throughout] Blood Pressure 153/74 161/72 161/74 O2 Sat by Pulse 100 100 100 Oximetry 06/12/16 06/12/16 06/12/16 01:10 01:20 01:30 Temperature Pulse Rate 105 H 101 H 106 H Pulse Rate [ Anterior Bilateral Throughout] Pulse Rate [ From Monitor] Respiratory 16 18 21 Rate Respiratory Rate [Anterior Bilateral Throughout] Blood Pressure 161/74 163/72 163/72 O2 Sat by Pulse 100 100 100 Oximetry 06/12/16 06/12/16 06/12/16 01:40 01:50 02:00 Temperature Pulse Rate 101 H 98 H 100 H Pulse Rate [ Anterior Bilateral Throughout] Pulse Rate [ From Monitor] Respiratory 18 18 18 Rate Respiratory Rate [Anterior Bilateral Throughout] Blood Pressure 154/69 153/69 151/72 O2 Sat by Pulse 100 100 100 Oximetry 06/12/16 06/12/16 06/12/16 02:10 02:20 02:30 Temperature Pulse Rate 107 H 99 H 100 H Pulse Rate [ Anterior Bilateral Throughout] Pulse Rate [ From Monitor] Respiratory 20 13 18 Rate Respiratory Rate [Anterior Bilateral Throughout] Blood Pressure 151/72 153/71 160/69 O2 Sat by Pulse 100 100 100 Oximetry 06/12/16 06/12/16 06/12/16 02:40 02:50 03:00 Temperature Pulse Rate 101 H 99 H 99 H Pulse Rate [ 98 H 102 H Anterior Bilateral Throughout] Pulse Rate [ From Monitor] Respiratory 18 17 19 Rate Respiratory 17 18 Rate [Anterior Bilateral Throughout] Blood Pressure 160/69 160/69 153/70 O2 Sat by Pulse 100 100 99 Oximetry 06/12/16 06/12/16 06/12/16 03:03 03:10 03:20 Temperature Pulse Rate Pulse Rate [ Anterior Bilateral Throughout] Pulse Rate [ From Monitor] Respiratory 20 Rate Respiratory Rate [Anterior Bilateral Throughout] Blood Pressure 153/70 153/70 O2 Sat by Pulse 99 95 Oximetry 06/12/16 06/12/16 06/12/16 03:30 03:40 03:50 Temperature Pulse Rate 113 H 107 H Pulse Rate [ Anterior Bilateral Throughout] Pulse Rate [ From Monitor] Respiratory 13 23 Rate Respiratory Rate [Anterior Bilateral Throughout] Blood Pressure 149/67 149/67 163/75 O2 Sat by Pulse 100 100 100 Oximetry 06/12/16 06/12/16 06/12/16 04:00 04:10 04:20 Temperature 99.2 F Pulse Rate 107 H 103 H 103 H Pulse Rate [ Anterior Bilateral Throughout] Pulse Rate [ From Monitor] Respiratory 13 17 17 Rate Respiratory Rate [Anterior Bilateral Throughout] Blood Pressure 153/70 153/70 153/70 O2 Sat by Pulse 99 100 100 Oximetry 06/12/16 06/12/16 06/12/16 04:30 04:40 04:50 Temperature Pulse Rate 112 H 98 H 96 H Pulse Rate [ Anterior Bilateral Throughout] Pulse Rate [ From Monitor] Respiratory 17 16 7 L Rate Respiratory Rate [Anterior Bilateral Throughout] Blood Pressure 150/71 150/71 150/71 O2 Sat by Pulse 100 99 99 Oximetry 06/12/16 06/12/16 06/12/16 05:00 05:10 05:20 Temperature Pulse Rate 107 H 102 H 103 H Pulse Rate [ Anterior Bilateral Throughout] Pulse Rate [ From Monitor] Respiratory 19 18 14 Rate Respiratory Rate [Anterior Bilateral Throughout] Blood Pressure 148/72 148/72 148/72 O2 Sat by Pulse 99 100 100 Oximetry 06/12/16 06/12/16 06/12/16 05:30 05:40 05:50 Temperature Pulse Rate 106 H 99 H 104 H Pulse Rate [ Anterior Bilateral Throughout] Pulse Rate [ From Monitor] Respiratory 18 17 16 Rate Respiratory Rate [Anterior Bilateral Throughout] Blood Pressure 153/73 148/72 148/72 O2 Sat by Pulse 100 100 100 Oximetry 06/12/16 06/12/16 06/12/16 06:00 06:10 06:20 Temperature Pulse Rate 99 H 105 H 95 H Pulse Rate [ Anterior Bilateral Throughout] Pulse Rate [ From Monitor] Respiratory 18 16 16 Rate Respiratory Rate [Anterior Bilateral Throughout] Blood Pressure 143/65 143/65 143/65 O2 Sat by Pulse 100 100 99 Oximetry 06/12/16 06/12/16 06/12/16 06:30 06:40 06:50 Temperature Pulse Rate 96 H 95 H 92 H Pulse Rate [ Anterior Bilateral Throughout] Pulse Rate [ From Monitor] Respiratory 16 16 16 Rate Respiratory Rate [Anterior Bilateral Throughout] Blood Pressure 153/70 153/70 153/70 O2 Sat by Pulse 100 100 100 Oximetry 06/12/16 06/12/16 06/12/16 07:00 07:10 07:20 Temperature Pulse Rate 104 H 99 H 99 H Pulse Rate [ Anterior Bilateral Throughout] Pulse Rate [ From Monitor] Respiratory 16 16 16 Rate Respiratory Rate [Anterior Bilateral Throughout] Blood Pressure 157/78 157/78 157/78 O2 Sat by Pulse 100 100 100 Oximetry 06/12/16 06/12/16 07:30 07:40 Temperature Pulse Rate 97 H 99 H Pulse Rate [ Anterior Bilateral Throughout] Pulse Rate [ From Monitor] Respiratory 15 16 Rate Respiratory Rate [Anterior Bilateral Throughout] Blood Pressure 153/73 153/73 O2 Sat by Pulse 100 100 Oximetry - General Appearance General appearance: appears stated age (ventilator dependent) EENT: mucous membranes moist Neck: no JVD Respiratory: Present: Clear to Ascultation (mostly few crackles posteriorly) Cardiology: regular, S1S2 Gastrointestinal: normal (soft nontender) Neurologic: other (alert awake follows commands) - Lab 06/12/16 05:19 06/12/16 05:19 Most recent lab results Calcium 9.9 mg/dL (8.4-10.2) 06/12/16 05:19
--- NOTE | 2016-06-12 09:11 | XRay Report ---
Portable chest: The endotracheal tube tip is at the tiny and should be withdrawn 2-3 cm. A nasogastric tube is in good position. There is a slight coarsening of the bronchovascular pattern centrally and extending into the upper lobes but there is no overt vascular congestion. Slightly worse in the right upper lobe than on left. The findings do appear essentially the same as on June 11. Impression: Coarse bronchovascular pattern. Could represent incomplete clearing of bilateral pneumonia.
--- NOTE | 2016-06-12 11:13 | Progress Note ---
Assessment and Plan - Patient Problems (1) Altered mental status Current Visit: Yes Status: Acute Qualifiers: Altered mental status type: A Coma depth: C Coma timing: C Plan to address problem: - improved - stop propofol - follow clinically (2) Hyperkalemia Current Visit: Yes Status: Acute Plan to address problem: - improved - per nephrology recs (3) Acute hypoxemic respiratory failure Current Visit: No Status: Acute Plan to address problem: - continue bronchodilators & pulmonary toilet - continue aspiration precautions/VAP bundles - tolerating SBT very well today - EXTUBATE (4) Acute renal failure Current Visit: No Status: Acute Qualifiers: Acute renal failure type: A Plan to address problem: - resolved mostly - non oliguric - per nephrology recs henceforth (5) Congestive heart failure Current Visit: No Status: Acute Qualifiers: Congestive heart failure type: C Congestive heart failure chronicity: C Plan to address problem: - improving - continue gentle diuresis - follow clinically (6) Discharge planning issues Current Visit: Yes Status: Acute Plan to address problem: - extubate and watch in unit overnight ...prn BIPAP thereafter ...for now she is critically ill on life sustaining interventions including MVS and at risk for deterioration including ...30' CCT Subjective Date of service: 06/12/16 Principal diagnosis: Acute Hypoxemic Respiratory failure Interval history: Seen and examined at bedside; 24 hour events reviewed; nursing and respiratory care staff consulted; no adverse overnight events reported to me; doing better; seen by nephrology; hyperkalemia resolved; no emesis or overt aspiration; tolerating SBT well; denies acute chest pains or increased SOB Objective Vital Signs - 12hr 06/11/16 06/11/16 06/11/16 23:20 23:30 23:35 Temperature Pulse Rate 105 H 98 H 99 H Pulse Rate [ Anterior Bilateral Throughout] Pulse Rate [ From Monitor] Respiratory 17 19 Rate Respiratory Rate [Anterior Bilateral Throughout] Blood Pressure 142/61 138/60 138/60 O2 Sat by Pulse 100 99 100 Oximetry 06/11/16 06/11/16 06/12/16 23:40 23:50 00:00 Temperature 99.5 F Pulse Rate 103 H 100 H 102 H Pulse Rate [ Anterior Bilateral Throughout] Pulse Rate [ From Monitor] Respiratory 17 18 16 Rate Respiratory Rate [Anterior Bilateral Throughout] Blood Pressure 138/60 142/63 144/67 O2 Sat by Pulse 99 100 99 Oximetry 06/12/16 06/12/16 06/12/16 00:10 00:20 00:30 Temperature Pulse Rate 105 H 101 H 102 H Pulse Rate [ Anterior Bilateral Throughout] Pulse Rate [ From Monitor] Respiratory 18 18 19 Rate Respiratory Rate [Anterior Bilateral Throughout] Blood Pressure 144/67 141/61 153/74 O2 Sat by Pulse 100 100 99 Oximetry 06/12/16 06/12/16 06/12/16 00:40 00:50 01:00 Temperature Pulse Rate 101 H 103 H 100 H Pulse Rate [ Anterior Bilateral Throughout] Pulse Rate [ From Monitor] Respiratory 17 18 16 Rate Respiratory Rate [Anterior Bilateral Throughout] Blood Pressure 153/74 161/72 161/74 O2 Sat by Pulse 100 100 100 Oximetry 06/12/16 06/12/16 06/12/16 01:10 01:20 01:30 Temperature Pulse Rate 105 H 101 H 106 H Pulse Rate [ Anterior Bilateral Throughout] Pulse Rate [ From Monitor] Respiratory 16 18 21 Rate Respiratory Rate [Anterior Bilateral Throughout] Blood Pressure 161/74 163/72 163/72 O2 Sat by Pulse 100 100 100 Oximetry 06/12/16 06/12/16 06/12/16 01:40 01:50 02:00 Temperature Pulse Rate 101 H 98 H 100 H Pulse Rate [ Anterior Bilateral Throughout] Pulse Rate [ From Monitor] Respiratory 18 18 18 Rate Respiratory Rate [Anterior Bilateral Throughout] Blood Pressure 154/69 153/69 151/72 O2 Sat by Pulse 100 100 100 Oximetry 06/12/16 06/12/16 06/12/16 02:10 02:20 02:30 Temperature Pulse Rate 107 H 99 H 100 H Pulse Rate [ Anterior Bilateral Throughout] Pulse Rate [ From Monitor] Respiratory 20 13 18 Rate Respiratory Rate [Anterior Bilateral Throughout] Blood Pressure 151/72 153/71 160/69 O2 Sat by Pulse 100 100 100 Oximetry 06/12/16 06/12/16 06/12/16 02:40 02:50 03:00 Temperature Pulse Rate 101 H 99 H 99 H Pulse Rate [ 98 H 102 H Anterior Bilateral Throughout] Pulse Rate [ From Monitor] Respiratory 18 17 19 Rate Respiratory 17 18 Rate [Anterior Bilateral Throughout] Blood Pressure 160/69 160/69 153/70 O2 Sat by Pulse 100 100 99 Oximetry 06/12/16 06/12/1617 03:03 03:10 03:20 Temperature Pulse Rate Pulse Rate [ Anterior Bilateral Throughout] Pulse Rate [ From Monitor] Respiratory 20 Rate Respiratory Rate [Anterior Bilateral Throughout] Blood Pressure 153/70 153/70 O2 Sat by Pulse 99 95 Oximetry 06/12/16 06/12/16 06/12/16 03:30 03:40 03:50 Temperature Pulse Rate 113 H 107 H Pulse Rate [ Anterior Bilateral Throughout] Pulse Rate [ From Monitor] Respiratory 13 23 Rate Respiratory Rate [Anterior Bilateral Throughout] Blood Pressure 149/67 149/67 163/75 O2 Sat by Pulse 100 100 100 Oximetry 06/12/16 06/12/16 06/12/16 04:00 04:10 04:20 Temperature 99.2 F Pulse Rate 107 H 103 H 103 H Pulse Rate [ Anterior Bilateral Throughout] Pulse Rate [ 111 H From Monitor] Respiratory 16 17 17 Rate Respiratory Rate [Anterior Bilateral Throughout] Blood Pressure 153/70 153/70 153/70 O2 Sat by Pulse 99 100 100 Oximetry 06/12/16 06/12/16 06/12/16 04:30 04:40 04:50 Temperature Pulse Rate 112 H 98 H 96 H Pulse Rate [ Anterior Bilateral Throughout] Pulse Rate [ From Monitor] Respiratory 17 16 7 L Rate Respiratory Rate [Anterior Bilateral Throughout] Blood Pressure 150/71 150/71 150/71 O2 Sat by Pulse 100 99 99 Oximetry 06/12/16 06/12/16 06/12/16 05:00 05:10 05:20 Temperature Pulse Rate 107 H 102 H 103 H Pulse Rate [ Anterior Bilateral Throughout] Pulse Rate [ From Monitor] Respiratory 19 18 14 Rate Respiratory Rate [Anterior Bilateral Throughout] Blood Pressure 148/72 148/72 148/72 O2 Sat by Pulse 99 100 100 Oximetry 06/12/16 06/12/16 06/12/16 05:30 05:40 05:50 Temperature Pulse Rate 106 H 99 H 104 H Pulse Rate [ Anterior Bilateral Throughout] Pulse Rate [ From Monitor] Respiratory 18 17 16 Rate Respiratory Rate [Anterior Bilateral Throughout] Blood Pressure 153/73 148/72 148/72 O2 Sat by Pulse 100 100 100 Oximetry 06/12/16 06/12/16 06/12/16 06:00 06:10 06:20 Temperature Pulse Rate 99 H 105 H 95 H Pulse Rate [ Anterior Bilateral Throughout] Pulse Rate [ From Monitor] Respiratory 18 16 16 Rate Respiratory Rate [Anterior Bilateral Throughout] Blood Pressure 143/65 143/65 143/65 O2 Sat by Pulse 100 100 99 Oximetry 06/12/16 06/12/16 06/12/16 06:30 06:40 06:50 Temperature Pulse Rate 96 H 95 H 92 H Pulse Rate [ Anterior Bilateral Throughout] Pulse Rate [ From Monitor] Respiratory 16 16 16 Rate Respiratory Rate [Anterior Bilateral Throughout] Blood Pressure 153/70 153/70 153/70 O2 Sat by Pulse 100 100 100 Oximetry 06/12/16 06/12/16 06/12/16 07:00 07:10 07:20 Temperature Pulse Rate 104 H 99 H 99 H Pulse Rate [ Anterior Bilateral Throughout] Pulse Rate [ From Monitor] Respiratory 16 16 16 Rate Respiratory Rate [Anterior Bilateral Throughout] Blood Pressure 157/78 157/78 157/78 O2 Sat by Pulse 100 100 100 Oximetry 06/12/16 06/12/16 06/12/16 07:30 07:40 07:50 Temperature Pulse Rate 97 H 99 H 101 H Pulse Rate [ Anterior Bilateral Throughout] Pulse Rate [ From Monitor] Respiratory 15 16 17 Rate Respiratory Rate [Anterior Bilateral Throughout] Blood Pressure 153/73 153/73 153/73 O2 Sat by Pulse 100 100 100 Oximetry 06/12/16 06/12/16 06/12/16 08:00 08:06 08:10 Temperature 98.4 F Pulse Rate 117 H 102 H 100 H Pulse Rate [ Anterior Bilateral Throughout] Pulse Rate [ From Monitor] Respiratory 25 H 16 Rate Respiratory Rate [Anterior Bilateral Throughout] Blood Pressure 156/85 156/85 156/85 O2 Sat by Pulse 100 100 100 Oximetry 06/12/16 06/12/16 06/12/16 08:14 08:20 08:30 Temperature Pulse Rate 101 H 100 H Pulse Rate [ 96 H Anterior Bilateral Throughout] Pulse Rate [ From Monitor] Respiratory 17 17 Rate Respiratory 21 Rate [Anterior Bilateral Throughout] Blood Pressure 156/85 148/69 O2 Sat by Pulse 99 99 Oximetry 06/12/16 06/12/16 06/12/16 08:40 08:50 09:00 Temperature Pulse Rate 112 H 103 H 103 H Pulse Rate [ Anterior Bilateral Throughout] Pulse Rate [ From Monitor] Respiratory 17 12 17 Rate Respiratory Rate [Anterior Bilateral Throughout] Blood Pressure 148/69 148/69 151/73 O2 Sat by Pulse 100 100 100 Oximetry 06/12/16 06/12/16 06/12/16 09:10 09:20 09:30 Temperature Pulse Rate 102 H 99 H 98 H Pulse Rate [ Anterior Bilateral Throughout] Pulse Rate [ From Monitor] Respiratory 17 17 17 Rate Respiratory Rate [Anterior Bilateral Throughout] Blood Pressure 151/73 151/73 146/66 O2 Sat by Pulse 99 100 100 Oximetry 06/12/16 06/12/16 06/12/16 09:40 09:50 10:00 Temperature Pulse Rate 102 H 102 H 101 H Pulse Rate [ Anterior Bilateral Throughout] Pulse Rate [ From Monitor] Respiratory 18 14 16 Rate Respiratory Rate [Anterior Bilateral Throughout] Blood Pressure 146/66 146/66 151/66 O2 Sat by Pulse 100 100 100 Oximetry Constitutional: no acute distress, alert Eyes: non-icteric ENT: oropharynx moist Neck: supple, no lymphadenopathy Effort: normal Ascultation: Bilateral: diminished breath sounds, rales (scant in bases) Cardiovascular: regular rate and rhythm Gastrointestinal: normoactive bowel sounds, soft, non-tender, non-distended Integumentary: normal Extremities: no cyanosis, no edema, pulses normal, no ischemia or petechiae Neurologic: normal mental status, non-focal exam, pupils equal and round, motor strength normal and Psychiatric: mood appropriate, affect normal CBC and BMP: 06/12/16 05:19 06/12/16 05:19 ABG, PT/INR, D-dimer: ABG POC ABG pH 7.483 (7.35-7.45) H 06/11/16 13:48 POC ABG pCO2 31.6 (35-45) L 06/11/16 13:48 POC ABG pO2 124 (80-105) H 06/11/16 13:48 POC ABG HCO3 23.7 06/11/16 13:48 POC ABG Total CO2 25 06/11/16 13:48 POC ABG O2 Sat 99 06/11/16 13:48 PT/INR, D-dimer PT 12.8 Sec. (12.2-14.9) 06/09/16 21:15 INR 0.97 (0.87-1.13) 06/09/16 21:15 Abnormal lab findings: Abnormal Labs 06/09/16 06/10/16 06/10/16 23:02 03:18 03:18 WBC Hgb MCH 26 L RDW 18.2 H Lymph % (Auto) 8.8 L Lymph # 0.6 L Seg Neutrophils % 86.6 H Seg Neuts % (Manual) Lymphocytes % (Manual) Seg Neutrophils # Man Lymphocytes # (Manual) POC ABG pH POC ABG pCO2 POC ABG pO2 Potassium Chloride 109.3 H Carbon Dioxide 17 L BUN 35 H Creatinine Glucose 245 H POC Glucose Lactic Acid Calcium Total Creatine Kinase 492 H CK-MB (CK-2) 20.4 H CK-MB (CK-2) Rel Index 4.1 H 06/10/16 06/10/16 06/10/16 03:18 04:03 15:36 WBC Hgb MCH RDW Lymph % (Auto) Lymph # Seg Neutrophils % Seg Neuts % (Manual) Lymphocytes % (Manual) Seg Neutrophils # Man Lymphocytes # (Manual) POC ABG pH POC ABG pCO2 POC ABG pO2 59 L Potassium Chloride Carbon Dioxide BUN Creatinine Glucose POC Glucose 301 H Lactic Acid Calcium Total Creatine Kinase 374 H CK-MB (CK-2) 18.8 H CK-MB (CK-2) Rel Index 5.0 H 06/10/16 06/10/16 06/10/16 16:02 20:24 22:20 WBC Hgb MCH RDW Lymph % (Auto) Lymph # Seg Neutrophils % Seg Neuts % (Manual) Lymphocytes % (Manual) Seg Neutrophils # Man Lymphocytes # (Manual) POC ABG pH POC ABG pCO2 POC ABG pO2 165 H Potassium Chloride Carbon Dioxide BUN Creatinine Glucose POC Glucose 128 H Lactic Acid 2.6 H* Calcium Total Creatine Kinase CK-MB (CK-2) CK-MB (CK-2) Rel Index 06/11/16 06/11/16 06/11/16 04:21 04:45 04:45 WBC 11.4 H Hgb 9.6 L MCH 26 L RDW 18.6 H Lymph % (Auto) Lymph # Seg Neutrophils % Seg Neuts % (Manual) 88.0 H Lymphocytes % (Manual) 7.0 L Seg Neutrophils # Man 10.0 H Lymphocytes # (Manual) 0.8 L POC ABG pH POC ABG pCO2 45.4 H POC ABG pO2 Potassium 6.2 H* D Chloride 108.9 H Carbon Dioxide 20 L BUN 20 H Creatinine 0.6 L Glucose 268 H POC Glucose Lactic Acid Calcium Total Creatine Kinase CK-MB (CK-2) CK-MB (CK-2) Rel Index 06/11/16 06/11/16 06/11/16 08:20 11:44 12:39 WBC Hgb MCH RDW Lymph % (Auto) Lymph # Seg Neutrophils % Seg Neuts % (Manual) Lymphocytes % (Manual) Seg Neutrophils # Man Lymphocytes # (Manual) POC ABG pH POC ABG pCO2 POC ABG pO2 Potassium 7.1 H* Chloride Carbon Dioxide 19 L BUN 21 H Creatinine Glucose 259 H POC Glucose 303 H 311 H Lactic Acid Calcium Total Creatine Kinase CK-MB (CK-2) CK-MB (CK-2) Rel Index 06/11/16 06/11/16 06/11/16 13:48 16:24 18:34 WBC Hgb MCH RDW Lymph % (Auto) Lymph # Seg Neutrophils % Seg Neuts % (Manual) Lymphocytes % (Manual) Seg Neutrophils # Man Lymphocytes # (Manual) POC ABG pH 7.483 H POC ABG pCO2 31.6 L POC ABG pO2 124 H Potassium 5.4 H D Chloride Carbon Dioxide BUN 22 H Creatinine Glucose 160 H POC Glucose 169 H Lactic Acid Calcium 10.3 H Total Creatine Kinase CK-MB (CK-2) CK-MB (CK-2) Rel Index 06/11/16 06/12/16 06/12/16 21:35 05:19 05:19 WBC 11.3 H Hgb MCH 26 L RDW 18.5 H Lymph % (Auto) Lymph # Seg Neutrophils % Seg Neuts % (Manual) 86.0 H Lymphocytes % (Manual) 6.0 L Seg Neutrophils # Man 9.7 H Lymphocytes # (Manual) 0.7 L POC ABG pH POC ABG pCO2 POC ABG pO2 Potassium Chloride Carbon Dioxide 21 L BUN 26 H Creatinine Glucose 325 H POC Glucose 244 H Lactic Acid Calcium Total Creatine Kinase CK-MB (CK-2) CK-MB (CK-2) Rel Index 06/12/16 06:46 WBC Hgb MCH RDW Lymph % (Auto) Lymph # Seg Neutrophils % Seg Neuts % (Manual) Lymphocytes % (Manual) Seg Neutrophils # Man Lymphocytes # (Manual) POC ABG pH POC ABG pCO2 POC ABG pO2 Potassium Chloride Carbon Dioxide BUN Creatinine Glucose POC Glucose 407 H Lactic Acid Calcium Total Creatine Kinase CK-MB (CK-2) CK-MB (CK-2) Rel Index Chest x-ray: image reviewed
--- NOTE | 2016-06-12 11:30 | Progress Note ---
Assessment and Plan Assessment and plan: 1. Acute hypoxemic respiratory failure. Continue ventilator per pulmonary. Pulmonary following. 2. Sepsis. Continue the sepsis pathway. Follow-up blood cultures and trend lactic acid levels. 3. Acute bronchitis. Continue on IV antibodies. 4. Acute asthma exacerbation. Continue bronchodilators, IV steroids and breathing treatments. 5. Accelerated Hypertension. Resume on home medication. 6. Toxic metabolic encephalopathy. Present on admission. Continue current management. 7. Hyperkalemia. Resolving. Continue to monitor BMP. History Interval history: 66-year-old woman with a history of hypertension, diabetes was brought to the emergency room per the emergency room physician patient was found unresponsive. Patient remains intubated on the ventilator. Hospitalist Physical - Constitutional Vitals: Temp Pulse Resp BP Pulse Ox 98.4 F 101 H 16 151/66 100 06/12/16 08:00 06/12/16 10:00 06/12/16 10:00 06/12/16 10:00 06/12/16 10:00 General appearance: Present: no acute distress, well-nourished - EENT Eyes: Present: PERRL, EOM intact ENT: hearing intact, clear oral mucosa, dentition normal - Neck Neck: Present: supple, normal ROM - Respiratory Respiratory effort: normal Respiratory: bilateral: diminished, rhonchi - Cardiovascular Rhythm: regular Heart Sounds: Present: S1 & S2. Absent: gallop, rub - Extremities Extremities: no ischemia, No edema, Full ROM - Abdominal General gastrointestinal: soft, non-tender, non-distended, normal bowel sounds - Integumentary Integumentary: Present: clear, warm, dry - Neurologic Neurologic: CNII-XII intact, moves all extremities Results - Labs CBC & Chem 7: 06/12/16 05:19 06/12/16 05:19 Labs: Laboratory Last Values WBC 11.3 K/mm3 (4.5-11.0) H 06/12/16 05:19 RBC 3.94 M/mm3 (3.65-5.03) 06/12/16 05:19 Hgb 10.1 gm/dl (10.1-14.3) 06/12/16 05:19 Hct 32.2 % (30.3-42.9) 06/12/16 05:19 MCV 82 fl (79-97) 06/12/16 05:19 MCH 26 pg (28-32) L 06/12/16 05:19 MCHC 31 % (30-34) 06/12/16 05:19 RDW 18.5 % (13.2-15.2) H 06/12/16 05:19 Plt Count 184 K/mm3 (140-440) 06/12/16 05:19 Lymph % (Auto) 8.8 % (13.4-35.0) L 06/10/16 03:18 Andrews % (Auto) 3.9 % (0.0-7.3) 06/10/16 03:18 Eos % (Auto) 0.3 % (0.0-4.3) 06/10/16 03:18 Baso % (Auto) 0.4 % (0.0-1.8) 06/10/16 03:18 Lymph # 0.6 K/mm3 (1.2-5.4) L 06/10/16 03:18 Andrews # 0.3 K/mm3 (0.0-0.8) 06/10/16 03:18 Eos # 0.0 K/mm3 (0.0-0.4) 06/10/16 03:18 Baso # 0.0 K/mm3 (0.0-0.1) 06/10/16 03:18 Add Manual Diff Complete 06/12/16 05:19 Total Counted 100 06/12/16 05:19 Seg Neutrophils % [employer] Worker 06/12/16 05:19 Seg Neuts % (Manual) 86.0 % (40.0-70.0) H 06/12/16 05:19 Band Neutrophils % 5.0 % 06/12/16 05:19 Lymphocytes % (Manual) 6.0 % (13.4-35.0) L 06/12/16 05:19 Reactive Lymphs % (Man) 0 % 06/12/16 05:19 Monocytes % (Manual) 3.0 % (0.0-7.3) 06/12/16 05:19 Eosinophils % (Manual) 0 % (0.0-4.3) 06/12/16 05:19 Basophils % (Manual) 0 % (0.0-1.8) 06/12/16 05:19 Metamyelocytes % 0 % 06/12/16 05:19 Myelocytes % 0 % 06/12/16 05:19 Promyelocytes % 0 % 06/12/16 05:19 Blast Cells % 0 % 06/12/16 05:19 Nucleated RBC % Not Reportable 06/12/16 05:19 Seg Neutrophils # 5.7 K/mm3 (1.8-7.7) 06/10/16 03:18 Seg Neutrophils # Man 9.7 K/mm3 (1.8-7.7) H 06/12/16 05:19 Band Neutrophils # 0.6 K/mm3 06/12/16 05:19 Lymphocytes # (Manual) 0.7 K/mm3 (1.2-5.4) L 06/12/16 05:19 Abs React Lymphs (Man) 0.0 K/mm3 06/12/16 05:19 Monocytes # (Manual) 0.3 K/mm3 (0.0-0.8) 06/12/16 05:19 Eosinophils # (Manual) 0.0 K/mm3 (0.0-0.4) 06/12/16 05:19 Basophils # (Manual) 0.0 K/mm3 (0.0-0.1) 06/12/16 05:19 Metamyelocytes # 0.0 K/mm3 06/12/16 05:19 Myelocytes # 0.0 K/mm3 06/12/16 05:19 Promyelocytes # 0.0 K/mm3 06/12/16 05:19 Blast Cells # 0.0 K/mm3 06/12/16 05:19 WBC Morphology Not Reportable 06/12/16 05:19 Hypersegmented Neuts Not Reportable 06/12/16 05:19 Hyposegmented Neuts Not Reportable 06/12/16 05:19 Hypogranular Neuts Not Reportable 06/12/16 05:19 Smudge Cells Not Reportable 06/12/16 05:19 Toxic Granulation Not Reportable 06/12/16 05:19 Toxic Vacuolation Not Reportable 06/12/16 05:19 Dohle Bodies Not Reportable 06/12/16 05:19 Pelger-Huet Anomaly Not Reportable 06/12/16 05:19 Jordan Rods Not Reportable 06/12/16 05:19 Platelet Estimate Consistent w auto 06/12/16 05:19 Clumped Platelets Not Reportable 06/12/16 05:19 Plt Clumps, EDTA Not Reportable 06/12/16 05:19 Large Platelets Not Reportable 06/12/16 05:19 Giant Platelets Not Reportable 06/12/16 05:19 Platelet Satelliting Not Reportable 06/12/16 05:19 Plt Morphology Comment Not Reportable 06/12/16 05:19 RBC Morphology Not Reportable 06/12/16 05:19 Dimorphic RBCs Not Reportable 06/12/16 05:19 Polychromasia Not Reportable 06/12/16 05:19 Hypochromasia Not Reportable 06/12/16 05:19 Poikilocytosis Not Reportable 06/12/16 05:19 Anisocytosis 1+ 06/12/16 05:19 Microcytosis Not Reportable 06/12/16 05:19 Macrocytosis Not Reportable 06/12/16 05:19 Spherocytes Not Reportable 06/12/16 05:19 Pappenheimer Bodies Not Reportable 06/12/16 05:19 Sickle Cells Not Reportable 06/12/16 05:19 Target Cells Not Reportable 06/12/16 05:19 Tear Drop Cells Not Reportable 06/12/16 05:19 Ovalocytes Not Reportable 06/12/16 05:19 Helmet Cells Not Reportable 06/12/16 05:19 [place] Bodies Not Reportable 06/12/16 05:19 [place] Rings Not Reportable 06/12/16 05:19 Xavier Cells Not Reportable 06/12/16 05:19 Bite Cells Not Reportable 06/12/16 05:19 Crenated Cell Not Reportable 06/12/16 05:19 Elliptocytes Not Reportable 06/12/16 05:19 Acanthocytes (Spur) Not Reportable 06/12/16 05:19 Rouleaux Not Reportable 06/12/16 05:19 Hemoglobin C Crystals Not Reportable 06/12/16 05:19 Schistocytes Not Reportable 06/12/16 05:19 Malaria parasites Not Reportable 06/12/16 05:19 Varun Bodies Not Reportable 06/12/16 05:19 Hem Pathologist Commnt No 06/12/16 05:19 PT 12.8 Sec. (12.2-14.9) 06/09/16 21:15 INR 0.97 (0.87-1.13) 06/09/16 21:15 APTT 31.7 Sec. (24.2-36.6) 06/09/16 21:15 POC ABG pH 7.483 (7.35-7.45) H 06/11/16 13:48 POC ABG pCO2 31.6 (35-45) L 06/11/16 13:48 POC ABG pO2 124 (80-105) H 06/11/16 13:48 POC ABG HCO3 23.7 06/11/16 13:48 POC ABG Total CO2 25 06/11/16 13:48 POC ABG O2 Sat 99 06/11/16 13:48 POC ABG Base Excess 0 06/11/16 13:48 FiO2 25 % 06/11/16 13:48 Sodium 143 mmol/L (137-145) 06/11/16 18:34 Potassium 5.4 mmol/L (3.6-5.0) H D 06/11/16 18:34 Chloride 106.4 mmol/L (98-107) 06/11/16 18:34 Carbon Dioxide 21 mmol/L (22-30) L 06/12/16 05:19 Anion Gap 19 mmol/L 06/11/16 18:34 BUN 26 mg/dL (7-17) H 06/12/16 05:19 Creatinine 0.8 mg/dL (0.7-1.2) 06/12/16 05:19 Estimated GFR > 60 ml/min 06/12/16 05:19 BUN/Creatinine Ratio 32.50 % 06/12/16 05:19 Glucose 325 mg/dL (65-100) H 06/12/16 05:19 POC Glucose 407 (70-105) H 06/12/16 06:46 Lactic Acid 1.2 mmol/L (0.7-2.0) 06/11/16 08:24 Calcium 9.9 mg/dL (8.4-10.2) 06/12/16 05:19 Total Bilirubin 0.3 mg/dL (0.1-1.2) 06/09/16 21:16 AST 105 units/L (5-40) H 06/09/16 21:16 ALT 63 units/L (7-56) H 06/09/16 21:16 Alkaline Phosphatase 114 units/L (35-129) 06/09/16 21:16 Ammonia 13.0 umol/L (25-60) L 06/09/16 21:17 Total Creatine Kinase 374 units/L (30-135) H 06/10/16 03:18 CK-MB (CK-2) 18.8 ng/mL (0.0-4.0) H 06/10/16 03:18 CK-MB (CK-2) Rel Index 5.0 (0-4) H 06/10/16 03:18 Troponin T 0.015 ng/mL (0.00-0.029) 06/10/16 03:18 C-Reactive Protein 0.90 mg/dL (0.00-1.30) 06/10/16 13:10 Total Protein 7.1 g/dL (6.3-8.2) 06/09/16 21:16 Albumin 2.8 g/dL (3.9-5) L 06/09/16 21:16 Albumin/Globulin Ratio 0.7 % 06/09/16 21:16 TSH 0.817 mlU/mL (0.270-4.200) 06/09/16 21:16 Urine Color Yellow (Yellow) 06/09/16 21:07 Urine Turbidity Slightly-cloudy (Clear) 06/09/16 21:07 Urine pH 5.0 (5.0-7.0) 06/09/16 21:07 Ur Specific [place] 1.009 (1.003-1.030) 06/09/16 21:07 Urine Protein <15 mg/dl mg/dL (Negative) 06/09/16 21:07 Urine Glucose (UA) Neg mg/dL (Negative) 06/09/16 21:07 Urine Ketones Neg mg/dL (Negative) 06/09/16 21:07 Urine Blood Neg (Negative) 06/09/16 21:07 Urine Nitrite Neg (Negative) 06/09/16 21:07 Urine Bilirubin Neg (Negative) 06/09/16 21:07 Urine Urobilinogen < 2.0 mg/dL (<2.0) 06/09/16 21:07 Ur Leukocyte Esterase Sm (Negative) 06/09/16 21:07 Urine WBC (Auto) 2.0 /HPF (0.0-6.0) 06/09/16 21:07 Urine RBC (Auto) 1.0 /HPF (0.0-6.0) 06/09/16 21:07 Urine Mucus Few /HPF 06/09/16 21:07 Salicylates < 0.3 mg/dL (2.8-20.0) L 06/09/16 21:18 Urine Opiates Screen Presumptive negative 06/09/16 21:07 Urine Methadone Screen Presumptive negative 06/09/16 21:07 Acetaminophen < 15.0 ug/mL (10.0-30.0) 06/09/16 21:17 Ur Barbiturates Screen Presumptive negative 06/09/16 21:07 Ur Phencyclidine Scrn Presumptive negative 06/09/16 21:07 Ur Amphetamines Screen Presumptive negative 06/09/16 21:07 U Benzodiazepines Scrn Presumptive positive 06/09/16 21:07 Urine Cocaine Screen Presumptive positive 06/09/16 21:07 U Marijuana (THC) Screen Presumptive negative 06/09/16 21:07 Drugs of Abuse Note Disclamer 06/09/16 21:07 Plasma/Serum Alcohol < 0.01 gm% (0-0.07) 06/09/16 21:15 Blood Type O POSITIVE 06/09/16 21:18 Antibody Screen Negative 06/09/16 21:18
[2016-06-12] MEDS: PEPCID PO SCH ×2 (12:00→23:08)
[2016-06-12] MEDS: LOVENOX SUB-Q SCH (12:38)
[2016-06-12] MEDS: LEVAQUIN 750MG/150ML 750 MG/150 ML BAG IV SCH (12:40)
--- NOTE | 2016-06-12 12:56 | Consultation ---
REASON FOR CONSULTATION: Management of moderately severe hyperkalemia in a patient who is admitted with unresponsiveness and respiratory failure with cocaine and with drug abuse. SOURCE OF INFORMATION: From patient's current chart as she is currently intubated and unable to provide history. No family member available at bedside. HISTORY OF PRESENT ILLNESS: The patient is a 66-year-old female who was brought into the ER unresponsive. The patient was last seen awake around 5:00 a.m. this morning and her son found her unresponsive just prior to the EMS call. The patient maintained her pulse, but was unresponsive and appeared to have some respiratory distress with large amount of secretion and blood coming out from her nose and mouth. EMS was unable to place an IV line, but family found her she was cold with pinpoint pupils. The patient was brought up to ER where initial workup showed that her potassium was 5.2 with a bicarbonate of 19. Urine toxicology was positive for cocaine as well as benzodiazepine. Repeat potassium came down to 4.3, and subsequently as of today, her potassium was noted to be 6.2 and later increased to 7.1 prompting this consultation. PAST MEDICAL HISTORY: Significant for: 1. Hypertension. 2. Diabetes. 3. Possible asthma. 4. Currently on gabapentin. ALLERGIES: None known. HOME MEDICATIONS: Hydralazine, Norvasc, Ventolin, gabapentin, and insulin. SOCIAL HISTORY: Unknown due to intubated status. FAMILY HISTORY: Positive for hypertension and diabetes from chart. PAST SURGICAL HISTORY: Significant for partial hysterectomy, colon resection. REVIEW OF SYSTEMS: Positive for unresponsiveness, intubated. The patient is arousable, does follow commands, was very, very limited due to intubated status. PHYSICAL EXAMINATION: GENERAL: The patient is a 66-year-old female who is lying comfortably in bed, does not appear in acute distress. VITAL SIGNS: Reviewed from this admission, blood pressure was accelerated 188/96, pulse rate is around 82, respiratory rate 18, temperature afebrile. HEENT: Normocephalic and atraumatic. Extraocular movements are intact. Pupils are reactive, patient got intubated. She is fully alert, awake. NECK: Supple, no thyromegaly or JVD. CHEST: Essentially clear to auscultation anteriorly and posteriorly. HEART: Regular rate. S1, S2 heard. No S3, S4. ABDOMEN: Soft, nontender. No voluntary guarding or rebound. No organomegaly or masses. EXTREMITIES: The patient does have edema approximately 1-2+. ENDOCRINE: Thyroid not enlarged. PSYCHIATRIC: No evidence of agitation or aggression noted. IMAGING STUDIES: Chest x-ray showed evidence of some chronic changes. Head CT scan is essentially unremarkable at this time. Followup chest x-ray on 06/11/2016 showed evidence of mild pulmonary vascular congestion, more so on the left side with endotracheal tube in place. LABORATORY DATA AND X-RAYS: As of this admission on 06/11/2016, her white cell count is 11.4, hemoglobin 9.6, hematocrit 30.7, platelet count is 193,000. Her pH is 7.3, PCO2 is 31, pO2 is 124, FiO2 is 25%, lactic acid was noted to be around 2.6. Other labs show a normal creatinine of 0.9, sodium 141, potassium was noted to be peaking up at 7. ASSESSMENT AND PLAN: 1. Moderately severe hyperkalemia. At this point, the patient will be treated medically. Metabolic acidosis with moderate elevation of lactic acid in a patient who is intubated but found unresponsive, correction of this and oxygenation will also help correction of hyperkalemia. 2. Renal function appears to be stable at this time; however, given that she is unresponsive and has respiratory failure, she is at risk for acute tubular necrosis, to be monitored. 3. Respiratory failure, currently intubated. 4. Edema, approximately 1+ on both lower extremities. 5. Admitted with cocaine and benzodiazepine use. The patient was found unresponsive. CK is not too high. Low suspicion for rhabdomyolysis at this time. 6. Accelerated hypertension. Would avoid hydralazine due to tachycardia. Other drugs can be considered. Plan of care was discussed with patient at the bedside. I also discussed with ICU nurse. At this time, I would like give her 10 mg of albuterol, give her another 100 mEq of sodium bicarbonate. She is already getting the amp of calcium chloride and we will add some D50 and insulin. This will be followed by repeat basic metabolic profile around 1800. We will obtain labs pertinent to her renal function. We will continue to follow and make recommendations from renal standpoint. At this point, the renal prognosis remains guarded to poor. JOB# [id number] LAUREN/JUNG
[2016-06-12 13:06] LABS: ISTAT Base Excess 2; ISTAT PH 7.432 (7.35-7.45); ISTAT PO2 113 (80-105); ISTAT SO2 99; ISTAT TCO2 27
[2016-06-12] MEDS: LEVEMIR SUB-Q SCH (13:15)
[2016-06-12] MEDS: DIPRIVAN 10 MG/ML 1,000 MG/100 ML BOTTLE IV SCH (14:00)
[2016-06-13] MEDS: DUONEB 0.5 MG-3 MG/3 ML SOLN IH SCH ×5 (02:18→20:21)
[2016-06-13] MEDS: NEURONTIN PO SCH ×3 (05:17→21:48)
[2016-06-13] MEDS: NOVOLOG SUB-Q SCH ×4 (07:30→22:03)
--- NOTE | 2016-06-13 08:15 | Progress Note ---
Assessment and Plan Patient has had moderate to severe hyperkalemia -which has been improving patient needs to have daily basic metabolic profile potassium peaked at 7.1 and then came down to 5.4 admission potassium was around 5.2, now 5.5 will give kayexalate Respiratory failure currently intubated being followed by pulmonary service History of cocaine and benzodiazepine use has been counseled and educated already Hypertension and tachycardia already improving well He appears to be stable from renal standpoinSh Subjective Principal diagnosis: Acute Hypoxemic Respiratory failure Interval history: Patient was seen today for follow-up Denies any complaints of chest pain pressure or shortness of breath Vitals labs intake output medications were reviewed Events at 24 hours were noted she is extubted Objective - Vital Signs Vital signs: Vital Signs - 12hr 06/12/16 06/12/16 06/12/16 20:20 20:30 20:40 Temperature Pulse Rate 97 H 137 H 100 H Pulse Rate [ Anterior Bilateral Throughout] Pulse Rate [ From Monitor] Respiratory 17 18 15 Rate Respiratory Rate [Anterior Bilateral Throughout] Respiratory Rate [Chest] Blood Pressure 177/79 174/87 174/87 O2 Sat by Pulse 100 100 100 Oximetry 06/12/16 06/12/16 06/12/16 20:50 21:00 21:10 Temperature Pulse Rate 97 H 106 H 98 H Pulse Rate [ Anterior Bilateral Throughout] Pulse Rate [ From Monitor] Respiratory 13 19 14 Rate Respiratory Rate [Anterior Bilateral Throughout] Respiratory Rate [Chest] Blood Pressure 174/87 156/77 156/77 O2 Sat by Pulse 100 100 100 Oximetry 06/12/16 06/12/16 06/12/16 21:20 21:30 21:40 Temperature Pulse Rate 96 H 99 H 98 H Pulse Rate [ Anterior Bilateral Throughout] Pulse Rate [ From Monitor] Respiratory 18 14 15 Rate Respiratory Rate [Anterior Bilateral Throughout] Respiratory Rate [Chest] Blood Pressure 156/77 158/79 158/79 O2 Sat by Pulse 100 100 100 Oximetry 06/12/16 06/12/16 06/12/16 21:50 22:00 22:10 Temperature Pulse Rate 99 H 93 H 94 H Pulse Rate [ Anterior Bilateral Throughout] Pulse Rate [ From Monitor] Respiratory 16 14 16 Rate Respiratory Rate [Anterior Bilateral Throughout] Respiratory 15 Rate [Chest] Blood Pressure 158/79 160/73 160/73 O2 Sat by Pulse 100 100 100 Oximetry 06/12/16 06/12/1606/12/17 22:20 22:30 22:40 Temperature Pulse Rate 95 H 96 H 96 H Pulse Rate [ Anterior Bilateral Throughout] Pulse Rate [ From Monitor] Respiratory 16 15 16 Rate Respiratory Rate [Anterior Bilateral Throughout] Respiratory Rate [Chest] Blood Pressure 160/73 157/76 157/76 O2 Sat by Pulse 100 100 100 Oximetry 06/12/16 06/12/16 06/12/16 22:50 22:52 23:00 Temperature Pulse Rate 97 H 96 H 95 H Pulse Rate [ Anterior Bilateral Throughout] Pulse Rate [ From Monitor] Respiratory 17 12 16 Rate Respiratory Rate [Anterior Bilateral Throughout] Respiratory Rate [Chest] Blood Pressure 157/76 157/76 156/77 O2 Sat by Pulse 100 100 100 Oximetry 06/12/16 06/12/16 06/12/16 23:10 23:20 23:30 Temperature Pulse Rate 99 H 89 99 H Pulse Rate [ Anterior Bilateral Throughout] Pulse Rate [ From Monitor] Respiratory 14 14 14 Rate Respiratory Rate [Anterior Bilateral Throughout] Respiratory Rate [Chest] Blood Pressure 156/77 156/77 155/80 O2 Sat by Pulse 100 100 100 Oximetry 06/12/16 06/12/16 06/13/16 23:40 23:50 00:00 Temperature 98.9 F Pulse Rate 100 H 89 85 Pulse Rate [ Anterior Bilateral Throughout] Pulse Rate [ 93 H From Monitor] Respiratory 18 15 14 Rate Respiratory Rate [Anterior Bilateral Throughout] Respiratory Rate [Chest] Blood Pressure 155/80 155/80 151/74 O2 Sat by Pulse 100 100 100 Oximetry 06/13/16 06/13/16 06/13/16 00:10 00:20 00:30 Temperature Pulse Rate 90 91 H 89 Pulse Rate [ Anterior Bilateral Throughout] Pulse Rate [ From Monitor] Respiratory 15 14 12 Rate Respiratory Rate [Anterior Bilateral Throughout] Respiratory Rate [Chest] Blood Pressure 151/74 151/74 155/78 O2 Sat by Pulse 100 100 100 Oximetry 06/13/16 06/13/16 06/13/16 00:40 00:51 01:00 Temperature Pulse Rate 88 91 H 88 Pulse Rate [ Anterior Bilateral Throughout] Pulse Rate [ From Monitor] Respiratory 13 13 13 Rate Respiratory Rate [Anterior Bilateral Throughout] Respiratory Rate [Chest] Blood Pressure 155/78 155/78 O2 Sat by Pulse 100 100 100 Oximetry 06/13/16 06/13/16 06/13/16 01:10 01:20 01:30 Temperature Pulse Rate 89 84 85 Pulse Rate [ Anterior Bilateral Throughout] Pulse Rate [ From Monitor] Respiratory 15 11 L 13 Rate Respiratory Rate [Anterior Bilateral Throughout] Respiratory Rate [Chest] Blood Pressure 161/80 155/78 156/77 O2 Sat by Pulse 100 100 100 Oximetry 06/13/16 06/13/16 06/13/16 01:40 01:50 02:00 Temperature Pulse Rate 87 86 85 Pulse Rate [ 86 Anterior Bilateral Throughout] Pulse Rate [ From Monitor] Respiratory 16 16 13 Rate Respiratory 20 Rate [Anterior Bilateral Throughout] Respiratory Rate [Chest] Blood Pressure 156/77 156/77 159/77 O2 Sat by Pulse 100 100 100 Oximetry 06/13/16 06/13/16 06/13/16 02:10 02:20 02:22 Temperature Pulse Rate 80 84 Pulse Rate [ Anterior Bilateral Throughout] Pulse Rate [ From Monitor] Respiratory 15 13 Rate Respiratory Rate [Anterior Bilateral Throughout] Respiratory Rate [Chest] Blood Pressure 159/77 159/77 O2 Sat by Pulse 100 100 100 Oximetry 06/13/16 06/13/16 06/13/16 02:30 02:40 02:45 Temperature Pulse Rate 86 88 Pulse Rate [ 89 Anterior Bilateral Throughout] Pulse Rate [ From Monitor] Respiratory 13 15 Rate Respiratory 16 Rate [Anterior Bilateral Throughout] Respiratory Rate [Chest] Blood Pressure 153/70 153/70 O2 Sat by Pulse 100 100 Oximetry 06/13/16 06/13/16 06/13/16 02:50 03:00 03:10 Temperature Pulse Rate 91 H 98 H 93 H Pulse Rate [ Anterior Bilateral Throughout] Pulse Rate [ From Monitor] Respiratory 13 16 13 Rate Respiratory Rate [Anterior Bilateral Throughout] Respiratory Rate [Chest] Blood Pressure 153/70 147/72 147/72 O2 Sat by Pulse 100 100 100 Oximetry 06/13/16 06/13/16 06/13/16 03:20 03:30 03:31 Temperature Pulse Rate 92 H 87 Pulse Rate [ Anterior Bilateral Throughout] Pulse Rate [ 89 From Monitor] Respiratory 12 13 Rate Respiratory Rate [Anterior Bilateral Throughout] Respiratory Rate [Chest] Blood Pressure 147/72 136/62 O2 Sat by Pulse 100 100 98 Oximetry 06/13/16 06/13/16 06/13/16 03:40 03:50 04:00 Temperature 98.7 F Pulse Rate 92 H 96 H 82 Pulse Rate [ Anterior Bilateral Throughout] Pulse Rate [ From Monitor] Respiratory 12 15 12 Rate Respiratory Rate [Anterior Bilateral Throughout] Respiratory Rate [Chest] Blood Pressure 136/62 136/62 144/66 O2 Sat by Pulse 100 100 100 Oximetry 06/13/16 06/13/16 06/13/16 04:10 04:20 04:30 Temperature Pulse Rate 90 90 84 Pulse Rate [ Anterior Bilateral Throughout] Pulse Rate [ From Monitor] Respiratory 13 15 12 Rate Respiratory Rate [Anterior Bilateral Throughout] Respiratory Rate [Chest] Blood Pressure 144/66 144/66 138/67 O2 Sat by Pulse 100 100 100 Oximetry 06/13/16 06/13/16 06/13/16 04:40 04:50 05:00 Temperature Pulse Rate 97 H 92 H 82 Pulse Rate [ Anterior Bilateral Throughout] Pulse Rate [ From Monitor] Respiratory 13 12 13 Rate Respiratory Rate [Anterior Bilateral Throughout] Respiratory Rate [Chest] Blood Pressure 138/67 138/67 140/59 O2 Sat by Pulse 100 100 100 Oximetry 06/13/16 06/13/16 06/13/16 05:10 05:20 05:30 Temperature Pulse Rate 91 H 124 H 94 H Pulse Rate [ Anterior Bilateral Throughout] Pulse Rate [ From Monitor] Respiratory 15 15 28 H Rate Respiratory Rate [Anterior Bilateral Throughout] Respiratory Rate [Chest] Blood Pressure 140/59 140/59 133/78 O2 Sat by Pulse 100 100 100 Oximetry 06/13/16 06/13/16 06/13/16 05:40 05:50 06:00 Temperature Pulse Rate 84 90 91 H Pulse Rate [ Anterior Bilateral Throughout] Pulse Rate [ From Monitor] Respiratory 14 13 12 Rate Respiratory Rate [Anterior Bilateral Throughout] Respiratory Rate [Chest] Blood Pressure 133/78 133/78 123/75 O2 Sat by Pulse 100 100 100 Oximetry 06/13/16 06/13/16 06/13/16 06:10 06:20 06:30 Temperature Pulse Rate 85 92 H 87 Pulse Rate [ Anterior Bilateral Throughout] Pulse Rate [ From Monitor] Respiratory 13 14 14 Rate Respiratory Rate [Anterior Bilateral Throughout] Respiratory Rate [Chest] Blood Pressure 123/75 123/75 145/70 O2 Sat by Pulse 100 100 100 Oximetry 06/13/16 06/13/16 06/13/16 06:40 06:50 07:00 Temperature Pulse Rate 95 H 98 H 85 Pulse Rate [ Anterior Bilateral Throughout] Pulse Rate [ From Monitor] Respiratory 13 12 15 Rate Respiratory Rate [Anterior Bilateral Throughout] Respiratory Rate [Chest] Blood Pressure 145/70 145/70 148/66 O2 Sat by Pulse 100 100 100 Oximetry 06/13/16 06/13/16 06/13/16 07:10 07:20 07:30 Temperature Pulse Rate 94 H 93 H 93 H Pulse Rate [ Anterior Bilateral Throughout] Pulse Rate [ From Monitor] Respiratory 15 16 12 Rate Respiratory Rate [Anterior Bilateral Throughout] Respiratory Rate [Chest] Blood Pressure 148/66 148/66 145/66 O2 Sat by Pulse 100 100 100 Oximetry 06/13/16 06/13/16 06/13/16 07:40 07:48 07:50 Temperature 98.9 F Pulse Rate 90 89 Pulse Rate [ Anterior Bilateral Throughout] Pulse Rate [ From Monitor] Respiratory 18 14 Rate Respiratory Rate [Anterior Bilateral Throughout] Respiratory Rate [Chest] Blood Pressure 145/66 145/66 O2 Sat by Pulse 100 100 Oximetry 06/13/16 08:00 Temperature Pulse Rate 90 Pulse Rate [ Anterior Bilateral Throughout] Pulse Rate [ From Monitor] Respiratory 13 Rate Respiratory Rate [Anterior Bilateral Throughout] Respiratory Rate [Chest] Blood Pressure 136/70 O2 Sat by Pulse 100 Oximetry - General Appearance General appearance: appears stated age EENT: mucous membranes moist Neck: no JVD Neurologic: no focal deficit Musculoskeletal: deferred Psychiatric: mood/affect appropriate - Lab 06/12/16 05:19 06/13/16 10:10 Most recent lab results Calcium 9.9 mg/dL (8.4-10.2) 06/12/16 05:19
[2016-06-13] MEDS: LEVAQUIN PO SCH (09:52)
[2016-06-13] MEDS: LOVENOX SUB-Q SCH (09:53)
[2016-06-13] MEDS: LEVEMIR SUB-Q SCH (09:53)
--- NOTE | 2016-06-13 10:04 | Progress Note ---
Assessment and Plan - Patient Problems (1) Altered mental status Current Visit: Yes Status: Acute Qualifiers: Altered mental status type: A Coma depth: C Coma timing: C (2) Hyperkalemia Current Visit: Yes Status: Acute (3) Acute hypoxemic respiratory failure Current Visit: No Status: Acute (4) Acute renal failure Current Visit: No Status: Acute Qualifiers: Acute renal failure type: A (5) Congestive heart failure Current Visit: No Status: Acute Qualifiers: Congestive heart failure type: C Congestive heart failure chronicity: C (6) Discharge planning issues Current Visit: Yes Status: Acute Subjective Date of service: 06/13/16 Principal diagnosis: Acute Hypoxemic Respiratory failure Interval history: Seen and examined at bedside; 24 hour events reviewed; nursing and respiratory care staff consulted; no adverse overnight events reported to me; Objective Vital Signs - 12hr 06/12/16 06/12/16 06/12/16 22:10 22:20 22:30 Temperature Pulse Rate 94 H 95 H 96 H Pulse Rate [ Anterior Bilateral Throughout] Pulse Rate [ From Monitor] Respiratory 16 16 15 Rate Respiratory Rate [Anterior Bilateral Throughout] Blood Pressure 160/73 160/73 157/76 O2 Sat by Pulse 100 100 100 Oximetry 06/12/16 06/12/16 06/12/16 22:40 22:50 22:52 Temperature Pulse Rate 96 H 97 H 96 H Pulse Rate [ Anterior Bilateral Throughout] Pulse Rate [ From Monitor] Respiratory 16 17 12 Rate Respiratory Rate [Anterior Bilateral Throughout] Blood Pressure 157/76 157/76 157/76 O2 Sat by Pulse 100 100 100 Oximetry 06/12/16 06/12/16 06/12/16 23:00 23:10 23:20 Temperature Pulse Rate 95 H 99 H 89 Pulse Rate [ Anterior Bilateral Throughout] Pulse Rate [ From Monitor] Respiratory 16 14 14 Rate Respiratory Rate [Anterior Bilateral Throughout] Blood Pressure 156/77 156/77 156/77 O2 Sat by Pulse 100 100 100 Oximetry 06/12/16 06/12/16 06/12/16 23:30 23:40 23:50 Temperature Pulse Rate 99 H 100 H 89 Pulse Rate [ Anterior Bilateral Throughout] Pulse Rate [ From Monitor] Respiratory 14 18 15 Rate Respiratory Rate [Anterior Bilateral Throughout] Blood Pressure 155/80 155/80 155/80 O2 Sat by Pulse 100 100 100 Oximetry 06/13/16 06/13/16 06/13/16 00:00 00:10 00:20 Temperature 98.9 F Pulse Rate 85 90 91 H Pulse Rate [ Anterior Bilateral Throughout] Pulse Rate [ 93 H From Monitor] Respiratory 14 15 14 Rate Respiratory Rate [Anterior Bilateral Throughout] Blood Pressure 151/74 151/74 151/74 O2 Sat by Pulse 100 100 100 Oximetry 06/13/16 06/13/16 06/13/16 00:30 00:40 00:51 Temperature Pulse Rate 89 88 91 H Pulse Rate [ Anterior Bilateral Throughout] Pulse Rate [ From Monitor] Respiratory 12 13 13 Rate Respiratory Rate [Anterior Bilateral Throughout] Blood Pressure 155/78 155/78 155/78 O2 Sat by Pulse 100 100 100 Oximetry 06/13/16 06/13/16 06/13/16 01:00 01:10 01:20 Temperature Pulse Rate 88 89 84 Pulse Rate [ Anterior Bilateral Throughout] Pulse Rate [ From Monitor] Respiratory 13 15 11 L Rate Respiratory Rate [Anterior Bilateral Throughout] Blood Pressure 161/80 155/78 O2 Sat by Pulse 100 100 100 Oximetry 06/13/16 06/13/16 06/13/16 01:30 01:40 01:50 Temperature Pulse Rate 85 87 86 Pulse Rate [ Anterior Bilateral Throughout] Pulse Rate [ From Monitor] Respiratory 13 16 16 Rate Respiratory Rate [Anterior Bilateral Throughout] Blood Pressure 156/77 156/77 156/77 O2 Sat by Pulse 100 100 100 Oximetry 06/13/16 06/13/16 06/13/16 02:00 02:10 02:20 Temperature Pulse Rate 85 80 84 Pulse Rate [ 86 Anterior Bilateral Throughout] Pulse Rate [ From Monitor] Respiratory 13 15 13 Rate Respiratory 20 Rate [Anterior Bilateral Throughout] Blood Pressure 159/77 159/77 159/77 O2 Sat by Pulse 100 100 100 Oximetry 06/13/16 06/13/16 06/13/16 02:22 02:30 02:40 Temperature Pulse Rate 86 88 Pulse Rate [ Anterior Bilateral Throughout] Pulse Rate [ From Monitor] Respiratory 13 15 Rate Respiratory Rate [Anterior Bilateral Throughout] Blood Pressure 153/70 153/70 O2 Sat by Pulse 100 100 100 Oximetry 06/13/16 06/13/16 06/13/16 02:45 02:50 03:00 Temperature Pulse Rate 91 H 98 H Pulse Rate [ 89 Anterior Bilateral Throughout] Pulse Rate [ From Monitor] Respiratory 13 16 Rate Respiratory 16 Rate [Anterior Bilateral Throughout] Blood Pressure 153/70 147/72 O2 Sat by Pulse 100 100 Oximetry 06/13/16 06/13/16 06/13/16 03:10 03:20 03:30 Temperature Pulse Rate 93 H 92 H 87 Pulse Rate [ Anterior Bilateral Throughout] Pulse Rate [ From Monitor] Respiratory 13 12 13 Rate Respiratory Rate [Anterior Bilateral Throughout] Blood Pressure 147/72 147/72 136/62 O2 Sat by Pulse 100 100 100 Oximetry 06/13/16 06/13/16 06/13/16 03:31 03:40 03:50 Temperature Pulse Rate 92 H 96 H Pulse Rate [ Anterior Bilateral Throughout] Pulse Rate [ 89 From Monitor] Respiratory 12 15 Rate Respiratory Rate [Anterior Bilateral Throughout] Blood Pressure 136/62 136/62 O2 Sat by Pulse 98 100 100 Oximetry 06/13/16 06/13/16 06/13/16 04:00 04:10 04:20 Temperature 98.7 F Pulse Rate 82 90 90 Pulse Rate [ Anterior Bilateral Throughout] Pulse Rate [ From Monitor] Respiratory 12 13 15 Rate Respiratory Rate [Anterior Bilateral Throughout] Blood Pressure 144/66 144/66 144/66 O2 Sat by Pulse 100 100 100 Oximetry 06/13/16 06/13/16 06/13/16 04:30 04:40 04:50 Temperature Pulse Rate 84 97 H 92 H Pulse Rate [ Anterior Bilateral Throughout] Pulse Rate [ From Monitor] Respiratory 12 13 12 Rate Respiratory Rate [Anterior Bilateral Throughout] Blood Pressure 138/67 138/67 138/67 O2 Sat by Pulse 100 100 100 Oximetry 06/13/16 06/13/16 06/13/16 05:00 05:10 05:20 Temperature Pulse Rate 82 91 H 124 H Pulse Rate [ Anterior Bilateral Throughout] Pulse Rate [ From Monitor] Respiratory 13 15 15 Rate Respiratory Rate [Anterior Bilateral Throughout] Blood Pressure 140/59 140/59 140/59 O2 Sat by Pulse 100 100 100 Oximetry 06/13/16 06/13/16 06/13/16 05:30 05:40 05:50 Temperature Pulse Rate 94 H 84 90 Pulse Rate [ Anterior Bilateral Throughout] Pulse Rate [ From Monitor] Respiratory 28 H 14 13 Rate Respiratory Rate [Anterior Bilateral Throughout] Blood Pressure 133/78 133/78 133/78 O2 Sat by Pulse 100 100 100 Oximetry 06/13/16 06/13/16 06/13/16 06:00 06:10 06:20 Temperature Pulse Rate 91 H 85 92 H Pulse Rate [ Anterior Bilateral Throughout] Pulse Rate [ From Monitor] Respiratory 12 13 14 Rate Respiratory Rate [Anterior Bilateral Throughout] Blood Pressure 123/75 123/75 123/75 O2 Sat by Pulse 100 100 100 Oximetry 06/13/16 06/13/16 06/13/16 06:30 06:40 06:50 Temperature Pulse Rate 87 95 H 98 H Pulse Rate [ Anterior Bilateral Throughout] Pulse Rate [ From Monitor] Respiratory 14 13 12 Rate Respiratory Rate [Anterior Bilateral Throughout] Blood Pressure 145/70 145/70 145/70 O2 Sat by Pulse 100 100 100 Oximetry 06/13/16 06/13/16 06/13/16 07:00 07:10 07:20 Temperature Pulse Rate 85 94 H 93 H Pulse Rate [ Anterior Bilateral Throughout] Pulse Rate [ From Monitor] Respiratory 15 15 16 Rate Respiratory Rate [Anterior Bilateral Throughout] Blood Pressure 148/66 148/66 148/66 O2 Sat by Pulse 100 100 100 Oximetry 06/13/16 06/13/16 06/13/16 07:30 07:40 07:48 Temperature 98.9 F Pulse Rate 93 H 90 Pulse Rate [ Anterior Bilateral Throughout] Pulse Rate [ From Monitor] Respiratory 12 18 Rate Respiratory Rate [Anterior Bilateral Throughout] Blood Pressure 145/66 145/66 O2 Sat by Pulse 100 100 Oximetry 06/13/16 06/13/16 06/13/16 07:50 08:00 08:10 Temperature Pulse Rate 89 90 100 H Pulse Rate [ Anterior Bilateral Throughout] Pulse Rate [ From Monitor] Respiratory 14 13 18 Rate Respiratory Rate [Anterior Bilateral Throughout] Blood Pressure 145/66 136/70 136/70 O2 Sat by Pulse 100 100 100 Oximetry 06/13/16 06/13/16 06/13/16 08:20 08:30 08:40 Temperature Pulse Rate 98 H 95 H 96 H Pulse Rate [ Anterior Bilateral Throughout] Pulse Rate [ From Monitor] Respiratory 21 17 13 Rate Respiratory Rate [Anterior Bilateral Throughout] Blood Pressure 136/70 125/93 125/93 O2 Sat by Pulse 100 100 100 Oximetry 06/13/16 06/13/16 06/13/16 08:50 09:00 09:10 Temperature Pulse Rate 88 94 H 99 H Pulse Rate [ Anterior Bilateral Throughout] Pulse Rate [ From Monitor] Respiratory 15 14 17 Rate Respiratory Rate [Anterior Bilateral Throughout] Blood Pressure 125/93 135/57 135/57 O2 Sat by Pulse 100 100 100 Oximetry 06/13/16 06/13/16 06/13/16 09:20 09:30 09:40 Temperature Pulse Rate 95 H 94 H 91 H Pulse Rate [ Anterior Bilateral Throughout] Pulse Rate [ From Monitor] Respiratory 17 16 16 Rate Respiratory Rate [Anterior Bilateral Throughout] Blood Pressure 135/57 135/57 135/57 O2 Sat by Pulse 100 100 100 Oximetry 06/13/16 09:50 Temperature Pulse Rate 96 H Pulse Rate [ Anterior Bilateral Throughout] Pulse Rate [ From Monitor] Respiratory 17 Rate Respiratory Rate [Anterior Bilateral Throughout] Blood Pressure 135/57 O2 Sat by Pulse 100 Oximetry Constitutional: no acute distress, alert Eyes: non-icteric ENT: oropharynx moist Neck: supple, no lymphadenopathy Effort: normal Ascultation: Bilateral: diminished breath sounds, rales (scant in bases) Cardiovascular: regular rate and rhythm Gastrointestinal: normoactive bowel sounds, soft, non-tender, non-distended Integumentary: normal Extremities: no cyanosis, no edema, pulses normal, no ischemia or petechiae Neurologic: normal mental status, non-focal exam, pupils equal and round, motor strength normal and Psychiatric: mood appropriate, affect normal CBC and BMP: 06/12/16 05:19 06/12/16 05:19 ABG, PT/INR, D-dimer: ABG POC ABG pH 7.432 (7.35-7.45) 06/12/16 10:53 POC ABG pCO2 39.0 (35-45) 06/12/16 10:53 POC ABG pO2 113 (80-105) H 06/12/16 10:53 POC ABG HCO3 26.0 06/12/16 10:53 POC ABG Total CO2 27 06/12/16 10:53 POC ABG O2 Sat 99 06/12/16 10:53 PT/INR, D-dimer PT 12.8 Sec. (12.2-14.9) 06/09/16 21:15 INR 0.97 (0.87-1.13) 06/09/16 21:15 Abnormal lab findings: Abnormal Labs 06/09/16 06/10/16 06/10/16 23:02 03:18 03:18 WBC Hgb MCH 26 L RDW 18.2 H Lymph % (Auto) 8.8 L Lymph # 0.6 L Seg Neutrophils % 86.6 H Seg Neuts % (Manual) Lymphocytes % (Manual) Seg Neutrophils # Man Lymphocytes # (Manual) POC ABG pH POC ABG pCO2 POC ABG pO2 Potassium Chloride 109.3 H Carbon Dioxide 17 L BUN 35 H Creatinine Glucose 245 H POC Glucose Lactic Acid Calcium Total Creatine Kinase 492 H CK-MB (CK-2) 20.4 H CK-MB (CK-2) Rel Index 4.1 H 06/10/16 06/10/16 06/10/16 03:18 04:03 15:36 WBC Hgb MCH RDW Lymph % (Auto) Lymph # Seg Neutrophils % Seg Neuts % (Manual) Lymphocytes % (Manual) Seg Neutrophils # Man Lymphocytes # (Manual) POC ABG pH POC ABG pCO2 POC ABG pO2 59 L Potassium Chloride Carbon Dioxide BUN Creatinine Glucose POC Glucose 301 H Lactic Acid Calcium Total Creatine Kinase 374 H CK-MB (CK-2) 18.8 H CK-MB (CK-2) Rel Index 5.0 H 06/10/16 06/10/16 06/10/16 16:02 20:24 22:20 WBC Hgb MCH RDW Lymph % (Auto) Lymph # Seg Neutrophils % Seg Neuts % (Manual) Lymphocytes % (Manual) Seg Neutrophils # Man Lymphocytes # (Manual) POC ABG pH POC ABG pCO2 POC ABG pO2 165 H Potassium Chloride Carbon Dioxide BUN Creatinine Glucose POC Glucose 128 H Lactic Acid 2.6 H* Calcium Total Creatine Kinase CK-MB (CK-2) CK-MB (CK-2) Rel Index 06/11/16 06/11/16 06/11/16 04:21 04:45 04:45 WBC 11.4 H Hgb 9.6 L MCH 26 L RDW 18.6 H Lymph % (Auto) Lymph # Seg Neutrophils % Seg Neuts % (Manual) 88.0 H Lymphocytes % (Manual) 7.0 L Seg Neutrophils # Man 10.0 H Lymphocytes # (Manual) 0.8 L POC ABG pH POC ABG pCO2 45.4 H POC ABG pO2 Potassium 6.2 H* D Chloride 108.9 H Carbon Dioxide 20 L BUN 20 H Creatinine 0.6 L Glucose 268 H POC Glucose Lactic Acid Calcium Total Creatine Kinase CK-MB (CK-2) CK-MB (CK-2) Rel Index 06/11/16 06/11/16 06/11/16 08:20 11:44 12:39 WBC Hgb MCH RDW Lymph % (Auto) Lymph # Seg Neutrophils % Seg Neuts % (Manual) Lymphocytes % (Manual) Seg Neutrophils # Man Lymphocytes # (Manual) POC ABG pH POC ABG pCO2 POC ABG pO2 Potassium 7.1 H* Chloride Carbon Dioxide 19 L BUN 21 H Creatinine Glucose 259 H POC Glucose 303 H 311 H Lactic Acid Calcium Total Creatine Kinase CK-MB (CK-2) CK-MB (CK-2) Rel Index 06/11/16 06/11/16 06/11/16 13:48 16:24 18:34 WBC Hgb MCH RDW Lymph % (Auto) Lymph # Seg Neutrophils % Seg Neuts % (Manual) Lymphocytes % (Manual) Seg Neutrophils # Man Lymphocytes # (Manual) POC ABG pH 7.483 H POC ABG pCO2 31.6 L POC ABG pO2 124 H Potassium 5.4 H D Chloride Carbon Dioxide BUN 22 H Creatinine Glucose 160 H POC Glucose 169 H Lactic Acid Calcium 10.3 H Total Creatine Kinase CK-MB (CK-2) CK-MB (CK-2) Rel Index 06/11/16 06/12/16 06/12/16 21:35 05:19 05:19 WBC 11.3 H Hgb MCH 26 L RDW 18.5 H Lymph % (Auto) Lymph # Seg Neutrophils % Seg Neuts % (Manual) 86.0 H Lymphocytes % (Manual) 6.0 L Seg Neutrophils # Man 9.7 H Lymphocytes # (Manual) 0.7 L POC ABG pH POC ABG pCO2 POC ABG pO2 Potassium Chloride Carbon Dioxide 21 L BUN 26 H Creatinine Glucose 325 H POC Glucose 244 H Lactic Acid Calcium Total Creatine Kinase CK-MB (CK-2) CK-MB (CK-2) Rel Index 06/12/16 06/12/16 06/12/16 06:46 08:22 10:53 WBC Hgb MCH RDW Lymph % (Auto) Lymph # Seg Neutrophils % Seg Neuts % (Manual) Lymphocytes % (Manual) Seg Neutrophils # Man Lymphocytes # (Manual) POC ABG pH POC ABG pCO2 POC ABG pO2 113 H Potassium Chloride Carbon Dioxide BUN Creatinine Glucose POC Glucose 407 H 327 H Lactic Acid Calcium Total Creatine Kinase CK-MB (CK-2) CK-MB (CK-2) Rel Index 0306/12/16 06/12/16 10:58 16:48 21:34 WBC Hgb MCH RDW Lymph % (Auto) Lymph # Seg Neutrophils % Seg Neuts % (Manual) Lymphocytes % (Manual) Seg Neutrophils # Man Lymphocytes # (Manual) POC ABG pH POC ABG pCO2 POC ABG pO2 Potassium Chloride Carbon Dioxide BUN Creatinine Glucose POC Glucose 276 H 156 H 184 H Lactic Acid Calcium Total Creatine Kinase CK-MB (CK-2) CK-MB (CK-2) Rel Index 06/13/16 07:39 WBC Hgb MCH RDW Lymph % (Auto) Lymph # Seg Neutrophils % Seg Neuts % (Manual) Lymphocytes % (Manual) Seg Neutrophils # Man Lymphocytes # (Manual) POC ABG pH POC ABG pCO2 POC ABG pO2 Potassium Chloride Carbon Dioxide BUN Creatinine Glucose POC Glucose 289 H Lactic Acid Calcium Total Creatine Kinase CK-MB (CK-2) CK-MB (CK-2) Rel Index
[2016-06-13 10:49] LABS: Anion Gap 19 mmol/L; BUN/Creatinine Ratio 46.25; Blood Urea Nitrogen 37 mg/dL (7-17); Carbon Dioxide 20 mmol/L (22-30); Chloride 102.4 mmol/L (98-107); Glucose 310 mg/dL (65-100); Potassium 5.5 mmol/L (3.6-5.0); Sodium 136 mmol/L (137-145)
[2016-06-13] MEDS: PEPCID PO SCH ×2 (10:58→21:48)
[2016-06-13] MEDS ORDERED: LEVEMIR SUB-Q ONE (14:00)
--- NOTE | 2016-06-13 17:44 | Progress Note ---
Assessment and Plan Assessment and plan: 66-year-old woman with a history of hypertension, diabetes well known to our facility unfortunately due to recurrent admissions, substance abuse, noncompliance was brought to the emergency room per the emergency room physician patient was found unresponsive. Patient was intubated in the emergency room, her CAT scan of the head is been negative, urine toxicology is positive for cocaine and benzodiazepine. She has subsequently been extubated and is doing well but unfortunately is unable to tell me why she is in the hospital. 1. Acute hypoxemic respiratory failure. Question secondary to cocaine abuse. Liberate from the vent successfully. Transferred to the medical floor as patient is stable. Pulmonary following. 2. Sepsis. Continue the sepsis pathway. Cultures repeated today negative Follow-up blood cultures and trend lactic acid levels. 3. Acute bronchitis. Continue on IV antibodies. 4. Acute asthma exacerbation. Continue bronchodilators, IV steroids and breathing treatments. 5. Hypertensive urgency. Stabilized Resume on home medication. 6. Toxic metabolic encephalopathy. Present on admission. Continue current management. 7. Hyperkalemia. Resolving. Continue to monitor BMP. 8. Metabolic acidosis-resolved 9. Diabetes mellitus-continue insulin therapy. We'll adjust to prevent hypoglycemia 10. Bilateral pneumonia possible aspiration pneumonia-continue antibiotics. Monitor fever. Monitor blood cultures. I have discussed with case management this patient's is unfortunately noncompliance, does not follow primary care, does not take medications as prescribed. Therefore continues to revolve through a hospital. History Interval history: Patient seen and examined this morning in no acute distress. Reports that she has not been able to see her primary care physician. She is unable to tell me why. Denies any chest pain, nausea, vomiting, diarrhea No fever noted blood pressure controlled No adverse events reported to me by nursing staff Hospitalist Physical - Physical exam Narrative exam: VITAL SIGNS: Reviewed. GENERAL: The patient appeared well nourished and normally developed. Vital signs as documented. HEAD: No signs of head trauma. EYES: Pupils are equal. Extraocular motions intact. EARS: Hearing grossly intact. MOUTH: Oropharynx is normal. NECK: No adenopathy, no JVD. CHEST: Chest with clear breath sounds bilaterally. No wheezes, rales, or rhonchi. CARDIAC: Regular rate and rhythm. S1 and S2, without murmurs, gallops, or rubs. VASCULAR: No Edema. Peripheral pulses normal and equal in all extremities. ABDOMEN: Soft, without detectable tenderness. No sign of distention. No rebound or guarding, and no masses palpated. Bowel Sounds normal. MUSCULOSKELETAL: Good range of motion of all major joints. Extremities without clubbing, cyanosis or edema. NEUROLOGIC EXAM: Alert and oriented x 3. No focal sensory or strength deficits. Speech normal. Follows commands. PSYCHIATRIC: Mood normal. SKIN: No rash or lesions. - Constitutional Vitals: Temp Pulse Resp BP Pulse Ox 98.9 F 103 H 22 153/71 100 06/13/16 16:00 06/13/16 17:30 06/13/16 17:30 06/13/16 17:30 06/13/16 17:30 General appearance: Present: no acute distress, well-nourished Results - Labs CBC & Chem 7: 06/12/16 05:19 06/13/16 10:10 Labs: Laboratory Last Values WBC 11.3 K/mm3 (4.5-11.0) H 06/12/16 05:19 RBC 3.94 M/mm3 (3.65-5.03) 06/12/16 05:19 Hgb 10.1 gm/dl (10.1-14.3) 06/12/16 05:19 Hct 32.2 % (30.3-42.9) 06/12/16 05:19 MCV 82 fl (79-97) 06/12/16 05:19 MCH 26 pg (28-32) L 06/12/16 05:19 MCHC 31 % (30-34) 06/12/16 05:19 RDW 18.5 % (13.2-15.2) H 06/12/16 05:19 Plt Count 184 K/mm3 (140-440) 06/12/16 05:19 Lymph % (Auto) 8.8 % (13.4-35.0) L 06/10/16 03:18 [place] % (Auto) 3.9 % (0.0-7.3) 06/10/16 03:18 Eos % (Auto) 0.3 % (0.0-4.3) 06/10/16 03:18 Baso % (Auto) 0.4 % (0.0-1.8) 06/10/16 03:18 Lymph # 0.6 K/mm3 (1.2-5.4) L 06/10/16 03:18 [place] # 0.3 K/mm3 (0.0-0.8) 06/10/16 03:18 Eos # 0.0 K/mm3 (0.0-0.4) 06/10/16 03:18 Baso # 0.0 K/mm3 (0.0-0.1) 06/10/16 03:18 Add Manual Diff Complete 06/12/16 05:19 Total Counted 100 06/12/16 05:19 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 06/12/16 05:19 Seg Neuts % (Manual) 86.0 % (40.0-70.0) H 06/12/16 05:19 Band Neutrophils % 5.0 % 06/12/16 05:19 Lymphocytes % (Manual) 6.0 % (13.4-35.0) L 06/12/16 05:19 Reactive Lymphs % (Man) 0 % 06/12/16 05:19 Monocytes % (Manual) 3.0 % (0.0-7.3) 06/12/16 05:19 Eosinophils % (Manual) 0 % (0.0-4.3) 06/12/16 05:19 Basophils % (Manual) 0 % (0.0-1.8) 06/12/16 05:19 Metamyelocytes % 0 % 06/12/16 05:19 Myelocytes % 0 % 06/12/16 05:19 Promyelocytes % 0 % 06/12/16 05:19 Blast Cells % 0 % 06/12/16 05:19 Nucleated RBC % Not Reportable 06/12/16 05:19 Seg Neutrophils # 5.7 K/mm3 (1.8-7.7) 06/10/16 03:18 Seg Neutrophils # Man 9.7 K/mm3 (1.8-7.7) H 06/12/16 05:19 Band Neutrophils # 0.6 K/mm3 06/12/16 05:19 Lymphocytes # (Manual) 0.7 K/mm3 (1.2-5.4) L 06/12/16 05:19 Abs React Lymphs (Man) 0.0 K/mm3 06/12/16 05:19 Monocytes # (Manual) 0.3 K/mm3 (0.0-0.8) 06/12/16 05:19 Eosinophils # (Manual) 0.0 K/mm3 (0.0-0.4) 06/12/16 05:19 Basophils # (Manual) 0.0 K/mm3 (0.0-0.1) 06/12/16 05:19 Metamyelocytes # 0.0 K/mm3 06/12/16 05:19 Myelocytes # 0.0 K/mm3 06/12/16 05:19 Promyelocytes # 0.0 K/mm3 06/12/16 05:19 Blast Cells # 0.0 K/mm3 06/12/16 05:19 WBC Morphology Not Reportable 06/12/16 05:19 Hypersegmented Neuts Not Reportable 06/12/16 05:19 Hyposegmented Neuts Not Reportable 06/12/16 05:19 Hypogranular Neuts Not Reportable 06/12/16 05:19 Smudge Cells Not Reportable 06/12/16 05:19 Toxic Granulation Not Reportable 06/12/16 05:19 Toxic Vacuolation Not Reportable 06/12/16 05:19 Dohle Bodies Not Reportable 06/12/16 05:19 Pelger-Huet Anomaly Not Reportable 06/12/16 05:19 Jordan Rods Not Reportable 06/12/16 05:19 Platelet Estimate Consistent w auto 06/12/16 05:19 Clumped Platelets Not Reportable 06/12/16 05:19 Plt Clumps, EDTA Not Reportable 06/12/16 05:19 Large Platelets Not Reportable 06/12/16 05:19 Giant Platelets Not Reportable 06/12/16 05:19 Platelet Satelliting Not Reportable 06/12/16 05:19 Plt Morphology Comment Not Reportable 06/12/16 05:19 RBC Morphology Not Reportable 06/12/16 05:19 Dimorphic RBCs Not Reportable 06/12/16 05:19 Polychromasia Not Reportable 06/12/16 05:19 Hypochromasia Not Reportable 06/12/16 05:19 Poikilocytosis Not Reportable 06/12/16 05:19 Anisocytosis 1+ 06/12/16 05:19 Microcytosis Not Reportable 06/12/16 05:19 Macrocytosis Not Reportable 06/12/16 05:19 Spherocytes Not Reportable 06/12/16 05:19 Pappenheimer Bodies Not Reportable 06/12/16 05:19 Sickle Cells Not Reportable 06/12/16 05:19 Target Cells Not Reportable 06/12/16 05:19 Tear Drop Cells Not Reportable 06/12/16 05:19 Ovalocytes Not Reportable 06/12/16 05:19 Helmet Cells Not Reportable 06/12/16 05:19 [place] Bodies Not Reportable 06/12/16 05:19 [place] Rings Not Reportable 06/12/16 05:19 Xavier Cells Not Reportable 06/12/16 05:19 Bite Cells Not Reportable 06/12/16 05:19 Crenated Cell Not Reportable 06/12/16 05:19 Elliptocytes Not Reportable 06/12/16 05:19 Acanthocytes (Spur) Not Reportable 06/12/16 05:19 Rouleaux Not Reportable 06/12/16 05:19 Hemoglobin C Crystals Not Reportable 06/12/16 05:19 Schistocytes Not Reportable 06/12/16 05:19 Malaria parasites Not Reportable 06/12/16 05:19 Varun Bodies Not Reportable 06/12/16 05:19 Hem Pathologist Commnt No 06/12/16 05:19 PT 12.8 Sec. (12.2-14.9) 06/09/16 21:15 INR 0.97 (0.87-1.13) 06/09/16 21:15 APTT 31.7 Sec. (24.2-36.6) 06/09/16 21:15 POC ABG pH 7.432 (7.35-7.45) 06/12/16 10:53 POC ABG pCO2 39.0 (35-45) 06/12/16 10:53 POC ABG pO2 113 (80-105) H 06/12/16 10:53 POC ABG HCO3 26.0 06/12/16 10:53 POC ABG Total CO2 27 06/12/16 10:53 POC ABG O2 Sat 99 06/12/16 10:53 POC ABG Base Excess 2 06/12/16 10:53 FiO2 25 % 06/12/16 10:53 Sodium 136 mmol/L (137-145) L 06/13/16 10:10 Potassium 5.5 mmol/L (3.6-5.0) H 06/13/16 10:10 Chloride 102.4 mmol/L (98-107) 06/13/16 10:10 Carbon Dioxide 20 mmol/L (22-30) L 06/13/16 10:10 Anion Gap 19 mmol/L 06/13/16 10:10 BUN 37 mg/dL (7-17) H 06/13/16 10:10 Creatinine 0.8 mg/dL (0.7-1.2) 06/13/16 10:10 Estimated GFR > 60 ml/min 06/13/16 10:10 BUN/Creatinine Ratio 46.25 % 06/13/16 10:10 Glucose 310 mg/dL (65-100) H 06/13/16 10:10 POC Glucose 99 (70-105) 06/13/16 15:44 Lactic Acid 1.2 mmol/L (0.7-2.0) 06/11/16 08:24 Calcium 9.0 mg/dL (8.4-10.2) 06/13/16 10:10 Total Bilirubin 0.3 mg/dL (0.1-1.2) 06/09/16 21:16 AST 105 units/L (5-40) H 06/09/16 21:16 ALT 63 units/L (7-56) H 06/09/16 21:16 Alkaline Phosphatase 114 units/L (35-129) 06/09/16 21:16 Ammonia 13.0 umol/L (25-60) L 06/09/16 21:17 Total Creatine Kinase 374 units/L (30-135) H 06/10/16 03:18 CK-MB (CK-2) 18.8 ng/mL (0.0-4.0) H 06/10/16 03:18 CK-MB (CK-2) Rel Index 5.0 (0-4) H 06/10/16 03:18 Troponin T 0.015 ng/mL (0.00-0.029) 06/10/16 03:18 C-Reactive Protein 0.90 mg/dL (0.00-1.30) 06/10/16 13:10 Total Protein 7.1 g/dL (6.3-8.2) 06/09/16 21:16 Albumin 2.8 g/dL (3.9-5) L 06/09/16 21:16 Albumin/Globulin Ratio 0.7 % 06/09/16 21:16 TSH 0.817 mlU/mL (0.270-4.200) 06/09/16 21:16 Urine Color Yellow (Yellow) 06/09/16 21:07 Urine Turbidity Slightly-cloudy (Clear) 06/09/16 21:07 Urine pH 5.0 (5.0-7.0) 06/09/16 21:07 Ur Specific Force 1.009 (1.003-1.030) 06/09/16 21:07 Urine Protein <15 mg/dl mg/dL (Negative) 06/09/16 21:07 Urine Glucose (UA) Neg mg/dL (Negative) 06/09/16 21:07 Urine Ketones Neg mg/dL (Negative) 06/09/16 21:07 Urine Blood Neg (Negative) 06/09/16 21:07 Urine Nitrite Neg (Negative) 06/09/16 21:07 Urine Bilirubin Neg (Negative) 06/09/16 21:07 Urine Urobilinogen < 2.0 mg/dL (<2.0) 06/09/16 21:07 Ur Leukocyte Esterase Sm (Negative) 06/09/16 21:07 Urine WBC (Auto) 2.0 /HPF (0.0-6.0) 06/09/16 21:07 Urine RBC (Auto) 1.0 /HPF (0.0-6.0) 06/09/16 21:07 Urine Mucus Few /HPF 06/09/16 21:07 Salicylates < 0.3 mg/dL (2.8-20.0) L 06/09/16 21:18 Urine Opiates Screen Presumptive negative 06/09/16 21:07 Urine Methadone Screen Presumptive negative 06/09/16 21:07 Acetaminophen < 15.0 ug/mL (10.0-30.0) 06/09/16 21:17 Ur Barbiturates Screen Presumptive negative 06/09/16 21:07 Ur Phencyclidine Scrn Presumptive negative 06/09/16 21:07 Ur Amphetamines Screen Presumptive negative 06/09/16 21:07 U Benzodiazepines Scrn Presumptive positive 06/09/16 21:07 Urine Cocaine Screen Presumptive positive 06/09/16 21:07 U Marijuana (THC) Screen Presumptive negative 06/09/16 21:07 Drugs of Abuse Note Disclamer 06/09/16 21:07 Plasma/Serum Alcohol < 0.01 gm% (0-0.07) 06/09/16 21:15 Blood Type O POSITIVE 06/09/16 21:18 Antibody Screen Negative 06/09/16 21:18
[2016-06-13] MEDS ORDERED: KIONEX PO ONE ×2 (18:22→22:00)
[2016-06-13] MEDS: TYLENOL PO PRN (21:47)
[2016-06-14] MEDS: TYLENOL PO PRN ×2 (01:50→08:15)
[2016-06-14] MEDS: DUONEB 0.5 MG-3 MG/3 ML SOLN IH SCH ×3 (01:57→13:04)
[2016-06-14 07:25] VITALS: BP 174/83
--- NOTE | 2016-06-14 07:30 | Progress Note ---
Assessment and Plan Assessment and plan: 66-year-old woman with a history of hypertension, diabetes well known to our facility unfortunately due to recurrent admissions, substance abuse, noncompliance was brought to the emergency room per the emergency room physician patient was found unresponsive. Patient was intubated in the emergency room, her CAT scan of the head is been negative, urine toxicology is positive for cocaine and benzodiazepine. She has subsequently been extubated and is doing well but unfortunately is unable to tell me why she is in the hospital. 1. Acute hypoxemic respiratory failure. Question secondary to cocaine abuse. s /p extubation. add albuterol. taper steroids. continue duonebs. 2. Sepsis. Continue the sepsis pathway. Cultures repeated today negative Follow-up blood cultures and lactate normalized. 3. Acute bronchitis. Continue on IV antibodies. 4. Acute asthma exacerbation. Continue bronchodilators, IV steroids and breathing treatments. 5. Hypertensive urgency. Stabilized Resume on home medication. 6. Toxic metabolic encephalopathy. Present on admission. Continue current management. 7. Hyperkalemia. Resolving. Continue to monitor BMP. 8. Metabolic acidosis-resolved 9. Diabetes mellitus-continue insulin therapy. elevated due to steroids. adjust lantus to 24 units. reduce sliding scale to moderate 10. Bilateral pneumonia possible aspiration pneumonia-continue antibiotics. Monitor fever. Monitor blood cultures. I have discussed with case management this patient's is unfortunately noncompliance, does not follow primary care, does not take medications as prescribed. Therefore continues to revolve through a hospital. History Interval history: Patient seen and examined this morning in no acute distress. some shortness of breath with exertion. Denies any chest pain, nausea, vomiting, diarrhea No fever noted blood pressure controlled No adverse events reported to me by nursing staff Hospitalist Physical - Constitutional Vitals: Temp Pulse Resp BP Pulse Ox 99.8 F H 97 H 14 174/83 95 06/14/16 07:24 06/14/16 07:24 06/14/16 07:24 06/14/16 07:24 06/14/16 07:27 General appearance: Present: no acute distress, well-nourished Results - Labs CBC & Chem 7: 06/12/16 05:19 06/13/16 10:10 Labs: Laboratory Last Values WBC 11.3 K/mm3 (4.5-11.0) H 06/12/16 05:19 RBC 3.94 M/mm3 (3.65-5.03) 06/12/16 05:19 Hgb 10.1 gm/dl (10.1-14.3) 06/12/16 05:19 Hct 32.2 % (30.3-42.9) 06/12/16 05:19 MCV 82 fl (79-97) 06/12/16 05:19 MCH 26 pg (28-32) L 06/12/16 05:19 MCHC 31 % (30-34) 06/12/16 05:19 RDW 18.5 % (13.2-15.2) H 06/12/16 05:19 Plt Count 184 K/mm3 (140-440) 06/12/16 05:19 Lymph % (Auto) 8.8 % (13.4-35.0) L 06/10/16 03:18 [place] % (Auto) 3.9 % (0.0-7.3) 06/10/16 03:18 Eos % (Auto) 0.3 % (0.0-4.3) 06/10/16 03:18 Baso % (Auto) 0.4 % (0.0-1.8) 06/10/16 03:18 Lymph # 0.6 K/mm3 (1.2-5.4) L 06/10/16 03:18 [place] # 0.3 K/mm3 (0.0-0.8) 06/10/16 03:18 Eos # 0.0 K/mm3 (0.0-0.4) 06/10/16 03:18 Baso # 0.0 K/mm3 (0.0-0.1) 06/10/16 03:18 Add Manual Diff Complete 06/12/16 05:19 Total Counted 100 06/12/16 05:19 Seg Neutrophils % Noc Technician 06/12/16 05:19 Seg Neuts % (Manual) 86.0 % (40.0-70.0) H 06/12/16 05:19 Band Neutrophils % 5.0 % 06/12/16 05:19 Lymphocytes % (Manual) 6.0 % (13.4-35.0) L 06/12/16 05:19 Reactive Lymphs % (Man) 0 % 06/12/16 05:19 Monocytes % (Manual) 3.0 % (0.0-7.3) 06/12/16 05:19 Eosinophils % (Manual) 0 % (0.0-4.3) 06/12/16 05:19 Basophils % (Manual) 0 % (0.0-1.8) 06/12/16 05:19 Metamyelocytes % 0 % 06/12/16 05:19 Myelocytes % 0 % 06/12/16 05:19 Promyelocytes % 0 % 06/12/16 05:19 Blast Cells % 0 % 06/12/16 05:19 Nucleated RBC % Not Reportable 06/12/16 05:19 Seg Neutrophils # 5.7 K/mm3 (1.8-7.7) 06/10/16 03:18 Seg Neutrophils # Man 9.7 K/mm3 (1.8-7.7) H 06/12/16 05:19 Band Neutrophils # 0.6 K/mm3 06/12/16 05:19 Lymphocytes # (Manual) 0.7 K/mm3 (1.2-5.4) L 06/12/16 05:19 Abs React Lymphs (Man) 0.0 K/mm3 06/12/16 05:19 Monocytes # (Manual) 0.3 K/mm3 (0.0-0.8) 06/12/16 05:19 Eosinophils # (Manual) 0.0 K/mm3 (0.0-0.4) 06/12/16 05:19 Basophils # (Manual) 0.0 K/mm3 (0.0-0.1) 06/12/16 05:19 Metamyelocytes # 0.0 K/mm3 06/12/16 05:19 Myelocytes # 0.0 K/mm3 06/12/16 05:19 Promyelocytes # 0.0 K/mm3 06/12/16 05:19 Blast Cells # 0.0 K/mm3 06/12/16 05:19 WBC Morphology Not Reportable 06/12/16 05:19 Hypersegmented Neuts Not Reportable 06/12/16 05:19 Hyposegmented Neuts Not Reportable 06/12/16 05:19 Hypogranular Neuts Not Reportable 06/12/16 05:19 Smudge Cells Not Reportable 06/12/16 05:19 Toxic Granulation Not Reportable 06/12/16 05:19 Toxic Vacuolation Not Reportable 06/12/16 05:19 Dohle Bodies Not Reportable 06/12/16 05:19 Pelger-Huet Anomaly Not Reportable 06/12/16 05:19 Jordan Rods Not Reportable 06/12/16 05:19 Platelet Estimate Consistent w auto 06/12/16 05:19 Clumped Platelets Not Reportable 06/12/16 05:19 Plt Clumps, EDTA Not Reportable 06/12/16 05:19 Large Platelets Not Reportable 06/12/16 05:19 Giant Platelets Not Reportable 06/12/16 05:19 Platelet Satelliting Not Reportable 06/12/16 05:19 Plt Morphology Comment Not Reportable 06/12/16 05:19 RBC Morphology Not Reportable 06/12/16 05:19 Dimorphic RBCs Not Reportable 06/12/16 05:19 Polychromasia Not Reportable 06/12/16 05:19 Hypochromasia Not Reportable 06/12/16 05:19 Poikilocytosis Not Reportable 06/12/16 05:19 Anisocytosis 1+ 06/12/16 05:19 Microcytosis Not Reportable 06/12/16 05:19 Macrocytosis Not Reportable 06/12/16 05:19 Spherocytes Not Reportable 06/12/16 05:19 Pappenheimer Bodies Not Reportable 06/12/16 05:19 Sickle Cells Not Reportable 06/12/16 05:19 Target Cells Not Reportable 06/12/16 05:19 Tear Drop Cells Not Reportable 06/12/16 05:19 Ovalocytes Not Reportable 06/12/16 05:19 Helmet Cells Not Reportable 06/12/16 05:19 Saucedo-[place] Bodies Not Reportable 06/12/16 05:19 [place] Rings Not Reportable 06/12/16 05:19 Xavier Cells Not Reportable 06/12/16 05:19 Bite Cells Not Reportable 06/12/16 05:19 Crenated Cell Not Reportable 06/12/16 05:19 Elliptocytes Not Reportable 06/12/16 05:19 Acanthocytes (Spur) Not Reportable 06/12/16 05:19 Rouleaux Not Reportable 06/12/16 05:19 Hemoglobin C Crystals Not Reportable 06/12/16 05:19 Schistocytes Not Reportable 06/12/16 05:19 Malaria parasites Not Reportable 06/12/16 05:19 Varun Bodies Not Reportable 06/12/16 05:19 Hem Pathologist Commnt No 06/12/16 05:19 PT 12.8 Sec. (12.2-14.9) 06/09/16 21:15 INR 0.97 (0.87-1.13) 06/09/16 21:15 APTT 31.7 Sec. (24.2-36.6) 06/09/16 21:15 POC ABG pH 7.432 (7.35-7.45) 06/12/16 10:53 POC ABG pCO2 39.0 (35-45) 06/12/16 10:53 POC ABG pO2 113 (80-105) H 06/12/16 10:53 POC ABG HCO3 26.0 06/12/16 10:53 POC ABG Total CO2 27 06/12/16 10:53 POC ABG O2 Sat 99 06/12/16 10:53 POC ABG Base Excess 2 06/12/16 10:53 FiO2 25 % 06/12/16 10:53 Sodium 136 mmol/L (137-145) L 06/13/16 10:10 Potassium 5.5 mmol/L (3.6-5.0) H 06/13/16 10:10 Chloride 102.4 mmol/L (98-107) 06/13/16 10:10 Carbon Dioxide 20 mmol/L (22-30) L 06/13/16 10:10 Anion Gap 19 mmol/L 06/13/16 10:10 BUN 37 mg/dL (7-17) H 06/13/16 10:10 Creatinine 0.8 mg/dL (0.7-1.2) 06/13/16 10:10 Estimated GFR > 60 ml/min 06/13/16 10:10 BUN/Creatinine Ratio 46.25 % 06/13/16 10:10 Glucose 310 mg/dL (65-100) H 06/13/16 10:10 POC Glucose 304 (70-105) H 06/14/16 05:35 Lactic Acid 1.2 mmol/L (0.7-2.0) 06/11/16 08:24 Calcium 9.0 mg/dL (8.4-10.2) 06/13/16 10:10 Total Bilirubin 0.3 mg/dL (0.1-1.2) 06/09/16 21:16 AST 105 units/L (5-40) H 06/09/16 21:16 ALT 63 units/L (7-56) H 06/09/16 21:16 Alkaline Phosphatase 114 units/L (35-129) 06/09/16 21:16 Ammonia 13.0 umol/L (25-60) L 06/09/16 21:17 Total Creatine Kinase 374 units/L (30-135) H 06/10/16 03:18 CK-MB (CK-2) 18.8 ng/mL (0.0-4.0) H 06/10/16 03:18 CK-MB (CK-2) Rel Index 5.0 (0-4) H 06/10/16 03:18 Troponin T 0.015 ng/mL (0.00-0.029) 06/10/16 03:18 C-Reactive Protein 0.90 mg/dL (0.00-1.30) 06/10/16 13:10 Total Protein 7.1 g/dL (6.3-8.2) 06/09/16 21:16 Albumin 2.8 g/dL (3.9-5) L 06/09/16 21:16 Albumin/Globulin Ratio 0.7 % 06/09/16 21:16 TSH 0.817 mlU/mL (0.270-4.200) 06/09/16 21:16 Urine Color Yellow (Yellow) 06/09/16 21:07 Urine Turbidity Slightly-cloudy (Clear) 06/09/16 21:07 Urine pH 5.0 (5.0-7.0) 06/09/16 21:07 Ur Specific [place] 1.009 (1.003-1.030) 06/09/16 21:07 Urine Protein <15 mg/dl mg/dL (Negative) 06/09/16 21:07 Urine Glucose (UA) Neg mg/dL (Negative) 06/09/16 21:07 Urine Ketones Neg mg/dL (Negative) 06/09/16 21:07 Urine Blood Neg (Negative) 06/09/16 21:07 Urine Nitrite Neg (Negative) 06/09/16 21:07 Urine Bilirubin Neg (Negative) 06/09/16 21:07 Urine Urobilinogen < 2.0 mg/dL (<2.0) 06/09/16 21:07 Ur Leukocyte Esterase Sm (Negative) 06/09/16 21:07 Urine WBC (Auto) 2.0 /HPF (0.0-6.0) 06/09/16 21:07 Urine RBC (Auto) 1.0 /HPF (0.0-6.0) 06/09/16 21:07 Urine Mucus Few /HPF 06/09/16 21:07 Salicylates < 0.3 mg/dL (2.8-20.0) L 06/09/16 21:18 Urine Opiates Screen Presumptive negative 06/09/16 21:07 Urine Methadone Screen Presumptive negative 06/09/16 21:07 Acetaminophen < 15.0 ug/mL (10.0-30.0) 06/09/16 21:17 Ur Barbiturates Screen Presumptive negative 06/09/16 21:07 Ur Phencyclidine Scrn Presumptive negative 06/09/16 21:07 Ur Amphetamines Screen Presumptive negative 06/09/16 21:07 U Benzodiazepines Scrn Presumptive positive 06/09/16 21:07 Urine Cocaine Screen Presumptive positive 06/09/16 21:07 U Marijuana (THC) Screen Presumptive negative 06/09/16 21:07 Drugs of Abuse Note Disclamer 06/09/16 21:07 Plasma/Serum Alcohol < 0.01 gm% (0-0.07) 06/09/16 21:15 Blood Type O POSITIVE 06/09/16 21:18 Antibody Screen Negative 06/09/16 21:18
[2016-06-14] MEDS: NOVOLOG SUB-Q SCH (08:30)
[2016-06-14] MEDS ORDERED: PROVENTIL IH PRN (09:00)
[2016-06-14 09:09] LABS: Anion Gap 18 mmol/L; Blood Urea Nitrogen 40 mg/dL (7-17); Calcium 8.9 mg/dL (8.4-10.2); Carbon Dioxide 22 mmol/L (22-30); Chloride 102.3 mmol/L (98-107); Glucose 261 mg/dL (65-100); Potassium 4.2 mmol/L (3.6-5.0); Sodium 138 mmol/L (137-145)
--- NOTE | 2016-06-14 09:31 | Discharge Summary ---
Providers - Providers Date of Admission: 06/09/16 22:49 Date of discharge: 06/14/16 Attending physician: JEANNETTE FERREIRA MD 06/09/16 23:57 Speech Therapy Evaluation and Treat [CONS] Routine Reason For Exam: intubated 06/10/16 11:05 Consult to Dietitian/Nutrition [CONS] Routine Physician Instructions: Reason For Exam: Reason for Consult: Nutrition Recommendations Reason for Consult: Write/Manage Tube Feeding 06/10/16 11:19 Consult to PICC Line RN [CONS] Urgent Reason For Exam: mechanical vent with multi drugs that cant infuse Type Line:: PICC 06/10/16 19:30 Consult to Wound/ET Nurse [CONS] Stat Reason For Exam: wound eval- pt. has blister at postop site,not new 06/11/16 15:22 Consult to Physician [CONS] Urgent Consulting Provider: GIANNI TINOCO Reason For Exam: hyperkalemia Place consult to:: office Notified:: yes Phone number called:: [phone] Was contact made?: Yes Time called:: 15:24 06/12/16 09:51 Consult to Wound/ET Nurse [CONS] Routine Reason For Exam: wound eval right knee Primary care physician: MACHINE [employer] Hospitalization Reason for admission: ams Condition: Stable Hospital course: 66-year-old woman with a history of hypertension, diabetes well known to our facility unfortunately due to recurrent admissions, substance abuse, noncompliance was brought to the emergency room per the emergency room physician patient was found unresponsive. Patient was intubated in the emergency room, her CAT scan of the head is been negative, urine toxicology is positive for cocaine and benzodiazepine. She has subsequently been extubated and is doing well but unfortunately is unable to tell me why she is in the hospital. Patient has clearly not understanding of her medical condition. She refuses to follow with primary care physicians and bulges and substance abuse. She states that she was checked by someone into dual cocaine this time. She promises to clean up her act. I discussed the risk of noncompliance extensively with this patient. She is much improved this morning. And is clinically stable for discharge her renal function has also improved. Our educators for diabetes management. She promises to follow with her PCP. Blood cultures remain negative. She was discharged on by mouth antibiotics Discharge diagnosis 1. Acute hypoxemic respiratory failure. 2. Sepsis. 3. Acute bronchitis. 4. Acute asthma exacerbation. 5. Hypertensive urgency. 6. Toxic metabolic encephalopathy. 7. Hyperkalemia. 8. Metabolic acidosis 9. Diabetes mellitus type II uncontrolled 10. Bilateral pneumonia possible aspiration pneumonia Disposition: DISCHARGED TO HOME OR SELFCARE Time spent for discharge: 35 mins Core Measure Documentation - Palliative Care Palliative Care/ Comfort Measures: Not Applicable - Core Measures Any of the following diagnoses?: none - VTE Discharge Requirements Deep Vein Thrombosis/Pulmonary Embolism Present on Admission: No Exam - Physical Exam Narrative exam: VITAL SIGNS: Reviewed. GENERAL: The patient appeared well nourished and normally developed. Vital signs as documented. HEAD: No signs of head trauma. EYES: Pupils are equal. Extraocular motions intact. EARS: Hearing grossly intact. MOUTH: Oropharynx is normal. NECK: No adenopathy, no JVD. CHEST: Chest with clear breath sounds bilaterally. No wheezes, rales, or rhonchi. CARDIAC: Regular rate and rhythm. S1 and S2, without murmurs, gallops, or rubs. VASCULAR: No Edema. Peripheral pulses normal and equal in all extremities. ABDOMEN: Soft, without detectable tenderness. No sign of distention. No rebound or guarding, and no masses palpated. Bowel Sounds normal. MUSCULOSKELETAL: Good range of motion of all major joints. Extremities without clubbing, cyanosis or edema. NEUROLOGIC EXAM: Alert and oriented x 3. No focal sensory or strength deficits. Speech normal. Follows commands. PSYCHIATRIC: Mood normal. SKIN: No rash or lesions. - Constitutional Vitals: Temp Pulse Resp BP Pulse Ox 99.8 F H 97 H 14 174/83 95 06/14/16 07:24 06/14/16 07:24 06/14/16 07:24 06/14/16 07:24 06/14/16 07:27 Plan Activity: advance as tolerated, fall precautions Diet: diabetic Follow up with: EFRA ORNELAS MD [Primary Care Provider] - 7 Days DESEAN HAILE MD [Staff Physician] - 7 Days Prescriptions: Levofloxacin [Levaquin TAB] 750 mg PO Q24HR #5 tablet
[2016-06-14] MEDS ORDERED: LEVEMIR SUB-Q SCH ×2 (10:00)
[2016-06-14] MEDS: LEVAQUIN PO SCH (10:33)
[2016-06-14] MEDS: LOVENOX SUB-Q SCH (10:34)
--- NOTE | 2016-06-14 11:07 | Progress Note ---
Assessment and Plan - Patient Problems (1) Altered mental status Current Visit: Yes Status: Acute Qualifiers: Altered mental status type: A Coma depth: C Coma timing: C (2) Hyperkalemia Current Visit: Yes Status: Acute (3) Acute hypoxemic respiratory failure Current Visit: No Status: Acute (4) Acute renal failure Current Visit: No Status: Acute Qualifiers: Acute renal failure type: A (5) Congestive heart failure Current Visit: No Status: Acute Qualifiers: Congestive heart failure type: C Congestive heart failure chronicity: C (6) Discharge planning issues Current Visit: Yes Status: Acute Subjective Date of service: 06/14/16 Principal diagnosis: Acute Hypoxemic Respiratory failure Interval history: Seen and examined at bedside; 24 hour events reviewed; nursing and respiratory care staff consulted; no adverse overnight events reported to me; Objective Vital Signs - 12hr 06/14/16 06/14/16 06/14/16 00:15 06:30 07:24 Temperature 98.5 F 99.8 F H Pulse Rate 103 H Pulse Rate [ 100 H 97 H From Monitor] Respiratory 20 14 Rate Blood Pressure 142/76 174/83 [Right Arm] O2 Sat by Pulse 99 Oximetry 06/14/16 07:27 Temperature Pulse Rate Pulse Rate [ From Monitor] Respiratory Rate Blood Pressure [Right Arm] O2 Sat by Pulse 95 Oximetry Constitutional: no acute distress, alert Eyes: non-icteric ENT: oropharynx moist Neck: supple, no lymphadenopathy Effort: normal Ascultation: Bilateral: diminished breath sounds, rales (scant in bases) Cardiovascular: regular rate and rhythm Gastrointestinal: normoactive bowel sounds, soft, non-tender, non-distended Integumentary: normal Extremities: no cyanosis, no edema, pulses normal, no ischemia or petechiae Neurologic: normal mental status, non-focal exam, pupils equal and round, motor strength normal and Psychiatric: mood appropriate, affect normal CBC and BMP: 06/12/16 05:19 06/14/16 09:52 ABG, PT/INR, D-dimer: ABG POC ABG pH 7.432 (7.35-7.45) 06/12/16 10:53 POC ABG pCO2 39.0 (35-45) 06/12/16 10:53 POC ABG pO2 113 (80-105) H 06/12/16 10:53 POC ABG HCO3 26.0 06/12/16 10:53 POC ABG Total CO2 27 06/12/16 10:53 POC ABG O2 Sat 99 06/12/16 10:53 PT/INR, D-dimer PT 12.8 Sec. (12.2-14.9) 06/09/16 21:15 INR 0.97 (0.87-1.13) 06/09/16 21:15 Abnormal lab findings: Abnormal Labs 06/09/16 06/10/16 06/10/16 23:02 03:18 03:18 WBC Hgb MCH 26 L RDW 18.2 H Lymph % (Auto) 8.8 L Lymph # 0.6 L Seg Neutrophils % 86.6 H Seg Neuts % (Manual) Lymphocytes % (Manual) Seg Neutrophils # Man Lymphocytes # (Manual) POC ABG pH POC ABG pCO2 POC ABG pO2 Sodium Potassium Chloride 109.3 H Carbon Dioxide 17 L BUN 35 H Creatinine Glucose 245 H POC Glucose Lactic Acid Calcium Total Creatine Kinase 492 H CK-MB (CK-2) 20.4 H CK-MB (CK-2) Rel Index 4.1 H 06/10/16 06/10/16 06/10/16 03:18 04:03 15:36 WBC Hgb MCH RDW Lymph % (Auto) Lymph # Seg Neutrophils % Seg Neuts % (Manual) Lymphocytes % (Manual) Seg Neutrophils # Man Lymphocytes # (Manual) POC ABG pH POC ABG pCO2 POC ABG pO2 59 L Sodium Potassium Chloride Carbon Dioxide BUN Creatinine Glucose POC Glucose 301 H Lactic Acid Calcium Total Creatine Kinase 374 H CK-MB (CK-2) 18.8 H CK-MB (CK-2) Rel Index 5.0 H 06/10/16 06/10/16 06/10/16 16:02 20:24 22:20 WBC Hgb MCH RDW Lymph % (Auto) Lymph # Seg Neutrophils % Seg Neuts % (Manual) Lymphocytes % (Manual) Seg Neutrophils # Man Lymphocytes # (Manual) POC ABG pH POC ABG pCO2 POC ABG pO2 165 H Sodium Potassium Chloride Carbon Dioxide BUN Creatinine Glucose POC Glucose 128 H Lactic Acid 2.6 H* Calcium Total Creatine Kinase CK-MB (CK-2) CK-MB (CK-2) Rel Index 06/11/16 06/11/16 06/11/16 04:21 04:45 04:45 WBC 11.4 H Hgb 9.6 L MCH 26 L RDW 18.6 H Lymph % (Auto) Lymph # Seg Neutrophils % Seg Neuts % (Manual) 88.0 H Lymphocytes % (Manual) 7.0 L Seg Neutrophils # Man 10.0 H Lymphocytes # (Manual) 0.8 L POC ABG pH POC ABG pCO2 45.4 H POC ABG pO2 Sodium Potassium 6.2 H* D Chloride 108.9 H Carbon Dioxide 20 L BUN 20 H Creatinine 0.6 L Glucose 268 H POC Glucose Lactic Acid Calcium Total Creatine Kinase CK-MB (CK-2) CK-MB (CK-2) Rel Index 06/11/16 06/11/16 06/11/16 08:20 11:44 12:39 WBC Hgb MCH RDW Lymph % (Auto) Lymph # Seg Neutrophils % Seg Neuts % (Manual) Lymphocytes % (Manual) Seg Neutrophils # Man Lymphocytes # (Manual) POC ABG pH POC ABG pCO2 POC ABG pO2 Sodium Potassium 7.1 H* Chloride Carbon Dioxide 19 L BUN 21 H Creatinine Glucose 259 H POC Glucose 303 H 311 H Lactic Acid Calcium Total Creatine Kinase CK-MB (CK-2) CK-MB (CK-2) Rel Index 06/11/16 06/11/16 06/11/16 13:48 16:24 18:34 WBC Hgb MCH RDW Lymph % (Auto) Lymph # Seg Neutrophils % Seg Neuts % (Manual) Lymphocytes % (Manual) Seg Neutrophils # Man Lymphocytes # (Manual) POC ABG pH 7.483 H POC ABG pCO2 31.6 L POC ABG pO2 124 H Sodium Potassium 5.4 H D Chloride Carbon Dioxide BUN 22 H Creatinine Glucose 160 H POC Glucose 169 H Lactic Acid Calcium 10.3 H Total Creatine Kinase CK-MB (CK-2) CK-MB (CK-2) Rel Index 06/11/16 06/12/16 06/12/16 21:35 05:19 05:19 WBC 11.3 H Hgb MCH 26 L RDW 18.5 H Lymph % (Auto) Lymph # Seg Neutrophils % Seg Neuts % (Manual) 86.0 H Lymphocytes % (Manual) 6.0 L Seg Neutrophils # Man 9.7 H Lymphocytes # (Manual) 0.7 L POC ABG pH POC ABG pCO2 POC ABG pO2 Sodium Potassium Chloride Carbon Dioxide 21 L BUN 26 H Creatinine Glucose 325 H POC Glucose 244 H Lactic Acid Calcium Total Creatine Kinase CK-MB (CK-2) CK-MB (CK-2) Rel Index 06/12/16 06/12/16 06/12/16 06:46 08:22 10:53 WBC Hgb MCH RDW Lymph % (Auto) Lymph # Seg Neutrophils % Seg Neuts % (Manual) Lymphocytes % (Manual) Seg Neutrophils # Man Lymphocytes # (Manual) POC ABG pH POC ABG pCO2 POC ABG pO2 113 H Sodium Potassium Chloride Carbon Dioxide BUN Creatinine Glucose POC Glucose 407 H 327 H Lactic Acid Calcium Total Creatine Kinase CK-MB (CK-2) CK-MB (CK-2) Rel Index 06/12/16 06/12/16 06/12/16 10:58 16:48 21:34 WBC Hgb MCH RDW Lymph % (Auto) Lymph # Seg Neutrophils % Seg Neuts % (Manual) Lymphocytes % (Manual) Seg Neutrophils # Man Lymphocytes # (Manual) POC ABG pH POC ABG pCO2 POC ABG pO2 Sodium Potassium Chloride Carbon Dioxide BUN Creatinine Glucose POC Glucose 276 H 156 H 184 H Lactic Acid Calcium Total Creatine Kinase CK-MB (CK-2) CK-MB (CK-2) Rel Index 06/13/16 06/13/16 06/13/16 07:39 10:10 11:31 WBC Hgb MCH RDW Lymph % (Auto) Lymph # Seg Neutrophils % Seg Neuts % (Manual) Lymphocytes % (Manual) Seg Neutrophils # Man Lymphocytes # (Manual) POC ABG pH POC ABG pCO2 POC ABG pO2 Sodium 136 L Potassium 5.5 H Chloride Carbon Dioxide 20 L BUN 37 H Creatinine Glucose 310 H POC Glucose 289 H 278 H Lactic Acid Calcium Total Creatine Kinase CK-MB (CK-2) CK-MB (CK-2) Rel Index 06/13/16 06/14/16 06/14/16 21:52 05:35 08:46 WBC Hgb MCH RDW Lymph % (Auto) Lymph # Seg Neutrophils % Seg Neuts % (Manual) Lymphocytes % (Manual) Seg Neutrophils # Man Lymphocytes # (Manual) POC ABG pH POC ABG pCO2 POC ABG pO2 Sodium Potassium Chloride Carbon Dioxide BUN 40 H Creatinine Glucose 261 H POC Glucose 355 H 304 H Lactic Acid Calcium Total Creatine Kinase CK-MB (CK-2) CK-MB (CK-2) Rel Index
--- NOTE | 2016-06-14 12:02 | Progress Note ---
Assessment and Plan Potassium normal peaked at 7.1 and then came down to no HD needed Respiratory failure currently extubated History of cocaine and benzodiazepine use has been counseled and educated already Hypertension and tachycardia already improving well She appears to be stable from renal standpoin Follwo up in office next week , low k diet Subjective Principal diagnosis: Acute Hypoxemic Respiratory failure Objective - Vital Signs Vital signs: Vital Signs - 12hr 06/14/16 06/14/16 06/14/16 00:15 06:30 07:24 Temperature 98.5 F 99.8 F H Pulse Rate 103 H Pulse Rate [ 100 H 97 H From Monitor] Respiratory 20 14 Rate Blood Pressure 142/76 174/83 [Right Arm] O2 Sat by Pulse 99 Oximetry 06/14/16 07:27 Temperature Pulse Rate Pulse Rate [ From Monitor] Respiratory Rate Blood Pressure [Right Arm] O2 Sat by Pulse 95 Oximetry - Lab 06/12/16 05:19 06/14/16 09:52 Most recent lab results Calcium 8.9 mg/dL (8.4-10.2) 06/14/16 08:46
== END 2016-06-14 13:50 | disposition home or self-care (01) | DRG 871 ==
LOC: ED 20:12 → CC1 22:49 → 3A 06-13 18:39
PROVIDERS: ADMIT Internal Medicine; ATTEND Internal Medicine
PROC: 4A033R1 Measurement of Arterial Saturation, Peripheral, Percutaneous Approach (ICD-10-PCS; 2016-06-09)
PROC: 4A033R1 Measurement of Arterial Saturation, Peripheral, Percutaneous Approach (ICD-10-PCS; 2016-06-10)
PROC: 4A033R1 Measurement of Arterial Saturation, Peripheral, Percutaneous Approach (ICD-10-PCS; 2016-06-11)
PROC: 4A033R1 Measurement of Arterial Saturation, Peripheral, Percutaneous Approach (ICD-10-PCS; 2016-06-12)
PROC: 5A1945Z Respiratory Ventilation, 24-96 Consecutive Hours (ICD-10-PCS; principal; 2016-06-14)
PROC: 0BH17EZ Insertion of Endotracheal Airway into Trachea, Via Natural or Artificial Opening (ICD-10-PCS; 2016-06-14)
DX: A41.9 Sepsis, unspecified organism (principal); J96.01 Acute respiratory failure with hypoxia; G92 Toxic encephalopathy; J69.0 Pneumonitis due to inhalation of food and vomit; I50.9 Heart failure, unspecified; M19.90 Unspecified osteoarthritis, unspecified site; J44.9 Chronic obstructive pulmonary disease, unspecified; E87.5 Hyperkalemia; J20.9 Acute bronchitis, unspecified; N18.9 Chronic kidney disease, unspecified; I13.0 Hypertensive heart and chronic kidney disease with heart failure and stage 1 through stage 4 chronic kidney disease, or unspecified chronic kidney disease; E11.22 Type 2 diabetes mellitus with diabetic chronic kidney disease; N17.9 Acute kidney failure, unspecified; E87.2 Acidosis; D64.9 Anemia, unspecified; M62.82 Rhabdomyolysis; Z83.3 Family history of diabetes mellitus; Z79.4 Long term (current) use of insulin; Z82.49 Family history of ischemic heart disease and other diseases of the circulatory system
CPT/HCPCS: 36415; 36600; 70450; 71010; 74000; 80048; 80053; 80307; 80320; 81001; 82140; 82550; 82553; 82803; 82962; 84132; 84443; 84484; 85007; 85025; 85610; 85730; 86140; 86850; 86900; 86901; 87040; 87070; 87086; 87205; 90670; 93005; 93010; 94002; 94003; 94640; 94760; 96374; G0480; J1650; J1815; J1818; J1940; J1956; J2704; J2920; J3010

== ENCOUNTER 2016-09-02 08:17 | Emergency (ER) | payer MEDICARE ==
[2016-09-02 08:51] VITALS: BP 148/67
[2016-09-02] MEDS ORDERED: TRIPLE ANTIBIOTIC TP ONE (10:17)
[2016-09-02] MEDS ORDERED: XYLOCAINE 1% 20 mL INFILTRATI NR (10:30)
[2016-09-02] MEDS ORDERED: FLEXERIL PO ONE (11:28)
[2016-09-02] MEDS ORDERED: TORADOL IM ONE (11:28)
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
== END 2016-09-02 12:04 | disposition home or self-care (01) ==
LOC: ED 08:17
DX: S01.81XA Laceration without foreign body of other part of head, initial encounter (principal); I10 Essential (primary) hypertension; E11.9 Type 2 diabetes mellitus without complications; M19.90 Unspecified osteoarthritis, unspecified site; J45.909 Unspecified asthma, uncomplicated; J44.9 Chronic obstructive pulmonary disease, unspecified; I50.9 Heart failure, unspecified; Z79.4 Long term (current) use of insulin; W10.9XXA Fall (on) (from) unspecified stairs and steps, initial encounter; Y93.9 Activity, unspecified; Y99.9 Unspecified external cause status; Y92.89 Other specified places as the place of occurrence of the external cause
CPT/HCPCS: 12011; 96372; 99283; J1885; A6250

== ENCOUNTER 2017-07-02 05:33 | Emergency (ER) | payer MEDICARE, MEDICAID ==
[2017-07-02 11:21] LABS: Basophils # (Auto) 0.1 K/mm3 (0.0-0.1); Basophils % (Auto) 1.1 % (0.0-1.8); Eosinophils # (Auto) 0.1 K/mm3 (0.0-0.4); Eosinophils % (Auto) 1.9 % (0.0-4.3); Hematocrit 30.2 % (30.3-42.9); Hemoglobin 9.9 gm/dl (10.1-14.3); Lymphocytes # (Auto) 2.2 K/mm3 (1.2-5.4); Lymphocytes % (Auto) 32.8 % (13.4-35.0); Mean Corpuscular HGB Conc 33 % (30-34); Mean Corpuscular Hemoglobin 28 pg (28-32); Mean Corpuscular Volume 86 fl (79-97); Monocytes # (Auto) 0.4 K/mm3 (0.0-0.8); Monocytes % (Auto) 6.5 % (0.0-7.3); Platelet Count 185 K/mm3 (140-440); Red Blood Count 3.51 M/mm3 (3.65-5.03); Red Cell Distribution Width 16.1 % (13.2-15.2)
[2017-07-02 11:39] LABS: Alanine Aminotransferase 35 units/L (7-56); Albumin 2.7 g/dL (3.9-5); BUN/Creatinine Ratio 33; Blood Urea Nitrogen 20 mg/dL (7-17); Calcium 8.2 mg/dL (8.4-10.2); Hemolysis Index 17
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
[2017-07-02 12:56] LABS: Bilirubin,Urine NEG (Negative); Blood,Urine NEG (Negative); Color,Urine Yellow (Yellow); Urobilinogen,Urine < 2.0 mg/dL (<2.0)
[2017-07-02] MEDS ORDERED: NORCO 5/325 PO ONE (13:17)
[2017-07-02 18:21] VITALS: BP 154/84
== END 2017-07-02 18:00 | disposition home or self-care (01) ==
LOC: ED 05:33
DX: S30.0XXA Contusion of lower back and pelvis, initial encounter (principal); E11.9 Type 2 diabetes mellitus without complications; I50.9 Heart failure, unspecified; J44.9 Chronic obstructive pulmonary disease, unspecified; S09.90XA Unspecified injury of head, initial encounter; X58.XXXA Exposure to other specified factors, initial encounter; Y93.89 Activity, other specified; Y92.89 Other specified places as the place of occurrence of the external cause; Y99.8 Other external cause status
CPT/HCPCS: 36415; 70450; 72125; 80053; 81001; 85025

== ENCOUNTER 2017-11-09 01:24 | Emergency (ER) | payer MEDICARE ==
--- NOTE | 2017-11-09 04:34 | Cat Scan Report ---
FINAL REPORT PROCEDURE: CT HEAD WO CONTRAST TECHNIQUE: Computerized tomography of the head was performed without contrast material. HISTORY: FALL WITH POSSIBLE HEAD INJURY AND NECK INJURY COMPARISON: No prior studies are available for comparison. FINDINGS: Skull and scalp: Normal. Paranasal sinuses: Normal. Ventricles and subarachnoid spaces: Normal. Cerebrum: No evidence of hemorrhage, acute infarction or mass . Cerebellum and brainstem: No evidence of hemorrhage, acute infarction or mass. Vasculature: Normal. Comments: None. IMPRESSION: Normal Examination
--- NOTE | 2017-11-09 04:38 | Cat Scan Report ---
FINAL REPORT PROCEDURE: CT C-SPINE WO CONTRAST TECHNIQUE: Computerized tomography of the cervical spine was performed from the skull base to T1 without contrast material. HISTORY: FALL WITH POSSIBLE HEAD AND NECK INJURY COMPARISON: No prior studies are available for comparison. FINDINGS: There are multilevel degenerative disc and facet changes. There are no fractures or malalignments. There is no facet dislocation. The prevertebral soft tissues are normal in thickness. IMPRESSION: No significant abnormality.
[2017-11-09 04:53] LABS: BUN/Creatinine Ratio 28; Blood Urea Nitrogen 25 mg/dL (7-17); Hemolysis Index 3
[2017-11-09 04:54] LABS: Basophils % (Auto) 0.5 % (0.0-1.8); Eosinophils # (Auto) 0.1 K/mm3 (0.0-0.4); Eosinophils % (Auto) 1.2 % (0.0-4.3); Hematocrit 32.6 % (30.3-42.9); Hemoglobin 10.3 gm/dl (10.1-14.3); Lymphocytes # (Auto) 2.2 K/mm3 (1.2-5.4); Lymphocytes % (Auto) 30.1 % (13.4-35.0); Mean Corpuscular HGB Conc 32 % (30-34); Mean Corpuscular Hemoglobin 27 pg (28-32); Mean Corpuscular Volume 85 fl (79-97); Monocytes # (Auto) 0.6 K/mm3 (0.0-0.8); Monocytes % (Auto) 7.9 % (0.0-7.3); Platelet Count 184 K/mm3 (140-440); Red Blood Count 3.85 M/mm3 (3.65-5.03); Red Cell Distribution Width 16.5 % (13.2-15.2)
[2017-11-09] MEDS ORDERED: TORADOL IM ONE (07:00)
[2017-11-09] MEDS ORDERED: BOOSTRIX IM ONE (07:02)
[2017-11-09] MEDS ORDERED: NACL 0.9% 1000 ML 1,000 ML IV ONE (07:02)
[2017-11-09] MEDS ORDERED: XYLOCAINE 1% 20 mL INFILTRATI ONE (07:02)
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
--- NOTE | 2017-11-09 07:49 | Cat Scan Report ---
FINAL REPORT PROCEDURE: CT L-SPINE WO CONTRAST TECHNIQUE: Computerized axial tomography of the lumbar spine was performed from T12 to the sacrum without contrast material. HISTORY: FELL, BACK PAIN COMPARISON: No prior studies are available for comparison. FINDINGS: L1-2: No significant abnormality. L2-3: No significant abnormality. L3-4: No significant abnormality. L4-5: There is grade 1 anterior spondylolisthesis due to facet arthropathy. There is diffuse disc bulging. There is facet arthropathy and thickening of the ligament flavum causing spinal stenosis. There is bilateral foraminal stenosis.. L5-S1: No significant abnormality. Other: There are no fractures. Sacrum and sacroiliac joints are intact the paraspinal soft tissues are unremarkable.. IMPRESSION: There are no compression fractures. There is grade 1 anterior spondylolisthesis at L4 over L5 due to facet arthropathy causing spinal and foraminal stenosis.
[2017-11-09 08:00] VITALS: BP 187/88
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
[2017-11-09] MEDS ORDERED: NORVASC PO ONE (08:56)
[2017-11-09] MEDS ORDERED: NORCO 5/325 PO ONE (08:57)
[2017-11-09] MEDS ORDERED: ZOFRAN ODT PO ONE (08:57)
== END 2017-11-09 09:53 | disposition home or self-care (01) ==
LOC: ED 01:24
DX: S01.81XA Laceration without foreign body of other part of head, initial encounter (principal); E11.9 Type 2 diabetes mellitus without complications; I11.0 Hypertensive heart disease with heart failure; M19.90 Unspecified osteoarthritis, unspecified site; J44.9 Chronic obstructive pulmonary disease, unspecified; Z90.711 Acquired absence of uterus with remaining cervical stump; W01.118A Fall on same level from slipping, tripping and stumbling with subsequent striking against other sharp object, initial encounter; Y93.89 Activity, other specified; Y92.89 Other specified places as the place of occurrence of the external cause; Y99.8 Other external cause status
CPT/HCPCS: 12013; 36415; 70450; 70486; 72125; 72131; 80048; 85025; 90471; 90715; 93005; 93010; 96372; 99284; J1885; J7030; Q0162